=== PATIENT | female | born 2000 | race Caucasian/White ===

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

== ENCOUNTER 2020-04-07 09:25 | Inpatient (IN) | payer BC, OTHER ==
[2020-04-07 09:38] LABS: Glucose,Whole Blood 426 mg/dL (75-99)
[2020-04-07] MEDS ORDERED: SODIUM CHLORIDE 0.9% 1,000 ML IV STA (09:47)
--- NOTE | 2020-04-07 09:51 | ED ---
Chest Pain HPI - General Chief Complaint: Chest Pain Stated Complaint: chest pain Source: patient Mode of arrival: ambulatory Limitations: no limitations - History of Present Illness Initial Comments: 20-year-old female past medical history of type 1 diabetes who presents emergency Department with reported chest pain and shortness of breath. Patient states that this morning around 3 AM she began having left-sided pleuritic chest pain. States that it's been constant with associated short of breath. She denies fevers, cough, sick contacts with similar symptoms. The patient went into [employer] [employer] They attempted an Accu-Chek which was read as high. Because of this the patient was transferred to the emergency department for further evaluation. She does admit to several episodes of DKA in the past. Reports that she has been taking her insulin as directed without any missed doses. She admits to feeling fatigued recently however no other complaints. Denies any anastasia nges in bowel or bladder habits. No fevers or chills. Reports that her father at age of 30 from a heart attack. His personal history of cardiac disease. No other alleviating, precipitating or modifying factors - Related Data Home Medications Medication Instructions Recorded Confirmed Insulin Aspart [NovoLOG Flexpen] See Protocol SQ AC-TID 05/10/18 04/07/20 Ibuprofen [Motrin Ib] 400 mg PO Q8H PRN 04/07/20 04/07/20 Insulin Degludec [Tresiba 42 units SQ Q48H 04/07/20 04/07/20 Flextouch U-100] Allergies Allergy/AdvReac Type Severity Reaction Status Date / Time latex Allergy Rash/Hives Verified 04/07/20 10:38 Review of Systems ROS Statement: Those systems with pertinent positive or pertinent negative responses have been documented in the HPI. ROS Other: All systems not noted in ROS Statement are negative. EKG Findings - EKG Comments: EKG Findings:: EKG demonstrates normal sinus rhythm with a ventricular rate of 96. TN interval 132. QRS 94. QTC of 464. No acute ST segment elevations. J- point elevation in the lateral leads Past Medical History Past Medical History: Diabetes Mellitus Additional Past Medical History / Comment(s): Previous history of DKA, diabetes mellitus type 1 History of Any Multi-Drug Resistant Organisms: None Reported Past Surgical History: No Surgical Hx Reported Past Anesthesia/Blood Transfusion Reactions: No Reported Reaction Past Psychological History: Anxiety, Depression Smoking Status: Never smoker Past Alcohol Use History: Occasional Past Drug Use History: None Reported - Past Family History Father Family Medical History: Myocardial Infarction ([place]) Sister(s) Family Medical History: Thyroid Disorder Brother(s) Family Medical History: Asthma General Exam Limitations: no limitations Course Vital Signs 04/07/20 04/07/20 04/07/20 09:30 10:38 12:22 Temperature 97.8 F Pulse Rate 105 H 100 98 Respiratory 18 18 18 Rate Blood Pressure 126/78 130/89 130/89 O2 Sat by Pulse 99 100 100 Oximetry Chest Pain MDM - MDM On arrival patient was placed into room 8. A thorough history and physical exam was performed. Peripheral IV is established patient given a 2 L bolus of normal saline. Laboratory studies demonstrate a glucose of 426. Anion gap is 12, CO2 22, patient is positive for ketones emergency room. Urine shows 2+ ketones. I did discuss results with the patient. Did recommend overnight observation in order to clear the ketones which the patient did agree to. Discussed the case with Dr. hare who agreed to admit the patient. She was taken in stable condition Disposition Clinical Impression: Hyperglycemia, DKA (diabetic ketoacidoses) Disposition: ADMITTED IP TO THIS [facility] Condition: Stable Is patient prescribed a controlled substance at d/c from ED?: No Decision to Admit Reason: Admit from EC Decision Date: 04/07/20 Decision Time: 11:54
[2020-04-07 10:07] LABS: Basophils # (A) 0.1 k/uL (0-0.2); Basophils % (A) 1 %; Eosinophils # (A) 0.3 k/uL (0-0.7); Eosinophils % (A) 3 %; HCT 41.2 % (34.0-46.0); HGB 13.9 gm/dL (11.4-16.0); Lymphocytes # (A) 1.7 k/uL (1.0-4.8); Lymphocytes % (A) 17 %; MCH 31.7 pg (25.0-35.0); MCHC 33.8 g/dL (31.0-37.0); MCV 93.8 fL (80.0-100.0); Mean Platelet Volume 7.1; Monocytes # (A) 0.4 k/uL (0-1.0); Monocytes % (A) 3 %; Neutrophils # (A) 7.5 k/uL (1.3-7.7); Neutrophils % (A) 74 %; Platelet Count 426 k/uL (150-450); RBC 4.39 m/uL (3.80-5.40); RDW 12.4 % (11.5-15.5)
[2020-04-07 10:20] LABS: ALT 19 U/L (4-34); AST 28 U/L (14-36); African American GFR (CKD) >90 (>60 ml/min/1.73 sqM); Albumin 4.6 g/dL (3.5-5.0); Alkaline Phosphatase 139 U/L (38-126); Anion Gap 12 mmol/L; Blood Urea Nitrogen 13 mg/dL (7-17); Calcium 9.9 mg/dL (8.4-10.2); Carbon Dioxide 22 mmol/L (22-30); Chloride 99 mmol/L (98-107); Glucose 442 mg/dL (74-99); Magnesium 1.7 mg/dL (1.6-2.3); Non-African American GFR(CKD) >90 (>60 ml/min/1.73 sqM); Sodium 133 mmol/L (137-145); Total Bilirubin 1.4 mg/dL (0.2-1.3); Total Protein 8.2 g/dL (6.3-8.2)
[2020-04-07 10:36] LABS: D-Dimer 0.43 mg/L FEU (<0.60); INR 0.9 (<1.2); Partial Thromboplastin Time 22.6 sec (22.0-30.0); Prothrombin Time 9.5 sec (9.0-12.0)
--- NOTE | 2020-04-07 10:39 | XR ---
EXAMINATION TYPE: XR chest 2V DATE OF EXAM: 04/07/2020 COMPARISON: NONE TECHNIQUE: PA and lateral views submitted. HISTORY: Chest pain FINDINGS: The lungs are clear and there is no pneumothorax, pleural effusion, or focal pneumonia. Limited ins piration but no obvious overt failure. IMPRESSION: 1. No acute process.
[2020-04-07 10:47] LABS: Appearance,Urine Clear (Clear); Bilirubin,Urine Negative (Negative); Blood,Urine Negative (Negative); Color,Urine Light Yellow; Glucose,Urine (UA) 4+ (Negative); Leukocyte Esterase,Urine Negative (Negative); Nitrite,Urine Negative (Negative); PH, Urine 5.5 (5.0-8.0); Protein,Urine Negative (Negative); Specific Gravity,Urine 1.034 (1.001-1.035); Urobilinogen,Urine <2.0 mg/dL (<2.0)
[2020-04-07 10:54] LABS: Ketones,Urine 2+ (Negative)
[2020-04-07] MEDS ORDERED: NALOXONE 0.4 MG/ML 1 ML VIAL IV PRN (11:54)
[2020-04-07] MEDS ORDERED: INSULIN REGULAR 100 UNIT/ML VIAL IV ONE (11:58)
[2020-04-07] MEDS ORDERED: IBUPROFEN 400 MG TAB PO PRN (11:59)
[2020-04-07] MEDS: SODIUM CHLORIDE 0.9% 1,000 ML IV SCH ×2 (12:12→22:42)
[2020-04-07 12:13] LABS: Glucose,Whole Blood 384 mg/dL (75-99)
[2020-04-07 12:48] LABS: Glucose,Whole Blood 273 mg/dL (75-99)
[2020-04-07] MEDS: INSULIN ASPART (NovoLOG) 100 UNIT/ML VIAL SQ SCH ×3 (13:15→21:48)
[2020-04-07 16:36] LABS: Glucose,Whole Blood 437 mg/dL (75-99)
[2020-04-07 20:14] LABS: Glucose,Whole Blood 341 mg/dL (75-99)
--- NOTE | 2020-04-07 21:58 | HP ---
HISTORY AND PHYSICAL 20-year-old white female, type 1 diabetes mellitus, came in with chest pain, shortness of breath. She was having pleuritic chest pain associated shortness of breath. She was exposed to Covid but she went to [facility] and they told she was Covid negative. She was found to have positive acetone and possible elevated blood sugar with DKA secondary to possible viral syndrome in her abdomen. MEDICATIONS: Home medicines: NovoLog, FlexPen, Tarceva 42 units daily, Motrin. ALLERGIES: LATEX. REVIEW OF SYMPTOMS: 14-point review of systems otherwise negative. EKG sinus rhythm. PAST MEDICAL HISTORY: Type 1 diabetes mellitus, anxiety, depression. SOCIAL HISTORY: Never smoker. Occasional alcohol. No drugs. FAMILY HISTORY: Father myocardial infarction. Sister with thyroid disorder. Brother asthma. PHYSICAL EXAMINATION: Vital signs temp 97.5, pulse rate 98-105, respiratory rate 16 to 18, blood pressure 120s to 130s over 70s to 80s. ASSESSMENT: 1. Early diabetic ketoacidosis. 2. Dehydration. She will be admitted placed on DKA protocol. IV fluids will be given. She feels much better tonight. Possibly discharge home tomorrow if she is stabilized. Monitor electrolytes and potassium levels. MMODL / IJN: [id number] /
[2020-04-07] MEDS ORDERED: INSULIN DETEMIR (LEVEMIR) 100 UNIT/ML SYR SQ SCH (22:00)
[2020-04-08 00:39] LABS: Glucose,Whole Blood 239 mg/dL (75-99)
[2020-04-08 01:24] VITALS: RESP 16; TEMP 98.5
[2020-04-08 06:05] LABS: Glucose,Whole Blood 214 mg/dL (75-99)
[2020-04-08] MEDS: INSULIN ASPART (NovoLOG) 100 UNIT/ML VIAL SQ SCH ×3 (06:49→17:37)
[2020-04-08 08:10] LABS: ALT 14 U/L (4-34); AST 15 U/L (14-36); African American GFR (CKD) >90 (>60 ml/min/1.73 sqM); Albumin 3.3 g/dL (3.5-5.0); Alkaline Phosphatase 85 U/L (38-126); Anion Gap 4 mmol/L; Blood Urea Nitrogen 16 mg/dL (7-17); Carbon Dioxide 26 mmol/L (22-30); Chloride 106 mmol/L (98-107); Glucose 162 mg/dL (74-99); Non-African American GFR(CKD) >90 (>60 ml/min/1.73 sqM); Sodium 136 mmol/L (137-145); Total Bilirubin 0.7 mg/dL (0.2-1.3); Total Protein 6.3 g/dL (6.3-8.2)
[2020-04-08 08:17] LABS: Basophils # (A) 0.1 k/uL (0-0.2); Basophils % (A) 1 %; Eosinophils # (A) 0.4 k/uL (0-0.7); Eosinophils % (A) 6 %; HGB 12.6 gm/dL (11.4-16.0); Lymphocytes # (A) 2.3 k/uL (1.0-4.8); Lymphocytes % (A) 35 %; MCH 31.4 pg (25.0-35.0); MCV 92.6 fL (80.0-100.0); Monocytes # (A) 0.3 k/uL (0-1.0); Monocytes % (A) 4 %; Neutrophils # (A) 3.6 k/uL (1.3-7.7); Neutrophils % (A) 53 %; Platelet Count 334 k/uL (150-450); RDW 12.7 % (11.5-15.5); WBC 6.7 k/uL (4.0-11.0)
[2020-04-08] MEDS: SODIUM CHLORIDE 0.9% 1,000 ML IV SCH ×2 (09:20→17:37)
[2020-04-08 11:36] LABS: Glucose,Whole Blood 171 mg/dL (75-99)
[2020-04-08 16:51] LABS: Glucose,Whole Blood 283 mg/dL (75-99)
[2020-04-08 18:15] VITALS: BP 127/82; PULSE 84
[2020-04-08 18:37] LABS: Hemoglobin A1C 10.4 % (4.0-6.0)
[2020-04-08] MEDS ORDERED: INSULIN DETEMIR (LEVEMIR) 100 UNIT/ML SYR SQ SCH (21:00)
== END 2020-04-08 18:46 | disposition home or self-care (01) | DRG 639 ==
LOC: EC 09:25 → 3SCARD 11:54
PROVIDERS: ADMIT Family Medicine; ATTEND Family Medicine
DX: E10.10 Type 1 diabetes mellitus with ketoacidosis without coma (principal); E86.0 Dehydration; Z20.828 Contact with and (suspected) exposure to other viral communicable diseases; Z79.4 Long term (current) use of insulin; F32.9 Major depressive disorder, single episode, unspecified; F41.9 Anxiety disorder, unspecified; Z91.040 Latex allergy status; Z82.49 Family history of ischemic heart disease and other diseases of the circulatory system; Z82.5 Family history of asthma and other chronic lower respiratory diseases; Z83.49 Family history of other endocrine, nutritional and metabolic diseases
CPT/HCPCS: 36415; 71046; 80053; 81003; 81025; 82009; 83036; 83605; 83735; 84484; 85025; 85379; 85610; 85730; 93005; 96360; 96361; 99285

== ENCOUNTER 2021-03-09 21:19 | Inpatient (IN) | payer BC, OTHER ==
[2021-03-09] MEDS ORDERED: diphenhydrAMINE 50 MG/ML 1 ML VIAL IVP STA (21:51)
[2021-03-09] MEDS ORDERED: HYDROmorphone 0.5 MG/0.5 ML SYRINGE IVP STA (21:51)
[2021-03-09] MEDS ORDERED: ONDANSETRON 4 MG/2 ML VIAL IVP STA (21:51)
[2021-03-09] MEDS ORDERED: SODIUM CHLORIDE 0.9% 2,000 ML IV STA (21:51)
--- NOTE | 2021-03-09 21:53 | ED ---
General Adult HPI - General Stated complaint: nausea Time Seen by Provider: 03/09/21 21:20 Source: patient, RN notes reviewed Mode of arrival: ambulatory Limitations: no limitations - History of Present Illness Initial comments: this is a 21-year-old female presents emergency Department chief complaint of nausea vomiting, hyperglycemia.patient was discharged from [facility] 3 days ago for DKA. She states she feels like she is in similar condition at this time. Patient states she noticed her heart rate is been quite elevated, blood sugars were uncontrolled. Patient has any fevers chills no chest pain. patient states she does not have a current primary care physician states that she just been buying her insulin. - Related Data Home Medications Medication Instructions Recorded Confirmed Insulin Degludec [Tresiba 40 units SQ Q48H 04/07/20 03/09/21 Flextouch U-100 Pen] Insulin Detemir (Levemir) [Levemir] See Protocol SQ DIRECTED 03/09/21 03/09/21 Allergies Allergy/AdvReac Type Severity Reaction Status Date / Time latex Allergy Rash/Hives Verified 03/09/21 22:08 Review of Systems ROS Statement: Those systems with pertinent positive or pertinent negative responses have been documented in the HPI. ROS Other: All systems not noted in ROS Statement are negative. Past Medical History Past Medical History: Diabetes Mellitus Additional Past Medical History / Comment(s): Previous history of DKA, diabetes mellitus type 1 History of Any Multi-Drug Resistant Organisms: None Reported Past Surgical History: No Surgical Hx Reported Past Anesthesia/Blood Transfusion Reactions: No Reported Reaction Past Psychological History: Anxiety, Depression Smoking Status: Never smoker Past Alcohol Use History: Occasional Past Drug Use History: None Reported - Past Family History Father Family Medical History: Myocardial Infarction (PR) Sister(s) Family Medical History: Thyroid Disorder Brother(s) Family Medical History: Asthma General Exam General appearance: alert, in no apparent distress Head exam: Present: atraumatic, normocephalic, normal inspection Eye exam: Present: normal appearance, PERRL, EOMI. Absent: scleral icterus, conjunctival injection, periorbital swelling ENT exam: Present: normal exam, mucous membranes moist Neck exam: Present: normal inspection, full ROM. Absent: tenderness, meningismus, lymphadenopathy Respiratory exam: Present: normal lung sounds bilaterally. Absent: respiratory distress, wheezes, rales, rhonchi, stridor Cardiovascular Exam: Present: normal rhythm, tachycardia, normal heart sounds. Absent: systolic murmur, diastolic murmur, rubs, gallop, clicks GI/Abdominal exam: Present: soft, tenderness, normal bowel sounds. Absent: distended, guarding, rebound, rigid Neurological exam: Present: alert, oriented X3 Skin exam: Present: warm, dry, intact, normal color. Absent: rash Course Vital Signs 03/09/21 03/10/21 21:59 00:25 Temperature 99.1 F Pulse Rate 148 H 112 H Respiratory 22 18 Rate Blood Pressure 121/77 119/66 O2 Sat by Pulse 100 99 Oximetry Medical Decision Making - Medical Decision Making CT shows evidence of acute pancreatitis. Patient's lab reveal lipase over 7700, amylase 616 patient had increase abdominal pain, nausea vomiting patient has metabolic acidosis lactic of 6.6. Patient will be admitted for pain management, fluid hydration - Lab Data Result diagrams: 03/09/21 22:00 03/09/21 22:00 Lab Results 03/09/21 03/09/21 03/09/21 Range/Units 22:00 22:00 22:00 WBC 10.1 (3.8-10.6) k/uL RBC 4.90 (3.80-5.40) m/uL Hgb 15.3 (11.4-16.0) gm/dL Hct 45.6 (34.0-46.0) % MCV 92.9 (80.0-100.0) fL MCH 31.2 (25.0-35.0) pg MCHC 33.6 (31.0-37.0) g/dL RDW 15.8 H (11.5-15.5) % Plt Count 824 H (150-450) k/uL MPV 7.0 Neutrophils % 75 % Lymphocytes % 18 % Monocytes % 5 % Eosinophils % 0 % Basophils % 1 % Neutrophils # 7.6 (1.3-7.7) k/uL Lymphocytes # 1.8 (1.0-4.8) k/uL Monocytes # 0.5 (0-1.0) k/uL Eosinophils # 0.0 (0-0.7) k/uL Basophils # 0.1 (0-0.2) k/uL VBG pH (7.31-7.41) VBG pCO2 (37-51) mmHg VBG HCO3 (24-28) mmol/L Sodium 141 (137-145) mmol/L Potassium 4.1 (3.5-5.1) mmol/L Chloride 98 (98-107) mmol/L Carbon Dioxide 13 L (22-30) mmol/L Anion Gap 30 mmol/L BUN 15 (7-17) mg/dL Creatinine 0.67 (0.52-1.04) mg/dL Est GFR (CKD-EPI)AfAm >90 (>60 ml/min/1.73 sqM) Est GFR (CKD-EPI)NonAf >90 (>60 ml/min/1.73 sqM) Glucose 109 H (74-99) mg/dL POC Glucose (mg/dL) (75-99) mg/dL POC Glu Clam Digger ID Lactic Ac Sepsis Rflx Plasma Lactic Acid Leroy 6.6 H* (0.7-2.0) mmol/L Calcium 11.3 H (8.4-10.2) mg/dL Magnesium 1.8 (1.6-2.3) mg/dL Total Bilirubin 0.5 (0.2-1.3) mg/dL AST 29 (14-36) U/L ALT 30 (4-34) U/L Alkaline Phosphatase 193 H (38-126) U/L Total Protein 9.2 H (6.3-8.2) g/dL Albumin 5.1 H (3.5-5.0) g/dL Amylase 616 H* (30-110) U/L Lipase 7734 H (23-300) U/L Urine Color Urine Appearance (Clear) Urine pH (5.0-8.0) Ur Specific [place] (1.001-1.035) Urine Protein (Negative) Urine Glucose (UA) (Negative) Urine Ketones (Negative) Urine Blood (Negative) Urine Nitrite (Negative) Urine Bilirubin (Negative) Urine Urobilinogen (<2.0) mg/dL Ur Leukocyte Esterase (Negative) Urine RBC (0-5) /hpf Urine WBC (0-5) /hpf Ur Squamous Epith Cells (0-4) /hpf Hyaline Casts (0-2) /lpf Urine Mucus (None) /hpf Urine HCG, Qual (Not Detectd) Coronavirus (PCR) (Not Detectd) 12/06/21 12/06/21 12/06/21 Range/Units 22:00 22:14 22:14 WBC (3.8-10.6) k/uL RBC (3.80-5.40) m/uL Hgb (11.4-16.0) gm/dL Hct (34.0-46.0) % MCV (80.0-100.0) fL MCH (25.0-35.0) pg MCHC (31.0-37.0) g/dL RDW (11.5-15.5) % Plt Count (150-450) k/uL MPV Neutrophils % % Lymphocytes % % Monocytes % % Eosinophils % % Basophils % % Neutrophils # (1.3-7.7) k/uL Lymphocytes # (1.0-4.8) k/uL Monocytes # (0-1.0) k/uL Eosinophils # (0-0.7) k/uL Basophils # (0-0.2) k/uL VBG pH 7.29 L (7.31-7.41) VBG pCO2 37 (37-51) mmHg VBG HCO3 17 L (24-28) mmol/L Sodium (137-145) mmol/L Potassium (3.5-5.1) mmol/L Chloride (98-107) mmol/L Carbon Dioxide (22-30) mmol/L Anion Gap mmol/L BUN (7-17) mg/dL Creatinine (0.52-1.04) mg/dL Est GFR (CKD-EPI)AfAm (>60 ml/min/1.73 sqM) Est GFR (CKD-EPI)NonAf (>60 ml/min/1.73 sqM) Glucose (74-99) mg/dL POC Glucose (mg/dL) (75-99) mg/dL POC Glu Clam Digger ID Lactic Ac Sepsis Rflx Plasma Lactic Acid Leroy (0.7-2.0) mmol/L Calcium (8.4-10.2) mg/dL Magnesium (1.6-2.3) mg/dL Total Bilirubin (0.2-1.3) mg/dL AST (14-36) U/L ALT (4-34) U/L Alkaline Phosphatase (38-126) U/L Total Protein (6.3-8.2) g/dL Albumin (3.5-5.0) g/dL Amylase (30-110) U/L Lipase (23-300) U/L Urine Color Yellow Urine Appearance Cloudy H (Clear) Urine pH 5.5 (5.0-8.0) Ur Specific [place] 1.022 (1.001-1.035) Urine Protein 2+ H (Negative) Urine Glucose (UA) 4+ H (Negative) Urine Ketones 4+ H (Negative) Urine Blood Small H (Negative) Urine Nitrite Negative (Negative) Urine Bilirubin 2+ H (Negative) Urine Urobilinogen 6.0 (<2.0) mg/dL Ur Leukocyte Esterase Moderate H (Negative) Urine RBC 3 (0-5) /hpf Urine WBC 4 (0-5) /hpf Ur Squamous Epith Cells 11 H (0-4) /hpf Hyaline Casts 25 H (0-2) /lpf Urine Mucus Few H (None) /hpf Urine HCG, Qual Not Detected (Not Detectd) Coronavirus (PCR) (Not Detectd) 03/09/21 03/09/21 03/10/21 Range/Units 22:47 23:55 00:51 WBC (3.8-10.6) k/uL RBC (3.80-5.40) m/uL Hgb (11.4-16.0) gm/dL Hct (34.0-46.0) % MCV (80.0-100.0) fL MCH (25.0-35.0) pg MCHC (31.0-37.0) g/dL RDW (11.5-15.5) % Plt Count (150-450) k/uL MPV Neutrophils % % Lymphocytes % % Monocytes % % Eosinophils % % Basophils % % Neutrophils # (1.3-7.7) k/uL Lymphocytes # (1.0-4.8) k/uL Monocytes # (0-1.0) k/uL Eosinophils # (0-0.7) k/uL Basophils # (0-0.2) k/uL VBG pH (7.31-7.41) VBG pCO2 (37-51) mmHg VBG HCO3 (24-28) mmol/L Sodium (137-145) mmol/L Potassium (3.5-5.1) mmol/L Chloride (98-107) mmol/L Carbon Dioxide (22-30) mmol/L Anion Gap mmol/L BUN (7-17) mg/dL Creatinine (0.52-1.04) mg/dL Est GFR (CKD-EPI)AfAm (>60 ml/min/1.73 sqM) Est GFR (CKD-EPI)NonAf (>60 ml/min/1.73 sqM) Glucose (74-99) mg/dL POC Glucose (mg/dL) 45 L (75-99) mg/dL POC Glu Clam Digger ID José Miguel Zepeda Lactic Ac Sepsis Rflx Y Plasma Lactic Acid Leroy (0.7-2.0) mmol/L Calcium (8.4-10.2) mg/dL Magnesium (1.6-2.3) mg/dL Total Bilirubin (0.2-1.3) mg/dL AST (14-36) U/L ALT (4-34) U/L Alkaline Phosphatase (38-126) U/L Total Protein (6.3-8.2) g/dL Albumin (3.5-5.0) g/dL Amylase (30-110) U/L Lipase (23-300) U/L Urine Color Urine Appearance (Clear) Urine pH (5.0-8.0) Ur Specific [place] (1.001-1.035) Urine Protein (Negative) Urine Glucose (UA) (Negative) Urine Ketones (Negative) Urine Blood (Negative) Urine Nitrite (Negative) Urine Bilirubin (Negative) Urine Urobilinogen (<2.0) mg/dL Ur Leukocyte Esterase (Negative) Urine RBC (0-5) /hpf Urine WBC (0-5) /hpf Ur Squamous Epith Cells (0-4) /hpf Hyaline Casts (0-2) /lpf Urine Mucus (None) /hpf Urine HCG, Qual (Not Detectd) Coronavirus (PCR) Not Detected (Not Detectd) Disposition Clinical Impression: Nausea & vomiting, Metabolic acidosis, Dehydration, Acute pancreatitis Disposition: ADMITTED IP TO THIS HOSP Condition: Poor Referrals: Bhavesh Dick MD [STAFF PHYSICIAN] - 1-2 days
[2021-03-09 22:27] LABS: Basophils # (A) 0.1 k/uL (0-0.2); Basophils % (A) 1 %; Eosinophils % (A) 0 %; HCT 45.6 % (34.0-46.0); HGB 15.3 gm/dL (11.4-16.0); Lymphocytes # (A) 1.8 k/uL (1.0-4.8); Lymphocytes % (A) 18 %; MCH 31.2 pg (25.0-35.0); MCHC 33.6 g/dL (31.0-37.0); MCV 92.9 fL (80.0-100.0); Monocytes # (A) 0.5 k/uL (0-1.0); Monocytes % (A) 5 %; Neutrophils # (A) 7.6 k/uL (1.3-7.7); Neutrophils % (A) 75 %; Platelet Count 824 k/uL (150-450); RDW 15.8 % (11.5-15.5); VBG PH 7.29 (7.31-7.41); WBC 10.1 k/uL (3.8-10.6)
[2021-03-09 22:40] LABS: AST 29 U/L (14-36); African American GFR (CKD) >90 (>60 ml/min/1.73 sqM); Albumin 5.1 g/dL (3.5-5.0); Alkaline Phosphatase 193 U/L (38-126); Anion Gap 30 mmol/L; Blood Urea Nitrogen 15 mg/dL (7-17); Calcium 11.3 mg/dL (8.4-10.2); Carbon Dioxide 13 mmol/L (22-30); Chloride 98 mmol/L (98-107); Glucose 109 mg/dL (74-99); Magnesium 1.8 mg/dL (1.6-2.3); Non-African American GFR(CKD) >90 (>60 ml/min/1.73 sqM); Potassium 4.1 mmol/L (3.5-5.1); Sodium 141 mmol/L (137-145); Total Bilirubin 0.5 mg/dL (0.2-1.3); Total Protein 9.2 g/dL (6.3-8.2)
[2021-03-09 22:47] LABS: ALT 30 U/L (4-34)
[2021-03-09 22:48] LABS: Amylase 616 U/L (30-110)
[2021-03-09 23:13] LABS: Lipase 7734 U/L (23-300)
[2021-03-09 23:53] LABS: Appearance,Urine Cloudy (Clear); Bilirubin,Urine 2+ (Negative); Blood,Urine Small (Negative); Color,Urine Yellow; Glucose,Urine (UA) 4+ (Negative); Hyaline Casts,Urine 25 /lpf (0-2); Leukocyte Esterase,Urine Moderate (Negative); Mucus,Urine Few /hpf; Nitrite,Urine Negative (Negative); PH, Urine 5.5 (5.0-8.0); Protein,Urine 2+ (Negative); RBC,Urine 3 /hpf (0-5); Specific Gravity,Urine 1.022 (1.001-1.035); Squamous Epithelial Cell,Urine 11 /hpf (0-4); WBC,Urine 4 /hpf (0-5)
[2021-03-09 23:55] LABS: Ketones,Urine 4+ (Negative)
[2021-03-10] MEDS: SODIUM CHLORIDE 0.9% 1,000 ML IV SCH ×2 (00:04→04:38)
[2021-03-10 00:53] LABS: Glucose,Whole Blood 45 mg/dL (75-99)
[2021-03-10] MEDS ORDERED: KETOROLAC 30 MG/ML 1 ML VIAL IVP STA (01:30)
[2021-03-10] MEDS: D5-0.45% NACL WITH KCL 20MEQ/L 1,000 ML IV SCH ×2 (01:38→09:16)
--- NOTE | 2021-03-10 01:43 | CT ---
EXAMINATION TYPE: CT abdomen pelvis w con DATE OF EXAM: 03/10/2021 COMPARISON: None HISTORY: pain and nausea. CT DLP: 813.9 mGycm Automated exposure control for dose reduction was used. CONTRAST: Performed with IV Contrast, patient injected with 100ml mL of Isovue 300. Lung bases are clear. There is no pleural effusion. Heart size is normal. There is no pericardial eff usion. Liver spleen stomach gallbladder appear intact. The bile ducts are not dilated. There is some fluid a round the body and tail and head of the pancreas. There is no adrenal mass. Kidneys show satisfactory contrast opacification. There is no hydronephrosi s. Ureters are not dilated. Bladder distends smoothly. Uterus is anteverted. There is no free fluid i n the pelvis. There is no evidence of a pelvic mass. There is no mesenteric edema. There is no ascites or free air. There is no bowel obstruction. Appendi x appears normal. Appendix folded on itself. The lumbar vertebra have normal spacing and alignment. Posterior elements are intact. Bony pelvis is intact. The hip joints are intact. IMPRESSION: There is retroperitoneal low-density fluid accumulation around the pancreas consistent with acute hernandez creatitis.
[2021-03-10] MEDS ORDERED: ONDANSETRON 4 MG/2 ML VIAL IVP PRN (01:49)
[2021-03-10] MEDS ORDERED: NALOXONE 0.4 MG/ML 1 ML VIAL IV PRN (01:49)
[2021-03-10 02:36] LABS: Glucose,Whole Blood 211 mg/dL (75-99)
[2021-03-10] MEDS: HYDROmorphone 0.5 MG/0.5 ML SYRINGE IVP PRN ×5 (02:38→20:22)
--- NOTE | 2021-03-10 03:00 | P.HPIM ---
History of Present Illness H&P Date: 03/10/21 The patient was seen in the emergency room with ELI Bustamante. The patient is a 21-year-old female with a PMH of type I DM who presents to the emergency room with complaints of abdominal pain, nausea, vomiting. The patient reports that she was recently admitted to a hospital in [place] for DKA on er 29 and was discharged on March 05. She reports that she was doing well after her discharge until last night when she began having diffuse abdominal pain along with 4 episodes of vomiting over the next few hours. She reports her pain is epigastric radiating throughout her abdomen, 6 out of 10 at the time of interview, without any alleviating or exacerbating features. She reports that these symptoms are usually indicative of DKA episode, due to which she decided to come to the emergency room. She reports compliance with her insulin at home and states that her blood glucose were in the 100s up until she began throwing up. In the emergency room, the patient was noted to be in acute pancreatitis with a lipase of 7734, CO2 13, anion gap 30, and lactic acid 6.6. The patient reports history of a single episode of pancreatitis 2 years ago. She denied alcohol use and states that her last drink was several years ago. Further denied any complaints, fever, chills, diarrhea. Denied chest pain, shortness of breath, headaches, weakness, numbness, tingling. CT abdomen and pelvis in the emergency room was consistent with acute pancreatitis. Review of systems: Pertinent positives and negatives as discussed in HPI, a complete review of systems was performed and all other systems are negative. Physical examination: General: non toxic, no distress, appears at stated age, normal weight Derm: no unusual rashes/lesions no unusual ecchymoses, warm, dry Head: atraumatic, normocephalic, symmetric Eyes: EOMI, no lid lag, anicteric sclera, pupils equal round reactive to light ENT: Nose and ears atraumatic, no thrush, no pharyngeal erythema Neck: No thyromegaly, no cervical lymphadenopathy, trachea midline, supple Mouth: no lip lesion, mucus membranes moist Cardiovascular: S1S2 reg, no murmur, positive posterior tibial pulse bilateral, no edema, capillary refill less than 2 seconds Lungs: CTA bilateral, no rhonchi, no rales , no accessory muscle use Abdominal: soft, mild epigastric tenderness, some guarding, no appreciable organomegaly, normal bowel sounds Ext: no gross muscle atrophy, muscle strength 5 out of 5 in all 4 extremities grossly, no contractures, Neuro: CN II-XI grossly intact, light touch intact all 4 extremities, finger to nose within normal limits, Psych: Alert, oriented, appropriate affect Assessment/plan Acute pancreatitis, unclear etiology -Obtain lipid panel -Continue IV fluids -Pain control -Nothing by mouth for now Type 1 DM -Hold off on Long-acting insulin in setting of hypoglycemia -C/w Insulin sliding scale with IVFs Lactic acidosis -IV fluids -Monitor for resolution DVT prophylaxis -Heparin subcu The patient is admitted with an anticipated greater than 2 midnight stay for evaluation of acute pancreatitis. CODE STATUS: Full Code Discussed with: Patient Anticipated discharge date: 2-[address]: Home Past Medical History Past Medical History: Diabetes Mellitus Additional Past Medical History / Comment(s): Previous history of DKA, diabetes mellitus type 1 History of Any Multi-Drug Resistant Organisms: None Reported Past Surgical History: No Surgical Hx Reported Past Anesthesia/Blood Transfusion Reactions: No Reported Reaction Past Psychological History: Anxiety, Depression Smoking Status: Never smoker Past Alcohol Use History: Occasional Past Drug Use History: None Reported - Past Family History Father Family Medical History: Myocardial Infarction (DC) Sister(s) Family Medical History: Thyroid Disorder Brother(s) Family Medical History: Asthma Medications and Allergies Home Medications Medication Instructions Recorded Confirmed Type Insulin Degludec [Tresiba 40 units SQ Q48H 04/07/20 03/09/21 History Flextouch U-100 Pen] Insulin Detemir (Levemir) [Levemir] See Protocol SQ DIRECTED 03/09/21 03/09/21 History Allergies Allergy/AdvReac Type Severity Reaction Status Date / Time latex Allergy Rash/Hives Verified 03/09/21 22:08 Physical Exam Vitals: Vital Signs Temp Pulse Resp BP Pulse Ox 03/10/21 00:25 112 H 18 119/66 99 03/09/21 21:59 99.1 F 148 H 22 121/77 100 Intake and Output 03/09/21 03/09/21 03/10/21 14:59 22:59 06:59 Other: Weight 69.4 kg Results CBC & Chem 7: 03/09/21 22:00 03/09/21 22:00 Labs: Abnormal Lab Results - Last 24 Hours (Table) 03/09/21 03/09/21 03/09/21 Range/Units 22:00 22:00 22:00 RDW 15.8 H (11.5-15.5) % Plt Count 824 H (150-450) k/uL VBG pH (7.31-7.41) VBG HCO3 (24-28) mmol/L Carbon Dioxide 13 L (22-30) mmol/L Glucose 109 H (74-99) mg/dL POC Glucose (mg/dL) (75-99) mg/dL Plasma Lactic Acid Leroy 6.6 H* (0.7-2.0) mmol/L Calcium 11.3 H (8.4-10.2) mg/dL Alkaline Phosphatase 193 H (38-126) U/L Total Protein 9.2 H (6.3-8.2) g/dL Albumin 5.1 H (3.5-5.0) g/dL Amylase 616 H* (30-110) U/L Lipase 7734 H (23-300) U/L Urine Appearance (Clear) Urine Protein (Negative) Urine Glucose (UA) (Negative) Urine Ketones (Negative) Urine Blood (Negative) Urine Bilirubin (Negative) Ur Leukocyte Esterase (Negative) Ur Squamous Epith Cells (0-4) /hpf Hyaline Casts (0-2) /lpf Urine Mucus (None) /hpf 03/09/21 03/09/21 03/10/21 Range/Units 22:00 22:14 00:51 RDW (11.5-15.5) % Plt Count (150-450) k/uL VBG pH 7.29 L (7.31-7.41) VBG HCO3 17 L (24-28) mmol/L Carbon Dioxide (22-30) mmol/L Glucose (74-99) mg/dL POC Glucose (mg/dL) 45 L (75-99) mg/dL Plasma Lactic Acid Ler[place] (0.7-2.0) mmol/L Calcium (8.4-10.2) mg/dL Alkaline Phosphatase (38-126) U/L Total Protein (6.3-8.2) g/dL Albumin (3.5-5.0) g/dL Amylase (30-110) U/L Lipase (23-300) U/L Urine Appearance Cloudy H (Clear) Urine Protein 2+ H (Negative) Urine Glucose (UA) 4+ H (Negative) Urine Ketones 4+ H (Negative) Urine Blood Small H (Negative) Urine Bilirubin 2+ H (Negative) Ur Leukocyte Esterase Moderate H (Negative) Ur Squamous Epith Cells 11 H (0-4) /hpf Hyaline Casts 25 H (0-2) /lpf Urine Mucus Few H (None) /hpf 03/10/21 Range/Units 02:34 RDW (11.5-15.5) % Plt Count (150-450) k/uL VBG pH (7.31-7.41) VBG HCO3 (24-28) mmol/L Carbon Dioxide (22-30) mmol/L Glucose (74-99) mg/dL POC Glucose (mg/dL) 211 H (75-99) mg/dL Plasma Lactic Acid [place] (0.7-2.0) mmol/L Calcium (8.4-10.2) mg/dL Alkaline Phosphatase (38-126) U/L Total Protein (6.3-8.2) g/dL Albumin (3.5-5.0) g/dL Amylase (30-110) U/L Lipase (23-300) U/L Urine Appearance (Clear) Urine Protein (Negative) Urine Glucose (UA) (Negative) Urine Ketones (Negative) Urine Blood (Negative) Urine Bilirubin (Negative) Ur Leukocyte Esterase (Negative) Ur Squamous Epith Cells (0-4) /hpf Hyaline Casts (0-2) /lpf Urine Mucus (None) /hpf
[2021-03-10 04:48] VITALS: RESP 16
[2021-03-10 06:30] LABS: Glucose,Whole Blood 384 mg/dL (75-99)
[2021-03-10 06:33] LABS: HCT 30.3 % (34.0-46.0); MCH 32.2 pg (25.0-35.0); MCHC 34.7 g/dL (31.0-37.0); MCV 92.9 fL (80.0-100.0); Mean Platelet Volume 6.8; Platelet Count 473 k/uL (150-450); RBC 3.26 m/uL (3.80-5.40); WBC 7.9 k/uL (3.8-10.6)
[2021-03-10] MEDS: INSULIN ASPART (NovoLOG) 100 UNIT/ML VIAL SQ SCH ×4 (06:34→20:23)
[2021-03-10 06:41] LABS: HGB 10.5 gm/dL (11.4-16.0)
[2021-03-10 06:43] LABS: ALT 11 U/L (4-34); AST 17 U/L (14-36); African American GFR (CKD) >90 (>60 ml/min/1.73 sqM); Albumin 2.7 g/dL (3.5-5.0); Alkaline Phosphatase 112 U/L (38-126); Anion Gap 13 mmol/L; Blood Urea Nitrogen 9 mg/dL (7-17); Calcium 8.4 mg/dL (8.4-10.2); Carbon Dioxide 17 mmol/L (22-30); Chloride 99 mmol/L (98-107); Glucose 382 mg/dL (74-99); Non-African American GFR(CKD) >90 (>60 ml/min/1.73 sqM); Potassium 4.5 mmol/L (3.5-5.1); Sodium 129 mmol/L (137-145); Total Bilirubin 0.3 mg/dL (0.2-1.3); Total Protein 5.3 g/dL (6.3-8.2)
[2021-03-10] MEDS: HEPARIN SODIUM,PORCINE/PF 5,000 UNIT/0.5 ML SYRINGE SQ SCH ×2 (09:27→16:59)
[2021-03-10] MEDS: LACTATED RINGERS 1,000 ML IV SCH ×2 (10:00→14:26)
[2021-03-10 10:30] LABS: Chol/HDL Ratio 3.72 Ratio; LDL Cholesterol,Calculated 75.2 mg/dL (0.0-131.0)
--- NOTE | 2021-03-10 13:13 | P.PN ---
Subjective Principal diagnosis: Acute pancreatitis Chart was reviewed patient was examined. Patient history of type 1 diabetes mellitus admitted for epigastric abdominal pain nausea. Cannot tolerate any oral intake. Emergency department CT of the abdomen showed findings consistent with acute pancreatitis, no necrosis no cysts. No masses. Patient recently treated for DKA in outside institution. Patient is the typically on Tresiba 40 units every 48 hours and sliding scale insulin at home. This morning patient reports that she is feeling significantly better. No further abdominal pain nausea or vomiting. Last bowel movement was yesterday. Her urine output has increased. She is feeling hungry. Her sugar is increasing as she was little bit hypoglycemic side yesterday. She denies any burning with urination cough expectoration fever chills headache or chest pain. Objective - Vital Signs Vital signs: Vital Signs Temp 98.0 F 03/10/21 08:15 Pulse 104 H 03/10/21 09:31 Resp 16 03/10/21 08:15 BP 104/59 03/10/21 08:15 Pulse Ox 99 03/10/21 08:15 Intake & Output 03/09/21 03/10/21 03/10/21 18:59 06:59 18:59 Weight 69.4 kg Other: # Voids 1 - Exam Patient is awake alert oriented 3. no Distress Head and neck: Automotive normocephalic anicteric sclera oropharyngeal mucosa is somewhat dry without any lesions, no neck masses no JVD Lungs: Clear to auscultation bilaterally Cardiovascular: Tachycardic regular S1-S2 no murmurs Abdomen: She has bowel sounds throughout abdomen, nontender nondistended no organomegaly no flank tenderness Extremities: No peripheral edema no cyanosis Neurological awake alert oriented 3 no asterixis - Labs CBC & Chem 7: 03/10/21 06:09 03/10/21 06:09 Labs: Abnormal Lab Results - Last 24 Hours (Table) 03/09/21 03/09/21 03/09/21 Range/Units 22:00 22:00 22:00 RBC (3.80-5.40) m/uL Hgb (11.4-16.0) gm/dL Hct (34.0-46.0) % RDW 15.8 H (11.5-15.5) % Plt Count 824 H (150-450) k/uL VBG pH (7.31-7.41) VBG HCO3 (24-28) mmol/L Sodium (137-145) mmol/L Carbon Dioxide 13 L (22-30) mmol/L Creatinine (0.52-1.04) mg/dL Glucose 109 H (74-99) mg/dL POC Glucose (mg/dL) (75-99) mg/dL Plasma Lactic Acid Leroy 6.6 H* (0.7-2.0) mmol/L Calcium 11.3 H (8.4-10.2) mg/dL Alkaline Phosphatase 193 H (38-126) U/L Total Protein 9.2 H (6.3-8.2) g/dL Albumin 5.1 H (3.5-5.0) g/dL HDL Cholesterol (40.00-60.00) mg/dL Amylase 616 H* (30-110) U/L Lipase 7734 H (23-300) U/L Urine Appearance (Clear) Urine Protein (Negative) Urine Glucose (UA) (Negative) Urine Ketones (Negative) Urine Blood (Negative) Urine Bilirubin (Negative) Ur Leukocyte Esterase (Negative) Ur Squamous Epith Cells (0-4) /hpf Hyaline Casts (0-2) /lpf Urine Mucus (None) /hpf 03/09/21 03/09/21 03/10/21 Range/Units 22:00 22:14 00:51 RBC (3.80-5.40) m/uL Hgb (11.4-16.0) gm/dL Hct (34.0-46.0) % RDW (11.5-15.5) % Plt Count (150-450) k/uL VBG pH 7.29 L (7.31-7.41) VBG HCO3 17 L (24-28) mmol/L Sodium (137-145) mmol/L Carbon Dioxide (22-30) mmol/L Creatinine (0.52-1.04) mg/dL Glucose (74-99) mg/dL POC Glucose (mg/dL) 45 L (75-99) mg/dL Plasma Lactic Acid Leroy (0.7-2.0) mmol/L Calcium (8.4-10.2) mg/dL Alkaline Phosphatase (38-126) U/L Total Protein (6.3-8.2) g/dL Albumin (3.5-5.0) g/dL HDL Cholesterol (40.00-60.00) mg/dL Amylase (30-110) U/L Lipase (23-300) U/L Urine Appearance Cloudy H (Clear) Urine Protein 2+ H (Negative) Urine Glucose (UA) 4+ H (Negative) Urine Ketones 4+ H (Negative) Urine Blood Small H (Negative) Urine Bilirubin 2+ H (Negative) Ur Leukocyte Esterase Moderate H (Negative) Ur Squamous Epith Cells 11 H (0-4) /hpf Hyaline Casts 25 H (0-2) /lpf Urine Mucus Few H (None) /hpf 03/10/21 03/10/21 03/10/21 Range/Units 02:34 06:09 06:09 RBC 3.26 L (3.80-5.40) m/uL Hgb 10.5 L D (11.4-16.0) gm/dL Hct 30.3 L (34.0-46.0) % RDW 16.0 H (11.5-15.5) % Plt Count 473 H (150-450) k/uL VBG pH (7.31-7.41) VBG HCO3 (24-28) mmol/L Sodium 129 L (137-145) mmol/L Carbon Dioxide 17 L (22-30) mmol/L Creatinine 0.45 L (0.52-1.04) mg/dL Glucose 382 H (74-99) mg/dL POC Glucose (mg/dL) 211 H (75-99) mg/dL Plasma Lactic Acid Leroy (0.7-2.0) mmol/L Calcium (8.4-10.2) mg/dL Alkaline Phosphatase (38-126) U/L Total Protein 5.3 L (6.3-8.2) g/dL Albumin 2.7 L (3.5-5.0) g/dL HDL Cholesterol 36.80 L (40.00-60.00) mg/dL Amylase (30-110) U/L Lipase (23-300) U/L Urine Appearance (Clear) Urine Protein (Negative) Urine Glucose (UA) (Negative) Urine Ketones (Negative) Urine Blood (Negative) Urine Bilirubin (Negative) Ur Leukocyte Esterase (Negative) Ur Squamous Epith Cells (0-4) /hpf Hyaline Casts (0-2) /lpf Urine Mucus (None) /hpf 03/10/21 Range/Units 06:29 RBC (3.80-5.40) m/uL Hgb (11.4-16.0) gm/dL Hct (34.0-46.0) % RDW (11.5-15.5) % Plt Count (150-450) k/uL VBG pH (7.31-7.41) VBG HCO3 (24-28) mmol/L Sodium (137-145) mmol/L Carbon Dioxide (22-30) mmol/L Creatinine (0.52-1.04) mg/dL Glucose (74-99) mg/dL POC Glucose (mg/dL) 384 H (75-99) mg/dL Plasma Lactic Acid Leroy (0.7-2.0) mmol/L Calcium (8.4-10.2) mg/dL Alkaline Phosphatase (38-126) U/L Total Protein (6.3-8.2) g/dL Albumin (3.5-5.0) g/dL HDL Cholesterol (40.00-60.00) mg/dL Amylase (30-110) U/L Lipase (23-300) U/L Urine Appearance (Clear) Urine Protein (Negative) Urine Glucose (UA) (Negative) Urine Ketones (Negative) Urine Blood (Negative) Urine Bilirubin (Negative) Ur Leukocyte Esterase (Negative) Ur Squamous Epith Cells (0-4) /hpf Hyaline Casts (0-2) /lpf Urine Mucus (None) /hpf Assessment and Plan Plan: #Acute pancreatitis Clinically patient improving Denies alcohol intake or any new medications or [id number]-wkdhlol medications or supplements Triglycerides level is normal CT of the abdomen showed acute pancreatitis without any hepatobiliary pathology Liver enzymes, alk phos and bilirubin normal This could be still residual pancreatic inflammation and elevation of lipase related to DKA for which patient was treated 3 days ago an outside institution Plan these to increase IV fluids, changed to LR Close monitor electrolytes and kidney function and urine output and symptoms Since her abdominal pain nausea and vomiting completely resolved, we'll start low-fat clear liquid diet and advance as tolerated Obtain ultrasound of hepatobiliary system Gastroenterology consultation note available at this time in the hospital. We'll ask patient to follow-up in gastroenterology office upon discharge, may benefit from US and/or MRCP, autoimmune workup #Type 1 diabetes mellitus Presenting with hypoglycemia likely due to decreased oral intake Home regimen: Tresiba 40 units q48 hrs, last injection 2 days ago plus NovoLog sliding scale As blood glucose has been improving we will plan to add long-acting insulin, Levemir this evening and continue sliding scale Close monitoring of blood glucose #Ketoacidosis Multifactorial likely due to starvation ketoacidosis, cannot rule out component of diabetic ketoacidosis Restart diet Insulin coverage IV fluids, changed to LR Will check BMP this afternoon Patient is a full code Will need more than 2 minutes hospital stay
[2021-03-10 13:34] LABS: Glucose,Whole Blood 406 mg/dL (75-99)
--- NOTE | 2021-03-10 14:41 | US ---
EXAMINATION TYPE: US abdomen limited DATE OF EXAM: 03/10/2021 COMPARISON: NONE CLINICAL HISTORY: Acute pancreatitis, eval hepatobiliary system. acute pancreatitis EXAM MEASUREMENTS: Liver Length: 16.8 cm Gallbladder Wall: 0.2 cm CBD: 0.5 cm Right Kidney: 10.8 x 5.6 x 4.7 cm Pancreas: Obscured by bowel gas Liver: wnl Gallbladder: wnl Evidence for sonographic Blount's sign: no CBD: wnl Right Kidney: wnl IMPRESSION: 1. No acute process.
[2021-03-10] MEDS ORDERED: INSULIN DETEMIR (LEVEMIR) 100 UNIT/ML SYR SQ SCH ×4 (15:30→21:00)
[2021-03-10 15:51] LABS: Glucose,Whole Blood 205 mg/dL (75-99)
[2021-03-10 16:15] LABS: African American GFR (CKD) >90 (>60 ml/min/1.73 sqM); Anion Gap 19 mmol/L; Blood Urea Nitrogen 7 mg/dL (7-17); Carbon Dioxide 14 mmol/L (22-30); Chloride 100 mmol/L (98-107); Glucose 232 mg/dL (74-99); Non-African American GFR(CKD) >90 (>60 ml/min/1.73 sqM); Potassium 3.8 mmol/L (3.5-5.1); Sodium 133 mmol/L (137-145)
[2021-03-10] MEDS ORDERED: DEXTROSE 5% IN WATER 1,000 ML with SODIUM BICARB (1 MEQ/ML) 100 ML IV SCH (18:00)
[2021-03-10 18:11] LABS: Glucose,Whole Blood 179 mg/dL (75-99)
[2021-03-10 19:55] LABS: Glucose,Whole Blood 175 mg/dL (75-99)
[2021-03-10 21:07] LABS: African American GFR (CKD) >90 (>60 ml/min/1.73 sqM); Anion Gap 9 mmol/L; Blood Urea Nitrogen 7 mg/dL (7-17); Calcium 8.6 mg/dL (8.4-10.2); Carbon Dioxide 23 mmol/L (22-30); Chloride 101 mmol/L (98-107); Glucose 141 mg/dL (74-99); Non-African American GFR(CKD) >90 (>60 ml/min/1.73 sqM); Potassium 3.6 mmol/L (3.5-5.1); Sodium 133 mmol/L (137-145)
[2021-03-11] MEDS: HEPARIN SODIUM,PORCINE/PF 5,000 UNIT/0.5 ML SYRINGE SQ SCH ×2 (03:29→09:01)
[2021-03-11] MEDS ORDERED: DEXTROSE 5% IN WATER 1,000 ML with SODIUM BICARB (1 MEQ/ML) 100 ML IV SCH (05:30)
[2021-03-11] MEDS: HYDROmorphone 0.5 MG/0.5 ML SYRINGE IVP PRN (05:40)
[2021-03-11 06:34] LABS: Glucose,Whole Blood 90 mg/dL (75-99)
[2021-03-11] MEDS ORDERED: INSULIN DETEMIR (LEVEMIR) 100 UNIT/ML SYR SQ SCH (07:00)
[2021-03-11] MEDS: INSULIN ASPART (NovoLOG) 100 UNIT/ML VIAL SQ SCH (07:04)
[2021-03-11] MEDS ORDERED: LACTATED RINGERS 1,000 ML IV SCH (07:30)
[2021-03-11 07:40] LABS: Anisocytosis Slight; HCT 30.3 % (34.0-46.0); HGB 10.2 gm/dL (11.4-16.0); MCH 31.7 pg (25.0-35.0); MCHC 33.6 g/dL (31.0-37.0); MCV 94.5 fL (80.0-100.0); Platelet Count 388 k/uL (150-450); Reticulocyte % 4.8 % (0.5-2.0); WBC 5.1 k/uL (3.8-10.6)
[2021-03-11 07:56] LABS: ALT 12 U/L (4-34); AST 19 U/L (14-36); African American GFR (CKD) >90 (>60 ml/min/1.73 sqM); Albumin 2.6 g/dL (3.5-5.0); Alkaline Phosphatase 111 U/L (38-126); Anion Gap 3 mmol/L; Blood Urea Nitrogen 5 mg/dL (7-17); Calcium 8.8 mg/dL (8.4-10.2); Carbon Dioxide 28 mmol/L (22-30); Chloride 104 mmol/L (98-107); Glucose 94 mg/dL (74-99); Magnesium 1.7 mg/dL (1.6-2.3); Non-African American GFR(CKD) >90 (>60 ml/min/1.73 sqM); Potassium 3.6 mmol/L (3.5-5.1); Sodium 135 mmol/L (137-145); Total Bilirubin 0.2 mg/dL (0.2-1.3); Total Protein 5.2 g/dL (6.3-8.2)
[2021-03-11 09:07] VITALS: BP 105/71; PULSE 84; TEMP 97.9
[2021-03-11 12:20] LABS: Glucose,Whole Blood 54 mg/dL (75-99)
[2021-03-11 12:22] LABS: % Iron Saturation 8.58 (12.00-45.00); Ferritin 53.2 ng/mL (10.0-291.0); Iron 26 ug/dL (50-170); Total Iron Binding Capacity 298 ug/dL (228-460)
[2021-03-11 12:38] LABS: Glucose,Whole Blood 64 mg/dL (75-99)
[2021-03-11 12:56] LABS: Glucose,Whole Blood 87 mg/dL (75-99)
--- NOTE | 2021-03-11 13:48 | P.DS ---
Providers Date of admission: 03/10/21 02:13 Attending physician: Jesús Armando MD Consults: 03/10/21 09:23 Consult Physician Routine Consulting Provider: Laila Barraza Consult Reason/Comments: Acute Pancreatitis Do you want consulting provider notified?: Yes Primary care physician: Stated None Hospital Course: Reason for admission 21-year-old female with history of type 1 diabetes mellitus came to [facility] Department fibrillation of abdominal pain, nausea and vomiting. Patient was just recently discharged from another facility after she was treated for DKA. She was initially feeling okay but then started developing diffuse abdominal pain and had 4 episodes of nonbloody and nonbilious vomiting within few hours. Most of the pain was epigastric and radiating in a bandlike direction. She did not notice any alleviating or radiating factors. She could not tolerate any food. She was not having any good oral intake. She denied any fever or chills no diarrhea no blood in the stool no dysuria no r espiratory problems. Emergency Department found to have lipase of 7734, bicarb of 13 and 30 and lactic acidosis of 6.6. CT of abdomen and pelvis with contrast was consistent with acute pancreatitis without necrosis or cyst or pseudocyst. Her blood glucose was low in 40s. Patient was started on IV fluids nausea and pain control. Due to hypoglycemia her insulin was on hold and she was given IV fluids with D5 containing fluids and she was admitted for further treatment Hospital course Patient was treated with IV fluids, antiemetics, analgesics. Etiology of the pancreas unclear she denied any drinking. Triglyceride level was normal. No any new medications or rxto-aci-[id number] preparations. Taking only insulin. Liver enzymes bilirubin and alk phos was normal. Ultrasound of abdomen without any acute abnormalities. no GI consultation was available at the hospital, asked her to see her PCP for referal as outpatient. Insulin was resrated, repeat lactic acid normalized. Abd pain and nausea resolved. Tolerated regular diet. Given prescription for home insulin, follow up with PCP. Discharged home. 35 mins spent on dc Assessment: AAOx3 Lungs: CTA CVS; RRR S1, S2 ABD:BS positive, soft non tender non disteded nor RUQ pain, no flank pain Extr: no peripheral edema Patient Condition at Discharge: Poor Plan - Discharge Summary New Discharge Prescriptions: Continue Insulin Aspart [NovoLOG Flexpen] 10 units SQ AC-TID #1 pen Insulin Degludec [Tresiba Flextouch U-100 Pen] 40 units SQ Q48H #1 pen Discharge Medication List Insulin Aspart [NovoLOG Flexpen] 10 units SQ AC-TID #1 pen 03/11/21 [Rx] Insulin Degludec [Tresiba Flextouch U-100 Pen] 40 units SQ Q48H #1 pen 03/11/21 [Rx] Follow up Appointment(s)/Referral(s): Everette Cunningham MD [STAFF PHYSICIAN] - 1 Week (Please make appointment when able to return to [facility]) Laila Barraza MD [STAFF PHYSICIAN] - 03/19/21 4:45 pm Patient Instructions/Handouts: Pancreatitis (DC), Low Fat Diet (GEN), Diabetic Ketoacidosis (GEN) Activity/Diet/Wound Care/Special Instructions: Low fat diet x 1 week
== END 2021-03-11 13:19 | disposition home or self-care (01) | DRG 439 ==
LOC: EC 21:19 → 6PED 03-10 02:13
PROVIDERS: ADMIT Internal Medicine; ATTEND Internal Medicine
DX: K85.90 Acute pancreatitis without necrosis or infection, unspecified (principal); E87.2 Acidosis; Z79.4 Long term (current) use of insulin; Z20.822 Contact with and (suspected) exposure to COVID-19; Z91.040 Latex allergy status; E10.649 Type 1 diabetes mellitus with hypoglycemia without coma; E86.0 Dehydration; Z86.59 Personal history of other mental and behavioral disorders; Z82.49 Family history of ischemic heart disease and other diseases of the circulatory system; Z82.5 Family history of asthma and other chronic lower respiratory diseases; Z83.49 Family history of other endocrine, nutritional and metabolic diseases
CPT/HCPCS: 36415; 74177; 76705; 80048; 80053; 80061; 81001; 81025; 82009; 82150; 82728; 82803; 83540; 83550; 83605; 83690; 83735; 84478; 85025; 85027; 85045; 87635

== ENCOUNTER 2021-12-20 19:19 | Inpatient (IN) | payer BC, OTHER ==
[2021-12-20] MEDS ORDERED: SODIUM CHLORIDE 0.9% 2,000 ML IV STA (21:25)
[2021-12-20] MEDS ORDERED: METOCLOPRAMIDE 5 MG/ML 2 ML VIAL IVP STA (21:27)
[2021-12-20] MEDS ORDERED: diphenhydrAMINE 50 MG/ML 1 ML VIAL IVP STA (21:27)
--- NOTE | 2021-12-20 21:34 | ED ---
Abdominal Pain HPI - General Chief Complaint: Abdominal Pain Stated Complaint: diabeticguera Time Seen by Provider: 12/20/21 21:20 Source: patient, RN notes reviewed Mode of arrival: ambulatory Limitations: no limitations - History of Present Illness Initial Comments: This is a pleasant 21-year-old type I diabetic female who presents to the emergency department complaining of upper abdomen discomfort, some nausea, and a blood sugar in excess of 500. That she was recently admitted to the ICU and [facility]. Patient states she had DKA. Patient states she was visiting family members over there. Patient now states her blood sugar running high again. Patient's also had pancreatitis several times in the past. Patient denies any other past medical history. No alcohol intake. No drug intake. No headache, no fever or chills, no changes in vision or hearing, no sore throat or difficulty with speech, no neck pain, no chest pain or shortness of breath, ELEVATED blood sugars no changes in urination or bowel movements, no numbness or tingling, no extremity pain, no skin rashes or lesions. patient states she takes 20 units of Lantus per day and then a NovoLog sliding scale. Patient states she usually has about 25 units of NovoLog per day. Past medical, surgical, social, and family history reviewed. - Related Data Home Medications Medication Instructions Recorded Confirmed Insulin Glargine [Lantus Vial] 20 unit SQ DAILY 12/20/21 12/20/21 Insulin Lispro [Admelog] See Protocol SQ ACHS 12/20/21 12/20/21 Allergies Allergy/AdvReac Type Severity Reaction Status Date / Time latex Allergy Rash/Hives Verified 12/20/21 22:03 Review of Systems ROS Statement: Those systems with pertinent positive or pertinent negative responses have been documented in the HPI. ROS Other: All systems not noted in ROS Statement are negative. Past Medical History Past Medical History: Diabetes Mellitus Additional Past Medical History / Comment(s): Previous history of DKA, diabetes mellitus type 1 History of Any Multi-Drug Resistant Organisms: None Reported Past Surgical History: No Surgical Hx Reported Past Anesthesia/Blood Transfusion Reactions: No Reported Reaction Past Psychological History: Anxiety, Depression Smoking Status: Never smoker Past Alcohol Use History: None Reported Past Drug Use History: Marijuana - Past Family History Father Family Medical History: Myocardial Infarction ([place]) Sister(s) Family Medical History: Thyroid Disorder Brother(s) Family Medical History: Asthma General Exam - General Exam Comments Initial Comments: Patient in minimal distress. Appears to have mildly dry mucous membranes. Alert and oriented 4. Cranial nerves II through XII intact. Does not appear to be overtly ill or toxic. Limitations: no limitations General appearance: alert, in no apparent distress Head exam: Present: atraumatic, normocephalic, normal inspection Eye exam: Present: normal appearance, PERRL, EOMI. Absent: scleral icterus, conjunctival injection, periorbital swelling ENT exam: Present: mucous membranes dry (Minimal), mucous membranes moist, TM's normal bilaterally, normal external ear exam Neck exam: Present: normal inspection, full ROM. Absent: tenderness, meningismus, lymphadenopathy Respiratory exam: Present: normal lung sounds bilaterally. Absent: respiratory distress, wheezes, rales, rhonchi, stridor Cardiovascular Exam: Present: normal rhythm, tachycardia, normal heart sounds. Absent: regular rate, systolic murmur, diastolic murmur, rubs, gallop, clicks GI/Abdominal exam: Present: soft, normal bowel sounds. Absent: distended, tenderness, guarding, rebound, rigid Extremities exam: Present: normal inspection, full ROM, normal capillary refill. Absent: tenderness, pedal edema, joint swelling, calf tenderness Back exam: Present: normal inspection Neurological exam: Present: alert, oriented X3, CN II-XII intact Psychiatric exam: Present: normal affect, normal mood Skin exam: Present: warm, dry, intact, normal color. Absent: rash Course Vital Signs 12/20/21 20:21 Temperature 98.1 F Pulse Rate 117 H Respiratory 20 Rate Blood Pressure 126/76 O2 Sat by Pulse 98 Oximetry - Reevaluation(s) Reevaluation #1: 12/21/21 00:08 Medical record is reviewed Symptoms are somewhat improved, patient not vomiting. Patient is informed of results and questions answered Patient in no distress Medical Decision Making - Medical Decision Making Patient presents with elevated blood sugar, upper abdominal discomfort, recent ICU admission in [place] for DKA Patient has been diabetic since she was 11 years old. Patient was improved somewhat after initial fluid bolus. Findings likely indicative of early DKA. Patient plugged into DKA protocol. Case discussed with [facility] hospitalist group. The case was discussed in detail with ED attending physician. Presentation, findings, treatment plan discussed in detail. Amusement Ride Operator Dr. Orellana - Lab Data Result diagrams: 12/20/21 22:14 12/20/21 22:14 Lab Results 12/20/21 12/20/21 12/20/21 Range/Units 22:14 22:14 22:14 WBC 6.8 (3.8-10.6) k/uL RBC 4.12 (3.80-5.40) m/uL Hgb 13.1 (11.4-16.0) gm/dL Hct 39.0 (34.0-46.0) % MCV 94.6 (80.0-100.0) fL MCH 31.8 (25.0-35.0) pg MCHC 33.6 (31.0-37.0) g/dL RDW 14.6 (11.5-15.5) % Plt Count 484 H (150-450) k/uL MPV 7.9 Neutrophils % 48 % Lymphocytes % 36 % Monocytes % 7 % Eosinophils % 6 % Basophils % 1 % Neutrophils # 3.3 (1.3-7.7) k/uL Lymphocytes # 2.4 (1.0-4.8) k/uL Monocytes # 0.5 (0-1.0) k/uL Eosinophils # 0.4 (0-0.7) k/uL Basophils # 0.1 (0-0.2) k/uL Sodium 129 L (137-145) mmol/L Potassium 4.3 (3.5-5.1) mmol/L Chloride 90 L (98-107) mmol/L Carbon Dioxide 22 (22-30) mmol/L Anion Gap 17 mmol/L BUN 19 H (7-17) mg/dL Creatinine 0.69 (0.52-1.04) mg/dL Est GFR (CKD-EPI)AfAm >90 (>60 ml/min/1.73 sqM) Est GFR (CKD-EPI)NonAf >90 (>60 ml/min/1.73 sqM) Glucose 633 H* (74-99) mg/dL POC Glucose (mg/dL) (70-110) mg/dL POC Glu Leveling Machine Operator ID Calcium 10.2 (8.4-10.2) mg/dL Total Bilirubin 0.9 (0.2-1.3) mg/dL AST 16 (14-36) U/L ALT 15 (4-34) U/L Alkaline Phosphatase 163 H (38-126) U/L Total Protein 7.3 (6.3-8.2) g/dL Albumin 4.5 (3.5-5.0) g/dL Lipase 938 H (23-300) U/L Urine Color Colorless Urine Appearance Clear (Clear) Urine pH 5.5 (5.0-8.0) Ur Specific [place] 1.033 (1.001-1.035) Urine Protein Negative (Negative) Urine Glucose (UA) 4+ H (Negative) Urine Ketones 1+ H (Negative) Urine Blood Negative (Negative) Urine Nitrite Negative (Negative) Urine Bilirubin Negative (Negative) Urine Urobilinogen <2.0 (<2.0) mg/dL Ur Leukocyte Esterase Small H (Negative) Urine RBC 4 (0-5) /hpf Urine WBC 6 H (0-5) /hpf Ur Squamous Epith Cells 3 (0-4) /hpf Urine Bacteria Occasional H (None) /hpf Acetone, Qual Positive (Negative) 12/20/21 12/20/21 12/21/21 Range/Units 22:29 23:38 00:32 WBC (3.8-10.6) k/uL RBC (3.80-5.40) m/uL Hgb (11.4-16.0) gm/dL Hct (34.0-46.0) % MCV (80.0-100.0) fL MCH (25.0-35.0) pg MCHC (31.0-37.0) g/dL RDW (11.5-15.5) % Plt Count (150-450) k/uL MPV Neutrophils % % Lymphocytes % % Monocytes % % Eosinophils % % Basophils % % Neutrophils # (1.3-7.7) k/uL Lymphocytes # (1.0-4.8) k/uL Monocytes # (0-1.0) k/uL Eosinophils # (0-0.7) k/uL Basophils # (0-0.2) k/uL Sodium (137-145) mmol/L Potassium (3.5-5.1) mmol/L Chloride (98-107) mmol/L Carbon Dioxide (22-30) mmol/L Anion Gap mmol/L BUN (7-17) mg/dL Creatinine (0.52-1.04) mg/dL Est GFR (CKD-EPI)AfAm (>60 ml/min/1.73 sqM) Est GFR (CKD-EPI)NonAf (>60 ml/min/1.73 sqM) Glucose (74-99) mg/dL POC Glucose (mg/dL) 560 H 493 H 429 H (70-110) mg/dL POC Glu Leveling Machine Operator ID Ulbricht, Bernie Ulbricht, Bernie Ulbricht, Bernie Calcium (8.4-10.2) mg/dL Total Bilirubin (0.2-1.3) mg/dL AST (14-36) U/L ALT (4-34) U/L Alkaline Phosphatase (38-126) U/L Total Protein (6.3-8.2) g/dL Albumin (3.5-5.0) g/dL Lipase (23-300) U/L Urine Color Urine Appearance (Clear) Urine pH (5.0-8.0) Ur Specific [place] (1.001-1.035) Urine Protein (Negative) Urine Glucose (UA) (Negative) Urine Ketones (Negative) Urine Blood (Negative) Urine Nitrite (Negative) Urine Bilirubin (Negative) Urine Urobilinogen (<2.0) mg/dL Ur Leukocyte Esterase (Negative) Urine RBC (0-5) /hpf Urine WBC (0-5) /hpf Ur Squamous Epith Cells (0-4) /hpf Urine Bacteria (None) /hpf Acetone, Qual (Negative) - Radiology Data Radiology results: report reviewed, image reviewed Disposition Clinical Impression: Diabetic ketoacidosis, Pancreatitis Disposition: ADMITTED IP TO THIS [facility] Condition: Fair Referrals: None,Stated [Primary Care Provider] - 1-2 days Time of Disposition: 23:57 Decision to Admit Reason: Admit from EC Decision Time: 23:57
[2021-12-20 22:29] LABS: Basophils # (A) 0.1 k/uL (0-0.2); Basophils % (A) 1 %; Eosinophils # (A) 0.4 k/uL (0-0.7); Eosinophils % (A) 6 %; HGB 13.1 gm/dL (11.4-16.0); Lymphocytes # (A) 2.4 k/uL (1.0-4.8); Lymphocytes % (A) 36 %; MCH 31.8 pg (25.0-35.0); MCHC 33.6 g/dL (31.0-37.0); MCV 94.6 fL (80.0-100.0); Mean Platelet Volume 7.9; Monocytes # (A) 0.5 k/uL (0-1.0); Monocytes % (A) 7 %; Neutrophils # (A) 3.3 k/uL (1.3-7.7); Neutrophils % (A) 48 %; Platelet Count 484 k/uL (150-450); RBC 4.12 m/uL (3.80-5.40); RDW 14.6 % (11.5-15.5); WBC 6.8 k/uL (3.8-10.6)
--- NOTE | 2021-12-20 22:35 | XR ---
EXAMINATION TYPE: XR abdomen acute w cxr DATE OF EXAM: 12/20/2021 COMPARISON: NONE HISTORY: Pain TECHNIQUE: 4 views FINDINGS: Heart and mediastinum are normal. Lungs are clear. Diaphragm is normal. Bony fractures inta ct. There is no sign of intestinal obstruction or pneumoperitoneum. Fecal pattern is normal. No evide nce of a mass. There are no pathologic calcifications over the kidneys. Bony structures are intact IMPRESSION: Nonacute abdomen. Normal chest
[2021-12-20 22:37] LABS: Appearance,Urine Clear (Clear); Bacteria,Urine Occasional /hpf; Bilirubin,Urine Negative (Negative); Blood,Urine Negative (Negative); Color,Urine Colorless; Glucose,Urine (UA) 4+ (Negative); Ketones,Urine 1+ (Negative); Leukocyte Esterase,Urine Small (Negative); Nitrite,Urine Negative (Negative); PH, Urine 5.5 (5.0-8.0); Protein,Urine Negative (Negative); RBC,Urine 4 /hpf (0-5); Specific Gravity,Urine 1.033 (1.001-1.035); Squamous Epithelial Cell,Urine 3 /hpf (0-4); Urobilinogen,Urine <2.0 mg/dL (<2.0); WBC,Urine 6 /hpf (0-5)
[2021-12-20 22:40] LABS: ALT 15 U/L (4-34); AST 16 U/L (14-36); African American GFR (CKD) >90 (>60 ml/min/1.73 sqM); Albumin 4.5 g/dL (3.5-5.0); Alkaline Phosphatase 163 U/L (38-126); Anion Gap 17 mmol/L; Blood Urea Nitrogen 19 mg/dL (7-17); Calcium 10.2 mg/dL (8.4-10.2); Carbon Dioxide 22 mmol/L (22-30); Chloride 90 mmol/L (98-107); Lipase 938 U/L (23-300); Non-African American GFR(CKD) >90 (>60 ml/min/1.73 sqM); Potassium 4.3 mmol/L (3.5-5.1); Sodium 129 mmol/L (137-145); Total Bilirubin 0.9 mg/dL (0.2-1.3); Total Protein 7.3 g/dL (6.3-8.2)
[2021-12-20 22:42] LABS: Glucose,Whole Blood 560 mg/dL (70-110)
[2021-12-20 22:53] LABS: Glucose 633 mg/dL (74-99)
[2021-12-20 23:49] LABS: Glucose,Whole Blood 493 mg/dL (70-110)
[2021-12-20] MEDS ORDERED: INSULIN REGULAR 100 UNIT in SODIUM CHLORIDE 0.9% 100 ML IV SCH (23:55)
[2021-12-21 00:36] LABS: Glucose,Whole Blood 429 mg/dL (70-110)
[2021-12-21] MEDS: SODIUM CHLORIDE 0.9% 1,000 ML IV SCH ×3 (00:38→12:27)
[2021-12-21 02:07] LABS: Glucose,Whole Blood 245 mg/dL (70-110)
[2021-12-21] MEDS: D5-0.45% NACL WITH KCL 20MEQ/L 1,000 ML IV SCH ×2 (02:16→12:26)
[2021-12-21 02:18] LABS: African American GFR (CKD) >90 (>60 ml/min/1.73 sqM); Anion Gap 16 mmol/L; Blood Urea Nitrogen 15 mg/dL (7-17); Carbon Dioxide 18 mmol/L (22-30); Chloride 104 mmol/L (98-107); Glucose 280 mg/dL (74-99); Non-African American GFR(CKD) >90 (>60 ml/min/1.73 sqM); Phosphorus 2.4 mg/dL (2.5-4.5); Potassium 3.1 mmol/L (3.5-5.1); Sodium 138 mmol/L (137-145)
[2021-12-21 02:40] LABS: VBG PH 7.32 (7.31-7.41)
[2021-12-21 03:04] LABS: Glucose,Whole Blood 200 mg/dL (70-110)
[2021-12-21 04:20] LABS: Glucose,Whole Blood 176 mg/dL (70-110)
[2021-12-21] MEDS ORDERED: Magnesium Replacement Protocol 1 EACH MISC MISCELLANE PRN (04:36)
[2021-12-21] MEDS ORDERED: Potassium Replacement Protocol 1 EACH MISC MISCELLANE PRN (04:36)
[2021-12-21 05:16] LABS: Glucose,Whole Blood 181 mg/dL (70-110)
[2021-12-21 06:15] LABS: Glucose,Whole Blood 188 mg/dL (70-110)
[2021-12-21 07:03] LABS: Glucose,Whole Blood 183 mg/dL (70-110)
[2021-12-21 07:53] LABS: African American GFR (CKD) >90 (>60 ml/min/1.73 sqM); Anion Gap 3 mmol/L; Blood Urea Nitrogen 12 mg/dL (7-17); Carbon Dioxide 20 mmol/L (22-30); Chloride 107 mmol/L (98-107); Non-African American GFR(CKD) >90 (>60 ml/min/1.73 sqM); Phosphorus 2.4 mg/dL (2.5-4.5); Sodium 130 mmol/L (137-145)
[2021-12-21 08:05] LABS: Glucose,Whole Blood 117 mg/dL (70-110)
[2021-12-21 08:08] LABS: Potassium 6.2 mmol/L (3.5-5.1)
[2021-12-21 08:09] LABS: Glucose 782 mg/dL (74-99)
[2021-12-21 08:18] LABS: Glucose,Whole Blood 102 mg/dL (70-110)
[2021-12-21 09:01] LABS: Glucose,Whole Blood 57 mg/dL (70-110)
[2021-12-21 09:16] LABS: Glucose,Whole Blood 85 mg/dL (70-110)
[2021-12-21 09:37] LABS: African American GFR (CKD) >90 (>60 ml/min/1.73 sqM); Anion Gap 7 mmol/L; Blood Urea Nitrogen 16 mg/dL (7-17); Calcium 7.8 mg/dL (8.4-10.2); Carbon Dioxide 21 mmol/L (22-30); Chloride 109 mmol/L (98-107); Glucose 89 mg/dL (74-99); Non-African American GFR(CKD) >90 (>60 ml/min/1.73 sqM); Phosphorus 2.8 mg/dL (2.5-4.5); Sodium 137 mmol/L (137-145)
[2021-12-21 10:11] LABS: Glucose,Whole Blood 184 mg/dL (70-110)
[2021-12-21 11:01] LABS: Glucose,Whole Blood 124 mg/dL (70-110)
[2021-12-21 11:32] LABS: Glucose,Whole Blood 93 mg/dL (70-110)
[2021-12-21] MEDS ORDERED: SODIUM CHLORIDE 0.9% 1,000 ML IV SCH (11:45)
--- NOTE | 2021-12-21 11:47 | P.HPIM ---
History of Present Illness Patient is a pleasant 21-year-old the diabetic female came in with the complaints of abdominal discomfort and nausea and found to be in DKA in with blood sugars of 500. Patient blood DKA resolved at this time patient anion gap is presently 6 patient will be transitioned to her home dose of insulin as her blood sugars are usually well controlled. Unsure the reason why her blood sugars went up on and unsure why patient went into DKA. Patient had history of pancreatitis 4 times in the past may have led to pancreatic insufficiency there thereby type 1 diabetes mellitus. Patient the IV fluids will be switched to normal saline patient will be discharged later today. Patient urine is bit abnormal but doesn't have any UTI symptoms no evidence of further sepsis or dehydration at this time. REVIEW OF SYSTEMS: CONSTITUTIONAL: No fever, no malaise, no fatigue. HEENT: No recent visual problems or hearing problems. Denied any sore throat. CARDIOVASCULAR: No chest pain, orthopnea, PND, no palpitations, no syncope. PULMONARY: No shortness of breath, no cough, no hemoptysis. GASTROINTESTINAL: As mentioned in HPI NEUROLOGICAL: No headaches, no weakness, no numbness. HEMATOLOGICAL: Denies any bleeding or petechiae. GENITOURINARY: Denies any burning micturition, frequency, or urgency. MUSCULOSKELETAL/RHEUMATOLOGICAL: Denies any joint pain, swelling, or any muscle pain. ENDOCRINE: Denies any polyuria or polydipsia. The rest of the 14-point review of systems is negative. PHYSICAL EXAMINATION: GENERAL: The patient is alert and oriented x3, not in any acute distress. Well developed, well nourished. HEENT: Pupils are round and equally reacting to light. EOMI. No scleral icterus. No conjunctival pallor. Normocephalic, atraumatic. No pharyngeal erythema. No thyromegaly. CARDIOVASCULAR: S1 and S2 present. No murmurs, rubs, or gallops. PULMONARY: Chest is clear to auscultation, no wheezing or crackles. ABDOMEN: Soft, nontender, nondistended, normoactive bowel sounds. No palpable organomegaly. MUSCULOSKELETAL: No joint swelling or deformity. EXTREMITIES: No cyanosis, clubbing, or pedal edema. NEUROLOGICAL: Gross neurological examination did not reveal any focal deficits. SKIN: No rashes. Assessment and plan -Diabetic ketoacidosis: Resolved plan and management as mentioned above patient will be discharged today will be resumed on the home dose of long-acting insulin patient will follow-up with PCP as an outpatient. I do not have any hemoglobin A1c at this time. -Hypovolemic hyponatremia from diabetic acidosis which improved at this time -Hyperkalemia secondary to metabolic acidosis. - non-anion gap metabolic is secondary to diabetic ketoacidosis Patient is being discharged today Past Medical History Past Medical History: Diabetes Mellitus Additional Past Medical History / Comment(s): Previous history of DKA, diabetes mellitus type 1 History of Any Multi-Drug Resistant Organisms: None Reported Past Surgical History: No Surgical Hx Reported Past Anesthesia/Blood Transfusion Reactions: No Reported Reaction Smoking Status: Never smoker - Past Family History Father Family Medical History: Myocardial Infarction ([place]) Sister(s) Family Medical History: Thyroid Disorder Brother(s) Family Medical History: Asthma Medications and Allergies Home Medications Medication Instructions Recorded Confirmed Type Insulin Glargine [Lantus Vial] 20 unit SQ DAILY 12/20/21 12/20/21 History Insulin Lispro [Admelog] See Protocol SQ ACHS 12/20/21 12/20/21 History Allergies Allergy/AdvReac Type Severity Reaction Status Date / Time latex Allergy Rash/Hives Verified 12/20/21 22:03 Physical Exam Vitals: Vital Signs Temp Pulse Pulse Resp BP BP Pulse Ox 12/21/21 08:00 98.0 F 84 18 107/74 12/21/21 04:26 97.9 F 97 16 101/68 97 12/21/21 02:49 102 H 20 97/64 97 12/20/21 20:21 98.1 F 117 H 20 126/76 98 Intake and Output 12/20/21 12/21/21 12/21/21 22:59 06:59 14:59 Intake Total 1610.34 55.200 Balance 1610.34 55.200 Intake: Intake, IV Titration 1070.34 55.200 Amount D5-0.45% NaCl with KCl 450 20Meq/l 1,000 ml @ 150 mls/hr IV .[id number] [facility] Rx# :[id number] Insulin Regular 100 unit 20.34 55.200 In Sodium Chloride 0.9% 100 ml @ 0.1 UNITS/KG/HR 6.78 mls/hr IV .[id number] [facility] Rx#:[id number] Sodium Chloride 0.9% 1, 600 000 ml @ 200 mls/hr IV . Q5H [facility] Rx#:[id number] Oral 540 Other: Voiding Method Toilet Toilet # Voids 2 Weight 67.132 kg 67.132 kg Results CBC & Chem 7: 12/20/21 22:14 12/21/21 08:56 Labs: Abnormal Lab Results - Last 24 Hours (Table) 12/20/21 12/20/21 12/20/21 Range/Units 22:14 22:14 22:14 Plt Count 484 H (150-450) k/uL VBG HCO3 (24-28) mmol/L Sodium 129 L (137-145) mmol/L Potassium (3.5-5.1) mmol/L Chloride 90 L (98-107) mmol/L Carbon Dioxide (22-30) mmol/L BUN 19 H (7-17) mg/dL Creatinine (0.52-1.04) mg/dL Glucose 633 H* (74-99) mg/dL POC Glucose (mg/dL) (70-110) mg/dL Calcium (8.4-10.2) mg/dL Phosphorus (2.5-4.5) mg/dL Alkaline Phosphatase 163 H (38-126) U/L Lipase 938 H (23-300) U/L Urine Glucose (UA) 4+ H (Negative) Urine Ketones 1+ H (Negative) Ur Leukocyte Esterase Small H (Negative) Urine WBC 6 H (0-5) /hpf Urine Bacteria Occasional H (None) /hpf 12/20/21 12/20/21 12/21/21 Range/Units 22:29 23:38 00:32 Plt Count (150-450) k/uL VBG HCO3 (24-28) mmol/L Sodium (137-145) mmol/L Potassium (3.5-5.1) mmol/L Chloride (98-107) mmol/L Carbon Dioxide (22-30) mmol/L BUN (7-17) mg/dL Creatinine (0.52-1.04) mg/dL Glucose (74-99) mg/dL POC Glucose (mg/dL) 560 H 493 H 429 H (70-110) mg/dL Calcium (8.4-10.2) mg/dL Phosphorus (2.5-4.5) mg/dL Alkaline Phosphatase (38-126) U/L Lipase (23-300) U/L Urine Glucose (UA) (Negative) Urine Ketones (Negative) Ur Leukocyte Esterase (Negative) Urine WBC (0-5) /hpf Urine Bacteria (None) /hpf 12/21/21 12/21/21 12/21/21 Range/Units 01:52 01:52 01:58 Plt Count (150-450) k/uL VBG HCO3 20 L (24-28) mmol/L Sodium (137-145) mmol/L Potassium 3.1 L (3.5-5.1) mmol/L Chloride (98-107) mmol/L Carbon Dioxide 18 L (22-30) mmol/L BUN (7-17) mg/dL Creatinine (0.52-1.04) mg/dL Glucose 280 H (74-99) mg/dL POC Glucose (mg/dL) 245 H (70-110) mg/dL Calcium (8.4-10.2) mg/dL Phosphorus 2.4 L (2.5-4.5) mg/dL Alkaline Phosphatase (38-126) U/L Lipase (23-300) U/L Urine Glucose (UA) (Negative) Urine Ketones (Negative) Ur Leukocyte Esterase (Negative) Urine WBC (0-5) /hpf Urine Bacteria (None) /hpf 12/21/21 12/21/21 12/21/21 Range/Units 03:02 04:18 05:13 Plt Count (150-450) k/uL VBG HCO3 (24-28) mmol/L Sodium (137-145) mmol/L Potassium (3.5-5.1) mmol/L Chloride (98-107) mmol/L Carbon Dioxide (22-30) mmol/L BUN (7-17) mg/dL Creatinine (0.52-1.04) mg/dL Glucose (74-99) mg/dL POC Glucose (mg/dL) 200 H 176 H 181 H (70-110) mg/dL Calcium (8.4-10.2) mg/dL Phosphorus (2.5-4.5) mg/dL Alkaline Phosphatase (38-126) U/L Lipase (23-300) U/L Urine Glucose (UA) (Negative) Urine Ketones (Negative) Ur Leukocyte Esterase (Negative) Urine WBC (0-5) /hpf Urine Bacteria (None) /hpf 12/21/21 12/21/21 12/21/21 Range/Units 06:14 06:40 07:01 Plt Count (150-450) k/uL VBG HCO3 (24-28) mmol/L Sodium 130 L (137-145) mmol/L Potassium 6.2 H* (3.5-5.1) mmol/L Chloride (98-107) mmol/L Carbon Dioxide 20 L (22-30) mmol/L BUN (7-17) mg/dL Creatinine 0.44 L (0.52-1.04) mg/dL Glucose 782 H* (74-99) mg/dL POC Glucose (mg/dL) 188 H 183 H (70-110) mg/dL Calcium (8.4-10.2) mg/dL Phosphorus 2.4 L (2.5-4.5) mg/dL Alkaline Phosphatase (38-126) U/L Lipase (23-300) U/L Urine Glucose (UA) (Negative) Urine Ketones (Negative) Ur Leukocyte Esterase (Negative) Urine WBC (0-5) /hpf Urine Bacteria (None) /hpf 12/21/21 12/21/21 12/21/21 Range/Units 08:04 08:56 08:58 Plt Count (150-450) k/uL VBG HCO3 (24-28) mmol/L Sodium (137-145) mmol/L Potassium (3.5-5.1) mmol/L Chloride 109 H (98-107) mmol/L Carbon Dioxide 21 L (22-30) mmol/L BUN (7-17) mg/dL Creatinine 0.47 L (0.52-1.04) mg/dL Glucose (74-99) mg/dL POC Glucose (mg/dL) 117 H 57 L (70-110) mg/dL Calcium 7.8 L (8.4-10.2) mg/dL Phosphorus (2.5-4.5) mg/dL Alkaline Phosphatase (38-126) U/L Lipase (23-300) U/L Urine Glucose (UA) (Negative) Urine Ketones (Negative) Ur Leukocyte Esterase (Negative) Urine WBC (0-5) /hpf Urine Bacteria (None) /hpf 12/21/21 12/21/21 Range/Units 10:09 11:00 Plt Count (150-450) k/uL VBG HCO3 (24-28) mmol/L Sodium (137-145) mmol/L Potassium (3.5-5.1) mmol/L Chloride (98-107) mmol/L Carbon Dioxide (22-30) mmol/L BUN (7-17) mg/dL Creatinine (0.52-1.04) mg/dL Glucose (74-99) mg/dL POC Glucose (mg/dL) 184 H 124 H (70-110) mg/dL Calcium (8.4-10.2) mg/dL Phosphorus (2.5-4.5) mg/dL Alkaline Phosphatase (38-126) U/L Lipase (23-300) U/L Urine Glucose (UA) (Negative) Urine Ketones (Negative) Ur Leukocyte Esterase (Negative) Urine WBC (0-5) /hpf Urine Bacteria (None) /hpf Thrombosis Risk Factor Assmnt - Choose All That Apply Any of the Below Risk Factors Present?: No Other Risk Factors: No Other congenital or acquired thrombophilia - If yes, enter type in comment: No Thrombosis Risk Factor Assessment Level: Very Low Risk
--- NOTE | 2021-12-21 11:49 | P.DS ---
Providers Date of admission: 12/21/21 00:17 Attending physician: Pat Johnson MD Primary care physician: Stated None Hospital Course: Please refer to my history of present illness for further details Patient Condition at Discharge: Fair Plan - Discharge Summary Discharge Rx Participant: Yes New Discharge Prescriptions: Continue Insulin Glargine [Lantus Vial] 20 unit SQ DAILY Insulin Lispro [Admelog] See Protocol SQ ACHS Discharge Medication List Insulin Glargine [Lantus Vial] 20 unit SQ DAILY 12/20/21 [History] Insulin Lispro [Admelog] See Protocol SQ ACHS 12/20/21 [History] Follow up Appointment(s)/Referral(s): Estrella Hernandez MD [STAFF PHYSICIAN] - 1 Week
[2021-12-21] MEDS ORDERED: INSULIN ASPART (NovoLOG) 100 UNIT/ML VIAL SQ SCH (12:30)
[2021-12-21] MEDS ORDERED: INSULIN DETEMIR (LEVEMIR) 100 UNIT/ML SYR SQ SCH (12:30)
[2021-12-21 13:12] VITALS: BP 107/75; PULSE 88; RESP 16; TEMP 97.9
[2021-12-21 15:49] VITALS: BMI 26.2
== END 2021-12-21 16:01 | disposition home or self-care (01) | DRG 638 ==
LOC: EC 19:19 → 3SCARD 12-21 00:17
PROVIDERS: ADMIT Internal Medicine; ATTEND Internal Medicine
DX: E10.10 Type 1 diabetes mellitus with ketoacidosis without coma (principal); E87.1 Hypo-osmolality and hyponatremia; K86.89 Other specified diseases of pancreas; Z79.4 Long term (current) use of insulin; E86.1 Hypovolemia; E87.5 Hyperkalemia; Z87.19 Personal history of other diseases of the digestive system; Z91.040 Latex allergy status
CPT/HCPCS: 36415; 74022; 80048; 80051; 80053; 81001; 82009; 82565; 82803; 82947; 83036; 83690; 84100; 84520; 85025; 96361; 96374; 96375; 99285

== ENCOUNTER 2022-02-03 12:10 | Inpatient (IN) | payer BC, OTHER ==
[2022-02-03] MEDS ORDERED: SODIUM CHLORIDE 0.9% 2,000 ML IV STA (12:43)
[2022-02-03] MEDS ORDERED: KETOROLAC 15 MG/ML 1 ML VIAL IVP STA (12:43)
[2022-02-03] MEDS ORDERED: ONDANSETRON 4 MG/2 ML VIAL IVP STA (12:43)
[2022-02-03 13:14] LABS: Basophils # (A) 0.1 k/uL (0-0.2); Basophils % (A) 1 %; Eosinophils # (A) 0.2 k/uL (0-0.7); Eosinophils % (A) 3 %; HCT 46.1 % (34.0-46.0); HGB 15.6 gm/dL (11.4-16.0); Lymphocytes # (A) 1.4 k/uL (1.0-4.8); Lymphocytes % (A) 17 %; MCH 30.7 pg (25.0-35.0); MCHC 33.9 g/dL (31.0-37.0); MCV 90.7 fL (80.0-100.0); Monocytes # (A) 0.5 k/uL (0-1.0); Monocytes % (A) 5 %; Neutrophils # (A) 6.2 k/uL (1.3-7.7); Neutrophils % (A) 73 %; Platelet Count 425 k/uL (150-450); RBC 5.08 m/uL (3.80-5.40); WBC 8.5 k/uL (3.8-10.6)
[2022-02-03 13:15] LABS: Appearance,Urine Cloudy (Clear); Bacteria,Urine Rare /hpf; Bilirubin,Urine 1+ (Negative); Blood,Urine Negative (Negative); Color,Urine Light Yellow; Glucose,Urine (UA) 4+ (Negative); Hyaline Casts,Urine 17 /lpf (0-2); Leukocyte Esterase,Urine Moderate (Negative); Mucus,Urine Rare /hpf; Nitrite,Urine Negative (Negative); Protein,Urine 1+ (Negative); RBC,Urine 4 /hpf (0-5); Specific Gravity,Urine 1.028 (1.001-1.035); Squamous Epithelial Cell,Urine 7 /hpf (0-4); Urobilinogen,Urine <2.0 mg/dL (<2.0); WBC,Urine 9 /hpf (0-5)
[2022-02-03 13:18] LABS: Ketones,Urine 4+ (Negative)
[2022-02-03 13:24] LABS: ALT 26 U/L (4-34); African American GFR (CKD) >90 (>60 ml/min/1.73 sqM); Albumin 5.4 g/dL (3.5-5.0); Anion Gap 25 mmol/L; Blood Urea Nitrogen 22 mg/dL (7-17); Calcium 10.1 mg/dL (8.4-10.2); Carbon Dioxide 16 mmol/L (22-30); Chloride 91 mmol/L (98-107); Non-African American GFR(CKD) >90 (>60 ml/min/1.73 sqM); Phosphorus 4.3 mg/dL (2.5-4.5); Sodium 132 mmol/L (137-145); Total Bilirubin 1.4 mg/dL (0.2-1.3)
[2022-02-03 13:26] LABS: AST 40 U/L (14-36); Magnesium 2.1 mg/dL (1.6-2.3); Potassium 5.4 mmol/L (3.5-5.1); Total Protein 9.5 g/dL (6.3-8.2)
[2022-02-03 13:27] LABS: Alkaline Phosphatase 227 U/L (38-126)
[2022-02-03 13:34] LABS: VBG PH 7.3 (7.31-7.41)
[2022-02-03] MEDS ORDERED: DEXTROSE 5%-0.45% NACL 1,000 ML IV ONE (13:37)
[2022-02-03] MEDS ORDERED: D5-0.45% NACL WITH KCL 20MEQ/L 1,000 ML IV SCH (13:45)
[2022-02-03] MEDS ORDERED: GLUCAGON 1 MG/ML VIAL SQ STA (13:45)
[2022-02-03 13:54] LABS: Glucose,Whole Blood 249 mg/dL (70-110)
[2022-02-03 14:02] LABS: Glucose 257 mg/dL (74-99)
[2022-02-03] MEDS ORDERED: HYDROmorphone 0.5 MG/0.5 ML SYRINGE IVP STA (14:06)
--- NOTE | 2022-02-03 14:26 | US ---
EXAMINATION TYPE: US gallbladder DATE OF EXAM: 02/03/2022 COMPARISON: CT March 10, 2021 CLINICAL HISTORY: epigastric pain. Pain, nausea. History of pancreatitis. TECHNIQUE: Multiple sonographic images of the right upper quadrant are obtained. FINDINGS: EXAM MEASUREMENTS: Liver Length: 19.0 cm Gallbladder Wall: 0.1 cm CBD: 0.3 cm Right Kidney: 10.6 x 4.7 x 4.8 cm MARKER MAKER NOTES: Pt unable to take a breath in and hold it Pancreas: wnl, tail obscured by overlying bowel gas Liver: Enlarged Gallbladder: wnl Evidence for sonographic Blount's sign: No CBD: wnl Right Kidney: No evidence of hydro, poles gassed out Suboptimal study due to patient's inability to hold breath. Visualized portion of pancreas shows no w orrisome mass or ductal dilatation. Portion of distal body and tail obscured by overlying bowel gas. Visualized liver within normal limits. Gallbladder seen without gallstones. No right-sided hydronephr osis. IMPRESSION: No gallstones or ultrasound evidence for acute cholecystitis.
[2022-02-03] MEDS ORDERED: cefTRIAXone IN SWFI 1,000 MG/10 ML SYRINGE IVP STA (14:27)
--- NOTE | 2022-02-03 14:37 | ED ---
Nausea/Vomiting/Diarrhea HPI - General Chief complaint: Nausea/Vomiting/Diarrhea Stated complaint: vomiting, chest pain Time Seen by Provider: 02/03/22 12:33 Source: patient, RN notes reviewed Mode of arrival: ambulatory Limitations: no limitations - History of Present Illness Initial comments: This is a 21-year-old female who presents to the emergency department for nausea, vomiting, and abdominal pain. Patient is a type I diabetic and is concerned that she may be in diabetic ketoacidosis. She was hospitalized at [facility] a couple of weeks ago for the same problem. When she checked her blood sugar this morning, it just read "high". States that "absolutely anything" can cause her to go into DKA and she has no specific triggers. Also states that when the DKA starts, it often gets severe fairly quickly. She does feel like she might have had a cold with coughing and congestion starting yesterday. Denies any fevers, chills, sore throat, dyspnea, chest pain, palpitations, diarrhea, back pain, or headaches. MD complaint: nausea, abdominal pain Onset/Timin -: days(s) Associated Abdominal Pain: Yes Location: RUQ - Related Data Home Medications Medication Instructions Recorded Confirmed Insulin Aspart [NovoLOG Flexpen] See Protocol SQ ACHS 02/03/22 02/03/22 Insulin Glargine,Hum.rec.anlog 25 units SQ DAILY 02/03/22 02/03/22 [Lantus Solostar Pen] Allergies Allergy/AdvReac Type Severity Reaction Status Date / Time latex Allergy Rash/Hives Verified 02/03/22 15:09 Review of Systems ROS Statement: Those systems with pertinent positive or pertinent negative responses have been documented in the HPI. ROS Other: All systems not noted in ROS Statement are negative. Past Medical History Past Medical History: GERD/Reflux Additional Past Medical History / Comment(s): migraine History of Any Multi-Drug Resistant Organisms: None Reported Past Surgical History: No Surgical Hx Reported Additional Past Surgical History / Comment(s): right knee surgery Past Anesthesia/Blood Transfusion Reactions: No Reported Reaction Past Psychological History: Anxiety, Depression Smoking Status: Vaper Past Alcohol Use History: None Reported Past Drug Use History: Marijuana - Past Family History Father Family Medical History: Myocardial Infarction ([place]) Sister(s) Family Medical History: Thyroid Disorder Brother(s) Family Medical History: Asthma General Exam Limitations: no limitations General appearance: alert, in no apparent distress Head exam: Present: atraumatic, normocephalic, normal inspection Eye exam: Present: normal appearance, PERRL, EOMI. Absent: scleral icterus, conjunctival injection, periorbital swelling ENT exam: Present: normal exam, mucous membranes moist Neck exam: Present: normal inspection. Absent: tenderness, meningismus, lymphadenopathy Respiratory exam: Present: normal lung sounds bilaterally. Absent: respiratory distress, wheezes, rales, rhonchi, stridor Cardiovascular Exam: Present: normal rhythm, tachycardia, normal heart sounds. Absent: systolic murmur, diastolic murmur, rubs, gallop, clicks GI/Abdominal exam: Present: soft, tenderness (RUQ), normal bowel sounds. Absent: distended Neurological exam: Present: alert, oriented X3, CN II-XII intact Psychiatric exam: Present: normal affect, normal mood Skin exam: Present: warm, dry, intact, normal color. Absent: rash Course Vital Signs 02/03/22 02/03/22 02/03/22 12:27 13:03 14:22 Temperature 98 F Pulse Rate 115 H 99 90 Respiratory 16 16 20 Rate Blood Pressure 106/76 114/82 112/83 O2 Sat by Pulse 100 98 98 Oximetry 02/03/22 02/03/22 02/03/22 15:00 16:00 17:50 Temperature Pulse Rate 90 96 98 Respiratory 16 16 16 Rate Blood Pressure 110/60 115/62 107/82 O2 Sat by Pulse 99 98 99 Oximetry Medical Decision Making - Medical Decision Making This is a 21-year-old female who presents to the emergency department for abdominal pain. Lab work reveals an elevated blood sugar of 257, pH of 7.3, anion gap of 25, and positive acetone, suggesting a mild DKA. Ultrasound of the gallbladder was obtained due to the notable tenderness. This revealed no evidence of gallstones or an acute cholecystitis. Urinalysis may be consistent with a urinary tract infection. She was given a dose of ceftriaxone. COVID and influenza testing were negative. Patient started on D5 normal saline as her blood sugar was under 300. She was also given a 2 L bolus of normal saline prior. Insulin drip was started per the DKA protocol as well. Patient admitted to medicine for further management. This case was discussed in detail with the attending ED physician. Presentation, findings, and treatment plan discussed in detail as well. - Lab Data Result diagrams: 02/03/22 13:03 02/03/22 13:03 Lab Results 02/03/22 02/03/22 02/03/22 Range/Units 13:03 13:03 13:03 WBC 8.5 (3.8-10.6) k/uL RBC 5.08 (3.80-5.40) m/uL Hgb 15.6 (11.4-16.0) gm/dL Hct 46.1 H (34.0-46.0) % MCV 90.7 (80.0-100.0) fL MCH 30.7 (25.0-35.0) pg MCHC 33.9 (31.0-37.0) g/dL RDW 13.0 (11.5-15.5) % Plt Count 425 (150-450) k/uL MPV 10.0 Neutrophils % 73 % Lymphocytes % 17 % Monocytes % 5 % Eosinophils % 3 % Basophils % 1 % Neutrophils # 6.2 (1.3-7.7) k/uL Lymphocytes # 1.4 (1.0-4.8) k/uL Monocytes # 0.5 (0-1.0) k/uL Eosinophils # 0.2 (0-0.7) k/uL Basophils # 0.1 (0-0.2) k/uL VBG pH (7.31-7.41) VBG pCO2 (37-51) mmHg VBG HCO3 (24-28) mmol/L Sodium 132 L (137-145) mmol/L Potassium 5.4 H (3.5-5.1) mmol/L Chloride 91 L (98-107) mmol/L Carbon Dioxide 16 L (22-30) mmol/L Anion Gap 25 mmol/L BUN 22 H (7-17) mg/dL Creatinine 0.67 (0.52-1.04) mg/dL Est GFR (CKD-EPI)AfAm >90 (>60 ml/min/1.73 sqM) Est GFR (CKD-EPI)NonAf >90 (>60 ml/min/1.73 sqM) Glucose 257 H (74-99) mg/dL POC Glucose (mg/dL) (70-110) mg/dL POC Glu Family Coach ID Plasma Lactic Acid Leroy 1.5 (0.7-2.0) mmol/L Calcium 10.1 (8.4-10.2) mg/dL Phosphorus 4.3 (2.5-4.5) mg/dL Magnesium 2.1 (1.6-2.3) mg/dL Total Bilirubin 1.4 H (0.2-1.3) mg/dL AST 40 H (14-36) U/L ALT 26 (4-34) U/L Alkaline Phosphatase 227 H (38-126) U/L Total Protein 9.5 H (6.3-8.2) g/dL Albumin 5.4 H (3.5-5.0) g/dL Urine Color Urine Appearance (Clear) Urine pH (5.0-8.0) Ur Specific [place] (1.001-1.035) Urine Protein (Negative) Urine Glucose (UA) (Negative) Urine Ketones (Negative) Urine Blood (Negative) Urine Nitrite (Negative) Urine Bilirubin (Negative) Urine Urobilinogen (<2.0) mg/dL Ur Leukocyte Esterase (Negative) Urine RBC (0-5) /hpf Urine WBC (0-5) /hpf Ur Squamous Epith Cells (0-4) /hpf Urine Bacteria (None) /hpf Hyaline Casts (0-2) /lpf Urine Mucus (None) /hpf Urine HCG, Qual (Not Detectd) Acetone, Qual Positive (Negative) Coronavirus (PCR) (Not Detectd) Influenza Type A RNA (Not Detectd) Influenza Type B (PCR) (Not Detectd) 02/03/22 02/03/22 02/03/22 Range/Units 13:03 13:03 13:03 WBC (3.8-10.6) k/uL RBC (3.80-5.40) m/uL Hgb (11.4-16.0) gm/dL Hct (34.0-46.0) % MCV (80.0-100.0) fL MCH (25.0-35.0) pg MCHC (31.0-37.0) g/dL RDW (11.5-15.5) % Plt Count (150-450) k/uL MPV Neutrophils % % Lymphocytes % % Monocytes % % Eosinophils % % Basophils % % Neutrophils # (1.3-7.7) k/uL Lymphocytes # (1.0-4.8) k/uL Monocytes # (0-1.0) k/uL Eosinophils # (0-0.7) k/uL Basophils # (0-0.2) k/uL VBG pH 7.30 L (7.31-7.41) VBG pCO2 44 (37-51) mmHg VBG HCO3 21 L (24-28) mmol/L Sodium (137-145) mmol/L Potassium (3.5-5.1) mmol/L Chloride (98-107) mmol/L Carbon Dioxide (22-30) mmol/L Anion Gap mmol/L BUN (7-17) mg/dL Creatinine (0.52-1.04) mg/dL Est GFR (CKD-EPI)AfAm (>60 ml/min/1.73 sqM) Est GFR (CKD-EPI)NonAf (>60 ml/min/1.73 sqM) Glucose (74-99) mg/dL POC Glucose (mg/dL) (70-110) mg/dL POC Glu Family Coach ID Plasma Lactic Acid Leroy (0.7-2.0) mmol/L Calcium (8.4-10.2) mg/dL Phosphorus (2.5-4.5) mg/dL Magnesium (1.6-2.3) mg/dL Total Bilirubin (0.2-1.3) mg/dL AST (14-36) U/L ALT (4-34) U/L Alkaline Phosphatase (38-126) U/L Total Protein (6.3-8.2) g/dL Albumin (3.5-5.0) g/dL Urine Color Light Yellow Urine Appearance Cloudy H (Clear) Urine pH 5.0 (5.0-8.0) Ur Specific [place] 1.028 (1.001-1.035) Urine Protein 1+ H (Negative) Urine Glucose (UA) 4+ H (Negative) Urine Ketones 4+ H (Negative) Urine Blood Negative (Negative) Urine Nitrite Negative (Negative) Urine Bilirubin 1+ H (Negative) Urine Urobilinogen <2.0 (<2.0) mg/dL Ur Leukocyte Esterase Moderate H (Negative) Urine RBC 4 (0-5) /hpf Urine WBC 9 H (0-5) /hpf Ur Squamous Epith Cells 7 H (0-4) /hpf Urine Bacteria Rare H (None) /hpf Hyaline Casts 17 H (0-2) /lpf Urine Mucus Rare H (None) /hpf Urine HCG, Qual Not Detected (Not Detectd) Acetone, Qual (Negative) Coronavirus (PCR) (Not Detectd) Influenza Type A RNA (Not Detectd) Influenza Type B (PCR) (Not Detectd) 02/03/22 02/03/22 02/03/22 Range/Units 13:51 14:22 14:22 WBC (3.8-10.6) k/uL RBC (3.80-5.40) m/uL Hgb (11.4-16.0) gm/dL Hct (34.0-46.0) % MCV (80.0-100.0) fL MCH (25.0-35.0) pg MCHC (31.0-37.0) g/dL RDW (11.5-15.5) % Plt Count (150-450) k/uL MPV Neutrophils % % Lymphocytes % % Monocytes % % Eosinophils % % Basophils % % Neutrophils # (1.3-7.7) k/uL Lymphocytes # (1.0-4.8) k/uL Monocytes # (0-1.0) k/uL Eosinophils # (0-0.7) k/uL Basophils # (0-0.2) k/uL VBG pH (7.31-7.41) VBG pCO2 (37-51) mmHg VBG HCO3 (24-28) mmol/L Sodium (137-145) mmol/L Potassium (3.5-5.1) mmol/L Chloride (98-107) mmol/L Carbon Dioxide (22-30) mmol/L Anion Gap mmol/L BUN (7-17) mg/dL Creatinine (0.52-1.04) mg/dL Est GFR (CKD-EPI)AfAm (>60 ml/min/1.73 sqM) Est GFR (CKD-EPI)NonAf (>60 ml/min/1.73 sqM) Glucose (74-99) mg/dL POC Glucose (mg/dL) 249 H (70-110) mg/dL POC Glu Family Coach ID Fetterly, Lisseth Plasma Lactic Acid Leroy (0.7-2.0) mmol/L Calcium (8.4-10.2) mg/dL Phosphorus (2.5-4.5) mg/dL Magnesium (1.6-2.3) mg/dL Total Bilirubin (0.2-1.3) mg/dL AST (14-36) U/L ALT (4-34) U/L Alkaline Phosphatase (38-126) U/L Total Protein (6.3-8.2) g/dL Albumin (3.5-5.0) g/dL Urine Color Urine Appearance (Clear) Urine pH (5.0-8.0) Ur Specific [place] (1.001-1.035) Urine Protein (Negative) Urine Glucose (UA) (Negative) Urine Ketones (Negative) Urine Blood (Negative) Urine Nitrite (Negative) Urine Bilirubin (Negative) Urine Urobilinogen (<2.0) mg/dL Ur Leukocyte Esterase (Negative) Urine RBC (0-5) /hpf Urine WBC (0-5) /hpf Ur Squamous Epith Cells (0-4) /hpf Urine Bacteria (None) /hpf Hyaline Casts (0-2) /lpf Urine Mucus (None) /hpf Urine HCG, Qual (Not Detectd) Acetone, Qual (Negative) Coronavirus (PCR) Not Detected (Not Detectd) Influenza Type A RNA Not Detected (Not Detectd) Influenza Type B (PCR) Not Detected (Not Detectd) - Radiology Data Radiology results: report reviewed, image reviewed Disposition Clinical Impression: DKA, type 1 Disposition: ADMITTED IP TO THIS HOSP
[2022-02-03] MEDS ORDERED: ONDANSETRON 4 MG/2 ML VIAL IVP PRN (15:35)
[2022-02-03] MEDS ORDERED: IBUPROFEN 400 MG TAB PO PRN (15:35)
[2022-02-03] MEDS ORDERED: ACETAMINOPHEN TAB 325 MG TAB PO PRN (15:35)
[2022-02-03] MEDS ORDERED: NALOXONE 0.4 MG/ML 1 ML VIAL IV PRN (15:35)
[2022-02-03] MEDS: SODIUM CHLORIDE 0.9% 1,000 ML IV SCH ×2 (16:13→20:40)
[2022-02-03 16:24] LABS: Glucose,Whole Blood 236 mg/dL (70-110)
[2022-02-03] MEDS: INSULIN REGULAR 100 UNIT in SODIUM CHLORIDE 0.9% 100 ML IV SCH ×2 (17:01→17:10)
[2022-02-03] MEDS: HYDROmorphone 0.5 MG/0.5 ML SYRINGE IVP PRN ×2 (18:22→22:10)
[2022-02-03 18:36] LABS: Glucose,Whole Blood 290 mg/dL (70-110)
[2022-02-03 19:51] LABS: Glucose,Whole Blood 236 mg/dL (70-110)
[2022-02-03] MEDS: D5-0.45% NACL WITH KCL 20MEQ/L 1,000 ML IV SCH (20:33)
[2022-02-03 20:52] LABS: Glucose,Whole Blood 189 mg/dL (70-110)
[2022-02-03] MEDS: ENOXAPARIN 40 MG/0.4 ML SYRINGE SQ SCH (21:09)
[2022-02-03 21:32] LABS: African American GFR (CKD) >90 (>60 ml/min/1.73 sqM); Anion Gap 10 mmol/L; Blood Urea Nitrogen 18 mg/dL (7-17); Carbon Dioxide 24 mmol/L (22-30); Chloride 100 mmol/L (98-107); Glucose 179 mg/dL (74-99); Non-African American GFR(CKD) >90 (>60 ml/min/1.73 sqM); Potassium 3.2 mmol/L (3.5-5.1); Sodium 134 mmol/L (137-145)
[2022-02-03 21:50] LABS: Glucose,Whole Blood 171 mg/dL (70-110)
[2022-02-03 22:52] LABS: Glucose,Whole Blood 93 mg/dL (70-110)
[2022-02-03] MEDS: INSULIN DETEMIR (LEVEMIR) 100 UNIT/ML SYR SQ SCH (22:54)
[2022-02-04] MEDS: INSULIN REGULAR 100 UNIT in SODIUM CHLORIDE 0.9% 100 ML IV SCH ×2 (00:01→06:20)
[2022-02-04] MEDS: INSULIN ASPART (NovoLOG) 100 UNIT/ML VIAL SQ SCH ×5 (01:59→20:29)
[2022-02-04 02:00] LABS: Glucose,Whole Blood 86 mg/dL (70-110)
[2022-02-04] MEDS: D5-0.45% NACL WITH KCL 20MEQ/L 1,000 ML IV SCH (03:04)
[2022-02-04 06:09] LABS: Glucose,Whole Blood 61 mg/dL (70-110)
[2022-02-04 06:27] LABS: Glucose,Whole Blood 71 mg/dL (70-110)
[2022-02-04 08:05] LABS: African American GFR (CKD) >90 (>60 ml/min/1.73 sqM); Anion Gap 11 mmol/L; Blood Urea Nitrogen 15 mg/dL (7-17); Calcium 8.5 mg/dL (8.4-10.2); Carbon Dioxide 23 mmol/L (22-30); Chloride 102 mmol/L (98-107); Glucose 101 mg/dL (74-99); Non-African American GFR(CKD) >90 (>60 ml/min/1.73 sqM); Sodium 136 mmol/L (137-145)
[2022-02-04] MEDS: ENOXAPARIN 40 MG/0.4 ML SYRINGE SQ SCH (09:37)
[2022-02-04] MEDS: HYDROmorphone 0.5 MG/0.5 ML SYRINGE IVP PRN (09:37)
[2022-02-04] MEDS: PANTOPRAZOLE 40 MG/10 ML VIAL IV SCH (09:38)
[2022-02-04] MEDS: FAMOTIDINE 20 MG TAB PO SCH ×2 (10:50→20:28)
[2022-02-04 11:48] LABS: Glucose,Whole Blood 84 mg/dL (70-110)
[2022-02-04] MEDS: KETOROLAC 15 MG/ML 1 ML VIAL IVP PRN ×2 (12:31→20:34)
[2022-02-04 13:03] VITALS: BMI 26.5
--- NOTE | 2022-02-04 14:35 | P.CONS ---
History of Present Illness - Reason for Consult Consult date: 02/04/22 Abdominal pain Requesting physician: Thomas Montoya - Chief Complaint Nausea and vomiting - History of Present Illness A pleasant 21-year-old female who presented to the emergency department with complaints of nausea vomiting and abdominal pain. Patient states she recently had similar symptoms and she was concerned for diabetic ketoacidosis. Patient was recently hospitalized at [facility] again with recent symptoms and elevated blood sugar 2 to 3 weeks ago. She has a past medical history of type 1 insulin-dependent diabetes diagnosed at age 11. States her sugars have been uncontrolled. She states she has a upcoming appointment with endocrinology. On admission she was noted to have elevated LFTs including total bilirubin 1.4 AST 40 ALT 26 alkaline phosphatase 227, blood sugar 249, positive acetone. He also underwent ultrasound of the gallbladder that showed no gallstones or ultrasound evidence for acute cholecystitis. No CBD dilation. Review of Systems REVIEW OF SYSTEMS: CARDIOPULMONARY: No chest pain or shortness of breath. Gastrointestinal: Diffuse abdominal pain. Nausea and vomiting, now improved. N o hematemesis, coffee-ground emesis. No rectal bleeding, or melena. GENITOURINARY: No dysuria or hematuria. MUSCULOSKELETAL: Reports normal range of motion. SKIN: No rashes. No jaundice. ENDOCRINE: No chills, fevers. No excessive weight gain or loss. No polydipsia or polyuria. PSYCHIATRIC: Unremarkable. NEUROLOGY: No change in mental status. Denies dizziness, headache. ENT: Vision unremarkable. CONSTITUTIONAL: No recent weight loss. No fever, chills, night sweats. Past Medical History Past Medical History: GERD/Reflux Additional Past Medical History / Comment(s): migraine History of Any Multi-Drug Resistant Organisms: None Reported Past Surgical History: No Surgical Hx Reported Additional Past Surgical History / Comment(s): right knee surgery Past Anesthesia/Blood Transfusion Reactions: No Reported Reaction Past Psychological History: Anxiety, Depression Smoking Status: Vaper Past Alcohol Use History: None Reported Past Drug Use History: Marijuana - Past Family History Father Family Medical History: Myocardial Infarction (OK) Sister(s) Family Medical History: Thyroid Disorder Brother(s) Family Medical History: Asthma Medications and Allergies Home Medications Medication Instructions Recorded Confirmed Type Insulin Aspart [NovoLOG Flexpen] See Protocol SQ ACHS 02/03/22 02/03/22 History Insulin Glargine,Hum.rec.anlog 25 units SQ DAILY 02/03/22 02/03/22 History [Lantus Solostar Pen] Allergies Allergy/AdvReac Type Severity Reaction Status Date / Time latex Allergy Rash/Hives Verified 02/03/22 15:09 Physical Exam Vitals: Vital Signs Temp Pulse Pulse Resp BP BP Pulse Ox 02/04/22 12:00 97.6 F 93 14 103/71 100 02/04/22 08:00 98.1 F 98 12 107/76 98 02/04/22 04:00 97.8 F 92 16 109/74 98 02/03/22 23:06 97.8 F 92 16 98/65 97 02/03/22 20:00 97.7 F 89 16 104/69 98 02/03/22 18:32 97.6 F 99 18 121/72 100 02/03/22 17:50 98 16 107/82 99 02/03/22 16:00 96 16 115/62 98 02/03/22 15:00 90 16 110/60 99 02/03/22 14:22 90 20 112/83 98 Intake and Output 02/03/22 02/04/22 02/04/22 22:59 06:59 14:59 Intake Total 40.166 240 560 Balance 40.166 240 560 Intake: Intake, IV Titration 40.166 Amount Insulin Regular 100 unit 40.166 In Sodium Chloride 0.9% 100 ml @ 0.1 UNITS/KG/HR 6.872 mls/hr IV .[id number] [facility] Rx#:[id number] Oral 240 560 Other: Voiding Method Toilet Toilet Toilet # Voids 1 1 Weight 68.039 kg 68.039 kg General appearance: The patient is alert, oriented, appears in no acute distress. HET: Head is normocephalic and atraumatic. Conjunctiva pink. Sclera anicteric. Neck: Supple without lymphadenopathy. Trachea midline. Heart: S1 S2. Regular rate and rhythm. Lungs: Clear to auscultation. Abdomen: Soft, nontender, nondistended with bowel sounds. No guarding or rigidity. Skin: No rashes. No jaundice. Extremities: Normal skin color and turgor. No pedal edema. Neurological: No focal deficits. Alert and oriented x3. Results CBC & Chem 7: 02/03/22 13:03 02/04/22 07:17 Labs: Abnormal Lab Results - Last 24 Hours (Table) 02/03/22 02/03/22 02/03/22 Range/Units 16:23 18:35 19:49 Sodium (137-145) mmol/L Potassium (3.5-5.1) mmol/L BUN (7-17) mg/dL Creatinine (0.52-1.04) mg/dL Glucose (74-99) mg/dL POC Glucose (mg/dL) 236 H 290 H 236 H (70-110) mg/dL Hemoglobin A1c (0.0-6.0) % Phosphorus (2.5-4.5) mg/dL 02/03/22 02/03/22 02/03/22 Range/Units 20:47 20:49 21:03 Sodium 134 L (137-145) mmol/L Potassium 3.2 L (3.5-5.1) mmol/L BUN 18 H (7-17) mg/dL Creatinine (0.52-1.04) mg/dL Glucose 179 H (74-99) mg/dL POC Glucose (mg/dL) 189 H (70-110) mg/dL Hemoglobin A1c (0.0-6.0) % Phosphorus 1.9 L (2.5-4.5) mg/dL 02/03/22 02/04/22 02/04/22 Range/Units 21:48 06:06 07:17 Sodium (137-145) mmol/L Potassium (3.5-5.1) mmol/L BUN (7-17) mg/dL Creatinine (0.52-1.04) mg/dL Glucose (74-99) mg/dL POC Glucose (mg/dL) 171 H 61 L (70-110) mg/dL Hemoglobin A1c 15.6 H (0.0-6.0) % Phosphorus (2.5-4.5) mg/dL 02/04/22 Range/Units 07:17 Sodium 136 L (137-145) mmol/L Potassium (3.5-5.1) mmol/L BUN (7-17) mg/dL Creatinine 0.45 L (0.52-1.04) mg/dL Glucose 101 H (74-99) mg/dL POC Glucose (mg/dL) (70-110) mg/dL Hemoglobin A1c (0.0-6.0) % Phosphorus (2.5-4.5) mg/dL US - abdomen: report reviewed (No gallstones or ultrasound evidence for acute cholecystitis) Assessment and Plan (1) Nausea & vomiting Narrative/Plan: 21-year-old female with history of type 1 insulin-dependent diabetes not well- controlled with admission for diabetic ketoacidosis. Patient was having multiple episodes of nausea vomiting and some related abdominal pain. She denied any hematemesis or coffee-ground emesis. Similar symptoms occurred couple weeks ago when she was admitted to [facility] for diabetic ketoacidosis. On admission she was noted have mildly elevated LFTs likely related to underlying diabetes and nausea vomiting and dehydration. No plans on endoscopic evaluation or further workup. Recommend strict glycemic control, will repeat CMP in the morning. Current Visit: No Status: Acute Code(s): R11.2 - NAUSEA WITH VOMITING, UNSPECIFIED SNOMED Code(s): 67518120 (2) DKA, type 1 Current Visit: Yes Status: Acute Code(s): E10.10 - TYPE 1 DIABETES MELLITUS WITH KETOACIDOSIS WITHOUT COMA SNOMED Code(s): 08335554 Plan: 1. Continue symptomatic and supportive care 2. Antiemetics as needed 3. Protonix 40 mg daily 4. Strict glycemic control 5. Repeat CMP in the morning 6. No plans for endoscopic evaluation or further workup. Thank you for this consultation we will continue to follow. Dr. Santana Barraza I agree with the dictator's note, documented as a scribe by Victoria Sim.
[2022-02-04 16:00] LABS: ALT 21 U/L (4-34); AST 26 U/L (14-36); Albumin 3.5 g/dL (3.5-5.0); Alkaline Phosphatase 128 U/L (38-126); Total Bilirubin 0.4 mg/dL (0.2-1.3); Total Protein 6.2 g/dL (6.3-8.2)
[2022-02-04 16:33] LABS: Glucose,Whole Blood 170 mg/dL (70-110)
--- NOTE | 2022-02-04 16:57 | P.HPIM ---
History of Present Illness H&P Date: 02/04/22 Chief Complaint: Nausea vomiting This is a pleasant 21-year-old patient who follows with Dr. Everette Cunningham. Diagnosed with diabetes at age of 11. Patient has an appointment to follow-up with foot specialist Dr. Guy. Patient has slight upper respiratory tract symptoms yesterday including coughing and some congestion and her Accu-Chek read high. Presented to the ER. Found to be in ketoacidosis. Started insulin drip. Patient also for 2 days having upper abdominal pain. Not worse with eating. Had nausea vomiting. No fever no chills. Denies any urinary symptoms. Patient was switched over to from insulin drip to Levemir last night. Appetite is slowly improving. Still having abdominal pain. Review of systems: GEN.: Tired EYES: None HEENT: None NECK: None RESPIRATORY: None CARDIOVASCULAR: None GASTROINTESTINAL: As above] GENITOURINARY: None MUSCULOSKELETAL: None LYMPHATICS: None HEMATOLOGICAL: None PSYCHIATRY: None NEUROLOGICAL: None Past medical history to include: Diabetes mellitus type 1 since the age of 11 Social history: Lives with parents. Does wake marijuana. Less than 1 joint a day Physical examination: VITAL SIGNS: BMI 98, pulse 115, respirations 16, blood pressure 106/76, 100% room air upon presentation] GENERAL: BMI 26.6, declining but awake, tired. Tattoos EYES: Pupils equal. Conjunctiva normal. HEENT: External appearance of nose and ears normal, oral cavity grossly normal. NECK: JVD not raised; masses not palpable. HEART: First and second heart sounds are normal; no edema. LUNGS: Respiratory rate normal; clear to auscultation. ABDOMEN: Soft, upper abdominal tenderness, no guarding rigidity, liver spleen not palpable, no masses palpable. PSYCH: Alert and oriented x3; mood and affect normal. MUSCULOSKELETAL:No Clubbing/cyanosis;muscles-grossly intact NEUROLOGICAL: Cranial nerves grossly intact; no facial asymmetry, power and sensation grossly intact. LYMPHATICS: No lymph nodes palpable in the axilla and neck INVESTIGATIONS, reviewed in the clinical context: 02/04/2022: Sodium 136 potassium 4 creatinine 0.45 02/03/2022: Sodium 134 potassium 3.2 creatinine 0.55 phosphorus 1.9 COVID 19/influenza type A/type B: Not detected Serum acetone positive Admission labs: Sodium 132 potassium 5.4 bicarb 16 1122 creatinine 0.67 blood glucose 257 Assessment and plan: -Diabetic ketoacidosis, likely precipitated by viral upper respiratory tract infection Patient started insulin drip. Swished over to Levemir at night. -Diabetes mellitus type 1 since age of 11. Patient is due to follow-up with , foot specialist -Upper abdominal pain for 2 days. Could be related to DKA. But patient and I'm Asked to still having pain. Possible gastritis. Add PPI and liquid Tums. Consult GI. -Hyponatremia secondary to hyperglycemia and decreased oral intake Saline -Hyperkalemia, improvements insulin Patient was insulin drip. Swished over to Levemir. PPI. Liquid Tums. Consult GI. Soft diet. Discussed with patient. Past Medical History Past Medical History: GERD/Reflux Additional Past Medical History / Comment(s): migraine History of Any Multi-Drug Resistant Organisms: None Reported Past Surgical History: No Surgical Hx Reported Additional Past Surgical History / Comment(s): right knee surgery Past Anesthesia/Blood Transfusion Reactions: No Reported Reaction Past Psychological History: Anxiety, Depression Smoking Status: Vaper Past Alcohol Use History: None Reported Past Drug Use History: Marijuana - Past Family History Father Family Medical History: Myocardial Infarction (OK) Sister(s) Family Medical History: Thyroid Disorder Brother(s) Family Medical History: Asthma Medications and Allergies Home Medications Medication Instructions Recorded Confirmed Type Insulin Aspart [NovoLOG Flexpen] See Protocol SQ ACHS 02/03/22 02/03/22 History Insulin Glargine,Hum.rec.anlog 25 units SQ DAILY 02/03/22 02/03/22 History [Lantus Solostar Pen] Allergies Allergy/AdvReac Type Severity Reaction Status Date / Time latex Allergy Rash/Hives Verified 02/03/22 15:09 Physical Exam Vitals: Vital Signs Temp Pulse Pulse Resp BP BP Pulse Ox 02/04/22 04:00 97.8 F 92 16 109/74 98 02/03/22 23:06 97.8 F 92 16 98/65 97 02/03/22 20:00 97.7 F 89 16 104/69 98 02/03/22 18:32 97.6 F 99 18 121/72 100 02/03/22 17:50 98 16 107/82 99 02/03/22 16:00 96 16 115/62 98 02/03/22 15:00 90 16 110/60 99 02/03/22 14:22 90 20 112/83 98 02/03/22 13:03 99 16 114/82 98 02/03/22 12:27 98 F 115 H 16 106/76 100 Intake and Output 02/03/22 02/04/22 02/04/22 22:59 06:59 14:59 Intake Total 40.166 240 240 Balance 40.166 240 240 Intake: Intake, IV Titration 40.166 Amount Insulin Regular 100 unit 40.166 In Sodium Chloride 0.9% 100 ml @ 0.1 UNITS/KG/HR 6.872 mls/hr IV .[id number] [facility] Rx#:[id number] Oral 240 240 Other: Voiding Method Toilet Toilet # Voids 1 Weight 68.039 kg Results CBC & Chem 7: 02/03/22 13:03 02/04/22 07:17 Labs: Abnormal Lab Results - Last 24 Hours (Table) 02/03/22 02/03/22 02/03/22 Range/Units 13:03 13:03 13:03 Hct 46.1 H (34.0-46.0) % VBG pH 7.30 L (7.31-7.41) VBG HCO3 21 L (24-28) mmol/L Sodium 132 L (137-145) mmol/L Potassium 5.4 H (3.5-5.1) mmol/L Chloride 91 L (98-107) mmol/L Carbon Dioxide 16 L (22-30) mmol/L BUN 22 H (7-17) mg/dL Creatinine (0.52-1.04) mg/dL Glucose 257 H (74-99) mg/dL POC Glucose (mg/dL) (70-110) mg/dL Phosphorus (2.5-4.5) mg/dL Total Bilirubin 1.4 H (0.2-1.3) mg/dL AST 40 H (14-36) U/L Alkaline Phosphatase 227 H (38-126) U/L Total Protein 9.5 H (6.3-8.2) g/dL Albumin 5.4 H (3.5-5.0) g/dL Urine Appearance (Clear) Urine Protein (Negative) Urine Glucose (UA) (Negative) Urine Ketones (Negative) Urine Bilirubin (Negative) Ur Leukocyte Esterase (Negative) Urine WBC (0-5) /hpf Ur Squamous Epith Cells (0-4) /hpf Urine Bacteria (None) /hpf Hyaline Casts (0-2) /lpf Urine Mucus (None) /hpf 02/03/22 02/03/22 02/03/22 Range/Units 13:03 13:51 16:23 Hct (34.0-46.0) % VBG pH (7.31-7.41) VBG HCO3 (24-28) mmol/L Sodium (137-145) mmol/L Potassium (3.5-5.1) mmol/L Chloride (98-107) mmol/L Carbon Dioxide (22-30) mmol/L BUN (7-17) mg/dL Creatinine (0.52-1.04) mg/dL Glucose (74-99) mg/dL POC Glucose (mg/dL) 249 H 236 H (70-110) mg/dL Phosphorus (2.5-4.5) mg/dL Total Bilirubin (0.2-1.3) mg/dL AST (14-36) U/L Alkaline Phosphatase (38-126) U/L Total Protein (6.3-8.2) g/dL Albumin (3.5-5.0) g/dL Urine Appearance Cloudy H (Clear) Urine Protein 1+ H (Negative) Urine Glucose (UA) 4+ H (Negative) Urine Ketones 4+ H (Negative) Urine Bilirubin 1+ H (Negative) Ur Leukocyte Esterase Moderate H (Negative) Urine WBC 9 H (0-5) /hpf Ur Squamous Epith Cells 7 H (0-4) /hpf Urine Bacteria Rare H (None) /hpf Hyaline Casts 17 H (0-2) /lpf Urine Mucus Rare H (None) /hpf 02/03/22 02/03/22 02/03/22 Range/Units 18:35 19:49 20:47 Hct (34.0-46.0) % VBG pH (7.31-7.41) VBG HCO3 (24-28) mmol/L Sodium (137-145) mmol/L Potassium (3.5-5.1) mmol/L Chloride (98-107) mmol/L Carbon Dioxide (22-30) mmol/L BUN (7-17) mg/dL Creatinine (0.52-1.04) mg/dL Glucose (74-99) mg/dL POC Glucose (mg/dL) 290 H 236 H (70-110) mg/dL Phosphorus 1.9 L (2.5-4.5) mg/dL Total Bilirubin (0.2-1.3) mg/dL AST (14-36) U/L Alkaline Phosphatase (38-126) U/L Total Protein (6.3-8.2) g/dL Albumin (3.5-5.0) g/dL Urine Appearance (Clear) Urine Protein (Negative) Urine Glucose (UA) (Negative) Urine Ketones (Negative) Urine Bilirubin (Negative) Ur Leukocyte Esterase (Negative) Urine WBC (0-5) /hpf Ur Squamous Epith Cells (0-4) /hpf Urine Bacteria (None) /hpf Hyaline Casts (0-2) /lpf Urine Mucus (None) /hpf 02/03/22 02/03/22 02/03/22 Range/Units 20:49 21:03 21:48 Hct (34.0-46.0) % VBG pH (7.31-7.41) VBG HCO3 (24-28) mmol/L Sodium 134 L (137-145) mmol/L Potassium 3.2 L (3.5-5.1) mmol/L Chloride (98-107) mmol/L Carbon Dioxide (22-30) mmol/L BUN 18 H (7-17) mg/dL Creatinine (0.52-1.04) mg/dL Glucose 179 H (74-99) mg/dL POC Glucose (mg/dL) 189 H 171 H (70-110) mg/dL Phosphorus (2.5-4.5) mg/dL Total Bilirubin (0.2-1.3) mg/dL AST (14-36) U/L Alkaline Phosphatase (38-126) U/L Total Protein (6.3-8.2) g/dL Albumin (3.5-5.0) g/dL Urine Appearance (Clear) Urine Protein (Negative) Urine Glucose (UA) (Negative) Urine Ketones (Negative) Urine Bilirubin (Negative) Ur Leukocyte Esterase (Negative) Urine WBC (0-5) /hpf Ur Squamous Epith Cells (0-4) /hpf Urine Bacteria (None) /hpf Hyaline Casts (0-2) /lpf Urine Mucus (None) /hpf 02/04/22 02/04/22 Range/Units 06:06 07:17 Hct (34.0-46.0) % VBG pH (7.31-7.41) VBG HCO3 (24-28) mmol/L Sodium 136 L (137-145) mmol/L Potassium (3.5-5.1) mmol/L Chloride (98-107) mmol/L Carbon Dioxide (22-30) mmol/L BUN (7-17) mg/dL Creatinine 0.45 L (0.52-1.04) mg/dL Glucose 101 H (74-99) mg/dL POC Glucose (mg/dL) 61 L (70-110) mg/dL Phosphorus (2.5-4.5) mg/dL Total Bilirubin (0.2-1.3) mg/dL AST (14-36) U/L Alkaline Phosphatase (38-126) U/L Total Protein (6.3-8.2) g/dL Albumin (3.5-5.0) g/dL Urine Appearance (Clear) Urine Protein (Negative) Urine Glucose (UA) (Negative) Urine Ketones (Negative) Urine Bilirubin (Negative) Ur Leukocyte Esterase (Negative) Urine WBC (0-5) /hpf Ur Squamous Epith Cells (0-4) /hpf Urine Bacteria (None) /hpf Hyaline Casts (0-2) /lpf Urine Mucus (None) /hpf
[2022-02-04 20:05] LABS: Glucose,Whole Blood 297 mg/dL (70-110)
[2022-02-04] MEDS: INSULIN DETEMIR (LEVEMIR) 100 UNIT/ML SYR SQ SCH (20:28)
[2022-02-04 23:06] LABS: Glucose,Whole Blood 62 mg/dL (70-110)
[2022-02-04 23:28] LABS: Glucose,Whole Blood 71 mg/dL (70-110)
[2022-02-05 05:54] LABS: Glucose,Whole Blood 57 mg/dL (70-110)
[2022-02-05] MEDS: INSULIN ASPART (NovoLOG) 100 UNIT/ML VIAL SQ SCH ×2 (05:58→12:08)
[2022-02-05 06:18] LABS: Glucose,Whole Blood 79 mg/dL (70-110)
[2022-02-05] MEDS: PANTOPRAZOLE 40 MG/10 ML VIAL IV SCH (08:50)
[2022-02-05] MEDS: FAMOTIDINE 20 MG TAB PO SCH (08:50)
[2022-02-05] MEDS: ENOXAPARIN 40 MG/0.4 ML SYRINGE SQ SCH (08:52)
--- NOTE | 2022-02-05 11:06 | P.PN ---
Subjective Progress Note Date: 02/05/22 Principal diagnosis: Abdominal pain This is apleasant 21-year-old female who presented to the emergency department with complaints of nausea vomiting and abdominal pain. Patient states she recently had similar symptoms and she was concerned for diabetic ketoacidosis. Patient was recently hospitalized at [facility] again with recent symptoms and elevated blood sugar 2 to 3 weeks ago. She has a past medical history of type 1 insulin-dependent diabetes diagnosed at age 11. States her sugars have been uncontrolled. She states she has a upcoming appointment with endocrinology. On admission she was noted to have elevated LFTs including total bilirubin 1.4 AST 40 ALT 26 alkaline phosphatase 227, blood sugar 249, positive acetone. He also underwent ultrasound of the gallbladder that showed no gallstones or ultrasound evidence for acute cholecystitis. No CBD dilation. 02/05/2022: Patient seen and examined today for follow-up for elevated LFTs and abdominal pain. Patient states abdominal pain is completely gone. She is feeling much better today. Sugars have been a little more regulated. Denies any nausea or vomiting. Repeat LFTs improving. Total bilirubin 0.4 down from 1.4 AST 26 ALT 21 alkaline phosphatase 128. Objective - Vital Signs Vital signs: Vital Signs Temp 97.6 F 02/05/22 00:23 Pulse 82 02/05/22 00:23 Resp 14 02/05/22 00:23 BP 110/73 02/05/22 00:23 Pulse Ox 97 02/05/22 00:23 FiO2 Intake & Output 02/04/22 02/05/22 02/05/22 18:59 06:59 18:59 Intake Total 920 118 600 Balance 920 118 600 Weight 68.039 kg Intake: Oral 920 118 600 Other: Voiding Method Toilet Toilet # Voids 1 1 - Exam General appearance: The patient is alert, oriented, appears in no acute distress. HET: Head is normocephalic and atraumatic. Conjunctiva pink. Sclera anicteric. Neck: Supple without lymphadenopathy. Abdomen: Soft, nontender, nondistended with bowel sounds. No guarding or rigidity. Extremities: Normal skin color and turgor. No pedal edema Skin: No rashes, no jaundice Neurological: No focal deficits. Alert and oriented. - Labs CBC & Chem 7: 02/03/22 13:03 02/04/22 07:17 Labs: Abnormal Lab Results - Last 24 Hours (Table) 02/04/22 02/04/22 02/04/22 Range/Units 07:17 07:17 16:30 Sodium 136 L (137-145) mmol/L Creatinine 0.45 L (0.52-1.04) mg/dL Glucose 101 H (74-99) mg/dL POC Glucose (mg/dL) 170 H (70-110) mg/dL Hemoglobin A1c 15.6 H (0.0-6.0) % Alkaline Phosphatase 128 H (38-126) U/L Total Protein 6.2 L (6.3-8.2) g/dL 02/04/22 02/04/22 02/05/22 Range/Units 20:03 23:04 05:52 Sodium (137-145) mmol/L Creatinine (0.52-1.04) mg/dL Glucose (74-99) mg/dL POC Glucose (mg/dL) 297 H 62 L 57 L (70-110) mg/dL Hemoglobin A1c (0.0-6.0) % Alkaline Phosphatase (38-126) U/L Total Protein (6.3-8.2) g/dL Assessment and Plan (1) Nausea & vomiting Narrative/Plan: 21-year-old female with history of type 1 insulin-dependent diabetes not well- controlled with admission for diabetic ketoacidosis. Patient was having multiple episodes of nausea vomiting and some related abdominal pain. She denied any hematemesis or coffee-ground emesis. Similar symptoms occurred couple weeks ago when she was admitted to [facility] for diabetic ketoacidosis. On admission she was noted have mildly elevated LFTs likely re lated to underlying diabetes and nausea vomiting and dehydration. No plans on endoscopic evaluation or further workup. Recommend strict glycemic control, will repeat CMP in the morning. Nausea vomiting and abdominal pain improved. LFTs have improved. Likely again related to underlying diabetic ketoacidosis. No plans on endoscopic evaluation or further workup. Current Visit: No Status: Acute Code(s): R11.2 - NAUSEA WITH VOMITING, UNSPECIFIED SNOMED Code(s): 06307471 (2) DKA, type 1 Current Visit: Yes Status: Acute Code(s): E10.10 - TYPE 1 DIABETES MELLITUS WITH KETOACIDOSIS WITHOUT COMA SNOMED Code(s): 98303829 Plan: 1. Continue symptomatic and supportive care 2. Antiemetics as needed 3. Protonix 40 mg daily 4. Strict glycemic control 5. No plans for endoscopic evaluation or further workup. Thank you for this consultation, we will sign off at this time. Dr. Santana Barraza I agree with the dictator's note, documented as a scribe by Victoria Sim.
[2022-02-05 12:01] LABS: Glucose,Whole Blood 192 mg/dL (70-110)
[2022-02-05 13:29] VITALS: BP 118/64; PULSE 78; RESP 16; TEMP 97.9
--- NOTE | 2022-02-05 17:05 | P.DS ---
Providers Date of admission: 02/03/22 16:14 Expected date of discharge: 02/05/22 Attending physician: Thomas Montoya Consults: 02/04/22 10:33 Consult Physician Routine Consulting Provider: Laila Barraza Consult Reason/Comments: abd pain Do you want consulting provider notified?: Yes Primary care physician: [facility] Course: Chief Complaint: Nausea vomiting This is a pleasant 21-year-old patient who follows with Dr. Everette Cunningham. Diagnosed with diabetes at age of 11. Patient has an appointment to follow-up with pool technician Dr. Guy. Patient has slight upper respiratory tract symptoms yesterday including coughing and some congestion and her Accu-Chek read high. Presented to the ER. Found to be in ketoacidosis. Started insulin drip. Patient also for 2 days having upper abdominal pain. Not worse with eating. Had nausea vomiting. No fever no chills. Denies any urinary symptoms. Patient was switched over to from insulin drip to Levemir last night. Appetite is slowly improving. Still having abdominal pain. 02/05/2022: Doing well. No abdominal pain. Responding well to Pepcid and liquid Tums. Patient be following up with pool technician Dr. Guy. Patient be discharged on Lantus 20 units with sliding scale. Questions answered. Eating well. Past medical history to include: Diabetes mellitus type 1 since the age of 11 Social history: Lives with parents. Does wake marijuana. Less than 1 joint a day Physical examination: VITAL SIGNS: 97.9, 78, 16, 11 8 x 64, 97% room air GENERAL: Sitting up, comfortable Tattoos EYES: Pupils equal. Conjunctiva normal. HEENT: External appearance of nose and ears normal, oral cavity grossly normal. NECK: JVD not raised; masses not palpable. HEART: First and second heart sounds are normal; no edema. LUNGS: Respiratory rate normal; clear to auscultation. ABDOMEN: Soft, no tenderness, no guarding rigidity, liver spleen not palpable, no masses palpable. PSYCH: Alert and oriented x3; mood and affect normal. INVESTIGATIONS, reviewed in the clinical context: 02/04/2022: Sodium 136 potassium 4 creatinine 0.45 02/03/2022: Sodium 134 potassium 3.2 creatinine 0.55 phosphorus 1.9 COVID 19/influenza type A/type B: Not detected Serum acetone positive Admission labs: Sodium 132 potassium 5.4 bicarb 16 1122 creatinine 0.67 blood glucose 257 Assessment and plan: -Diabetic ketoacidosis, likely precipitated by viral upper respiratory tract infection Patient started insulin drip. Swished over to Levemir at night. -Diabetes mellitus type 1 since age of 11. Patient is due to follow-up with , pool technician. Discharged on Lantus 20 units at night -Acute gastritis. Seen by GI Dr. Santana Barraza. Pepcid added. -Hyponatremia secondary to hyperglycemia and decreased oral intake Saline -Hyperkalemia, improvements insulin Disposition: Home Plan - Discharge Summary New Discharge Prescriptions: New Famotidine [Pepcid] 20 mg PO BID #60 tab Continue Insulin Aspart [NovoLOG Flexpen] See Protocol SQ ACHS Changed Insulin Glargine,Hum.rec.anlog [Lantus Solostar Pen] 20 units SQ DAILY #0 Discharge Medication List Insulin Aspart [NovoLOG Flexpen] See Protocol SQ ACHS 02/03/22 [History] Famotidine [Pepcid] 20 mg PO BID #60 tab 02/05/22 [Rx] Insulin Glargine,Hum.rec.anlog [Lantus Solostar Pen] 20 units SQ DAILY #0 02/05/22 [Rx] Follow up Appointment(s)/Referral(s): Jared Guy MD [REFERRING] - 1 Week (Office is closed. Please call to schedule appoitment) Everette Cunningham MD [Primary Care Provider] - 1 Week (Please call office to schedule follow up appoitment. ) Patient Instructions/Handouts: Diabetic Ketoacidosis (IP) Discharge Disposition: HOME SELF-CARE
== END 2022-02-05 13:26 | disposition home or self-care (01) | DRG 638 ==
LOC: EC 12:10 → 3SCARD 16:14
PROVIDERS: ADMIT Hospitalist; ATTEND Hospitalist
DX: E10.10 Type 1 diabetes mellitus with ketoacidosis without coma (principal); E87.1 Hypo-osmolality and hyponatremia; Z79.4 Long term (current) use of insulin; Z20.822 Contact with and (suspected) exposure to COVID-19; J06.9 Acute upper respiratory infection, unspecified; E86.0 Dehydration; E87.5 Hyperkalemia; K29.00 Acute gastritis without bleeding; K21.9 Gastro-esophageal reflux disease without esophagitis; G43.909 Migraine, unspecified, not intractable, without status migrainosus; Z91.040 Latex allergy status
CPT/HCPCS: 36415; 76705; 80051; 80053; 81001; 81025; 82009; 82565; 82803; 82947; 83036; 83605; 83735; 84100; 84520; 85025; 87502; 87635; 96361; 96374; 96375; 99285

== ENCOUNTER 2022-11-11 16:56 | Emergency (ER) | payer BC, OTHER ==
[2022-11-11] MEDS ORDERED: ONDANSETRON 4 MG/2 ML VIAL IVP STA (18:03)
[2022-11-11] MEDS ORDERED: SODIUM CHLORIDE 0.9% 500 ML 500 ML IV STA (18:03)
[2022-11-11] MEDS ORDERED: SODIUM CHLORIDE 0.9% 1,000 ML IV STA ×2 (18:03)
[2022-11-11 18:42] LABS: Basophils % (A) 0 %; Eosinophils # (A) 0.1 k/uL (0-0.7); Eosinophils % (A) 1 %; HCT 33.2 % (34.0-46.0); HGB 11.9 gm/dL (11.4-16.0); Lymphocytes % (A) 20 %; MCHC 35.9 g/dL (31.0-37.0); MCV 86.4 fL (80.0-100.0); Mean Platelet Volume 8.1; Monocytes # (A) 0.3 k/uL (0-1.0); Monocytes % (A) 3 %; Neutrophils # (A) 7.5 k/uL (1.3-7.7); Neutrophils % (A) 75 %; Platelet Count 337 k/uL (150-450); RBC 3.85 m/uL (3.80-5.40); RDW 12.8 % (11.5-15.5); VBG PH 7.39 (7.31-7.41)
--- NOTE | 2022-11-11 18:49 | ED ---
Abdominal Pain HPI - General Chief Complaint: Abdominal Pain Stated Complaint: severe vomiting pregancy/diabetic Time Seen by Provider: 11/11/22 18:03 Source: patient, RN notes reviewed, old records reviewed Mode of arrival: ambulatory Limitations: no limitations - History of Present Illness Initial Comments: This is a 22-year-old female to the ER today. Patient presents to ER today for evaluation of nausea vomiting of . Patient has a comorbid conditions including type 1 diabetes. Patient presents for evaluation of elevated blood sugar, and significant nausea vomiting and . Patient feels weak lightheaded dizzy and has been vomiting throughout the day. She also was abdominal pain with history of pancreatitis. Patient has history of gallbladder removal MD Complaint: abdominal pain, other (Severe nausea vomiting) -: days(s) Location: epigastric Radiation: epigastric Migration to: epigastric Severity: moderate Severity scale (1-10): 7 Quality: aching Consistency: constant Improves With: nothing Worsens With: nothing Associated Symptoms: nausea, vomiting Treatments Prior to Arrival: other (0) - Related Data Home Medications Medication Instructions Recorded Confirmed Insulin Aspart [NovoLOG Flexpen] See Protocol SQ ACHS 02/03/22 02/03/22 Previous Rx's Medication Instructions Recorded Famotidine [Pepcid] 20 mg PO BID #60 tab 02/05/22 Insulin Glargine,Hum.rec.anlog 20 units SQ DAILY #0 02/05/22 [Lantus Solostar Pen] Allergies Allergy/AdvReac Type Severity Reaction Status Date / Time adhesive tape Allergy Rash/Hives Verified 11/11/22 17:12 latex Allergy Rash/Hives Verified 02/03/22 15:09 Review of Systems ROS Statement: Those systems with pertinent positive or pertinent negative responses have been documented in the HPI. ROS Other: All systems not noted in ROS Statement are negative. Past Medical History Past Medical History: GERD/Reflux Additional Past Medical History / Comment(s): migraine History of Any Multi-Drug Resistant Organisms: None Reported Past Surgical History: No Surgical Hx Reported Additional Past Surgical History / Comment(s): right knee surgery Past Anesthesia/Blood Transfusion Reactions: No Reported Reaction Past Psychological History: Anxiety, Depression Smoking Status: Vaper Past Alcohol Use History: None Reported Past Drug Use History: Marijuana - Past Family History Father Family Medical History: Myocardial Infarction (ND) Sister(s) Family Medical History: Thyroid Disorder Brother(s) Family Medical History: Asthma General Exam Limitations: no limitations General appearance: alert, in no apparent distress Head exam: Present: atraumatic, normocephalic, normal inspection Eye exam: Present: normal appearance, PERRL, EOMI. Absent: scleral icterus, conjunctival injection, periorbital swelling ENT exam: Present: normal exam, mucous membranes moist Neck exam: Present: normal inspection. Absent: tenderness, meningismus, lymphadenopathy Respiratory exam: Present: normal lung sounds bilaterally. Absent: respiratory distress, wheezes, rales, rhonchi, stridor Cardiovascular Exam: Present: normal rhythm, tachycardia, normal heart sounds. Absent: systolic murmur, diastolic murmur, rubs, gallop, clicks GI/Abdominal exam: Present: soft, normal bowel sounds. Absent: distended, tenderness, guarding, rebound, rigid Extremities exam: Present: normal inspection, full ROM, normal capillary refill. Absent: tenderness, pedal edema, joint swelling, calf tenderness Back exam: Present: normal inspection Neurological exam: Present: alert, oriented X3, CN II-XII intact Psychiatric exam: Present: normal affect, normal mood Skin exam: Present: warm, dry, intact, normal color. Absent: rash Course Vital Signs 11/11/22 11/11/22 11/11/22 17:09 19:33 20:52 Temperature 97.7 F Pulse Rate 107 H 101 H 87 Respiratory 18 16 16 Rate Blood Pressure 110/77 125/81 129/83 O2 Sat by Pulse 98 100 100 Oximetry 11/11/22 11/11/22 22:25 22:44 Temperature 98.7 F Pulse Rate 87 92 Respiratory 12 18 Rate Blood Pressure 122/78 100/83 O2 Sat by Pulse 99 100 Oximetry - Reevaluation(s) Reevaluation #1: 11/11/22 21:53 Medical record is reviewed Reevaluation #2: 11/11/22 21:53 Patient is able tolerate oral intake here in the ER Reevaluation #3: 11/11/22 21:53 Patient informed results questions answered Reevaluation #4: 11/11/22 21:53 Was pt. sent in by a medical professional or institution (, PA, MACHINE SET UP OPERATOR, urgent care, hospital, or long term...) When possible be specific @ -no Did you speak to anyone other than the patient for history (EMS, parent, family, police, friend...)? What history was obtained from this source @ -no Did you review nursing and triage notes (agree or disagree)? Why? @ -agree Are old charts reviewed (outside hosp., previous admission, EMS record, old EKG, old radiological studies, urgent care reports/EKG's, long term records)? Report findings @ -yes Differential Diagnosis (chest pain, altered mental status, abdominal pain women, abdominal pain men, vaginal bleeding, weakness, fever, dyspnea, syncope, headache, dizziness, GI bleed, back pain, seizure, CVA, palpatations, mental health, musculoskeletal)? @ -prior EKG interpreted by me (3pts min.). @ -yes X-rays interpreted by me (1pt min.). @ -no CT interpreted by me (1pt min.). @ -no U/S interpreted by me (1pt. min.). @ -yes What testing was considered but not performed or refused? (CT, X-rays, U/S, labs)? Why? @ -none What meds were considered but not given or refused? Why? @ -none Did you discuss the management of the patient with other professionals (professionals i.e. , PA, MACHINE SET UP OPERATOR, lab, RT, psych nurse, social service agency director, civil preparedness coordinator, teacher, multisensor intelligence officer, binder caser)? Give summary @ -no Was smoking cessation discussed for >3mins.? @ -no Was critical care preformed (if so, how long)? @ -no Were there social determinants of health that impacted care today? How? (Homelessness, low income, unemployed, alcoholism, drug addiction, transportation, low edu. Level, literacy, decrease access to med. care, half-way, rehab)? @ -none Was there de-escalation of care discussed even if they declined (Discuss DNR or withdrawal of care, Hospice)? DNR status @ -no What co-morbidities impacted this encounter? (DM, HTN, Smoking, COPD, CAD, Cancer, CVA, ARF, Chemo, Hep., AIDS, mental health diagnosis, sleep apnea, morbid obesity)? @ -none Was patient admitted / discharged? Hospital course, mention meds given and route, prescriptions, significant lab abnormalities, going to OR and other pertinent info. @ - 22 female to the emergency department for evaluation. Patient presents today for evaluation of nausea vomiting of , type I diabetic severely dehydrated with ketones but she does not appear to be significantly acidotic. Tolerating oral intake and can be discharged home Discharge Undiagnosed new problem with uncertain prognosis? @ -no Drug Therapy requiring intensive monitoring for toxicity (Heparin, Nitro, Insulin, Cardizem)? @ -no Were any procedures done? @ -no Diagnosis/symptom? @ -Nausea vomiting diarrhea with history of diabetes Acute, or Chronic, or Acute on Chronic? @ -Acute Uncomplicated (without systemic symptoms) or Complicated (systemic symptoms)? @ -Complicated Side effects of treatment? @ -no Exacerbation, Progression, or Severe Exacerbation? @ -exacerbation Poses a threat to life or bodily function? How? (Chest pain, [place], ND, pneumonia, PE, COPD, DKA, ARF, appy, cholecystitis, CVA, Diverticulitis, Homicidal, Suicidal, threat to staff... and all critical care pts) @ -yes if significant DKA and acidosis Medical Decision Making - Medical Decision Making 22 female to the emergency department for evaluation. Patient presents today for evaluation of nausea vomiting of , type I diabetic severely dehydrated with ketones but she does not appear to be significantly acidotic. Tolerating oral intake and can be discharged home - Lab Data Result diagrams: 11/11/22 18:23 11/11/22 18:23 Lab Results 11/11/22 11/11/22 11/11/22 Range/Units 18:23 18:23 18:23 WBC 10.0 (3.8-10.6) k/uL RBC 3.85 (3.80-5.40) m/uL Hgb 11.9 (11.4-16.0) gm/dL Hct 33.2 L (34.0-46.0) % MCV 86.4 (80.0-100.0) fL MCH 31.0 (25.0-35.0) pg MCHC 35.9 (31.0-37.0) g/dL RDW 12.8 (11.5-15.5) % Plt Count 337 (150-450) k/uL MPV 8.1 Neutrophils % 75 % Lymphocytes % 20 % Monocytes % 3 % Eosinophils % 1 % Basophils % 0 % Neutrophils # 7.5 (1.3-7.7) k/uL Lymphocytes # 2.0 (1.0-4.8) k/uL Monocytes # 0.3 (0-1.0) k/uL Eosinophils # 0.1 (0-0.7) k/uL Basophils # 0.0 (0-0.2) k/uL VBG pH (7.31-7.41) VBG pCO2 (37-51) mmHg VBG HCO3 (24-28) mmol/L Sodium 133 L (137-145) mmol/L Potassium 4.2 (3.5-5.1) mmol/L Chloride 102 (98-107) mmol/L Carbon Dioxide 19 L (22-30) mmol/L Anion Gap 12 mmol/L BUN 7 (7-17) mg/dL Creatinine 0.45 L (0.52-1.04) mg/dL Est GFR (CKD-EPI)AfAm >90 (>60 ml/min/1.73 sqM) Est GFR (CKD-EPI)NonAf >90 (>60 ml/min/1.73 sqM) Glucose 126 H (74-99) mg/dL Plasma Lactic Acid Leroy (0.7-2.0) mmol/L Calcium 9.3 (8.4-10.2) mg/dL Phosphorus 3.3 (2.5-4.5) mg/dL Magnesium 1.5 L (1.6-2.3) mg/dL Total Bilirubin 1.0 (0.2-1.3) mg/dL AST 39 H (14-36) U/L ALT 43 H (4-34) U/L Alkaline Phosphatase 94 (38-126) U/L Troponin I (0.000-0.034) ng/mL Total Protein 7.5 (6.3-8.2) g/dL Albumin 3.9 (3.5-5.0) g/dL Lipase (23-300) U/L Urine Color Yellow Urine Appearance Cloudy H (Clear) Urine pH 6.0 (5.0-8.0) Ur Specific [place] 1.016 (1.001-1.035) Urine Protein 3+ H (Negative) Urine Glucose (UA) Trace H (Negative) Urine Ketones 4+ H (Negative) Urine Blood Trace H (Negative) Urine Nitrite Negative (Negative) Urine Bilirubin Negative (Negative) Urine Urobilinogen <2.0 (<2.0) mg/dL Ur Leukocyte Esterase Small H (Negative) Urine RBC 3 (0-5) /hpf Urine WBC 13 H (0-5) /hpf Ur Squamous Epith Cells 10 H (0-4) /hpf Urine Bacteria Rare H (None) /hpf Cellular Casts 2 (0) /lpf Hyaline Casts 35 H (0-2) /lpf Granular Casts 4 (0) /lpf Urine Mucus Many H (None) /hpf Acetone, Qual Positive (Negative) 11/11/22 11/11/22 11/11/22 Range/Units 18:23 18: 18:23 WBC (3.8-10.6) k/uL RBC (3.80-5.40) m/uL Hgb (11.4-16.0) gm/dL Hct (34.0-46.0) % MCV (80.0-100.0) fL MCH (25.0-35.0) pg MCHC (31.0-37.0) g/dL RDW (11.5-15.5) % Plt Count (150-450) k/uL MPV Neutrophils % % Lymphocytes % % Monocytes % % Eosinophils % % Basophils % % Neutrophils # (1.3-7.7) k/uL Lymphocytes # (1.0-4.8) k/uL Monocytes # (0-1.0) k/uL Eosinophils # (0-0.7) k/uL Basophils # (0-0.2) k/uL VBG pH 7.39 (7.31-7.41) VBG pCO2 37 (37-51) mmHg VBG HCO3 23 L (24-28) mmol/L Sodium (137-145) mmol/L Potassium (3.5-5.1) mmol/L Chloride (98-107) mmol/L Carbon Dioxide (22-30) mmol/L Anion Gap mmol/L BUN (7-17) mg/dL Creatinine (0.52-1.04) mg/dL Est GFR (CKD-EPI)AfAm (>60 ml/min/1.73 sqM) Est GFR (CKD-EPI)NonAf (>60 ml/min/1.73 sqM) Glucose (74-99) mg/dL Plasma Lactic Acid Leroy 0.9 (0.7-2.0) mmol/L Calcium (8.4-10.2) mg/dL Phosphorus (2.5-4.5) mg/dL Magnesium (1.6-2.3) mg/dL Total Bilirubin (0.2-1.3) mg/dL AST (14-36) U/L ALT (4-34) U/L Alkaline Phosphatase (38-126) U/L Troponin I <0.012 (0.000-0.034) ng/mL Total Protein (6.3-8.2) g/dL Albumin (3.5-5.0) g/dL Lipase (23-300) U/L Urine Color Urine Appearance (Clear) Urine pH (5.0-8.0) Ur Specific [place] (1.001-1.035) Urine Protein (Negative) Urine Glucose (UA) (Negative) Urine Ketones (Negative) Urine Blood (Negative) Urine Nitrite (Negative) Urine Bilirubin (Negative) Urine Urobilinogen (<2.0) mg/dL Ur Leukocyte Esterase (Negative) Urine RBC (0-5) /hpf Urine WBC (0-5) /hpf Ur Squamous Epith Cells (0-4) /hpf Urine Bacteria (None) /hpf Cellular Casts (0) /lpf Hyaline Casts (0-2) /lpf Granular Casts (0) /lpf Urine Mucus (None) /hpf Acetone, Qual (Negative) 11/11/22 Range/Units 18:23 WBC (3.8-10.6) k/uL RBC (3.80-5.40) m/uL Hgb (11.4-16.0) gm/dL Hct (34.0-46.0) % MCV (80.0-100.0) fL MCH (25.0-35.0) pg MCHC (31.0-37.0) g/dL RDW (11.5-15.5) % Plt Count (150-450) k/uL MPV Neutrophils % % Lymphocytes % % Monocytes % % Eosinophils % % Basophils % % Neutrophils # (1.3-7.7) k/uL Lymphocytes # (1.0-4.8) k/uL Monocytes # (0-1.0) k/uL Eosinophils # (0-0.7) k/uL Basophils # (0-0.2) k/uL VBG pH (7.31-7.41) VBG pCO2 (37-51) mmHg VBG HCO3 (24-28) mmol/L Sodium (137-145) mmol/L Potassium (3.5-5.1) mmol/L Chloride (98-107) mmol/L Carbon Dioxide (22-30) mmol/L Anion Gap mmol/L BUN (7-17) mg/dL Creatinine (0.52-1.04) mg/dL Est GFR (CKD-EPI)AfAm (>60 ml/min/1.73 sqM) Est GFR (CKD-EPI)NonAf (>60 ml/min/1.73 sqM) Glucose (74-99) mg/dL Plasma Lactic Acid Leroy (0.7-2.0) mmol/L Calcium (8.4-10.2) mg/dL Phosphorus (2.5-4.5) mg/dL Magnesium (1.6-2.3) mg/dL Total Bilirubin (0.2-1.3) mg/dL AST (14-36) U/L ALT (4-34) U/L Alkaline Phosphatase (38-126) U/L Troponin I (0.000-0.034) ng/mL Total Protein (6.3-8.2) g/dL Albumin (3.5-5.0) g/dL Lipase 36 (23-300) U/L Urine Color Urine Appearance (Clear) Urine pH (5.0-8.0) Ur Specific [place] (1.001-1.035) Urine Protein (Negative) Urine Glucose (UA) (Negative) Urine Ketones (Negative) Urine Blood (Negative) Urine Nitrite (Negative) Urine Bilirubin (Negative) Urine Urobilinogen (<2.0) mg/dL Ur Leukocyte Esterase (Negative) Urine RBC (0-5) /hpf Urine WBC (0-5) /hpf Ur Squamous Epith Cells (0-4) /hpf Urine Bacteria (None) /hpf Cellular Casts (0) /lpf Hyaline Casts (0-2) /lpf Granular Casts (0) /lpf Urine Mucus (None) /hpf Acetone, Qual (Negative) - EKG Data -: EKG Interpreted by Me (ER EKG is sinus 95 [place] 124 QRS 100 QTc 413) - Radiology Data Radiology results: report reviewed (Ultrasound is positive for IUP), image reviewed Disposition Clinical Impression: Nausea & vomiting, Hyperglycemia, Diabetes, Dehydration, Abdominal pain Disposition: HOME SELF-CARE Condition: Fair Is patient prescribed a controlled substance at d/c from ED?: No Referrals: Everette Cunningham MD [STAFF PHYSICIAN] - 1-2 days Time of Disposition: 21:40
[2022-11-11 18:53] LABS: ALT 43 U/L (4-34); AST 39 U/L (14-36); African American GFR (CKD) >90 (>60 ml/min/1.73 sqM); Albumin 3.9 g/dL (3.5-5.0); Alkaline Phosphatase 94 U/L (38-126); Anion Gap 12 mmol/L; Blood Urea Nitrogen 7 mg/dL (7-17); Calcium 9.3 mg/dL (8.4-10.2); Carbon Dioxide 19 mmol/L (22-30); Chloride 102 mmol/L (98-107); Glucose 126 mg/dL (74-99); Magnesium 1.5 mg/dL (1.6-2.3); Non-African American GFR(CKD) >90 (>60 ml/min/1.73 sqM); Phosphorus 3.3 mg/dL (2.5-4.5); Potassium 4.2 mmol/L (3.5-5.1); Sodium 133 mmol/L (137-145); Total Protein 7.5 g/dL (6.3-8.2)
[2022-11-11] MEDS ORDERED: MAGNESIUM OXIDE 400 MG TAB PO STA (19:30)
[2022-11-11] MEDS ORDERED: diphenhydrAMINE 50 MG/ML 1 ML VIAL IVP STA (19:30)
[2022-11-11] MEDS ORDERED: ACETAMINOPHEN IV (For NPO) 1,000 MG in EMPTY BAG 1 BAG IVPB STA (19:30)
[2022-11-11 20:24] LABS: Appearance,Urine Cloudy (Clear); Bacteria,Urine Rare /hpf; Bilirubin,Urine Negative (Negative); Blood,Urine Trace (Negative); Cellular Casts,Urine 2 /lpf (0); Color,Urine Yellow; Glucose,Urine (UA) Trace (Negative); Granular Casts,Urine 4 /lpf (0); Hyaline Casts,Urine 35 /lpf (0-2); Ketones,Urine 4+ (Negative); Leukocyte Esterase,Urine Small (Negative); Mucus,Urine Many /hpf; Nitrite,Urine Negative (Negative); Protein,Urine 3+ (Negative); RBC,Urine 3 /hpf (0-5); Specific Gravity,Urine 1.016 (1.001-1.035); Squamous Epithelial Cell,Urine 10 /hpf (0-4); Urobilinogen,Urine <2.0 mg/dL (<2.0); WBC,Urine 13 /hpf (0-5)
--- NOTE | 2022-11-11 20:45 | US ---
EXAMINATION TYPE: US OB >= 14 wk fetus DATE OF EXAM: 11/11/2022 COMPARISON: None CLINICAL INDICATION: Female, 22 years old with history of abd pain; N/V. TECHNIQUE: Transabdominal (TA) GESTATIONAL AGE / DATING Physician Established: (15 weeks/0 days) EDC: 05/05/2023 Dates by Current Scan: (15 weeks/2 days) EDC: 05/03/2023 Beta HCG (if available): Not available at this time SURVEY IUP: Single PLACENTA: Left Anterior PREVIA: Low Lying ARLETTE: 12.3 cm Normal CERVICAL LENGTH (transabdominal: norm > 3.0cm): 3.8 cm BIOMETRY LIE: Transverse with head maternal left BPD: 2.9 cm 15 weeks / 2 days HC: 10.7 cm 15 weeks / 1 days AC: 8.9 cm 15 weeks / 1 days FL: 1.5 cm 14 weeks / 2 days ESTIMATED WEIGHT IN GRAMS: 105.6 grams ESTIMATED WEIGHT IN LBS/OZ: 0 lbs. 4 oz. WEIGHT PERCENTAGE BASED ON ESTABLISHED DATES: 22.4% HC/AC: 1.2 Normal FL/AC: 16.4 HEART RATE: 162 bpm RHYTHM: Normal IMPRESSION: Single viable intrauterine .
[2022-11-11 22:46] VITALS: BP 100/83; PULSE 92; RESP 18; TEMP 98.7
== END 2022-11-11 22:47 | disposition home or self-care (01) ==
LOC: EC 16:56
DX: O21.9 Vomiting of pregnancy, unspecified (principal); O24.911 Unspecified diabetes mellitus in pregnancy, first trimester; E11.65 Type 2 diabetes mellitus with hyperglycemia; O26.91 Pregnancy related conditions, unspecified, first trimester; E86.0 Dehydration; O99.331 Smoking (tobacco) complicating pregnancy, first trimester; F17.290 Nicotine dependence, other tobacco product, uncomplicated; O99.341 Other mental disorders complicating pregnancy, first trimester; F12.90 Cannabis use, unspecified, uncomplicated; Z86.59 Personal history of other mental and behavioral disorders; Z91.09 Other allergy status, other than to drugs and biological substances; Z91.040 Latex allergy status
CPT/HCPCS: 36415; 93005; 80053; 82803; 82009; 83605; 83690; 83735; 84100; 84484; 85025; 81001; 76805; 99285; 96365; 96375 ×2; 96361 ×3; J1200; J2405; J0131

== ENCOUNTER 2022-11-25 08:18 | Emergency (ER) | payer BC, OTHER ==
[2022-11-25] MEDS ORDERED: diphenhydrAMINE 50 MG/ML 1 ML VIAL IVP STA (08:38)
[2022-11-25] MEDS ORDERED: METOCLOPRAMIDE 5 MG/ML 2 ML VIAL IVP STA (08:38)
[2022-11-25] MEDS ORDERED: ACETAMINOPHEN IV (For NPO) 1,000 MG in EMPTY BAG 1 BAG IVPB STA (08:38)
[2022-11-25] MEDS ORDERED: SODIUM CHLORIDE 0.9% 2,000 ML IV STA (08:38)
--- NOTE | 2022-11-25 08:42 | ED ---
Nausea/Vomiting/Diarrhea HPI - General Chief complaint: Abdominal Pain Stated complaint: 17 weeks preg, bleeding Time Seen by Provider: 11/25/22 08:28 Source: patient, RN notes reviewed Mode of arrival: ambulatory Limitations: no limitations - History of Present Illness Initial comments: This is a 22-year-old female who presents to the emergency department for nausea, vomiting, and abdominal pain. Patient is 17 weeks and . States that over the last 3 days she's been unable to keep anything down. Reports associated abdominal pain and is now starting to develop some chest pain. Her [employer]PLIC[employer] is not local to this area. She has been taking Zofran with no relief in symptoms. Denies any complications in this thus far. Denies any vaginal bleeding or discharge. Also denies any sick contacts. Denies any fevers, chills, sore throat, cough, dyspnea, palpitations, diarrhea, back pain, or headaches. MD complaint: nausea, vomiting, abdominal pain Onset/Timin -: days(s) Associated Abdominal Pain: Yes - Related Data Home Medications Medication Instructions Recorded Confirmed Insulin Aspart [NovoLOG Flexpen] See Protocol SQ ACHS 02/03/22 02/03/22 Previous Rx's Medication Instructions Recorded Famotidine [Pepcid] 20 mg PO BID #60 tab 02/05/22 Insulin Glargine,Hum.rec.anlog 20 units SQ DAILY #0 02/05/22 [Lantus Solostar Pen] Metoclopramide [Reglan] 10 mg PO Q6H PRN #30 tab 11/25/22 Allergies Allergy/AdvReac Type Severity Reaction Status Date / Time adhesive tape Allergy Rash/Hives Verified 11/25/22 08:24 latex Allergy Rash/Hives Verified 11/25/22 08:24 Review of Systems ROS Statement: Those systems with pertinent positive or pertinent negative responses have been documented in the HPI. ROS Other: All systems not noted in ROS Statement are negative. Past Medical History Past Medical History: Diabetes Mellitus, GERD/Reflux Additional Past Medical History / Comment(s): migraine History of Any Multi-Drug Resistant Organisms: None Reported Past Surgical History: Cholecystectomy Additional Past Surgical History / Comment(s): right knee surgery Past Anesthesia/Blood Transfusion Reactions: No Reported Reaction Past Psychological History: Anxiety, Depression Smoking Status: Vaper Past Alcohol Use History: None Reported Past Drug Use History: Marijuana - Past Family History Father Family Medical History: Myocardial Infarction (DC) Sister(s) Family Medical History: Thyroid Disorder Brother(s) Family Medical History: Asthma General Exam Limitations: no limitations General appearance: alert, in no apparent distress Head exam: Present: atraumatic, normocephalic, normal inspection Respiratory exam: Present: normal lung sounds bilaterally. Absent: respiratory distress, wheezes, rales, rhonchi, stridor Cardiovascular Exam: Present: regular rate, normal rhythm, normal heart sounds. Absent: systolic murmur, diastolic murmur, rubs, gallop, clicks Neurological exam: Present: alert, oriented X3, CN II-XII intact Psychiatric exam: Present: normal affect, normal mood Skin exam: Present: warm, dry, intact, normal color. Absent: rash Course Vital Signs 11/25/22 11/25/22 11/25/22 08:24 10:42 11:42 Temperature 98.7 F 97.8 F Pulse Rate 121 H 103 H 98 Respiratory 16 18 18 Rate Blood Pressure 122/84 122/75 109/67 O2 Sat by Pulse 97 99 100 Oximetry Medical Decision Making - Medical Decision Making This is a 22-year-old female who presents to the emergency department for nause a, vomiting, and abdominal pain. Was pt. sent in by a medical professional or institution? @ -No Did you speak to anyone other than the patient for history? @ -No Did you review nursing and triage notes? @ -Yes, and I agree, it is accurate with regards to the patient's symptoms. Were old charts reviewed? @ -No Differential Diagnosis? @ -Differential Nausea and Vomiting: Gastroenteritis, cholecystitis, appendicitis, pancreatitis, migraine, benign positional vertigo, food borne illness, pyelonephritis, irritable bowel syndrome, influenza, Covid, GERD, incarcerated hernia, intestinal obstruction, this is not meant to be an all-inclusive list. EKG interpreted by me (3pts min.)? @ -EKG interpreted by me demonstrating the following: Sinus tachycardia. Ventricular rate 103 beats per minute, CA interval 118 ms, QRS duration 97 ms, QTC 416 ms. X-rays interpreted by me (1pt min.)? @ -Not obtained CT interpreted by me (1pt min.)? @ -Not obtained U/S interpreted by me (1pt. min.)? @ -Not interpreted by me What testing was considered but not performed? (CT, X-rays, U/S, labs)? Why? @ -None What meds were considered but not given? Why? @ -None Did you discuss the management of the patient with other professionals? @ -No Did you reconcile home meds? @ -No Was smoking cessation discussed for >3mins.? @ -No Was critical care preformed (if so, how long)? @ -No Were there social determinants of health that impacted care today? How? (Homelessness, low income, unemployed, alcoholism, drug addiction, transportation, low edu. Level, literacy, decrease access to med. care, custodial, rehab)? @ -No Was there de-escalation of care discussed even if they declined? (Discuss DNR or withdrawal of care, Hospice)? @ -No What co-morbidities impacted this encounter? (DM, HTN, Smoking, COPD, CAD, Cancer, CVA, Hep., AIDS, mental health diagnosis, sleep apnea, morbid obesity)? @ -, DM Was patient admitted / discharged? @ -Discharged. Lab work obtained and found to be relatively nonactionable. Patient initially treated with IV fluids, Reglan, Benadryl, and Ofirmev. States that she felt significantly improved following medication administration. Obstetrics ultrasound obtained due to the abdominal pain associated with her symptoms. This revealed a single live intrauterine . She was found to have a low-lying placenta, which was discussed with the patient. She was drinking water and eating crackers without difficulty. Given the improvement with the Reglan, prescription for Reglan was provided with dosing instructions reviewed. She is advised to slowly since her diet as tolerated and remain well- hydrated. She will also follow up with her [employer]. Patient discharged home in stable condition. Undiagnosed new problem with uncertain prognosis? @ -None Drug Therapy requiring intensive monitoring for toxicity (Heparin, Nitro, Insulin, Cardizem)? @ -None Were any procedures done? @ -None Diagnosis/symptom? @ -Nausea and vomiting, abdominal pain, chest pain Acute, or Chronic, or Acute on Chronic? @ -Acute Uncomplicated (without systemic symptoms) or Complicated (systemic symptoms)? @ -Uncomplicated Side effects of treatment? @ -None Exacerbation, Progression, or Severe Exacerbation] @ -Not applicable Poses a threat to life or bodily function? @ -No Return precautions reviewed in depth, the patient is instructed to return to the emergency department with any new, worsening, or concerning symptoms. Patient verbalized understanding. This case was discussed in detail with the attending ED physician, Dr. Montes. Presentation, findings, and treatment plan discussed in detail as well. - Lab Data Result diagrams: 11/25/22 09:10 11/25/22 09:10 Lab Results 11/25/22 11/25/22 11/25/22 Range/Units 09:10 09:10 09:10 WBC 9.5 (3.8-10.6) k/uL RBC 4.33 (3.80-5.40) m/uL Hgb 12.9 (11.4-16.0) gm/dL Hct 38.2 (34.0-46.0) % MCV 88.2 (80.0-100.0) fL MCH 29.7 (25.0-35.0) pg MCHC 33.7 (31.0-37.0) g/dL RDW 13.0 (11.5-15.5) % Plt Count 341 (150-450) k/uL MPV 7.6 Neutrophils % 82 % Lymphocytes % 13 % Monocytes % 3 % Eosinophils % 1 % Basophils % 0 % Neutrophils # 7.8 H (1.3-7.7) k/uL Lymphocytes # 1.2 (1.0-4.8) k/uL Monocytes # 0.3 (0-1.0) k/uL Eosinophils # 0.1 (0-0.7) k/uL Basophils # 0.0 (0-0.2) k/uL Sodium 133 L (137-145) mmol/L Potassium 4.6 (3.5-5.1) mmol/L Chloride 101 (98-107) mmol/L Carbon Dioxide 16 L (22-30) mmol/L Anion Gap 16 mmol/L BUN 15 (7-17) mg/dL Creatinine 0.61 (0.52-1.04) mg/dL Est GFR (CKD-EPI)AfAm >90 (>60 ml/min/1.73 sqM) Est GFR (CKD-EPI)NonAf >90 (>60 ml/min/1.73 sqM) Glucose 151 H (74-99) mg/dL Plasma Lactic Acid Leroy (0.7-2.0) mmol/L Calcium 9.4 (8.4-10.2) mg/dL Total Bilirubin 1.6 H (0.2-1.3) mg/dL AST 20 (14-36) U/L ALT 14 (4-34) U/L Alkaline Phosphatase 74 (38-126) U/L Troponin I (0.000-0.034) ng/mL Total Protein 7.8 (6.3-8.2) g/dL Albumin 4.0 (3.5-5.0) g/dL Amylase 57 (30-110) U/L Lipase 32 (23-300) U/L HCG, Quant 13901.2 mIU/mL Urine Color Yellow Urine Appearance Clear (Clear) Urine pH 6.0 (5.0-8.0) Ur Specific [place] 1.018 (1.001-1.035) Urine Protein 3+ H (Negative) Urine Glucose (UA) Negative (Negative) Urine Ketones 4+ H (Negative) Urine Blood Negative (Negative) Urine Nitrite Negative (Negative) Urine Bilirubin Negative (Negative) Urine Urobilinogen 2.0 (<2.0) mg/dL Ur Leukocyte Esterase Negative (Negative) Urine RBC 1 (0-5) /hpf Urine WBC 6 H (0-5) /hpf Ur Squamous Epith Cells 3 (0-4) /hpf Hyaline Casts 17 H (0-2) /lpf Urine Mucus Occasional H (None) /hpf 11/25/22 11/25/22 Range/Units 09:10 09:10 WBC (3.8-10.6) k/uL RBC (3.80-5.40) m/uL Hgb (11.4-16.0) gm/dL Hct (34.0-46.0) % MCV (80.0-100.0) fL MCH (25.0-35.0) pg MCHC (31.0-37.0) g/dL RDW (11.5-15.5) % Plt Count (150-450) k/uL MPV Neutrophils % % Lymphocytes % % Monocytes % % Eosinophils % % Basophils % % Neutrophils # (1.3-7.7) k/uL Lymphocytes # (1.0-4.8) k/uL Monocytes # (0-1.0) k/uL Eosinophils # (0-0.7) k/uL Basophils # (0-0.2) k/uL Sodium (137-145) mmol/L Potassium (3.5-5.1) mmol/L Chloride (98-107) mmol/L Carbon Dioxide (22-30) mmol/L Anion Gap mmol/L BUN (7-17) mg/dL Creatinine (0.52-1.04) mg/dL Est GFR (CKD-EPI)AfAm (>60 ml/min/1.73 sqM) Est GFR (CKD-EPI)NonAf (>60 ml/min/1.73 sqM) Glucose (74-99) mg/dL Plasma Lactic Acid Leroy 1.0 (0.7-2.0) mmol/L Calcium (8.4-10.2) mg/dL Total Bilirubin (0.2-1.3) mg/dL AST (14-36) U/L ALT (4-34) U/L Alkaline Phosphatase (38-126) U/L Troponin I <0.012 (0.000-0.034) ng/mL Total Protein (6.3-8.2) g/dL Albumin (3.5-5.0) g/dL Amylase (30-110) U/L Lipase (23-300) U/L HCG, Quant mIU/mL Urine Color Urine Appearance (Clear) Urine pH (5.0-8.0) Ur Specific [place] (1.001-1.035) Urine Protein (Negative) Urine Glucose (UA) (Negative) Urine Ketones (Negative) Urine Blood (Negative) Urine Nitrite (Negative) Urine Bilirubin (Negative) Urine Urobilinogen (<2.0) mg/dL Ur Leukocyte Esterase (Negative) Urine RBC (0-5) /hpf Urine WBC (0-5) /hpf Ur Squamous Epith Cells (0-4) /hpf Hyaline Casts (0-2) /lpf Urine Mucus (None) /hpf - Radiology Data Radiology results: report reviewed, image reviewed Disposition Clinical Impression: Nausea and vomiting, Abdominal pain, Chest pain Disposition: HOME SELF-CARE Instructions (If sedation given, give patient instructions): Acute Nausea and Vomiting (ED), Abdominal Pain in (ED) Additional Instructions: Return to the emergency department with any new, worsening, or concerning symptoms. You can take the Reglan up to every 6 hours as needed for nausea and vomiting. You may take this with the Zofran if needed. Slowly advance your diet as tolerated and remain well hydrated. Follow up with your primary care provider in 1-2 days. Prescriptions: Metoclopramide [Reglan] 10 mg PO Q6H PRN #30 tab PRN Reason: Nausea And Vomiting Is patient prescribed a controlled substance at d/c from ED?: No Referrals: None,Stated [Primary Care Provider] - 1-2 days
[2022-11-25 09:30] LABS: Basophils % (A) 0 %; Eosinophils # (A) 0.1 k/uL (0-0.7); Eosinophils % (A) 1 %; HCT 38.2 % (34.0-46.0); HGB 12.9 gm/dL (11.4-16.0); Lymphocytes # (A) 1.2 k/uL (1.0-4.8); Lymphocytes % (A) 13 %; MCH 29.7 pg (25.0-35.0); MCHC 33.7 g/dL (31.0-37.0); MCV 88.2 fL (80.0-100.0); Mean Platelet Volume 7.6; Monocytes # (A) 0.3 k/uL (0-1.0); Monocytes % (A) 3 %; Neutrophils # (A) 7.8 k/uL (1.3-7.7); Neutrophils % (A) 82 %; Platelet Count 341 k/uL (150-450); RBC 4.33 m/uL (3.80-5.40); WBC 9.5 k/uL (3.8-10.6)
[2022-11-25 09:33] LABS: Appearance,Urine Clear (Clear); Bilirubin,Urine Negative (Negative); Blood,Urine Negative (Negative); Color,Urine Yellow; Glucose,Urine (UA) Negative (Negative); Hyaline Casts,Urine 17 /lpf (0-2); Ketones,Urine 4+ (Negative); Leukocyte Esterase,Urine Negative (Negative); Mucus,Urine Occasional /hpf; Nitrite,Urine Negative (Negative); Protein,Urine 3+ (Negative); RBC,Urine 1 /hpf (0-5); Specific Gravity,Urine 1.018 (1.001-1.035); Squamous Epithelial Cell,Urine 3 /hpf (0-4); WBC,Urine 6 /hpf (0-5)
[2022-11-25 09:46] LABS: ALT 14 U/L (4-34); AST 20 U/L (14-36); African American GFR (CKD) >90 (>60 ml/min/1.73 sqM); Alkaline Phosphatase 74 U/L (38-126); Amylase 57 U/L (30-110); Anion Gap 16 mmol/L; Blood Urea Nitrogen 15 mg/dL (7-17); Calcium 9.4 mg/dL (8.4-10.2); Carbon Dioxide 16 mmol/L (22-30); Chloride 101 mmol/L (98-107); Glucose 151 mg/dL (74-99); Lipase 32 U/L (23-300); Non-African American GFR(CKD) >90 (>60 ml/min/1.73 sqM); Potassium 4.6 mmol/L (3.5-5.1); Sodium 133 mmol/L (137-145); Total Bilirubin 1.6 mg/dL (0.2-1.3); Total Protein 7.8 g/dL (6.3-8.2)
--- NOTE | 2022-11-25 10:39 | US ---
EXAMINATION TYPE: US OB >= 14 wk fetus DATE OF EXAM: 11/25/2022 COMPARISON: US 11/11/2022 CLINICAL INDICATION: Female, 22 years old with history of Abdominal pain in ; Abdominal pain x 1 day. No bleeding. . TECHNIQUE: Transabdominal (TA) GESTATIONAL AGE / DATING Physician Established: (17 weeks/0 days) EDC: 05/05/2023 Dates by LMP: Unknown Dates by First Scan: (17 weeks/2 days) EDC: 05/03/2023 Dates by Current Scan: (17 weeks/1 day) EDC: 05/04/2023 SURVEY IUP: Single PLACENTA: Anterior PREVIA: Measures 2.9 cm from internal os on today's exam. Prior US placental edge measured 1.6 cm fr om internal os. ARLETTE: 11.8 cm Normal CERVICAL LENGTH (transabdominal: norm > 3.0cm): 3.4 cm BIOMETRY PRESENTATION: Vertex BPD: 3.62 cm 17 weeks / 1 day HC: 13.34 cm 16 weeks / 6 days AC: 12.07 cm 17 weeks / 5 days FL: 2.36 cm 17 weeks / 1 day ESTIMATED WEIGHT IN GRAMS: 192.22 grams ESTIMATED WEIGHT IN LBS/OZ: 0 lbs. 7 oz. WEIGHT PERCENTAGE BASED ON ESTABLISHED DATES: 68.6% HC/AC: 1.11 Normal FL/AC: 19.54 HEART RATE: 159 bpm RHYTHM: Normal IMPRESSION: Viable 17 week 1 day intrauterine early gestation with a heart rate of 159 bpm. See above regarding l ow-lying placenta.
[2022-11-25 10:43] VITALS: RESP 18
[2022-11-25 11:45] VITALS: BP 109/67; PULSE 98; TEMP 97.8
== END 2022-11-25 11:44 | disposition home or self-care (01) ==
LOC: EC 08:18
DX: O21.9 Vomiting of pregnancy, unspecified (principal); O26.892 Other specified pregnancy related conditions, second trimester; R10.9 Unspecified abdominal pain; R07.9 Chest pain, unspecified; O24.112 Pre-existing type 2 diabetes mellitus, in pregnancy, second trimester; E11.9 Type 2 diabetes mellitus without complications; O99.332 Smoking (tobacco) complicating pregnancy, second trimester; F17.290 Nicotine dependence, other tobacco product, uncomplicated; O99.322 Drug use complicating pregnancy, second trimester; F12.90 Cannabis use, unspecified, uncomplicated; Z79.4 Long term (current) use of insulin; Z90.49 Acquired absence of other specified parts of digestive tract; Z91.040 Latex allergy status; Z91.048 Other nonmedicinal substance allergy status; Z3A.17 17 weeks gestation of pregnancy
CPT/HCPCS: 36415; 93005; 80053; 82150; 83605; 83690; 84484; 85025; 81001; 84702; 76805; 99284; 96374; 96375 ×2; 96361 ×2; J1200; J2765; J0131

== ENCOUNTER 2022-12-11 10:49 | Inpatient (IN) | payer BC, OTHER ==
[2022-12-11] MEDS ORDERED: ONDANSETRON 4 MG/2 ML VIAL IVP STA (11:30)
[2022-12-11] MEDS ORDERED: SODIUM CHLORIDE 0.9% 1,000 ML IV ONE ×3 (11:33→21:08)
--- NOTE | 2022-12-11 11:51 | ED ---
General Adult HPI - General Chief complaint: Nausea/Vomiting/Diarrhea Stated complaint: 19 wks preg diabetic throwing up Time Seen by Provider: 12/11/22 11:10 Source: patient, RN notes reviewed Mode of arrival: ambulatory Limitations: no limitations - History of Present Illness Initial comments: 22-year-old female with past medical history of type 1 diabetes presents emergency department with chief complaint of vomiting and abdominal cramping/pa in that started last night. She reports the pain is diffuse and cramping or stabbing in nature. She states that she follows with an OB in [place], [place]. She reports prior episodes similar to this in past. She reports taking Reglan at 0400 this morning. - Related Data Home Medications Medication Instructions Recorded Confirmed Insulin Aspart (For Pump) [NovoLOG 0.01 unit SQ-PUMP CONTINUOUS 12/11/22 12/11/22 (For Pump)] Ondansetron Odt [Zofran Odt] 4 mg PO Q4-6H PRN 12/11/22 12/11/22 Previous Rx's Medication Instructions Recorded Metoclopramide [Reglan] 10 mg PO Q6H PRN #30 tab 11/25/22 Allergies Allergy/AdvReac Type Severity Reaction Status Date / Time adhesive tape Allergy Rash/Hives Verified 12/11/22 17:21 latex Allergy Rash/Hives Verified 12/11/22 17:21 Review of Systems ROS Statement: Those systems with pertinent positive or pertinent negative responses have been documented in the HPI. ROS Other: All systems not noted in ROS Statement are negative. Past Medical History Past Medical History: Diabetes Mellitus, GERD/Reflux Additional Past Medical History / Comment(s): migraine History of Any Multi-Drug Resistant Organisms: None Reported Past Surgical History: Cholecystectomy Additional Past Surgical History / Comment(s): right knee surgery Past Anesthesia/Blood Transfusion Reactions: No Reported Reaction Past Psychological History: Anxiety, Depression Smoking Status: Vaper Past Alcohol Use History: None Reported Past Drug Use History: Marijuana - Past Family History Father Family Medical History: Myocardial Infarction (OK) Sister(s) Family Medical History: Thyroid Disorder Brother(s) Family Medical History: Asthma General Exam Limitations: no limitations General appearance: alert, in no apparent distress Head exam: Present: atraumatic, normocephalic, normal inspection Eye exam: Present: normal appearance, PERRL, EOMI. Absent: scleral icterus, conjunctival injection, periorbital swelling ENT exam: Present: normal exam, mucous membranes moist Neck exam: Present: normal inspection. Absent: tenderness, meningismus, l ymphadenopathy Respiratory exam: Present: normal lung sounds bilaterally. Absent: respiratory distress, wheezes, rales, rhonchi, stridor Cardiovascular Exam: Present: normal rhythm, bradycardia GI/Abdominal exam: Present: soft, normal bowel sounds. Absent: distended, tenderness, guarding, rebound, rigid Extremities exam: Present: normal inspection, full ROM, normal capillary refill. Absent: tenderness, pedal edema, joint swelling, calf tenderness Back exam: Present: normal inspection Neurological exam: Present: alert, oriented X3 Psychiatric exam: Present: normal affect, normal mood Skin exam: Present: warm, dry, intact, normal color. Absent: rash Course Vital Signs 12/11/22 12/11/22 10:52 17:34 Temperature 98.9 F Pulse Rate 117 H 126 H Respiratory 22 18 Rate Blood Pressure 128/88 142/77 O2 Sat by Pulse 98 100 Oximetry Medical Decision Making - Medical Decision Making Was pt. sent in by a medical professional or institution (, PA, DRUG INSPECTOR, urgent care, hospital, or retirement...) When possible be specific @ -No Did you speak to anyone other than the patient for history (EMS, parent, family, police, friend...)? What history was obtained from this source @ -No Did you review nursing and triage notes (agree or disagree)? Why? @ -I reviewed and agree with nursing and triage notes Were old charts reviewed (outside hosp., previous admission, EMS record, old EKG, old radiological studies, urgent care reports/EKG's, retirement records)? Report findings @ -No old charts were reviewed Differential Diagnosis (chest pain, altered mental status, abdominal pain women, abdominal pain men, vaginal bleeding, weakness, fever, dyspnea, syncope, headache, dizziness, GI bleed, back pain, seizure, CVA, palpatations, mental health, musculoskeletal)? @ -Differential Abdominal Pain Women: Appendicitis, Cholecystitis, diverticulosis, ischemic bowel, pancreatitis, hepatitis, UTI, gastroenteritis, AAA, incarcerated hernia, bowel obstruction, constipation, inflammatory bowel, hepatitis, peptic ulcer disease, splenic infarction, perforated viscus, vulvitis, ovarian torsion, PID, kidney stone, placenta abruption, this is not meant to be an all-inclusive list EKG interpreted by me (3pts min.). @ -None X-rays interpreted by me (1pt min.). @ -None done CT interpreted by me (1pt min.). @ -None done U/S interpreted by me (1pt. min.). @ - Ultrasound shows single intrauterine gestation measuring 19 weeks 0 days What testing was considered but not performed or refused? (CT, X-rays, U/S, labs)? Why? @ -None What meds were considered but not given or refused? Why? @ -None Did you discuss the management of the patient with other professionals (professionals i.e. , PA, DRUG INSPECTOR, lab, RT, psych nurse, social contact worker, barrel plater, teacher, commissioned defence force officer, case assembler)? Give summary @ -Case was discussed with Dr. Avitia who is accepting of the admission Was smoking cessation discussed for >3mins.? @ -No Was critical care preformed (if so, how long)? @ -No Were there social determinants of health that impacted care today? How? (Homelessness, low income, unemployed, alcoholism, drug addiction, transportation, low edu. Level, literacy, decrease access to med. care, skilled nursing, rehab)? @ -No Was there de-escalation of care discussed even if they declined (Discuss DNR or withdrawal of care, Hospice)? DNR status @ -No What co-morbidities impacted this encounter? (DM, HTN, Smoking, COPD, CAD, Cancer, CVA, ARF, Chemo, Hep., AIDS, mental health diagnosis, sleep apnea, morbid obesity)? @ -None Was patient admitted / discharged? Hospital course, mention meds given and route, prescriptions, significant lab abnormalities, going to OR and other pertinent info. @ -Admitted. 22-year-old female past medical history of type 1 diabetes presents emergency department for nausea and vomiting. Patient is a at 19 weeks gestation. She states the symptoms started last night. She also admits to diffuse abdominal cramping. Patient refused digital rectal exam. CBC shows WBC of 11.1; CMP sodium 134, potassium 5.0, CO2 19, glucose 129; UA shows 2+ protein, 3+ glucose, 4+ ketones. Ultrasound shows single intrauterine at 19 weeks. Patient given 2 L normal saline, Zofran, Reglan, B6, Benadryl. Case is discussed with Dr. Avitia who accepted the admission. Patient stable at time of admission. Case discussed with my attending, Dr. Hudson Undiagnosed new problem with uncertain prognosis? @ -No Drug Therapy requiring intensive monitoring for toxicity (Heparin, Nitro, Insulin, Cardizem)? @ -No Were any procedures done? @ -No Diagnosis/symptom? @ -nausea and vomiting in Acute, or Chronic, or Acute on Chronic? @ -Acute Uncomplicated (without systemic symptoms) or Complicated (systemic symptoms)? @ -uncomplicated Side effects of treatment? @ -No Exacerbation, Progression, or Severe Exacerbation? @ -No Poses a threat to life or bodily function? How? (Chest pain, [place], OK, pneumonia, PE, COPD, DKA, ARF, appy, cholecystitis, CVA, Diverticulitis, Homicidal, Suicidal, threat to staff... and all critical care pts) @ -No - Lab Data Result diagrams: 12/11/22 11:55 12/12/22 21:59 Lab Results 12/11/22 12/11/22 12/11/22 Range/Units 11:55 11:55 14:23 WBC 11.1 H (3.8-10.6) k/uL RBC 4.03 (3.80-5.40) m/uL Hgb 12.5 (11.4-16.0) gm/dL Hct 36.1 (34.0-46.0) % MCV 89.6 (80.0-100.0) fL MCH 31.0 (25.0-35.0) pg MCHC 34.6 (31.0-37.0) g/dL RDW 13.6 (11.5-15.5) % Plt Count 390 (150-450) k/uL MPV 7.9 Neutrophils % 85 % Lymphocytes % 11 % Monocytes % 2 % Eosinophils % 1 % Basophils % 0 % Neutrophils # 9.5 H (1.3-7.7) k/uL Lymphocytes # 1.2 (1.0-4.8) k/uL Monocytes # 0.2 (0-1.0) k/uL Eosinophils # 0.1 (0-0.7) k/uL Basophils # 0.0 (0-0.2) k/uL Sodium 134 L (137-145) mmol/L Potassium 5.0 (3.5-5.1) mmol/L Chloride 102 (98-107) mmol/L Carbon Dioxide 19 L (22-30) mmol/L Anion Gap 13 mmol/L BUN 8 (7-17) mg/dL Creatinine 0.47 L (0.52-1.04) mg/dL Est GFR (CKD-EPI)AfAm >90 (>60 ml/min/1.73 sqM) Est GFR (CKD-EPI)NonAf >90 (>60 ml/min/1.73 sqM) Glucose 129 H (74-99) mg/dL POC Glucose (mg/dL) (70-110) mg/dL POC Glu [employer] ID [address] Glu mg/dL mg/dL Hemoglobin A1c (<=6.0) % Calcium 9.5 (8.4-10.2) mg/dL Phosphorus (2.5-4.5) mg/dL Magnesium 1.6 (1.6-2.3) mg/dL Total Bilirubin 1.6 H (0.2-1.3) mg/dL AST 32 (14-36) U/L ALT 14 (4-34) U/L Alkaline Phosphatase 71 (38-126) U/L Total Protein 8.4 H (6.3-8.2) g/dL Albumin 4.3 (3.5-5.0) g/dL Amylase 83 (30-110) U/L Lipase 26 (23-300) U/L TSH (0.465-4.680) mIU/L Urine Color Light Yellow Urine Appearance Clear (Clear) Urine pH 5.5 (5.0-8.0) Ur Specific [place] 1.016 (1.001-1.035) Urine Protein 2+ H (Negative) Urine Glucose (UA) 3+ H (Negative) Urine Ketones 4+ H (Negative) Urine Blood Negative (Negative) Urine Nitrite Negative (Negative) Urine Bilirubin Negative (Negative) Urine Urobilinogen <2.0 (<2.0) mg/dL Ur Leukocyte Esterase Negative (Negative) Urine RBC 1 (0-5) /hpf Urine WBC 4 (0-5) /hpf Ur Squamous Epith Cells 2 (0-4) /hpf Urine Bacteria Occasional H (None) /hpf Hyaline Casts 3 H (0-2) /lpf Urine Mucus Occasional H (None) /hpf Urine Opiates Screen (NotDetected) Ur Oxycodone Screen (NotDetected) Urine Methadone Screen (NotDetected) Ur Propoxyphene Screen (NotDetected) Ur Barbiturates Screen (NotDetected) U Tricyclic Antidepress (NotDetected) Ur Phencyclidine Scrn (NotDetected) Ur Amphetamines Screen (NotDetected) U Methamphetamines Scrn (NotDetected) U Benzodiazepines Scrn (NotDetected) Urine Cocaine Screen (NotDetected) U Marijuana (THC) Screen (NotDetected) Acetone, Qual (Negative) 12/11/22 12/11/22 12/11/22 Range/Units 14:23 18:23 19:21 WBC (3.8-10.6) k/uL RBC (3.80-5.40) m/uL Hgb (11.4-16.0) gm/dL Hct (34.0-46.0) % MCV (80.0-100.0) fL MCH (25.0-35.0) pg MCHC (31.0-37.0) g/dL RDW (11.5-15.5) % Plt Count (150-450) k/uL MPV Neutrophils % % Lymphocytes % % Monocytes % % Eosinophils % % Basophils % % Neutrophils # (1.3-7.7) k/uL Lymphocytes # (1.0-4.8) k/uL Monocytes # (0-1.0) k/uL Eosinophils # (0-0.7) k/uL Basophils # (0-0.2) k/uL Sodium (137-145) mmol/L Potassium (3.5-5.1) mmol/L Chloride (98-107) mmol/L Carbon Dioxide (22-30) mmol/L Anion Gap mmol/L BUN (7-17) mg/dL Creatinine (0.52-1.04) mg/dL Est GFR (CKD-EPI)AfAm (>60 ml/min/1.73 sqM) Est GFR (CKD-EPI)NonAf (>60 ml/min/1.73 sqM) Glucose (74-99) mg/dL POC Glucose (mg/dL) 345 H 313 H (70-110) mg/dL POC Glu [employer] ID Janet Willis Jenna [address] Glu mg/dL mg/dL Hemoglobin A1c (<=6.0) % Calcium (8.4-10.2) mg/dL Phosphorus (2.5-4.5) mg/dL Magnesium (1.6-2.3) mg/dL Total Bilirubin (0.2-1.3) mg/dL AST (14-36) U/L ALT (4-34) U/L Alkaline Phosphatase (38-126) U/L Total Protein (6.3-8.2) g/dL Albumin (3.5-5.0) g/dL Amylase (30-110) U/L Lipase (23-300) U/L TSH (0.465-4.680) mIU/L Urine Color Urine Appearance (Clear) Urine pH (5.0-8.0) Ur Specific [place] (1.001-1.035) Urine Protein (Negative) Urine Glucose (UA) (Negative) Urine Ketones (Negative) Urine Blood (Negative) Urine Nitrite (Negative) Urine Bilirubin (Negative) Urine Urobilinogen (<2.0) mg/dL Ur Leukocyte Esterase (Negative) Urine RBC (0-5) /hpf Urine WBC (0-5) /hpf Ur Squamous Epith Cells (0-4) /hpf Urine Bacteria (None) /hpf Hyaline Casts (0-2) /lpf Urine Mucus (None) /hpf Urine Opiates Screen Not Detected (NotDetected) Ur Oxycodone Screen Not Detected (NotDetected) Urine Methadone Screen Not Detected (NotDetected) Ur Propoxyphene Screen Not Detected (NotDetected) Ur Barbiturates Screen Not Detected (NotDetected) U Tricyclic Antidepress Not Detected (NotDetected) Ur Phencyclidine Scrn Not Detected (NotDetected) Ur Amphetamines Screen Not Detected (NotDetected) U Methamphetamines Scrn Not Detected (NotDetected) U Benzodiazepines Scrn Not Detected (NotDetected) Urine Cocaine Screen Not Detected (NotDetected) U Marijuana (THC) Screen Detected H (NotDetected) Acetone, Qual (Negative) 12/11/22 12/11/2223 Range/Units 19:59 19:59 20:49 WBC (3.8-10.6) k/uL RBC (3.80-5.40) m/uL Hgb (11.4-16.0) gm/dL Hct (34.0-46.0) % MCV (80.0-100.0) fL MCH (25.0-35.0) pg MCHC (31.0-37.0) g/dL RDW (11.5-15.5) % Plt Count (150-450) k/uL MPV Neutrophils % % Lymphocytes % % Monocytes % % Eosinophils % % Basophils % % Neutrophils # (1.3-7.7) k/uL Lymphocytes # (1.0-4.8) k/uL Monocytes # (0-1.0) k/uL Eosinophils # (0-0.7) k/uL Basophils # (0-0.2) k/uL Sodium 136 L (137-145) mmol/L Potassium 3.9 (3.5-5.1) mmol/L Chloride 107 (98-107) mmol/L Carbon Dioxide 7 L* (22-30) mmol/L Anion Gap 22 mmol/L BUN 10 (7-17) mg/dL Creatinine 0.60 (0.52-1.04) mg/dL Est GFR (CKD-EPI)AfAm >90 (>60 ml/min/1.73 sqM) Est GFR (CKD-EPI)NonAf >90 (>60 ml/min/1.73 sqM) Glucose 267 H (74-99) mg/dL POC Glucose (mg/dL) 258 H (70-110) mg/dL POC Glu [employer] JAKE PartidaBetsy alejandro [address] Glu mg/dL 137 mg/dL Hemoglobin A1c 6.4 H (<=6.0) % Calcium 9.2 (8.4-10.2) mg/dL Phosphorus (2.5-4.5) mg/dL Magnesium (1.6-2.3) mg/dL Total Bilirubin 1.3 (0.2-1.3) mg/dL AST 24 (14-36) U/L ALT 17 (4-34) U/L Alkaline Phosphatase 76 (38-126) U/L Total Protein 8.0 (6.3-8.2) g/dL Albumin 4.1 (3.5-5.0) g/dL Amylase 95 (30-110) U/L Lipase 34 (23-300) U/L TSH (0.465-4.680) mIU/L Urine Color Urine Appearance (Clear) Urine pH (5.0-8.0) Ur Specific [place] (1.001-1.035) Urine Protein (Negative) Urine Glucose (UA) (Negative) Urine Ketones (Negative) Urine Blood (Negative) Urine Nitrite (Negative) Urine Bilirubin (Negative) Urine Urobilinogen (<2.0) mg/dL Ur Leukocyte Esterase (Negative) Urine RBC (0-5) /hpf Urine WBC (0-5) /hpf Ur Squamous Epith Cells (0-4) /hpf Urine Bacteria (None) /hpf Hyaline Casts (0-2) /lpf Urine Mucus (None) /hpf Urine Opiates Screen (NotDetected) Ur Oxycodone Screen (NotDetected) Urine Methadone Screen (NotDetected) Ur Propoxyphene Screen (NotDetected) Ur Barbiturates Screen (NotDetected) U Tricyclic Antidepress (NotDetected) Ur Phencyclidine Scrn (NotDetected) Ur Amphetamines Screen (NotDetected) U Methamphetamines Scrn (NotDetected) U Benzodiazepines Scrn (NotDetected) Urine Cocaine Screen (NotDetected) U Marijuana (THC) Screen (NotDetected) Acetone, Qual Positive (Negative) 12/11/22 12/11/22 12/12/22 Range/Units 22:04 23:01 00:07 WBC (3.8-10.6) k/uL RBC (3.80-5.40) m/uL Hgb (11.4-16.0) gm/dL Hct (34.0-46.0) % MCV (80.0-100.0) fL MCH (25.0-35.0) pg MCHC (31.0-37.0) g/dL RDW (11.5-15.5) % Plt Count (150-450) k/uL MPV Neutrophils % % Lymphocytes % % Monocytes % % Eosinophils % % Basophils % % Neutrophils # (1.3-7.7) k/uL Lymphocytes # (1.0-4.8) k/uL Monocytes # (0-1.0) k/uL Eosinophils # (0-0.7) k/uL Basophils # (0-0.2) k/uL Sodium (137-145) mmol/L Potassium (3.5-5.1) mmol/L Chloride (98-107) mmol/L Carbon Dioxide (22-30) mmol/L Anion Gap mmol/L BUN (7-17) mg/dL Creatinine (0.52-1.04) mg/dL Est GFR (CKD-EPI)AfAm (>60 ml/min/1.73 sqM) Est GFR (CKD-EPI)NonAf (>60 ml/min/1.73 sqM) Glucose (74-99) mg/dL POC Glucose (mg/dL) 223 H 184 H 124 H (70-110) mg/dL POC Glu [employer] Angelica Patel, Judi Huffman [address] Glu mg/dL mg/dL Hemoglobin A1c (<=6.0) % Calcium (8.4-10.2) mg/dL Phosphorus (2.5-4.5) mg/dL Magnesium (1.6-2.3) mg/dL Total Bilirubin (0.2-1.3) mg/dL AST (14-36) U/L ALT (4-34) U/L Alkaline Phosphatase (38-126) U/L Total Protein (6.3-8.2) g/dL Albumin (3.5-5.0) g/dL Amylase (30-110) U/L Lipase (23-300) U/L TSH (0.465-4.680) mIU/L Urine Color Urine Appearance (Clear) Urine pH (5.0-8.0) Ur Specific [place] (1.001-1.035) Urine Protein (Negative) Urine Glucose (UA) (Negative) Urine Ketones (Negative) Urine Blood (Negative) Urine Nitrite (Negative) Urine Bilirubin (Negative) Urine Urobilinogen (<2.0) mg/dL Ur Leukocyte Esterase (Negative) Urine RBC (0-5) /hpf Urine WBC (0-5) /hpf Ur Squamous Epith Cells (0-4) /hpf Urine Bacteria (None) /hpf Hyaline Casts (0-2) /lpf Urine Mucus (None) /hpf Urine Opiates Screen (NotDetected) Ur Oxycodone Screen (NotDetected) Urine Methadone Screen (NotDetected) Ur Propoxyphene Screen (NotDetected) Ur Barbiturates Screen (NotDetected) U Tricyclic Antidepress (NotDetected) Ur Phencyclidine Scrn (NotDetected) Ur Amphetamines Screen (NotDetected) U Methamphetamines Scrn (NotDetected) U Benzodiazepines Scrn (NotDetected) Urine Cocaine Screen (NotDetected) U Marijuana (THC) Screen (NotDetected) Acetone, Qual (Negative) 12/12/22 12/12/22 12/12/22 Range/Units 00:31 00:47 00:47 WBC (3.8-10.6) k/uL RBC (3.80-5.40) m/uL Hgb (11.4-16.0) gm/dL Hct (34.0-46.0) % MCV (80.0-100.0) fL MCH (25.0-35.0) pg MCHC (31.0-37.0) g/dL RDW (11.5-15.5) % Plt Count (150-450) k/uL MPV Neutrophils % % Lymphocytes % % Monocytes % % Eosinophils % % Basophils % % Neutrophils # (1.3-7.7) k/uL Lymphocytes # (1.0-4.8) k/uL Monocytes # (0-1.0) k/uL Eosinophils # (0-0.7) k/uL Basophils # (0-0.2) k/uL Sodium 133 L (137-145) mmol/L Potassium 4.0 (3.5-5.1) mmol/L Chloride 112 H (98-107) mmol/L Carbon Dioxide 13 L (22-30) mmol/L Anion Gap 8 mmol/L BUN 8 (7-17) mg/dL Creatinine 0.48 L (0.52-1.04) mg/dL Est GFR (CKD-EPI)AfAm >90 (>60 ml/min/1.73 sqM) Est GFR (CKD-EPI)NonAf >90 (>60 ml/min/1.73 sqM) Glucose 124 H (74-99) mg/dL POC Glucose (mg/dL) 129 H (70-110) mg/dL POC Glu [employer] ID Angelica Braun [address] Glu mg/dL mg/dL Hemoglobin A1c (<=6.0) % Calcium (8.4-10.2) mg/dL Phosphorus 2.5 (2.5-4.5) mg/dL Magnesium (1.6-2.3) mg/dL Total Bilirubin (0.2-1.3) mg/dL AST (14-36) U/L ALT (4-34) U/L Alkaline Phosphatase (38-126) U/L Total Protein (6.3-8.2) g/dL Albumin (3.5-5.0) g/dL Amylase (30-110) U/L Lipase (23-300) U/L TSH (0.465-4.680) mIU/L Urine Color Urine Appearance (Clear) Urine pH (5.0-8.0) Ur Specific [place] (1.001-1.035) Urine Protein (Negative) Urine Glucose (UA) (Negative) Urine Ketones (Negative) Urine Blood (Negative) Urine Nitrite (Negative) Urine Bilirubin (Negative) Urine Urobilinogen (<2.0) mg/dL Ur Leukocyte Esterase (Negative) Urine RBC (0-5) /hpf Urine WBC (0-5) /hpf Ur Squamous Epith Cells (0-4) /hpf Urine Bacteria (None) /hpf Hyaline Casts (0-2) /lpf Urine Mucus (None) /hpf Urine Opiates Screen (NotDetected) Ur Oxycodone Screen (NotDetected) Urine Methadone Screen (NotDetected) Ur Propoxyphene Screen (NotDetected) Ur Barbiturates Screen (NotDetected) U Tricyclic Antidepress (NotDetected) Ur Phencyclidine Scrn (NotDetected) Ur Amphetamines Screen (NotDetected) U Methamphetamines Scrn (NotDetected) U Benzodiazepines Scrn (NotDetected) Urine Cocaine Screen (NotDetected) U Marijuana (THC) Screen (NotDetected) Acetone, Qual (Negative) 12/12/22 12/12/22 12/12/22 Range/Units 01:32 02:33 03:43 WBC (3.8-10.6) k/uL RBC (3.80-5.40) m/uL Hgb (11.4-16.0) gm/dL Hct (34.0-46.0) % MCV (80.0-100.0) fL MCH (25.0-35.0) pg MCHC (31.0-37.0) g/dL RDW (11.5-15.5) % Plt Count (150-450) k/uL MPV Neutrophils % % Lymphocytes % % Monocytes % % Eosinophils % % Basophils % % Neutrophils # (1.3-7.7) k/uL Lymphocytes # (1.0-4.8) k/uL Monocytes # (0-1.0) k/uL Eosinophils # (0-0.7) k/uL Basophils # (0-0.2) k/uL Sodium (137-145) mmol/L Potassium (3.5-5.1) mmol/L Chloride (98-107) mmol/L Carbon Dioxide (22-30) mmol/L Anion Gap mmol/L BUN (7-17) mg/dL Creatinine (0.52-1.04) mg/dL Est GFR (CKD-EPI)AfAm (>60 ml/min/1.73 sqM) Est GFR (CKD-EPI)NonAf (>60 ml/min/1.73 sqM) Glucose (74-99) mg/dL POC Glucose (mg/dL) 129 H 140 H (70-110) mg/dL POC Glu [employer] ID Aparna, Angelica Braun, Angelica [address] Glu mg/dL 137 mg/dL Hemoglobin A1c 6.4 H (<=6.0) % Calcium (8.4-10.2) mg/dL Phosphorus (2.5-4.5) mg/dL Magnesium (1.6-2.3) mg/dL Total Bilirubin (0.2-1.3) mg/dL AST (14-36) U/L ALT (4-34) U/L Alkaline Phosphatase (38-126) U/L Total Protein (6.3-8.2) g/dL Albumin (3.5-5.0) g/dL Amylase (30-110) U/L Lipase (23-300) U/L TSH (0.465-4.680) mIU/L Urine Color Urine Appearance (Clear) Urine pH (5.0-8.0) Ur Specific [place] (1.001-1.035) Urine Protein (Negative) Urine Glucose (UA) (Negative) Urine Ketones (Negative) Urine Blood (Negative) Urine Nitrite (Negative) Urine Bilirubin (Negative) Urine Urobilinogen (<2.0) mg/dL Ur Leukocyte Esterase (Negative) Urine RBC (0-5) /hpf Urine WBC (0-5) /hpf Ur Squamous Epith Cells (0-4) /hpf Urine Bacteria (None) /hpf Hyaline Casts (0-2) /lpf Urine Mucus (None) /hpf Urine Opiates Screen (NotDetected) Ur Oxycodone Screen (NotDetected) Urine Methadone Screen (NotDetected) Ur Propoxyphene Screen (NotDetected) Ur Barbiturates Screen (NotDetected) U Tricyclic Antidepress (NotDetected) Ur Phencyclidine Scrn (NotDetected) Ur Amphetamines Screen (NotDetected) U Methamphetamines Scrn (NotDetected) U Benzodiazepines Scrn (NotDetected) Urine Cocaine Screen (NotDetected) U Marijuana (THC) Screen (NotDetected) Acetone, Qual (Negative) 12/12/22 12/12/22 12/12/22 Range/Units 03:43 03:43 03:45 WBC (3.8-10.6) k/uL RBC (3.80-5.40) m/uL Hgb (11.4-16.0) gm/dL Hct (34.0-46.0) % MCV (80.0-100.0) fL MCH (25.0-35.0) pg MCHC (31.0-37.0) g/dL RDW (11.5-15.5) % Plt Count (150-450) k/uL MPV Neutrophils % % Lymphocytes % % Monocytes % % Eosinophils % % Basophils % % Neutrophils # (1.3-7.7) k/uL Lymphocytes # (1.0-4.8) k/uL Monocytes # (0-1.0) k/uL Eosinophils # (0-0.7) k/uL Basophils # (0-0.2) k/uL Sodium 133 L (137-145) mmol/L Potassium 4.1 (3.5-5.1) mmol/L Chloride 112 H (98-107) mmol/L Carbon Dioxide 16 L (22-30) mmol/L Anion Gap 5 mmol/L BUN 6 L (7-17) mg/dL Creatinine 0.48 L (0.52-1.04) mg/dL Est GFR (CKD-EPI)AfAm >90 (>60 ml/min/1.73 sqM) Est GFR (CKD-EPI)NonAf >90 (>60 ml/min/1.73 sqM) Glucose 114 H (74-99) mg/dL POC Glucose (mg/dL) 127 H (70-110) mg/dL POC Glu [employer] ID Judi [address] Glu mg/dL mg/dL Hemoglobin A1c (<=6.0) % Calcium (8.4-10.2) mg/dL Phosphorus 2.4 L (2.5-4.5) mg/dL Magnesium (1.6-2.3) mg/dL Total Bilirubin (0.2-1.3) mg/dL AST (14-36) U/L ALT (4-34) U/L Alkaline Phosphatase (38-126) U/L Total Protein (6.3-8.2) g/dL Albumin (3.5-5.0) g/dL Amylase (30-110) U/L Lipase (23-300) U/L TSH 0.994 (0.465-4.680) mIU/L Urine Color Urine Appearance (Clear) Urine pH (5.0-8.0) Ur Specific [place] (1.001-1.035) Urine Protein (Negative) Urine Glucose (UA) (Negative) Urine Ketones (Negative) Urine Blood (Negative) Urine Nitrite (Negative) Urine Bilirubin (Negative) Urine Urobilinogen (<2.0) mg/dL Ur Leukocyte Esterase (Negative) Urine RBC (0-5) /hpf Urine WBC (0-5) /hpf Ur Squamous Epith Cells (0-4) /hpf Urine Bacteria (None) /hpf Hyaline Casts (0-2) /lpf Urine Mucus (None) /hpf Urine Opiates Screen (NotDetected) Ur Oxycodone Screen (NotDetected) Urine Methadone Screen (NotDetected) Ur Propoxyphene Screen (NotDetected) Ur Barbiturates Screen (NotDetected) U Tricyclic Antidepress (NotDetected) Ur Phencyclidine Scrn (NotDetected) Ur Amphetamines Screen (NotDetected) U Methamphetamines Scrn (NotDetected) U Benzodiazepines Scrn (NotDetected) Urine Cocaine Screen (NotDetected) U Marijuana (THC) Screen (NotDetected) Acetone, Qual (Negative) 12/12/22 12/12/22 12/12/22 Range/Units 04:38 05:37 06:39 WBC (3.8-10.6) k/uL RBC (3.80-5.40) m/uL Hgb (11.4-16.0) gm/dL Hct (34.0-46.0) % MCV (80.0-100.0) fL MCH (25.0-35.0) pg MCHC (31.0-37.0) g/dL RDW (11.5-15.5) % Plt Count (150-450) k/uL MPV Neutrophils % % Lymphocytes % % Monocytes % % Eosinophils % % Basophils % % Neutrophils # (1.3-7.7) k/uL Lymphocytes # (1.0-4.8) k/uL Monocytes # (0-1.0) k/uL Eosinophils # (0-0.7) k/uL Basophils # (0-0.2) k/uL Sodium (137-145) mmol/L Potassium (3.5-5.1) mmol/L Chloride (98-107) mmol/L Carbon Dioxide (22-30) mmol/L Anion Gap mmol/L BUN (7-17) mg/dL Creatinine (0.52-1.04) mg/dL Est GFR (CKD-EPI)AfAm (>60 ml/min/1.73 sqM) Est GFR (CKD-EPI)NonAf (>60 ml/min/1.73 sqM) Glucose (74-99) mg/dL POC Glucose (mg/dL) 181 H 246 H 304 H (70-110) mg/dL POC Glu [employer] ID Angelica Braun, Judi [address] Glu mg/dL mg/dL Hemoglobin A1c (<=6.0) % Calcium (8.4-10.2) mg/dL Phosphorus (2.5-4.5) mg/dL Magnesium (1.6-2.3) mg/dL Total Bilirubin (0.2-1.3) mg/dL AST (14-36) U/L ALT (4-34) U/L Alkaline Phosphatase (38-126) U/L Total Protein (6.3-8.2) g/dL Albumin (3.5-5.0) g/dL Amylase (30-110) U/L Lipase (23-300) U/L TSH (0.465-4.680) mIU/L Urine Color Urine Appearance (Clear) Urine pH (5.0-8.0) Ur Specific [place] (1.001-1.035) Urine Protein (Negative) Urine Glucose (UA) (Negative) Urine Ketones (Negative) Urine Blood (Negative) Urine Nitrite (Negative) Urine Bilirubin (Negative) Urine Urobilinogen (<2.0) mg/dL Ur Leukocyte Esterase (Negative) Urine RBC (0-5) /hpf Urine WBC (0-5) /hpf Ur Squamous Epith Cells (0-4) /hpf Urine Bacteria (None) /hpf Hyaline Casts (0-2) /lpf Urine Mucus (None) /hpf Urine Opiates Screen (NotDetected) Ur Oxycodone Screen (NotDetected) Urine Methadone Screen (NotDetected) Ur Propoxyphene Screen (NotDetected) Ur Barbiturates Screen (NotDetected) U Tricyclic Antidepress (NotDetected) Ur Phencyclidine Scrn (NotDetected) Ur Amphetamines Screen (NotDetected) U Methamphetamines Scrn (NotDetected) U Benzodiazepines Scrn (NotDetected) Urine Cocaine Screen (NotDetected) U Marijuana (THC) Screen (NotDetected) Acetone, Qual (Negative) 12/12/22 12/12/22 12/12/22 Range/Units 07:31 08:44 09:31 WBC (3.8-10.6) k/uL RBC (3.80-5.40) m/uL Hgb (11.4-16.0) gm/dL Hct (34.0-46.0) % MCV (80.0-100.0) fL MCH (25.0-35.0) pg MCHC (31.0-37.0) g/dL RDW (11.5-15.5) % Plt Count (150-450) k/uL MPV Neutrophils % % Lymphocytes % % Monocytes % % Eosinophils % % Basophils % % Neutrophils # (1.3-7.7) k/uL Lymphocytes # (1.0-4.8) k/uL Monocytes # (0-1.0) k/uL Eosinophils # (0-0.7) k/uL Basophils # (0-0.2) k/uL Sodium (137-145) mmol/L Potassium (3.5-5.1) mmol/L Chloride (98-107) mmol/L Carbon Dioxide (22-30) mmol/L Anion Gap mmol/L BUN (7-17) mg/dL Creatinine (0.52-1.04) mg/dL Est GFR (CKD-EPI)AfAm (>60 ml/min/1.73 sqM) Est GFR (CKD-EPI)NonAf (>60 ml/min/1.73 sqM) Glucose (74-99) mg/dL POC Glucose (mg/dL) 286 H 299 H 284 H (70-110) mg/dL POC Glu [employer] [address], [address] Glu mg/dL mg/dL Hemoglobin A1c (<=6.0) % Calcium (8.4-10.2) mg/dL Phosphorus (2.5-4.5) mg/dL Magnesium (1.6-2.3) mg/dL Total Bilirubin (0.2-1.3) mg/dL AST (14-36) U/L ALT (4-34) U/L Alkaline Phosphatase (38-126) U/L Total Protein (6.3-8.2) g/dL Albumin (3.5-5.0) g/dL Amylase (30-110) U/L Lipase (23-300) U/L TSH (0.465-4.680) mIU/L Urine Color Urine Appearance (Clear) Urine pH (5.0-8.0) Ur Specific [place] (1.001-1.035) Urine Protein (Negative) Urine Glucose (UA) (Negative) Urine Ketones (Negative) Urine Blood (Negative) Urine Nitrite (Negative) Urine Bilirubin (Negative) Urine Urobilinogen (<2.0) mg/dL Ur Leukocyte Esterase (Negative) Urine RBC (0-5) /hpf Urine WBC (0-5) /hpf Ur Squamous Epith Cells (0-4) /hpf Urine Bacteria (None) /hpf Hyaline Casts (0-2) /lpf Urine Mucus (None) /hpf Urine Opiates Screen (NotDetected) Ur Oxycodone Screen (NotDetected) Urine Methadone Screen (NotDetected) Ur Propoxyphene Screen (NotDetected) Ur Barbiturates Screen (NotDetected) U Tricyclic Antidepress (NotDetected) Ur Phencyclidine Scrn (NotDetected) Ur Amphetamines Screen (NotDetected) U Methamphetamines Scrn (NotDetected) U Benzodiazepines Scrn (NotDetected) Urine Cocaine Screen (NotDetected) U Marijuana (THC) Screen (NotDetected) Acetone, Qual (Negative) 12/12/22 12/12/22 12/12/22 Range/Units 10:20 10:28 11:48 WBC (3.8-10.6) k/uL RBC (3.80-5.40) m/uL Hgb (11.4-16.0) gm/dL Hct (34.0-46.0) % MCV (80.0-100.0) fL MCH (25.0-35.0) pg MCHC (31.0-37.0) g/dL RDW (11.5-15.5) % Plt Count (150-450) k/uL MPV Neutrophils % % Lymphocytes % % Monocytes % % Eosinophils % % Basophils % % Neutrophils # (1.3-7.7) k/uL Lymphocytes # (1.0-4.8) k/uL Monocytes # (0-1.0) k/uL Eosinophils # (0-0.7) k/uL Basophils # (0-0.2) k/uL Sodium 135 L (137-145) mmol/L Potassium 4.7 (3.5-5.1) mmol/L Chloride 114 H (98-107) mmol/L Carbon Dioxide 11 L (22-30) mmol/L Anion Gap 10 mmol/L BUN 5 L (7-17) mg/dL Creatinine 0.46 L (0.52-1.04) mg/dL Est GFR (CKD-EPI)AfAm >90 (>60 ml/min/1.73 sqM) Est GFR (CKD-EPI)NonAf >90 (>60 ml/min/1.73 sqM) Glucose 227 H (74-99) mg/dL POC Glucose (mg/dL) 260 H 174 H (70-110) mg/dL POC Glu [employer] [address] Glu mg/dL mg/dL Hemoglobin A1c (<=6.0) % Calcium 8.9 (8.4-10.2) mg/dL Phosphorus 1.9 L (2.5-4.5) mg/dL Magnesium (1.6-2.3) mg/dL Total Bilirubin (0.2-1.3) mg/dL AST (14-36) U/L ALT (4-34) U/L Alkaline Phosphatase (38-126) U/L Total Protein (6.3-8.2) g/dL Albumin (3.5-5.0) g/dL Amylase (30-110) U/L Lipase (23-300) U/L TSH (0.465-4.680) mIU/L Urine Color Urine Appearance (Clear) Urine pH (5.0-8.0) Ur Specific [place] (1.001-1.035) Urine Protein (Negative) Urine Glucose (UA) (Negative) Urine Ketones (Negative) Urine Blood (Negative) Urine Nitrite (Negative) Urine Bilirubin (Negative) Urine Urobilinogen (<2.0) mg/dL Ur Leukocyte Esterase (Negative) Urine RBC (0-5) /hpf Urine WBC (0-5) /hpf Ur Squamous Epith Cells (0-4) /hpf Urine Bacteria (None) /hpf Hyaline Casts (0-2) /lpf Urine Mucus (None) /hpf Urine Opiates Screen (NotDetected) Ur Oxycodone Screen (NotDetected) Urine Methadone Screen (NotDetected) Ur Propoxyphene Screen (NotDetected) Ur Barbiturates Screen (NotDetected) U Tricyclic Antidepress (NotDetected) Ur Phencyclidine Scrn (NotDetected) Ur Amphetamines Screen (NotDetected) U Methamphetamines Scrn (NotDetected) U Benzodiazepines Scrn (NotDetected) Urine Cocaine Screen (NotDetected) U Marijuana (THC) Screen (NotDetected) Acetone, Qual (Negative) 12/12/22 12/12/22 12/12/22 Range/Units 15:47 16:29 16:55 WBC (3.8-10.6) k/uL RBC (3.80-5.40) m/uL Hgb (11.4-16.0) gm/dL Hct (34.0-46.0) % MCV (80.0-100.0) fL MCH (25.0-35.0) pg MCHC (31.0-37.0) g/dL RDW (11.5-15.5) % Plt Count (150-450) k/uL MPV Neutrophils % % Lymphocytes % % Monocytes % % Eosinophils % % Basophils % % Neutrophils # (1.3-7.7) k/uL Lymphocytes # (1.0-4.8) k/uL Monocytes # (0-1.0) k/uL Eosinophils # (0-0.7) k/uL Basophils # (0-0.2) k/uL Sodium 133 L (137-145) mmol/L Potassium 3.6 (3.5-5.1) mmol/L Chloride 113 H (98-107) mmol/L Carbon Dioxide 13 L (22-30) mmol/L Anion Gap 7 mmol/L BUN 3 L (7-17) mg/dL Creatinine 0.40 L (0.52-1.04) mg/dL Est GFR (CKD-EPI)AfAm >90 (>60 ml/min/1.73 sqM) Est GFR (CKD-EPI)NonAf >90 (>60 ml/min/1.73 sqM) Glucose 103 H (74-99) mg/dL POC Glucose (mg/dL) 165 H 126 H (70-110) mg/dL POC Glu [employer] Dariana Bermude[address] Glu mg/dL mg/dL Hemoglobin A1c (<=6.0) % Calcium 7.7 L (8.4-10.2) mg/dL Phosphorus (2.5-4.5) mg/dL Magnesium (1.6-2.3) mg/dL Total Bilirubin (0.2-1.3) mg/dL AST (14-36) U/L ALT (4-34) U/L Alkaline Phosphatase (38-126) U/L Total Protein (6.3-8.2) g/dL Albumin (3.5-5.0) g/dL Amylase (30-110) U/L Lipase (23-300) U/L TSH (0.465-4.680) mIU/L Urine Color Urine Appearance (Clear) Urine pH (5.0-8.0) Ur Specific [place] (1.001-1.035) Urine Protein (Negative) Urine Glucose (UA) (Negative) Urine Ketones (Negative) Urine Blood (Negative) Urine Nitrite (Negative) Urine Bilirubin (Negative) Urine Urobilinogen (<2.0) mg/dL Ur Leukocyte Esterase (Negative) Urine RBC (0-5) /hpf Urine WBC (0-5) /hpf Ur Squamous Epith Cells (0-4) /hpf Urine Bacteria (None) /hpf Hyaline Casts (0-2) /lpf Urine Mucus (None) /hpf Urine Opiates Screen (NotDetected) Ur Oxycodone Screen (NotDetected) Urine Methadone Screen (NotDetected) Ur Propoxyphene Screen (NotDetected) Ur Barbiturates Screen (NotDetected) U Tricyclic Antidepress (NotDetected) Ur Phencyclidine Scrn (NotDetected) Ur Amphetamines Screen (NotDetected) U Methamphetamines Scrn (NotDetected) U Benzodiazepines Scrn (NotDetected) Urine Cocaine Screen (NotDetected) U Marijuana (THC) Screen (NotDetected) Acetone, Qual (Negative) Disposition Clinical Impression: Intractable vomiting with nausea, 19 weeks gestation of Disposition: ADMITTED IP TO THIS [facility] Condition: Stable Is patient prescribed a controlled substance at d/c from ED?: No
[2022-12-11 12:07] LABS: Basophils % (A) 0 %; Eosinophils # (A) 0.1 k/uL (0-0.7); Eosinophils % (A) 1 %; HCT 36.1 % (34.0-46.0); HGB 12.5 gm/dL (11.4-16.0); Lymphocytes # (A) 1.2 k/uL (1.0-4.8); Lymphocytes % (A) 11 %; MCHC 34.6 g/dL (31.0-37.0); MCV 89.6 fL (80.0-100.0); Mean Platelet Volume 7.9; Monocytes # (A) 0.2 k/uL (0-1.0); Monocytes % (A) 2 %; Neutrophils # (A) 9.5 k/uL (1.3-7.7); Neutrophils % (A) 85 %; Platelet Count 390 k/uL (150-450); RBC 4.03 m/uL (3.80-5.40); RDW 13.6 % (11.5-15.5); WBC 11.1 k/uL (3.8-10.6)
[2022-12-11] MEDS ORDERED: diphenhydrAMINE 50 MG/ML 1 ML VIAL IVP STA (12:18)
[2022-12-11] MEDS ORDERED: PYRIDOXINE 100 MG/ML 1 ML VIAL IVP STA (12:19)
[2022-12-11 12:28] LABS: ALT 14 U/L (4-34); AST 32 U/L (14-36); African American GFR (CKD) >90 (>60 ml/min/1.73 sqM); Albumin 4.3 g/dL (3.5-5.0); Alkaline Phosphatase 71 U/L (38-126); Amylase 83 U/L (30-110); Anion Gap 13 mmol/L; Blood Urea Nitrogen 8 mg/dL (7-17); Calcium 9.5 mg/dL (8.4-10.2); Carbon Dioxide 19 mmol/L (22-30); Chloride 102 mmol/L (98-107); Glucose 129 mg/dL (74-99); Lipase 26 U/L (23-300); Magnesium 1.6 mg/dL (1.6-2.3); Non-African American GFR(CKD) >90 (>60 ml/min/1.73 sqM); Sodium 134 mmol/L (137-145); Total Bilirubin 1.6 mg/dL (0.2-1.3); Total Protein 8.4 g/dL (6.3-8.2)
--- NOTE | 2022-12-11 13:21 | US ---
EXAMINATION TYPE: US OB >= 14 wk fetus DATE OF EXAM: 12/11/2022 COMPARISON: None CLINICAL INDICATION: Female, 22 years old with history of abd cramping; abdominal pain, vomiting TECHNIQUE: Transabdominal (TA) GESTATIONAL AGE / DATING Physician Established: (19 weeks/2 days) EDC: 05/05/23 Dates by LMP: (19 weeks/1 days) EDC: 05/06/23 Dates by First Scan: (19 weeks/3 days) EDC: 05/03/23 Dates by Current Scan: (19 weeks/0 days) EDC: 05/07/23 SURVEY IUP: Single PLACENTA: Anterior PREVIA: Low Lying ARLETTE: 10.8 cm Normal CERVICAL LENGTH (transabdominal: norm > 3.0cm): 3.2 cm BIOMETRY PRESENTATION: Vertex LIE: Transverse with head maternal LT BPD: 4.2 cm 18 weeks / 5 days HC: 16.3 cm 19 weeks / 1 days AC: 13.3 cm 18 weeks / 6 days FL: 2.9 cm 19 weeks / 1 days ESTIMATED WEIGHT IN GRAMS: 263 grams ESTIMATED WEIGHT IN LBS/OZ: 0 lbs. 9 oz. WEIGHT PERCENTAGE BASED ON ESTABLISHED DATES: 32% HC/AC: 1.22 Normal FL/AC: 22% HEART RATE: 135 bpm RHYTHM: Normal IMPRESSION: Single intrauterine gestation estimated at 19 weeks 0 days gestation based on current ultrasound kristal urements. Cardiac activity measures 135 bpm.
[2022-12-11 14:54] LABS: Appearance,Urine Clear (Clear); Bacteria,Urine Occasional /hpf; Bilirubin,Urine Negative (Negative); Blood,Urine Negative (Negative); Color,Urine Light Yellow; Glucose,Urine (UA) 3+ (Negative); Hyaline Casts,Urine 3 /lpf (0-2); Leukocyte Esterase,Urine Negative (Negative); Mucus,Urine Occasional /hpf; Nitrite,Urine Negative (Negative); PH, Urine 5.5 (5.0-8.0); Protein,Urine 2+ (Negative); RBC,Urine 1 /hpf (0-5); Specific Gravity,Urine 1.016 (1.001-1.035); Squamous Epithelial Cell,Urine 2 /hpf (0-4); Urobilinogen,Urine <2.0 mg/dL (<2.0); WBC,Urine 4 /hpf (0-5)
[2022-12-11 14:55] LABS: Ketones,Urine 4+ (Negative)
[2022-12-11] MEDS ORDERED: METOCLOPRAMIDE 5 MG/ML 2 ML VIAL IVP STA (15:29)
[2022-12-11] MEDS ORDERED: ACETAMINOPHEN TAB 500 MG TAB PO STA (15:54)
[2022-12-11] MEDS ORDERED: NALOXONE 0.4 MG/ML 1 ML VIAL IV PRN (16:26)
[2022-12-11 18:25] LABS: Glucose,Whole Blood 345 mg/dL (70-110)
[2022-12-11] MEDS ORDERED: LACTATED RINGERS 1,000 ML IV SCH (18:45)
[2022-12-11 19:23] LABS: Glucose,Whole Blood 313 mg/dL (70-110)
[2022-12-11] MEDS ORDERED: INSULIN ASPART (NovoLOG) 100 UNIT/ML VIAL SQ ONE (19:25)
[2022-12-11] MEDS ORDERED: DEXTROSE 50% SYRINGE 50 ML IVP PRN ×4 (19:26→21:08)
[2022-12-11 19:51] LABS: Amphetamine Screen,Urine Not Detected (NotDetected); Barbiturate Screen,Urine Not Detected (NotDetected); Benzodiazepines Screen,Urine Not Detected (NotDetected); Cocaine Screen,Urine Not Detected (NotDetected); Methadone Screen, Urine Not Detected (NotDetected); Opiate Screen,Urine Not Detected (NotDetected); Oxycodone Screen, Urine Not Detected (NotDetected); Phencyclidine Screen,Urine Not Detected (NotDetected); Tricyclic Antidepressant,Urine Not Detected (NotDetected); Urn Cannabinoid Scrn Detected (NotDetected)
[2022-12-11 20:28] LABS: ALT 17 U/L (4-34); AST 24 U/L (14-36); African American GFR (CKD) >90 (>60 ml/min/1.73 sqM); Albumin 4.1 g/dL (3.5-5.0); Alkaline Phosphatase 76 U/L (38-126); Amylase 95 U/L (30-110); Anion Gap 22 mmol/L; Blood Urea Nitrogen 10 mg/dL (7-17); Calcium 9.2 mg/dL (8.4-10.2); Chloride 107 mmol/L (98-107); Glucose 267 mg/dL (74-99); Lipase 34 U/L (23-300); Non-African American GFR(CKD) >90 (>60 ml/min/1.73 sqM); Potassium 3.9 mmol/L (3.5-5.1); Sodium 136 mmol/L (137-145); Total Bilirubin 1.3 mg/dL (0.2-1.3)
[2022-12-11 20:39] LABS: Carbon Dioxide 7 mmol/L (22-30)
[2022-12-11 20:50] LABS: Glucose,Whole Blood 258 mg/dL (70-110)
[2022-12-11] MEDS ORDERED: INSULIN ASPART (NovoLOG) 100 UNIT/ML VIAL SQ SCH (21:00)
[2022-12-11] MEDS ORDERED: Magnesium Replacement Protocol 1 EACH MISC MISCELLANE PRN (21:08)
[2022-12-11] MEDS ORDERED: Potassium Replacement Protocol 1 EACH MISC MISCELLANE PRN (21:08)
[2022-12-11] MEDS ORDERED: INSULIN REGULAR BOLUS (FROM DRIP BAG) IV ONE (21:08)
[2022-12-11] MEDS ORDERED: SODIUM CHLORIDE 0.9% 1,000 ML IV SCH (21:15)
[2022-12-11 22:05] LABS: Glucose,Whole Blood 223 mg/dL (70-110)
[2022-12-11] MEDS: INSULIN REGULAR 100 UNIT in SODIUM CHLORIDE 0.9% 100 ML IV SCH (22:10)
[2022-12-11] MEDS: D5-0.45% NACL WITH KCL 20MEQ/L 1,000 ML IV SCH (22:41)
[2022-12-11 23:02] LABS: Glucose,Whole Blood 184 mg/dL (70-110)
[2022-12-11] MEDS: ACETAMINOPHEN TAB 325 MG TAB PO PRN (23:09)
--- NOTE | 2022-12-11 23:13 | P.CONS ---
History of Present Illness - Reason for Consult Consult date: 12/11/22 Hyperglycemia - Chief Complaint Nausea vomiting - History of Present Illness 22-year-old female with diabetes mellitus type 1 insulin-dependent Patient coming in for evaluation due to repeated nausea and vomiting for the past 2 days she is 19 weeks follows up with OB doctor in [place]. In the ED she was given IV fluid hydration with normal saline received 2 L boluses, and was given symptomatic control of her nausea vomiting with Zofran and admitted to the OB floor Medicine was consulted for hyperglycemia with concerns regarding DKA. Patient reports some diffuse abdominal discomfort earlier which has resolved. She continues to have nausea vomiting is controlled with Zofran denies any hematemesis or coffee-ground vomiting denies any bleeding denies any dysuria or diarrhea denies any fevers or chills denies any cough shortness of breath or chest pain denies any upper respiratory infection symptoms. Denies any rash headache changes in vision or hearing. Upon repeating some blood work and was found to have anion gap metabolic acidosis with positive serum acetone. Patient will be transferred to the medical floor for DKA management Patient admits to occasional smoking and marijuana denies any heavy alcohol patient also noticed to have tachycardia she claims that she always had rapid heart rate since she was younger, she noted the at her dad at age of 30 heart attack. She initially claimed that her heart rate is always in the 120s range then mentioned during her office visits usually her heart rate is in the 80s to 90s. At this point is not clear she is always tachycardic, probably this is related to her DKA will continue to monitor overnight for further recommendations review of systems Pertinent positives as noted in HPI. All other systems were reviewed and are negative on exam Constitutional: No acute distress, conversant, pleasant Eyes: Anicteric sclerae, moist conjunctiva, Pupils equal round reactive to light ENMT: NC/AT Oropharynx clear, no erythema, or exudates Neck: Supple, no masses, or JVD No carotid bruits No thyromegaly Lungs: Clear to auscultation Clear to percussion Normal respiratory effort, no accessory muscle use Cardiovascular: Heart tachycardia No murmurs, gallops, or rubs No peripheral edema Abdominal: Soft Nontender, no guarding, rebound or rigidity Abdomen moving with respiration Normoactive bowel sounds No hepatomegaly, No splenomegaly Palpable pelvic mass in the lower abdomen most likely related to uterus No abdominal wall hernia noted Skin: Normal temperature, tone, texture, turgor No induration No subcutaneous nodules No rash, lesions No ulcers Extremities: No digital cyanosis No clubbing Pedal pulses intact and symmetrical Radial pulses intact and symmetrical No calf tenderness Psychiatric: Alert and oriented to person, place and time Appropriate affect fair judgement Neuro Muscles Strength 5/5 in all 4 extremities Sensation to light touch grossly present throughout Cranial nerves II-XII grossly intact Lymphatics: no palpable cervical or supraclavicular lymph nodes Past Medical History Past Medical History: Diabetes Mellitus, GERD/Reflux Additional Past Medical History / Comment(s): migraine History of Any Multi-Drug Resistant Organisms: None Reported Past Surgical History: Cholecystectomy Additional Past Surgical History / Comment(s): right knee surgery Past Anesthesia/Blood Transfusion Reactions: No Reported Reaction Past Psychological History: Anxiety, Depression Smoking Status: Vaper Past Alcohol Use History: None Reported Past Drug Use History: Marijuana - Past Family History Father Family Medical History: Myocardial Infarction ([place]) Additional Family Medical History / Comment(s): father at 30 years old Sister(s) Family Medical History: Thyroid Disorder Brother(s) Family Medical History: Asthma Medications and Allergies Home Medications Medication Instructions Recorded Confirmed Type Metoclopramide [Reglan] 10 mg PO Q6H PRN #30 tab 11/25/22 12/11/22 Rx Insulin Aspart (For Pump) [NovoLOG 0.01 unit SQ-PUMP CONTINUOUS 12/11/22 12/11/22 History (For Pump)] Ondansetron Odt [Zofran Odt] 4 mg PO Q4-6H PRN 12/11/22 12/11/22 History Allergies Allergy/AdvReac Type Severity Reaction Status Date / Time adhesive tape Allergy Rash/Hives Verified 12/11/22 17:21 latex Allergy Rash/Hives Verified 12/11/22 17:21 Physical Exam Vitals: Vital Signs Temp Pulse Pulse Resp BP BP Pulse Ox 12/11/22 20:00 98.4 F 124 H 18 110/73 100 12/11/22 18:55 98.4 F 124 H 16 127/84 98 12/11/22 17:34 126 H 18 142/77 100 12/11/22 10:52 98.9 F 117 H 22 128/88 98 Intake and Output 12/11/22 12/11/22 12/12/22 14:59 22:59 06:59 Intake Total 6.353 Output Total 300 Balance -300 6.353 Intake: Intake, IV Titration 6.353 Amount Insulin Regular 100 unit 6.353 In Sodium Chloride 0.9% 100 ml @ 0.1 UNITS/KG/HR 7.33 mls/hr IV .[id number] [facility] Rx#:[id number] Output: Urine 300 Other: # Voids 1 Weight 72.575 kg 72.575 kg Results CBC & Chem 7: 12/11/22 11:55 12/11/22 19:59 Labs: Abnormal Lab Results - Last 24 Hours (Table) 12/11/22 12/11/22 12/11/22 Range/Units 11:55 11:55 14:23 WBC 11.1 H (3.8-10.6) k/uL Neutrophils # 9.5 H (1.3-7.7) k/uL Sodium 134 L (137-145) mmol/L Carbon Dioxide 19 L (22-30) mmol/L Creatinine 0.47 L (0.52-1.04) mg/dL Glucose 129 H (74-99) mg/dL POC Glucose (mg/dL) (70-110) mg/dL Total Bilirubin 1.6 H (0.2-1.3) mg/dL Total Protein 8.4 H (6.3-8.2) g/dL Urine Protein 2+ H (Negative) Urine Glucose (UA) 3+ H (Negative) Urine Ketones 4+ H (Negative) Urine Bacteria Occasional H (None) /hpf Hyaline Casts 3 H (0-2) /lpf Urine Mucus Occasional H (None) /hpf U Marijuana (THC) Screen (NotDetected) 12/11/22 12/11/22 12/11/22 Range/Units 14:23 18:23 19:21 WBC (3.8-10.6) k/uL Neutrophils # (1.3-7.7) k/uL Sodium (137-145) mmol/L Carbon Dioxide (22-30) mmol/L Creatinine (0.52-1.04) mg/dL Glucose (74-99) mg/dL POC Glucose (mg/dL) 345 H 313 H (70-110) mg/dL Total Bilirubin (0.2-1.3) mg/dL Total Protein (6.3-8.2) g/dL Urine Protein (Negative) Urine Glucose (UA) (Negative) Urine Ketones (Negative) Urine Bacteria (None) /hpf Hyaline Casts (0-2) /lpf Urine Mucus (None) /hpf U Marijuana (THC) Screen Detected H (NotDetected) 12/11/22 12/11/22 12/11/22 Range/Units 19:59 20:49 22:04 WBC (3.8-10.6) k/uL Neutrophils # (1.3-7.7) k/uL Sodium 136 L (137-145) mmol/L Carbon Dioxide 7 L* (22-30) mmol/L Creatinine (0.52-1.04) mg/dL Glucose 267 H (74-99) mg/dL POC Glucose (mg/dL) 258 H 223 H (70-110) mg/dL Total Bilirubin (0.2-1.3) mg/dL Total Protein (6.3-8.2) g/dL Urine Protein (Negative) Urine Glucose (UA) (Negative) Urine Ketones (Negative) Urine Bacteria (None) /hpf Hyaline Casts (0-2) /lpf Urine Mucus (None) /hpf U Marijuana (THC) Screen (NotDetected) 12/11/22 Range/Units 23:01 WBC (3.8-10.6) k/uL Neutrophils # (1.3-7.7) k/uL Sodium (137-145) mmol/L Carbon Dioxide (22-30) mmol/L Creatinine (0.52-1.04) mg/dL Glucose (74-99) mg/dL POC Glucose (mg/dL) 184 H (70-110) mg/dL Total Bilirubin (0.2-1.3) mg/dL Total Protein (6.3-8.2) g/dL Urine Protein (Negative) Urine Glucose (UA) (Negative) Urine Ketones (Negative) Urine Bacteria (None) /hpf Hyaline Casts (0-2) /lpf Urine Mucus (None) /hpf U Marijuana (THC) Screen (NotDetected) Assessment and Plan Assessment: Hyperglycemia with diabetic ketoacidosis Blood work showing bicarb of 7 anion gap of 22 Serum acetone positive Hyperglycemia in the 300 range Discontinue the use of patient insulin pump Start patient on insulin drip follow-up protocol for DKA Aggressive IV fluid hydration 200 to per hour of normal saline Every hour blood sugars Monitor potassium Tachycardia most likely secondary to above Patient claims questionable history of chronic tachycardia Heart rate doesn't improve overnight with control of her DKA we'll consider further cardiac workup like echocardiogram Check TSH Continue with cardiac monitoring 19 weeks Management per primary team vitamins Resume blood work unremarkable hemoglobin 12.5 white count 11.1 Na 34 potassium 5 BUN 8 creatinine 0.4 Full code DVT prophylaxis mechanical Thank you for this consultation we'll continue to follow up along with you
[2022-12-12 00:09] LABS: Glucose,Whole Blood 124 mg/dL (70-110)
[2022-12-12 00:32] LABS: Glucose,Whole Blood 129 mg/dL (70-110)
[2022-12-12 01:34] LABS: Glucose,Whole Blood 129 mg/dL (70-110)
[2022-12-12 02:03] LABS: African American GFR (CKD) >90 (>60 ml/min/1.73 sqM); Anion Gap 8 mmol/L; Blood Urea Nitrogen 8 mg/dL (7-17); Carbon Dioxide 13 mmol/L (22-30); Chloride 112 mmol/L (98-107); Glucose 124 mg/dL (74-99); Non-African American GFR(CKD) >90 (>60 ml/min/1.73 sqM); Sodium 133 mmol/L (137-145)
[2022-12-12 02:34] LABS: Glucose,Whole Blood 140 mg/dL (70-110)
[2022-12-12 03:47] LABS: Glucose,Whole Blood 127 mg/dL (70-110)
[2022-12-12] MEDS: ONDANSETRON 4 MG/2 ML VIAL IVP PRN ×4 (04:00→22:30)
[2022-12-12 04:40] LABS: Glucose,Whole Blood 181 mg/dL (70-110)
[2022-12-12] MEDS: D5-0.45% NACL WITH KCL 20MEQ/L 1,000 ML IV SCH ×4 (04:52→20:18)
[2022-12-12 04:59] LABS: African American GFR (CKD) >90 (>60 ml/min/1.73 sqM); Anion Gap 5 mmol/L; Blood Urea Nitrogen 6 mg/dL (7-17); Carbon Dioxide 16 mmol/L (22-30); Chloride 112 mmol/L (98-107); Glucose 114 mg/dL (74-99); Non-African American GFR(CKD) >90 (>60 ml/min/1.73 sqM); Potassium 4.1 mmol/L (3.5-5.1); Sodium 133 mmol/L (137-145)
[2022-12-12 05:38] LABS: Glucose,Whole Blood 246 mg/dL (70-110)
[2022-12-12] MEDS: METOCLOPRAMIDE 5 MG/ML 2 ML VIAL IVP PRN ×3 (05:40→20:27)
[2022-12-12 06:40] LABS: Glucose,Whole Blood 304 mg/dL (70-110)
[2022-12-12 07:33] LABS: Glucose,Whole Blood 286 mg/dL (70-110)
--- NOTE | 2022-12-12 07:39 | P.HPOB ---
History of Present Illness H&P Date: 12/12/22 Chief Complaint: 19 weeks , hyperemesis, DKA This patient is a 22-year-old 1 para 0 female estimated date of confinement 05/05/2023 estimated gestational age 19 weeks and 4 days who presented to the emergency department yesterday with complaints of persistent nausea, vomiting, and inability to keep anything down. Patient's care is with another physician, Dr. Uribe, and apparently this is who is managing her pre-gestational diabetes. Patient states that she's had insulin-dependent diabetes since she was 11 years old. In speaking to her and reviewing records, it appears she has a very poor glucose control was had episodes of DKA in the past. She's been in the emergency department in the hospital for persistent hyperemesis and dehydration. Patient was here yesterday given IV fluids and antibiotics without resolution and laboratory evaluations consistent with DKA. Patient also was a heavy user of marijuana and this has contributed to her hyperemesis. Patient states that she did have an anatomy ultrasound with her primary bonding machine operator and we did do an ultrasound here which was normal. Patient currently has an insulin pump. Patient states this was planned. Review of Systems Constitutional: Reports as per HPI Gastrointestinal: Reports as per HPI, Reports nausea, Reports vomiting Genitourinary: Reports Menstruation: Reports amenorrhea Past Medical History Past Medical History: Diabetes Mellitus, GERD/Reflux Additional Past Medical History / Comment(s): migraine History of Any Multi-Drug Resistant Organisms: None Reported Past Surgical History: Cholecystectomy Additional Past Surgical History / Comment(s): right knee surgery Past Anesthesia/Blood Transfusion Reactions: No Reported Reaction Past Psychological History: Anxiety, Depression Smoking Status: Vaper Past Alcohol Use History: None Reported Past Drug Use History: Marijuana - Past Family History Father Family Medical History: Myocardial Infarction ([place]) Additional Family Medical History / Comment(s): father at 30 years old Sister(s) Family Medical History: Thyroid Disorder Brother(s) Family Medical History: Asthma Medications and Allergies Home Medications Medication Instructions Recorded Confirmed Type Metoclopramide [Reglan] 10 mg PO Q6H PRN #30 tab 11/25/22 12/11/22 Rx Insulin Aspart (For Pump) [NovoLOG 0.01 unit SQ-PUMP CONTINUOUS 12/11/22 12/11/22 History (For Pump)] Ondansetron Odt [Zofran Odt] 4 mg PO Q4-6H PRN 12/11/22 12/11/22 History Allergies Allergy/AdvReac Type Severity Reaction Status Date / Time adhesive tape Allergy Rash/Hives Verified 12/11/22 17:21 latex Allergy Rash/Hives Verified 12/11/22 17:21 Exam Vital Signs Temp Pulse Pulse Pulse Resp BP BP 12/12/22 03:58 98.0 F 101 H 18 109/73 12/11/22 23:28 98.5 F 107 H 18 118/79 12/11/22 20:00 98.4 F 124 H 18 110/73 12/11/22 18:55 98.4 F 124 H 16 127/84 12/11/22 17:34 126 H 18 142/77 12/11/22 10:52 98.9 F 117 H 22 128/88 Pulse Ox 12/12/22 03:58 100 12/11/22 23:28 100 12/11/22 20:00 100 12/11/22 18:55 98 12/11/22 17:34 100 12/11/22 10:52 98 Intake and Output 12/11/22 12/12/22 12/12/22 22:59 06:59 14:59 Intake Total 32.898 Output Total 300 Balance -300 32.898 Intake: IV 10 Invasive Line 2 10 Intake, IV Titration 22.898 Amount Insulin Regular 100 unit 22.898 In Sodium Chloride 0.9% 100 ml @ 0.1 UNITS/KG/HR 7.33 mls/hr IV .[id number] [facility] Rx#:[id number] Output: Urine 300 Other: Voiding Method Toilet # Voids 1 4 Weight 72.575 kg - OBG Physical Exam Abdomen: bowel sounds normal, no diffuse tenderness, no bruit present, no guarding noted, no hepatomegaly, no splenomegaly, no mass Results labs and records are unavailable to me. Result Diagrams: 12/11/22 11:55 12/12/22 03:43 Abnormal Lab Results - Last 24 Hours (Table) 12/11/22 12/11/22 12/11/22 Range/Units 11:55 11:55 14:23 WBC 11.1 H (3.8-10.6) k/uL Neutrophils # 9.5 H (1.3-7.7) k/uL Sodium 134 L (137-145) mmol/L Chloride (98-107) mmol/L Carbon Dioxide 19 L (22-30) mmol/L BUN (7-17) mg/dL Creatinine 0.47 L (0.52-1.04) mg/dL Glucose 129 H (74-99) mg/dL POC Glucose (mg/dL) (70-110) mg/dL Phosphorus (2.5-4.5) mg/dL Total Bilirubin 1.6 H (0.2-1.3) mg/dL Total Protein 8.4 H (6.3-8.2) g/dL Urine Protein 2+ H (Negative) Urine Glucose (UA) 3+ H (Negative) Urine Ketones 4+ H (Negative) Urine Bacteria Occasional H (None) /hpf Hyaline Casts 3 H (0-2) /lpf Urine Mucus Occasional H (None) /hpf U Marijuana (THC) Screen (NotDetected) 12/11/22 12/11/22 12/11/22 Range/Units 14:23 18:23 19:21 WBC (3.8-10.6) k/uL Neutrophils # (1.3-7.7) k/uL Sodium (137-145) mmol/L Chloride (98-107) mmol/L Carbon Dioxide (22-30) mmol/L BUN (7-17) mg/dL Creatinine (0.52-1.04) mg/dL Glucose (74-99) mg/dL POC Glucose (mg/dL) 345 H 313 H (70-110) mg/dL Phosphorus (2.5-4.5) mg/dL Total Bilirubin (0.2-1.3) mg/dL Total Protein (6.3-8.2) g/dL Urine Protein (Negative) Urine Glucose (UA) (Negative) Urine Ketones (Negative) Urine Bacteria (None) /hpf Hyaline Casts (0-2) /lpf Urine Mucus (None) /hpf U Marijuana (THC) Screen Detected H (NotDetected) 12/11/22 12/11/22 12/11/22 Range/Units 19:59 20:49 22:04 WBC (3.8-10.6) k/uL Neutrophils # (1.3-7.7) k/uL Sodium 136 L (137-145) mmol/L Chloride (98-107) mmol/L Carbon Dioxide 7 L* (22-30) mmol/L BUN (7-17) mg/dL Creatinine (0.52-1.04) mg/dL Glucose 267 H (74-99) mg/dL POC Glucose (mg/dL) 258 H 223 H (70-110) mg/dL Phosphorus (2.5-4.5) mg/dL Total Bilirubin (0.2-1.3) mg/dL Total Protein (6.3-8.2) g/dL Urine Protein (Negative) Urine Glucose (UA) (Negative) Urine Ketones (Negative) Urine Bacteria (None) /hpf Hyaline Casts (0-2) /lpf Urine Mucus (None) /hpf U Marijuana (THC) Screen (NotDetected) 12/11/22 12/12/22 12/12/22 Range/Units 23:01 00:07 00:31 WBC (3.8-10.6) k/uL Neutrophils # (1.3-7.7) k/uL Sodium (137-145) mmol/L Chloride (98-107) mmol/L Carbon Dioxide (22-30) mmol/L BUN (7-17) mg/dL Creatinine (0.52-1.04) mg/dL Glucose (74-99) mg/dL POC Glucose (mg/dL) 184 H 124 H 129 H (70-110) mg/dL Phosphorus (2.5-4.5) mg/dL Total Bilirubin (0.2-1.3) mg/dL Total Protein (6.3-8.2) g/dL Urine Protein (Negative) Urine Glucose (UA) (Negative) Urine Ketones (Negative) Urine Bacteria (None) /hpf Hyaline Casts (0-2) /lpf Urine Mucus (None) /hpf U Marijuana (THC) Screen (NotDetected) 12/12/22 12/12/22 12/12/22 Range/Units 00:47 01:32 02:33 WBC (3.8-10.6) k/uL Neutrophils # (1.3-7.7) k/uL Sodium 133 L (137-145) mmol/L Chloride 112 H (98-107) mmol/L Carbon Dioxide 13 L (22-30) mmol/L BUN (7-17) mg/dL Creatinine 0.48 L (0.52-1.04) mg/dL Glucose 124 H (74-99) mg/dL POC Glucose (mg/dL) 129 H 140 H (70-110) mg/dL Phosphorus (2.5-4.5) mg/dL Total Bilirubin (0.2-1.3) mg/dL Total Protein (6.3-8.2) g/dL Urine Protein (Negative) Urine Glucose (UA) (Negative) Urine Ketones (Negative) Urine Bacteria (None) /hpf Hyaline Casts (0-2) /lpf Urine Mucus (None) /hpf U Marijuana (THC) Screen (NotDetected) 12/12/22 12/12/22 12/12/22 Range/Units 03:43 03:43 03:45 WBC (3.8-10.6) k/uL Neutrophils # (1.3-7.7) k/uL Sodium 133 L (137-145) mmol/L Chloride 112 H (98-107) mmol/L Carbon Dioxide 16 L (22-30) mmol/L BUN 6 L (7-17) mg/dL Creatinine 0.48 L (0.52-1.04) mg/dL Glucose 114 H (74-99) mg/dL POC Glucose (mg/dL) 127 H (70-110) mg/dL Phosphorus 2.4 L (2.5-4.5) mg/dL Total Bilirubin (0.2-1.3) mg/dL Total Protein (6.3-8.2) g/dL Urine Protein (Negative) Urine Glucose (UA) (Negative) Urine Ketones (Negative) Urine Bacteria (None) /hpf Hyaline Casts (0-2) /lpf Urine Mucus (None) /hpf U Marijuana (THC) Screen (NotDetected) 12/12/22 12/12/22 12/12/22 Range/Units 04:38 05:37 06:39 WBC (3.8-10.6) k/uL Neutrophils # (1.3-7.7) k/uL Sodium (137-145) mmol/L Chloride (98-107) mmol/L Carbon Dioxide (22-30) mmol/L BUN (7-17) mg/dL Creatinine (0.52-1.04) mg/dL Glucose (74-99) mg/dL POC Glucose (mg/dL) 181 H 246 H 304 H (70-110) mg/dL Phosphorus (2.5-4.5) mg/dL Total Bilirubin (0.2-1.3) mg/dL Total Protein (6.3-8.2) g/dL Urine Protein (Negative) Urine Glucose (UA) (Negative) Urine Ketones (Negative) Urine Bacteria (None) /hpf Hyaline Casts (0-2) /lpf Urine Mucus (None) /hpf U Marijuana (THC) Screen (NotDetected) Assessment and Plan Assessment: This is a 22-year-old 1 para 0 female 19-4/7 weeks gestational age who is admitted with intractable nausea and vomiting, insulin-dependent pre- gestational diabetes, and DKA. Patient is also abusing marijuana throughout the . I had a long discussion with Ayana in regards to the importance of glucose regulation throughout her . She understands unfortunately she is at significant risk of poor outcome (including stillborn) if she continues to have poor glucose control. I also explained to her that at this time marijuana use in is not recommended due to multiple studies show ing increased risk of poor outcome, including delivery, lower birthweight, and unknown effects on long-term neurologic development. Per current ACOG guidelines it is also recommended that she should have started 81 mg of ASA after 12 weeks due to increased risk of preeclampsia. She states that her physician, Dr. Uribe, wanted to wait until 20 weeks for unknown reasoning. I also had a long discussion with Ayana regards to where she should go in the future if she is having related problems. She understands that we then general do not have an chiseler head at this hospital that takes care of inpatients. She is considered high risk due to her pre-gestational diabetes and insulin pump and in general should be under the care of a maternal medicine specialist. I advised in the future if she is having any concerns that would be in her best interest to go directly to where her physician has admitting privileges so that she can get the optimal care from an chiseler head and maternal- medicine specialist. She will need serial growth ultrasounds, nonstress testing, and biophysical profiles in the future. I explained to her that certainly we will take care of her she reports presents to this hospital, however we do not have any records on her care from her primary physician. I will continue to follow with medicine. (1) 19 weeks gestation of Current Visit: Yes Status: Acute Code(s): Z3A.19 - 19 WEEKS GESTATION OF SNOMED Code(s): 01512156 (2) Intractable vomiting with nausea Current Visit: Yes Status: Acute Code(s): R11.2 - NAUSEA WITH VOMITING, UNSPECIFIED SNOMED Code(s): 419356187 (3) DKA (diabetic ketoacidoses) Current Visit: No Status: Acute Code(s): E13.10 - OTH DIABETES MELLITUS WITH KETOACIDOSIS WITHOUT COMA SNOMED Code(s): 202299723 (4) Cannabinoid hyperemesis syndrome Current Visit: Yes Status: Acute Code(s): R11.2 - NAUSEA WITH VOMITING, U NSPECIFIED; F12.90 - CANNABIS USE, UNSPECIFIED, UNCOMPLICATED SNOMED Code(s): 163880556
[2022-12-12 08:50] LABS: Glucose,Whole Blood 299 mg/dL (70-110)
[2022-12-12 09:34] LABS: Glucose,Whole Blood 284 mg/dL (70-110)
[2022-12-12] MEDS: ACETAMINOPHEN TAB 325 MG TAB PO PRN ×2 (09:36→16:49)
[2022-12-12] MEDS: diphenhydrAMINE 50 MG/ML 1 ML VIAL IVP PRN ×2 (09:36→18:50)
[2022-12-12 10:30] LABS: Glucose,Whole Blood 260 mg/dL (70-110)
[2022-12-12 11:16] LABS: African American GFR (CKD) >90 (>60 ml/min/1.73 sqM); Anion Gap 10 mmol/L; Blood Urea Nitrogen 5 mg/dL (7-17); Calcium 8.9 mg/dL (8.4-10.2); Carbon Dioxide 11 mmol/L (22-30); Chloride 114 mmol/L (98-107); Glucose 227 mg/dL (74-99); Non-African American GFR(CKD) >90 (>60 ml/min/1.73 sqM); Phosphorus 1.9 mg/dL (2.5-4.5); Potassium 4.7 mmol/L (3.5-5.1); Sodium 135 mmol/L (137-145)
[2022-12-12 11:55] LABS: Glucose,Whole Blood 174 mg/dL (70-110)
[2022-12-12] MEDS: POTAS-SOD-PHOS 278-164-250 MG 1 EACH PACKET PO SCH ×3 (13:23→20:21)
--- NOTE | 2022-12-12 14:30 | P.PN ---
Subjective Progress Note Date: 12/12/22 No new complaints. Reports having an appetite. Will start CLD, advance as tolerated. Gen: awake, alert HEENT: normocephalic, atraumatic, good hearing acuity, moist mucous membranes Resp: good air exchange, breathing comfortably with no accessory muscle use CVS: good distal perfusion x 4, GI: soft, NTTP, ND : no SPT, no CVAT, headley catheter not present MSK: no pitting edema, no clubbing Neuro: non-focal, moving all extremities Psych: cooperative, euthymic mood Assessment/Plan: Hyperglycemia with diabetic ketoacidosis Blood work showing bicarb of 7 anion gap of 22 Serum acetone positive Hyperglycemia in the 300 range Discontinue the use of patient insulin pump Start patient on insulin drip follow-up protocol for DKA Aggressive IV fluid hydration 200 to per hour of normal saline Every hour blood sugars Monitor potassium Tachycardia most likely secondary to above Patient claims questionable history of chronic tachycardia Heart rate doesn't improve overnight with control of her DKA we'll consider further cardiac workup like echocardiogram Check TSH Continue with cardiac monitoring 19 weeks Management per primary team vitamins Resume blood work unremarkable hemoglobin 12.5 white count 11.1 Na 34 potassium 5 BUN 8 creatinine 0.4 Full code DVT prophylaxis mechanical Objective - Vital Signs Vital signs: Vital Signs Temp 98.7 F 12/12/22 12:00 Pulse 103 H 12/12/22 12:00 Resp 16 12/12/22 12:00 BP 100/67 12/12/22 08:00 Pulse Ox 100 12/12/22 12:00 FiO2 Intake & Output 12/11/22 12/12/22 12/12/22 18:59 06:59 18:59 Intake Total 32.898 14.881 Output Total 300 Balance -267.102 14.881 Weight 72.575 kg Intake: IV 10 Invasive Line 2 10 Intake, IV Titration 22.898 14.881 Amount Insulin Regular 100 unit 22.898 14.881 In Sodium Chloride 0.9% 100 ml @ 0.1 UNITS/KG/HR 7.33 mls/hr IV .[id number] [facility] Rx#:[id number] Output: Urine 300 Other: Voiding Method Toilet # Voids 4 - Labs CBC & Chem 7: 12/11/22 11:55 12/12/22 10:20 Labs: Abnormal Lab Results - Last 24 Hours (Table) 12/11/22 12/11/22 12/11/22 Range/Units 14:23 14:23 18:23 Sodium (137-145) mmol/L Chloride (98-107) mmol/L Carbon Dioxide (22-30) mmol/L BUN (7-17) mg/dL Creatinine (0.52-1.04) mg/dL Glucose (74-99) mg/dL POC Glucose (mg/dL) 345 H (70-110) mg/dL Hemoglobin A1c (<=6.0) % Phosphorus (2.5-4.5) mg/dL Urine Protein 2+ H (Negative) Urine Glucose (UA) 3+ H (Negative) Urine Ketones 4+ H (Negative) Urine Bacteria Occasional H (None) /hpf Hyaline Casts 3 H (0-2) /lpf Urine Mucus Occasional H (None) /hpf U Marijuana (THC) Screen Detected H (NotDetected) 12/11/22 12/11/22 12/11/22 Range/Units 19:21 19:59 19:59 Sodium 136 L (137-145) mmol/L Chloride (98-107) mmol/L Carbon Dioxide 7 L* (22-30) mmol/L BUN (7-17) mg/dL Creatinine (0.52-1.04) mg/dL Glucose 267 H (74-99) mg/dL POC Glucose (mg/dL) 313 H (70-110) mg/dL Hemoglobin A1c 6.4 H (<=6.0) % Phosphorus (2.5-4.5) mg/dL Urine Protein (Negative) Urine Glucose (UA) (Negative) Urine Ketones (Negative) Urine Bacteria (None) /hpf Hyaline Casts (0-2) /lpf Urine Mucus (None) /hpf U Marijuana (THC) Screen (NotDetected) 12/11/22 12/11/22 12/11/22 Range/Units 20:49 22:04 23:01 Sodium (137-145) mmol/L Chloride (98-107) mmol/L Carbon Dioxide (22-30) mmol/L BUN (7-17) mg/dL Creatinine (0.52-1.04) mg/dL Glucose (74-99) mg/dL POC Glucose (mg/dL) 258 H 223 H 184 H (70-110) mg/dL Hemoglobin A1c (<=6.0) % Phosphorus (2.5-4.5) mg/dL Urine Protein (Negative) Urine Glucose (UA) (Negative) Urine Ketones (Negative) Urine Bacteria (None) /hpf Hyaline Casts (0-2) /lpf Urine Mucus (None) /hpf U Marijuana (THC) Screen (NotDetected) 12/12/22 12/12/22 12/12/22 Range/Units 00:07 00:31 00:47 Sodium 133 L (137-145) mmol/L Chloride 112 H (98-107) mmol/L Carbon Dioxide 13 L (22-30) mmol/L BUN (7-17) mg/dL Creatinine 0.48 L (0.52-1.04) mg/dL Glucose 124 H (74-99) mg/dL POC Glucose (mg/dL) 124 H 129 H (70-110) mg/dL Hemoglobin A1c (<=6.0) % Phosphorus (2.5-4.5) mg/dL Urine Protein (Negative) Urine Glucose (UA) (Negative) Urine Ketones (Negative) Urine Bacteria (None) /hpf Hyaline Casts (0-2) /lpf Urine Mucus (None) /hpf U Marijuana (THC) Screen (NotDetected) 12/12/22 12/12/22 12/12/22 Range/Units 01:32 02:33 03:43 Sodium (137-145) mmol/L Chloride (98-107) mmol/L Carbon Dioxide (22-30) mmol/L BUN (7-17) mg/dL Creatinine (0.52-1.04) mg/dL Glucose (74-99) mg/dL POC Glucose (mg/dL) 129 H 140 H (70-110) mg/dL Hemoglobin A1c 6.4 H (<=6.0) % Phosphorus (2.5-4.5) mg/dL Urine Protein (Negative) Urine Glucose (UA) (Negative) Urine Ketones (Negative) Urine Bacteria (None) /hpf Hyaline Casts (0-2) /lpf Urine Mucus (None) /hpf U Marijuana (THC) Screen (NotDetected) 12/12/22 12/12/22 12/12/22 Range/Units 03:43 03:43 03:45 Sodium 133 L (137-145) mmol/L Chloride 112 H (98-107) mmol/L Carbon Dioxide 16 L (22-30) mmol/L BUN 6 L (7-17) mg/dL Creatinine 0.48 L (0.52-1.04) mg/dL Glucose 114 H (74-99) mg/dL POC Glucose (mg/dL) 127 H (70-110) mg/dL Hemoglobin A1c (<=6.0) % Phosphorus 2.4 L (2.5-4.5) mg/dL Urine Protein (Negative) Urine Glucose (UA) (Negative) Urine Ketones (Negative) Urine Bacteria (None) /hpf Hyaline Casts (0-2) /lpf Urine Mucus (None) /hpf U Marijuana (THC) Screen (NotDetected) 12/12/22 12/12/22 12/12/22 Range/Units 04:38 05:37 06:39 Sodium (137-145) mmol/L Chloride (98-107) mmol/L Carbon Dioxide (22-30) mmol/L BUN (7-17) mg/dL Creatinine (0.52-1.04) mg/dL Glucose (74-99) mg/dL POC Glucose (mg/dL) 181 H 246 H 304 H (70-110) mg/dL Hemoglobin A1c (<=6.0) % Phosphorus (2.5-4.5) mg/dL Urine Protein (Negative) Urine Glucose (UA) (Negative) Urine Ketones (Negative) Urine Bacteria (None) /hpf Hyaline Casts (0-2) /lpf Urine Mucus (None) /hpf U Marijuana (THC) Screen (NotDetected) 12/12/22 12/12/22 12/12/22 Range/Units 07:31 08:44 09:31 Sodium (137-145) mmol/L Chloride (98-107) mmol/L Carbon Dioxide (22-30) mmol/L BUN (7-17) mg/dL Creatinine (0.52-1.04) mg/dL Glucose (74-99) mg/dL POC Glucose (mg/dL) 286 H 299 H 284 H (70-110) mg/dL Hemoglobin A1c (<=6.0) % Phosphorus (2.5-4.5) mg/dL Urine Protein (Negative) Urine Glucose (UA) (Negative) Urine Ketones (Negative) Urine Bacteria (None) /hpf Hyaline Casts (0-2) /lpf Urine Mucus (None) /hpf U Marijuana (THC) Screen (NotDetected) 12/12/22 12/12/22 12/12/22 Range/Units 10:20 10:28 11:48 Sodium 135 L (137-145) mmol/L Chloride 114 H (98-107) mmol/L Carbon Dioxide 11 L (22-30) mmol/L BUN 5 L (7-17) mg/dL Creatinine 0.46 L (0.52-1.04) mg/dL Glucose 227 H (74-99) mg/dL POC Glucose (mg/dL) 260 H 174 H (70-110) mg/dL Hemoglobin A1c (<=6.0) % Phosphorus 1.9 L (2.5-4.5) mg/dL Urine Protein (Negative) Urine Glucose (UA) (Negative) Urine Ketones (Negative) Urine Bacteria (None) /hpf Hyaline Casts (0-2) /lpf Urine Mucus (None) /hpf U Marijuana (THC) Screen (NotDetected)
[2022-12-12 15:51] LABS: Glucose,Whole Blood 165 mg/dL (70-110)
[2022-12-12 16:32] LABS: Glucose,Whole Blood 126 mg/dL (70-110)
[2022-12-12] MEDS: INSULIN REGULAR 100 UNIT in SODIUM CHLORIDE 0.9% 100 ML IV SCH (16:33)
[2022-12-12 17:52] LABS: African American GFR (CKD) >90 (>60 ml/min/1.73 sqM); Anion Gap 7 mmol/L; Blood Urea Nitrogen 3 mg/dL (7-17); Calcium 7.7 mg/dL (8.4-10.2); Carbon Dioxide 13 mmol/L (22-30); Chloride 113 mmol/L (98-107); Glucose 103 mg/dL (74-99); Non-African American GFR(CKD) >90 (>60 ml/min/1.73 sqM); Potassium 3.6 mmol/L (3.5-5.1); Sodium 133 mmol/L (137-145)
[2022-12-12 18:40] LABS: Glucose,Whole Blood 100 mg/dL (70-110)
[2022-12-12 19:28] LABS: Glucose,Whole Blood 119 mg/dL (70-110)
[2022-12-12 20:17] LABS: Glucose,Whole Blood 169 mg/dL (70-110)
[2022-12-12 21:11] LABS: Glucose,Whole Blood 169 mg/dL (70-110)
[2022-12-12 22:14] LABS: Glucose,Whole Blood 201 mg/dL (70-110)
[2022-12-12 22:21] LABS: African American GFR (CKD) >90 (>60 ml/min/1.73 sqM); Anion Gap 8 mmol/L; Blood Urea Nitrogen 3 mg/dL (7-17); Calcium 8.1 mg/dL (8.4-10.2); Carbon Dioxide 14 mmol/L (22-30); Chloride 110 mmol/L (98-107); Glucose 170 mg/dL (74-99); Non-African American GFR(CKD) >90 (>60 ml/min/1.73 sqM); Potassium 3.9 mmol/L (3.5-5.1); Sodium 132 mmol/L (137-145)
[2022-12-12 23:12] LABS: Glucose,Whole Blood 142 mg/dL (70-110)
[2022-12-13 00:05] LABS: Glucose,Whole Blood 126 mg/dL (70-110)
[2022-12-13] MEDS: diphenhydrAMINE 50 MG/ML 1 ML VIAL IVP PRN ×3 (00:07→11:11)
[2022-12-13 01:00] LABS: Glucose,Whole Blood 149 mg/dL (70-110)
[2022-12-13 02:02] LABS: Glucose,Whole Blood 202 mg/dL (70-110)
[2022-12-13] MEDS: D5-0.45% NACL WITH KCL 20MEQ/L 1,000 ML IV SCH ×3 (02:45→21:11)
[2022-12-13 02:59] LABS: Glucose,Whole Blood 128 mg/dL (70-110)
[2022-12-13 03:24] LABS: African American GFR (CKD) >90 (>60 ml/min/1.73 sqM); Anion Gap 7 mmol/L; Blood Urea Nitrogen 2 mg/dL (7-17); Calcium 7.7 mg/dL (8.4-10.2); Carbon Dioxide 14 mmol/L (22-30); Chloride 112 mmol/L (98-107); Glucose 124 mg/dL (74-99); Non-African American GFR(CKD) >90 (>60 ml/min/1.73 sqM); Potassium 3.5 mmol/L (3.5-5.1); Sodium 133 mmol/L (137-145)
[2022-12-13] MEDS: INSULIN REGULAR 100 UNIT in SODIUM CHLORIDE 0.9% 100 ML IV SCH ×2 (04:09→15:52)
[2022-12-13 04:20] LABS: Glucose,Whole Blood 122 mg/dL (70-110)
[2022-12-13 05:05] LABS: Glucose,Whole Blood 153 mg/dL (70-110)
[2022-12-13] MEDS: ONDANSETRON 4 MG/2 ML VIAL IVP PRN ×2 (05:06→10:02)
[2022-12-13 06:11] LABS: Glucose,Whole Blood 202 mg/dL (70-110)
--- NOTE | 2022-12-13 06:46 | P.PN ---
Progress Note - Text Progress Note Date: 12/13/22 The patient is 19 weeks and 5 days' gestation today. Patient still having spikes in her blood sugars high as 202. Apparently Dr. Blue is her cargoman here locally that is managing her pump as an outpatient. I explained to her that goals are to have her fasting blood glucose less then 90- 95 and postprandials less than 140. Patient is cleared from an obstetrical standpoint for discharge. She can be discharged home when medicine feels her glucose can be managed as an outpatient. She will follow up with her primary senior billing consultant upon discharge
[2022-12-13 07:03] LABS: Glucose,Whole Blood 157 mg/dL (70-110)
[2022-12-13 08:03] LABS: Glucose,Whole Blood 124 mg/dL (70-110)
[2022-12-13 09:27] LABS: Glucose,Whole Blood 136 mg/dL (70-110)
[2022-12-13 11:11] LABS: Glucose,Whole Blood 96 mg/dL (70-110)
[2022-12-13 11:20] LABS: African American GFR (CKD) >90 (>60 ml/min/1.73 sqM); Anion Gap 8 mmol/L; Blood Urea Nitrogen <2 mg/dL (7-17); Calcium 8.8 mg/dL (8.4-10.2); Carbon Dioxide 19 mmol/L (22-30); Chloride 109 mmol/L (98-107); Glucose 108 mg/dL (74-99); Non-African American GFR(CKD) >90 (>60 ml/min/1.73 sqM); Sodium 136 mmol/L (137-145)
[2022-12-13 13:03] LABS: Glucose,Whole Blood 81 mg/dL (70-110)
[2022-12-13 13:20] LABS: Glucose,Whole Blood 65 mg/dL (70-110)
[2022-12-13 13:42] LABS: Glucose,Whole Blood 65 mg/dL (70-110)
[2022-12-13 14:08] LABS: Glucose,Whole Blood 87 mg/dL (70-110)
[2022-12-13 14:40] VITALS: BMI 28.3
[2022-12-13] MEDS: ACETAMINOPHEN TAB 325 MG TAB PO PRN (14:52)
--- NOTE | 2022-12-13 14:52 | P.PN ---
Subjective Progress Note Date: 12/13/22 No new complaints. Reports having an appetite. Will advance diet today, and transition to insulin pump Gen: awake, alert HEENT: normocephalic, atraumatic, good hearing acuity, moist mucous membranes Resp: good air exchange, breathing comfortably with no accessory muscle use CVS: good distal perfusion x 4, GI: soft, NTTP, ND : no SPT, no CVAT, headley catheter not present MSK: no pitting edema, no clubbing Neuro: non-focal, moving all extremities Psych: cooperative, euthymic mood Assessment/Plan: Hyperglycemia with diabetic ketoacidosis Blood work showing bicarb of 7 anion gap of 22 Serum acetone positive Hyperglycemia in the 300 range Discontinue the use of patient insulin pump Start patient on insulin drip follow-up protocol for DKA Aggressive IV fluid hydration 200 to per hour of normal saline Every hour blood sugars Monitor potassium Tachycardia most likely secondary to above Patient claims questionable history of chronic tachycardia Check TSH = 0.99 Continue with cardiac monitoring 19 weeks Management per primary team vitamins Resume blood work unremarkable hemoglobin 12.5 white count 11.1 Na 34 potassium 5 BUN 8 creatinine 0.4 Full code DVT prophylaxis mechanical Objective - Vital Signs Vital signs: Vital Signs Temp 98.1 F 12/13/22 12:00 Pulse 95 12/13/22 12:00 Resp 16 12/13/22 12:00 BP 114/80 12/13/22 12:00 Pulse Ox 100 12/13/22 12:00 FiO2 Intake & Output 12/12/22 12/13/22 12/13/22 18:59 06:59 18:59 Intake Total 21.855 13.337 0.265 Balance 21.855 13.337 0.265 Weight 72.575 kg Intake: IV 10 Invasive Line 2 10 Intake, IV Titration 21.855 3.337 0.265 Amount Insulin Regular 100 unit 21.855 3.337 0.265 In Sodium Chloride 0.9% 100 ml @ 0.1 UNITS/KG/HR 7.33 mls/hr IV .[id number] [facility] Rx#:[id number] Other: Voiding Method Toilet Toilet # Voids 1 # Bowel Movements 1 - Labs CBC & Chem 7: 12/11/22 11:55 12/13/22 10:29 Labs: Abnormal Lab Results - Last 24 Hours (Table) 12/12/22 12/12/22 12/12/22 Range/Units 15:47 16:29 16:55 Sodium 133 L (137-145) mmol/L Chloride 113 H (98-107) mmol/L Carbon Dioxide 13 L (22-30) mmol/L BUN 3 L (7-17) mg/dL Creatinine 0.40 L (0.52-1.04) mg/dL Glucose 103 H (74-99) mg/dL POC Glucose (mg/dL) 165 H 126 H (70-110) mg/dL Calcium 7.7 L (8.4-10.2) mg/dL 12/12/22 12/12/22 12/12/22 Range/Units 19:26 20:15 21:09 Sodium (137-145) mmol/L Chloride (98-107) mmol/L Carbon Dioxide (22-30) mmol/L BUN (7-17) mg/dL Creatinine (0.52-1.04) mg/dL Glucose (74-99) mg/dL POC Glucose (mg/dL) 119 H 169 H 169 H (70-110) mg/dL Calcium (8.4-10.2) mg/dL 12/12/22 12/12/22 12/12/22 Range/Units 21:59 22:12 23:10 Sodium 132 L (137-145) mmol/L Chloride 110 H (98-107) mmol/L Carbon Dioxide 14 L (22-30) mmol/L BUN 3 L (7-17) mg/dL Creatinine 0.45 L (0.52-1.04) mg/dL Glucose 170 H (74-99) mg/dL POC Glucose (mg/dL) 201 H 142 H (70-110) mg/dL Calcium 8.1 L (8.4-10.2) mg/dL 12/13/22 12/13/22 12/13/22 Range/Units 00:03 00:58 02:00 Sodium (137-145) mmol/L Chloride (98-107) mmol/L Carbon Dioxide (22-30) mmol/L BUN (7-17) mg/dL Creatinine (0.52-1.04) mg/dL Glucose (74-99) mg/dL POC Glucose (mg/dL) 126 H 149 H 202 H (70-110) mg/dL Calcium (8.4-10.2) mg/dL 12/13/22 12/13/22 12/13/22 Range/Units 02:49 02:57 04:07 Sodium 133 L (137-145) mmol/L Chloride 112 H (98-107) mmol/L Carbon Dioxide 14 L (22-30) mmol/L BUN 2 L (7-17) mg/dL Creatinine 0.47 L (0.52-1.04) mg/dL Glucose 124 H (74-99) mg/dL POC Glucose (mg/dL) 128 H 122 H (70-110) mg/dL Calcium 7.7 L (8.4-10.2) mg/dL 12/13/22 12/13/22 12/13/22 Range/Units 05:03 06:10 07:00 Sodium (137-145) mmol/L Chloride (98-107) mmol/L Carbon Dioxide (22-30) mmol/L BUN (7-17) mg/dL Creatinine (0.52-1.04) mg/dL Glucose (74-99) mg/dL POC Glucose (mg/dL) 153 H 202 H 157 H (70-110) mg/dL Calcium (8.4-10.2) mg/dL 12/13/22 12/13/22 12/13/22 Range/Units 08:02 09:25 10:29 Sodium 136 L (137-145) mmol/L Chloride 109 H (98-107) mmol/L Carbon Dioxide 19 L (22-30) mmol/L BUN <2 L (7-17) mg/dL Creatinine 0.44 L (0.52-1.04) mg/dL Glucose 108 H (74-99) mg/dL POC Glucose (mg/dL) 124 H 136 H (70-110) mg/dL Calcium (8.4-10.2) mg/dL 12/13/22 12/13/22 Range/Units 13:17 13:41 Sodium (137-145) mmol/L Chloride (98-107) mmol/L Carbon Dioxide (22-30) mmol/L BUN (7-17) mg/dL Creatinine (0.52-1.04) mg/dL Glucose (74-99) mg/dL POC Glucose (mg/dL) 65 L 65 L (70-110) mg/dL Calcium (8.4-10.2) mg/dL
[2022-12-13 15:48] LABS: African American GFR (CKD) >90 (>60 ml/min/1.73 sqM); Anion Gap 8 mmol/L; Blood Urea Nitrogen <2 mg/dL (7-17); Calcium 9.2 mg/dL (8.4-10.2); Carbon Dioxide 21 mmol/L (22-30); Chloride 108 mmol/L (98-107); Glucose 116 mg/dL (74-99); Non-African American GFR(CKD) >90 (>60 ml/min/1.73 sqM); Potassium 3.8 mmol/L (3.5-5.1); Sodium 137 mmol/L (137-145)
[2022-12-13 16:04] LABS: Glucose,Whole Blood 70 mg/dL (70-110)
[2022-12-13 16:55] LABS: Glucose,Whole Blood 54 mg/dL (70-110)
[2022-12-13 17:11] LABS: Glucose,Whole Blood 65 mg/dL (70-110)
[2022-12-13 17:31] LABS: Glucose,Whole Blood 85 mg/dL (70-110)
[2022-12-13] MEDS ORDERED: INSULIN ASPART (NovoLOG) 100 UNIT/ML VIAL SQ PRN (19:20)
[2022-12-13 20:04] LABS: Glucose,Whole Blood 97 mg/dL (70-110)
[2022-12-13 20:43] VITALS: BP 131/84; RESP 18; TEMP 98.1
[2022-12-13 20:48] VITALS: PULSE 124
--- NOTE | 2022-12-13 21:27 | P.PN ---
Progress Note - Text Progress Note Date: 12/13/22 I personally re evaluated the patient, as she is requesting to be discharged as she has an important OB appointment in the morning that she does not want to miss. Patient is clear from medical stand point for discharge. we had the following discussion, RN Dianna was at bedside. patient has not been on the D5 drip most of the day today, she claims she has been off since morning . she does not like the hospital food , and snack consists of deli meat that she is not supposed to eat, which caused a couple low readings in her blood sugar. typically she eats every 2 hours at home, and monitors her blood sugar continuously. Her monitor would beep if her sugar drops below 100, and this is linked to notify 5 other family members. typically if this happens , she disconnects her pump, and immediately eats a sugary snack, she always carries strawberry candy in her purse, and got lots of sugary snacks around her at home for emergencies. Her A1c is 6.4%, and she is understanding DM and her blood sugar better than she did few years ago , when her A1C was 15%. her significant other and mother were in the room, and they confirmed all the above, and they are part of her support system. patient has a continuous insulin pump, and a dex CGM that is linked to it and to her phone. which will alert her if her sugar is below 100. if she starts vomiting again and unable to keep food down, she understands to go to the nearest ER and notify her doctor. her current blood sugar is 140, with the insulin pump on. patient feels well, denies any dizziness, abd pain , vomiting, or nausea. she is tolerating PO intake well. she is concerned about her baby and would like to see her OB doc for that important appointment tomorrow that involves further testing for her fetus well being . I updated the OB team, that patient is clear for discharge from medical stand point.
== END 2022-12-13 22:59 | disposition home or self-care (01) | DRG 831 ==
LOC: EC 10:49 → 4FBP 17:10 → 3SCARD 20:45 → OBSVTOIN 12-12 17:26
PROVIDERS: ADMIT Obstetrics & Gynecology; ATTEND Obstetrics & Gynecology
DX: O24.012 Pre-existing type 1 diabetes mellitus, in pregnancy, second trimester (principal); E10.11 Type 1 diabetes mellitus with ketoacidosis with coma; O99.412 Diseases of the circulatory system complicating pregnancy, second trimester; O99.322 Drug use complicating pregnancy, second trimester; E86.0 Dehydration; K21.9 Gastro-esophageal reflux disease without esophagitis; T40.722A Poisoning by synthetic cannabinoids, intentional self-harm, initial encounter; O99.512 Diseases of the respiratory system complicating pregnancy, second trimester; O99.332 Smoking (tobacco) complicating pregnancy, second trimester; F17.290 Nicotine dependence, other tobacco product, uncomplicated; F32.A Depression, unspecified; F41.9 Anxiety disorder, unspecified; R00.0 Tachycardia, unspecified; F12.19 Cannabis abuse with unspecified cannabis-induced disorder; G43.909 Migraine, unspecified, not intractable, without status migrainosus; O99.352 Diseases of the nervous system complicating pregnancy, second trimester; O21.9 Vomiting of pregnancy, unspecified; Z96.41 Presence of insulin pump (external) (internal); Z82.49 Family history of ischemic heart disease and other diseases of the circulatory system; Z90.49 Acquired absence of other specified parts of digestive tract; Z91.040 Latex allergy status; Z91.048 Other nonmedicinal substance allergy status; O99.342 Other mental disorders complicating pregnancy, second trimester; O99.612 Diseases of the digestive system complicating pregnancy, second trimester; Z3A.19 19 weeks gestation of pregnancy
CPT/HCPCS: 36415; 76805; 80048; 80051; 80053; 80306; 81001; 82009; 82150; 82565; 82947; 83036; 83690; 83735; 84100; 84443; 84520; 85025; 96361; 96374; 96375; 99285

== ENCOUNTER 2023-07-11 12:59 | Emergency (ER) | payer BC, OTHER ==
[2023-07-11 13:43] VITALS: TEMP 97.9
--- NOTE | 2023-07-11 13:53 | ED ---
Chest Pain HPI - General Chief Complaint: Chest Pain Stated Complaint: Abd Pain,Chest Pain Time Seen by Provider: 07/11/23 13:30 Source: patient, RN notes reviewed Mode of arrival: ambulatory Limitations: no limitations - History of Present Illness Initial Comments: 23-year-old female with history of hypertension, type 1 diabetes, and pancreatitis presenting with epigastric pain for 2 days. States she has been constantly vomiting for 2 days. States this feels similar to previous episodes of pancreatitis. States she has not been able to keep fluids or foods down due to the nausea. Admits mild constipation. Also states that on the drive here today began to experience right-sided chest pain and palpitations. Denies history of cardiac issues however states father at 30 years of age due to [place]. She has a history of a cholecystectomy. Denies fevers, URI symptoms, dysuria, urinary frequency, back pain. States she recently had a baby 3 months ago and there is no possibility of . Denies kidney issues, gastric bleeds, blood thinners. - Related Data Home Medications Medication Instructions Recorded Confirmed Insulin Aspart (For Pump) [NovoLOG 0.01 unit SQ-PUMP CONTINUOUS 12/11/22 07/11/23 (For Pump)] Omeprazole [PriLOSEC] 20 mg PO DAILY 07/11/23 07/11/23 Sertraline [Zoloft] 25 mg PO DAILY 07/11/23 07/11/23 amLODIPine [Norvasc] 5 mg PO DAILY 07/11/23 07/11/23 lisinopriL [Zestril] 10 mg PO DAILY 07/11/23 07/11/23 Previous Rx's Medication Instructions Recorded Ondansetron Odt [Zofran Odt] 4 mg PO Q8HR PRN #10 tab 07/11/23 Allergies Allergy/AdvReac Type Severity Reaction Status Date / Time adhesive tape Allergy Rash/Hives Verified 07/11/23 14:18 latex Allergy Rash/Hives Verified 07/11/23 14:18 metoclopramide [From Reglan] AdvReac Anxiety Verified 07/11/23 14:18 attack Review of Systems ROS Statement: Those systems with pertinent positive or pertinent negative responses have been documented in the HPI. ROS Other: All systems not noted in ROS Statement are negative. EKG Findings - EKG Results: EKG: sinus rhythm (Sinus rhythm with left atrial enlargement and left axis deviation. Incomplete right bundle branch block. Vent rate 96. ME interval 126. QRS duration 106. QT/QTc 416/469.) Past Medical History Past Medical History: Diabetes Mellitus, GERD/Reflux Additional Past Medical History / Comment(s): migraine History of Any Multi-Drug Resistant Organisms: None Reported Past Surgical History: No Surgical Hx Reported, Section, Cholecystectomy Additional Past Surgical History / Comment(s): (03/2023) Past Anesthesia/Blood Transfusion Reactions: No Reported Reaction Past Psychological History: Anxiety Smoking Status: Vaper, Light tobacco smoker Past Alcohol Use History: None Reported Past Drug Use History: Marijuana - Past Family History Father Additional Family Medical History / Comment(s): father at 30 years old General Exam Limitations: no limitations General appearance: alert, in no apparent distress ENT exam: Present: mucous membranes moist Respiratory exam: Present: normal lung sounds bilaterally. Absent: respiratory distress, wheezes, rales, rhonchi, stridor, chest wall tenderness Cardiovascular Exam: Present: regular rate, normal rhythm, normal heart sounds. Absent: systolic murmur, diastolic murmur, rubs, gallop, clicks GI/Abdominal exam: Present: soft, tenderness (mild tenderness in epigastric area. No skin changes or discolorations), normal bowel sounds. Absent: distended, guarding, rebound, rigid Course Vital Signs 07/11/23 07/11/23 07/11/23 13:00 14:07 15:10 Temperature 97.9 F Pulse Rate 101 H 95 91 Respiratory 20 20 18 Rate Blood Pressure 172/116 173/119 140/81 O2 Sat by Pulse 100 96 96 Oximetry Chest Pain MDM - MDM Was pt. sent in by a medical professional or institution (, PA, BARKING MACHINE FEEDER, urgent care, hospital, or alf...) When possible be specific @ -No Did you speak to anyone other than the patient for history (EMS, parent, family, police, friend...)? What history was obtained from this source @ -No Did you review nursing and triage notes (agree or disagree)? Why? @ -I reviewed and agree with nursing and triage notes Were old charts reviewed (outside hosp., previous admission, EMS record, old EKG, old radiological studies, urgent care reports/EKG's, alf records)? Report findings @ -No old charts were reviewed Differential Diagnosis (chest pain, altered mental status, abdominal pain women, abdominal pain men, vaginal bleeding, weakness, fever, dyspnea, syncope, headache, dizziness, GI bleed, back pain, seizure, CVA, palpatations, mental health, musculoskeletal)? @ -Differential Abdominal Pain Women: Appendicitis, Cholecystitis, diverticulosis, ischemic bowel, pancreatitis, hepatitis, UTI, gastroenteritis, AAA, incarcerated hernia, bowel obstruction, constipation, inflammatory bowel, hepatitis, peptic ulcer disease, splenic infarction, perforated viscus, vulvitis, ovarian torsion, PID, kidney stone, placenta abruption, this is not meant to be an all-inclusive list Differential Chest Pain: Stable Angina, Unstable Angina, STEMI, NSTEMI Aortic Dissection, Pneumothorax, Musculoskeletal, Esophageal Spasm GERD, Cholecystitis, Pancreatitis, Zoster, this is not meant to be an all-inclusive list. EKG interpreted by me (3pts min.). @ -Normal sinus rhythm with left atrial enlargement and left axis deviation, no ST changes X-rays interpreted by me (1pt min.). @ -Patient declines chest x-ray at this time. Risks discussed with patient. CT interpreted by me (1pt min.). @ -None done U/S interpreted by me (1pt. min.). @ -None done What testing was considered but not performed or refused? (CT, X-rays, U/S, labs)? Why? @ -Chest x-ray recommended due to chest pain however patient declines. Risks discussed. What meds were considered but not given or refused? Why? @ -None Did you discuss the management of the patient with other professionals (professionals i.e. , PA, BARKING MACHINE FEEDER, lab, RT, psych nurse, psychologist social, professional builder, teacher, army senior officer, dependency case manager)? Give summary @ -No Was smoking cessation discussed for >3mins.? @ -No Was critical care preformed (if so, how long)? @ -No Were there social determinants of health that impacted care today? How? (Homelessness, low income, unemployed, alcoholism, drug addiction, transportation, low edu. Level, literacy, decrease access to med. care, alf, rehab)? @ -No Was there de-escalation of care discussed even if they declined (Discuss DNR or withdrawal of care, Hospice)? DNR status @ -No What co-morbidities impacted this encounter? (DM, HTN, Smoking, COPD, CAD, Cancer, CVA, ARF, Chemo, Hep., AIDS, mental health diagnosis, sleep apnea, morbid obesity)? @ -None Was patient admitted / discharged? Hospital course, mention meds given and route, prescriptions, significant lab abnormalities, going to OR and other pertinent info. @ -Patient was seen and evaluated for abdominal pain and chest pain. Blood acetone, CBC, CMP, lactic acid, lipase, troponin, venous blood gas are unremarkable. UA unremarkable and urine negative. Toradol and Zofran given for pain and nausea. Fluid bolus given and tolerated well. Patient is reexamined and symptoms have greatly improved. Discharged in stable condition with Zofran. Case discussed with Dr. Montes Undiagnosed new problem with uncertain prognosis? @ -No Drug Therapy requiring intensive monitoring for toxicity (Heparin, Nitro, Insulin, Cardizem)? @ -No Were any procedures done? @ -No Diagnosis/symptom? @ -Gastroenteritis Acute, or Chronic, or Acute on Chronic? @ -Acute Uncomplicated (without systemic symptoms) or Complicated (systemic symptoms)? @ -Default Side effects of treatment? @ -No Exacerbation, Progression, or Severe Exacerbation? @ -No Poses a threat to life or bodily function? How? (Chest pain, [place], [place], pneumonia, PE, COPD, DKA, ARF, appy, cholecystitis, CVA, Diverticulitis, Homicidal, Nelson icidal, threat to staff... and all critical care pts) @ -No Disposition Clinical Impression: Gastroenteritis Disposition: HOME SELF-CARE Condition: Stable Instructions (If sedation given, give patient instructions): Dehydration (ED), Acute Nausea and Vomiting (ED) Additional Instructions: Please return to the Emergency Department if symptoms worsen or any other concerns. Prescriptions: Ondansetron Odt [Zofran Odt] 4 mg PO Q8HR PRN #10 tab PRN Reason: Nausea Is patient prescribed a controlled substance at d/c from ED?: No Referrals: None,Stated [Primary Care Provider] - 1-2 days Time of Disposition: 15:44
[2023-07-11] MEDS: SODIUM CHLORIDE 0.9% 2,000 ML IV STA (14:02)
[2023-07-11] MEDS: ONDANSETRON 4 MG/2 ML VIAL IVP STA (14:03)
[2023-07-11 14:18] LABS: Anisocytosis Slight; Basophils # (A) 0.1 k/uL (0-0.2); Basophils % (A) 1 %; Eosinophils # (A) 0.1 k/uL (0-0.7); Eosinophils % (A) 2 %; HCT 38.1 % (34.0-46.0); HGB 11.6 gm/dL (11.4-16.0); Hypochromasia Marked; Lymphocytes # (A) 1.3 k/uL (1.0-4.8); Lymphocytes % (A) 19 %; MCH 23.8 pg (25.0-35.0); MCHC 30.4 g/dL (31.0-37.0); MCV 78.2 fL (80.0-100.0); Mean Platelet Volume 9.4; Microcytosis Slight; Monocytes # (A) 0.4 k/uL (0-1.0); Monocytes % (A) 6 %; Neutrophils # (A) 4.6 k/uL (1.3-7.7); Neutrophils % (A) 71 %; Platelet Count 396 k/uL (150-450); Poikilocytosis Slight; RBC 4.88 m/uL (3.80-5.40); WBC 6.5 k/uL (3.8-10.6)
[2023-07-11 14:25] LABS: VBG PH 7.36 (7.31-7.41)
[2023-07-11] MEDS: KETOROLAC 15 MG/ML 1 ML VIAL IVP STA (14:33)
[2023-07-11 14:49] LABS: Appearance,Urine Clear (Clear); Bacteria,Urine Rare /hpf; Bilirubin,Urine Negative (Negative); Blood,Urine Trace (Negative); Color,Urine Colorless; Glucose,Urine (UA) Negative (Negative); Ketones,Urine Negative (Negative); Leukocyte Esterase,Urine Negative (Negative); Mucus,Urine Rare /hpf; Nitrite,Urine Negative (Negative); PH, Urine 7.5 (5.0-8.0); Protein,Urine 2+ (Negative); RBC,Urine 1 /hpf (0-5); Specific Gravity,Urine 1.009 (1.001-1.035); Squamous Epithelial Cell,Urine 3 /hpf (0-4); Urobilinogen,Urine <2.0 mg/dL (<2.0); WBC,Urine 1 /hpf (0-5)
[2023-07-11 14:50] LABS: ALT 18 U/L (4-34); AST 29 U/L (14-36); African American GFR (CKD) >90 (>60 ml/min/1.73 sqM); Albumin 3.3 g/dL (3.5-5.0); Alkaline Phosphatase 75 U/L (38-126); Anion Gap 5 mmol/L; Blood Urea Nitrogen 11 mg/dL (7-17); Calcium 8.8 mg/dL (8.4-10.2); Carbon Dioxide 27 mmol/L (22-30); Chloride 106 mmol/L (98-107); Glucose 120 mg/dL (74-99); Lipase 26 U/L (23-300); Non-African American GFR(CKD) >90 (>60 ml/min/1.73 sqM); Potassium 3.9 mmol/L (3.5-5.1); Sodium 138 mmol/L (137-145); Total Bilirubin 1.3 mg/dL (0.2-1.3); Total Protein 5.9 g/dL (6.3-8.2)
[2023-07-11 15:16] LABS: Glucose,Whole Blood 98 mg/dL (70-110)
[2023-07-11 15:47] VITALS: RESP 18
[2023-07-11 16:26] VITALS: BP 170/110; PULSE 93
== END 2023-07-11 16:27 | disposition home or self-care (01) ==
LOC: EC 12:59
DX: K52.9 Noninfective gastroenteritis and colitis, unspecified (principal); F17.290 Nicotine dependence, other tobacco product, uncomplicated; Z91.040 Latex allergy status; Z91.048 Other nonmedicinal substance allergy status; Z88.8 Allergy status to other drugs, medicaments and biological substances
CPT/HCPCS: 36415; 93005; 80053; 82803; 82009; 83605; 83690; 84484; 85025; 81001; 81025; 99285; 96374; 96375; 96361 ×2; J2405; J1885

== ENCOUNTER 2023-09-04 09:20 | Inpatient (IN) | payer BC, OTHER ==
[2023-09-04 09:31] LABS: Glucose,Whole Blood 419 mg/dL (70-110)
--- NOTE | 2023-09-04 09:57 | ED ---
Recheck HPI - General Chief Complaint: Recheck/Abnormal Lab/Rx Stated Complaint: Hyperglycemia Time Seen by Provider: 09/04/23 09:32 Source: patient, RN notes reviewed Mode of arrival: ambulatory Limitations: no limitations - History of Present Illness Initial Comments: This is a 23-year-old female who presents to the emergency department for hyperglycemia, nausea, vomiting, and chest pain. Patient is a type I diabetic and states that yesterday her sugar started to elevate. The lowest it got was approximately 275 and it reached to the mid 400s. She does have problems with ongoing dental infections and started taking an antibiotic for a dental in fection again yesterday. She is scheduled to see a dentist tomorrow to discuss having her teeth pulled. This morning her sugars continued to remain elevated despite increasing her Lantus dose. Also reports nausea, vomiting, and chest pain. Denies any abdominal pain. States that her father of a heart attack when he was 30. Denies any personal history of cardiac issues. She does take medication for high blood pressure. Reports a hx of DKA, most recently about a year ago. - Related Data Home Medications Medication Instructions Recorded Confirmed Insulin Aspart (For Pump) [NovoLOG 0.01 unit SQ-PUMP CONTINUOUS 12/11/22 09/04/23 (For Pump)] Omeprazole [PriLOSEC] 20 mg PO DAILY 07/11/23 09/04/23 Sertraline [Zoloft] 25 mg PO DAILY 07/11/23 09/04/23 amLODIPine [Norvasc] 5 mg PO DAILY 07/11/23 09/04/23 lisinopriL [Zestril] 10 mg PO DAILY 07/11/23 09/04/23 Allergies Allergy/AdvReac Type Severity Reaction Status Date / Time adhesive tape Allergy Rash/Hives Verified 09/04/23 12:05 latex Allergy Rash/Hives Verified 09/04/23 12:05 metoclopramide [From Reglan] AdvReac Anxiety Verified 09/04/23 12:05 attack Review of Systems ROS Statement: Those systems with pertinent positive or pertinent negative responses have been documented in the HPI. ROS Other: All systems not noted in ROS Statement are negative. Past Medical History Past Medical History: Diabetes Mellitus, GERD/Reflux Additional Past Medical History / Comment(s): migraine History of Any Multi-Drug Resistant Organisms: None Reported Past Surgical History: Cholecystectomy, No Surgical Hx Reported Additional Past Surgical History / Comment(s): right knee surgery Past Anesthesia/Blood Transfusion Reactions: No Reported Reaction Past Psychological History: Anxiety, Depression, No Psychological Hx Reported Smoking Status: Vaper, Light tobacco smoker Past Alcohol Use History: None Reported Past Drug Use History: Marijuana - Past Family History Father Family Medical History: Myocardial Infarction ([place]) Additional Family Medical History / Comment(s): father at 30 years old Sister(s) Family Medical History: Thyroid Disorder Brother(s) Family Medical History: Asthma Mother Family Medical History: No Reported History General Exam Limitations: no limitations General appearance: alert, in no apparent distress Head exam: Present: atraumatic, normocephalic, normal inspection Respiratory exam: Present: normal lung sounds bilaterally. Absent: respiratory distress, wheezes, rales, rhonchi, stridor Cardiovascular Exam: Present: regular rate, normal rhythm, normal heart sounds. Absent: systolic murmur, diastolic murmur, rubs, gallop, clicks GI/Abdominal exam: Present: soft, normal bowel sounds. Absent: distended, tenderness, guarding, rebound, rigid Neurological exam: Present: alert, oriented X3, CN II-XII intact Psychiatric exam: Present: normal affect, normal mood Skin exam: Present: warm, dry, intact, normal color. Absent: rash Course Vital Signs 09/04/23 09/04/23 09:26 14:55 Temperature 98.2 F Pulse Rate 139 H 70 Respiratory 20 16 Rate Blood Pressure 112/78 118/67 O2 Sat by Pulse 100 98 Oximetry Medical Decision Making - Medical Decision Making This is a 23 year old female who presents to the emergency department for hyperglycemia, nausea, and vomiting. Was pt. sent in by a medical professional or institution? @ -No Did you speak to anyone other than the patient for history? @ -No Did you review nursing and triage notes? @ -Yes, and I agree, it is accurate with regards to the patient's symptoms. Were old charts reviewed? @ -No Differential Diagnosis? @ -Differential Nausea and Vomiting: Gastroenteritis, cholecystitis, appendicitis, pancreatitis, migraine, benign positional vertigo, food borne illness, pyelonephritis, irritable bowel syndrome, influenza, Covid, GERD, incarcerated hernia, intestinal obstruction, this is not meant to be an all-inclusive list. EKG interpreted by me (3pts min.)? @ -EKG interpreted by me demonstrating the following: Sinus tachycardia. Ventricular rate 122 bpm, OH interval 120 ms, QRS duration 90 ms, QTc 410 ms. X-rays interpreted by me (1pt min.)? @ -Chest x-ray obtained, my interpretation identifies no localized consolidations or infiltrates. CT interpreted by me (1pt min.)? @ -Not obtained U/S interpreted by me (1pt. min.)? @ -Not obtained What testing was considered but not performed? (CT, X-rays, U/S, labs)? Why? @ -None What meds were considered but not given? Why? @ -None Did you discuss the management of the patient with other professionals? @ -Yes, Dr. Dhillon, who accepts the patient for admission. Did you reconcile home meds? @ -Yes Was smoking cessation discussed for >3mins.? @ -No Was critical care preformed (if so, how long)? @ -No Were there social determinants of health that impacted care today? How? (Homelessness, low income, unemployed, alcoholism, drug addiction, transportation, low edu. Level, literacy, decrease access to med. care, retirement, r ehab)? @ -No Was there de-escalation of care discussed even if they declined? (Discuss DNR or withdrawal of care, Hospice)? @ -No What co-morbidities impacted this encounter? (DM, HTN, Smoking, COPD, CAD, Cancer, CVA, Hep., AIDS, mental health diagnosis, sleep apnea, morbid obesity)? @ -DM, HTN Was patient admitted / discharged? @ -Admitted. POC glucose on arrival is 419. Lab work demonstrates leukocytosis with white blood cell count of 27.5. Bicarb is 16, anion gap is 22, and patient is acetone positive. Chest x-ray reveals no acute process. Urinalysis negative for signs of infection. Patient meets DKA criteria based on lab work above. The cause of the leukocytosis not entirely clear. A component of this could be related to the nausea and vomiting. Patient does also have a dental infection, which could be a contributing component to this. Blood cultures were obtained and she was started on clindamycin for dental infection. DKA protocol initiated as well. She was given a 2 L bolus of IV fluids on arrival and started on maintenance fluids as well as an insulin drip. Undiagnosed new problem with uncertain prognosis? @ -None Drug Therapy requiring intensive monitoring for toxicity (Heparin, Nitro, Insulin, Cardizem)? @ -None Were any procedures done? @ -None Diagnosis/symptom? @ -DKA Acute, or Chronic, or Acute on Chronic? @ -Acute Uncomplicated (without systemic symptoms) or Complicated (systemic symptoms)? @ -Complicated Side effects of treatment? @ -None Exacerbation, Progression, or Severe Exacerbation] @ -Not applicable Poses a threat to life or bodily function? @ -Yes This case was discussed in detail with the attending ED physician, Dr. Salvador. Presentation, findings, and treatment plan discussed in detail as well. - Lab Data Result diagrams: 09/04/23 10:32 09/04/23 16:05 Lab Results 09/04/23 09/04/23 09/04/23 Range/Units 09:29 10:32 10:32 WBC 27.5 H (3.8-10.6) k/uL RBC 5.29 (3.80-5.40) m/uL Hgb 12.7 (11.4-16.0) gm/dL Hct 41.7 (34.0-46.0) % MCV 78.8 L (80.0-100.0) fL MCH 24.0 L (25.0-35.0) pg MCHC 30.5 L (31.0-37.0) g/dL RDW 21.1 H (11.5-15.5) % Plt Count 543 H (150-450) k/uL MPV 8.4 Neutrophils % 94 % Lymphocytes % 3 % Monocytes % 3 % Eosinophils % 0 % Basophils % 0 % Neutrophils # 25.8 H (1.3-7.7) k/uL Lymphocytes # 0.8 L (1.0-4.8) k/uL Monocytes # 0.8 (0-1.0) k/uL Eosinophils # 0.0 (0-0.7) k/uL Basophils # 0.0 (0-0.2) k/uL Manual Slide Review Performed Hypochromasia Slight Anisocytosis Moderate Microcytosis Moderate VBG pH (7.31-7.41) VBG pCO2 (37-51) mmHg VBG HCO3 (24-28) mmol/L Sodium (137-145) mmol/L Potassium (3.5-5.1) mmol/L Chloride (98-107) mmol/L Carbon Dioxide (22-30) mmol/L Anion Gap mmol/L BUN (7-17) mg/dL Creatinine (0.52-1.04) mg/dL Est GFR (CKD-EPI)AfAm (>60 ml/min/1.73 sqM) Est GFR (CKD-EPI)NonAf (>60 ml/min/1.73 sqM) Glucose (74-99) mg/dL POC Glucose (mg/dL) 419 H (70-110) mg/dL POC Glu Waiter/Waitress Third Class ID [place] Calcium (8.4-10.2) mg/dL Phosphorus (2.5-4.5) mg/dL Magnesium (1.6-2.3) mg/dL Total Bilirubin (0.2-1.3) mg/dL AST (14-36) U/L ALT (4-34) U/L Alkaline Phosphatase (38-126) U/L Troponin I (0.000-0.034) ng/mL Total Protein (6.3-8.2) g/dL Albumin (3.5-5.0) g/dL HCG, Quant mIU/mL Urine Color Colorless Urine Appearance Clear (Clear) Urine pH 5.5 (5.0-8.0) Ur Specific [place] 1.018 (1.001-1.035) Urine Protein 2+ H (Negative) Urine Glucose (UA) 4+ H (Negative) Urine Ketones 4+ H (Negative) Urine Blood Moderate H (Negative) Urine Nitrite Negative (Negative) Urine Bilirubin Negative (Negative) Urine Urobilinogen <2.0 (<2.0) mg/dL Ur Leukocyte Esterase Negative (Negative) Urine RBC 5 (0-5) /hpf Urine WBC 2 (0-5) /hpf Ur Squamous Epith Cells 2 (0-4) /hpf Urine HCG, Qual (Not Detectd) Acetone, Qual (Negative) 09/04/23 09/04/23 09/04/23 Range/Units 10:32 10:32 10:32 WBC (3.8-10.6) k/uL RBC (3.80-5.40) m/uL Hgb (11.4-16.0) gm/dL Hct (34.0-46.0) % MCV (80.0-100.0) fL MCH (25.0-35.0) pg MCHC (31.0-37.0) g/dL RDW (11.5-15.5) % Plt Count (150-450) k/uL MPV Neutrophils % % Lymphocytes % % Monocytes % % Eosinophils % % Basophils % % Neutrophils # (1.3-7.7) k/uL Lymphocytes # (1.0-4.8) k/uL Monocytes # (0-1.0) k/uL Eosinophils # (0-0.7) k/uL Basophils # (0-0.2) k/uL Manual Slide Review Hypochromasia Anisocytosis Microcytosis VBG pH (7.31-7.41) VBG pCO2 (37-51) mmHg VBG HCO3 (24-28) mmol/L Sodium 137 (137-145) mmol/L Potassium 5.0 (3.5-5.1) mmol/L Chloride 99 (98-107) mmol/L Carbon Dioxide 16 L (22-30) mmol/L Anion Gap 22 mmol/L BUN 17 (7-17) mg/dL Creatinine 1.09 H (0.52-1.04) mg/dL Est GFR (CKD-EPI)AfAm 83 (>60 ml/min/1.73 sqM) Est GFR (CKD-EPI)NonAf 72 (>60 ml/min/1.73 sqM) Glucose 345 H (74-99) mg/dL POC Glucose (mg/dL) (70-110) mg/dL POC Glu Waiter/Waitress Third Class ID Calcium 10.3 H (8.4-10.2) mg/dL Phosphorus 2.9 (2.5-4.5) mg/dL Magnesium 1.7 (1.6-2.3) mg/dL Total Bilirubin 1.2 (0.2-1.3) mg/dL AST 24 (14-36) U/L ALT 16 (4-34) U/L Alkaline Phosphatase 112 (38-126) U/L Troponin I <0.012 (0.000-0.034) ng/mL Total Protein 8.6 H (6.3-8.2) g/dL Albumin 5.0 (3.5-5.0) g/dL HCG, Quant <2.4 mIU/mL Urine Color Urine Appearance (Clear) Urine pH (5.0-8.0) Ur Specific [place] (1.001-1.035) Urine Protein (Negative) Urine Glucose (UA) (Negative) Urine Ketones (Negative) Urine Blood (Negative) Urine Nitrite (Negative) Urine Bilirubin (Negative) Urine Urobilinogen (<2.0) mg/dL Ur Leukocyte Esterase (Negative) Urine RBC (0-5) /hpf Urine WBC (0-5) /hpf Ur Squamous Epith Cells (0-4) /hpf Urine HCG, Qual Not Detected (Not Detectd) Acetone, Qual Positive (Negative) 09/04/23 Range/Units 10:32 WBC (3.8-10.6) k/uL RBC (3.80-5.40) m/uL Hgb (11.4-16.0) gm/dL Hct (34.0-46.0) % MCV (80.0-100.0) fL MCH (25.0-35.0) pg MCHC (31.0-37.0) g/dL RDW (11.5-15.5) % Plt Count (150-450) k/uL MPV Neutrophils % % Lymphocytes % % Monocytes % % Eosinophils % % Basophils % % Neutrophils # (1.3-7.7) k/uL Lymphocytes # (1.0-4.8) k/uL Monocytes # (0-1.0) k/uL Eosinophils # (0-0.7) k/uL Basophils # (0-0.2) k/uL Manual Slide Review Hypochromasia Anisocytosis Microcytosis VBG pH 7.32 (7.31-7.41) VBG pCO2 39 (37-51) mmHg VBG HCO3 20 L (24-28) mmol/L Sodium (137-145) mmol/L Potassium (3.5-5.1) mmol/L Chloride (98-107) mmol/L Carbon Dioxide (22-30) mmol/L Anion Gap mmol/L BUN (7-17) mg/dL Creatinine (0.52-1.04) mg/dL Est GFR (CKD-EPI)AfAm (>60 ml/min/1.73 sqM) Est GFR (CKD-EPI)NonAf (>60 ml/min/1.73 sqM) Glucose (74-99) mg/dL POC Glucose (mg/dL) (70-110) mg/dL POC Glu Waiter/Waitress Third Class ID Calcium (8.4-10.2) mg/dL Phosphorus (2.5-4.5) mg/dL Magnesium (1.6-2.3) mg/dL Total Bilirubin (0.2-1.3) mg/dL AST (14-36) U/L ALT (4-34) U/L Alkaline Phosphatase (38-126) U/L Troponin I (0.000-0.034) ng/mL Total Protein (6.3-8.2) g/dL Albumin (3.5-5.0) g/dL HCG, Quant mIU/mL Urine Color Urine Appearance (Clear) Urine pH (5.0-8.0) Ur Specific [place] (1.001-1.035) Urine Protein (Negative) Urine Glucose (UA) (Negative) Urine Ketones (Negative) Urine Blood (Negative) Urine Nitrite (Negative) Urine Bilirubin (Negative) Urine Urobilinogen (<2.0) mg/dL Ur Leukocyte Esterase (Negative) Urine RBC (0-5) /hpf Urine WBC (0-5) /hpf Ur Squamous Epith Cells (0-4) /hpf Urine HCG, Qual (Not Detectd) Acetone, Qual (Negative) - Radiology Data Radiology results: report reviewed, image reviewed Disposition Clinical Impression: DKA (diabetic ketoacidosis) Disposition: ADMITTED IP TO THIS [facility] Time of Disposition: 12:07
[2023-09-04] MEDS: ONDANSETRON 4 MG/2 ML VIAL IVP STA ×2 (10:44→13:10)
[2023-09-04] MEDS: SODIUM CHLORIDE 0.9% 2,000 ML IV STA (10:45)
[2023-09-04 11:01] LABS: VBG PH 7.32 (7.31-7.41)
[2023-09-04 11:04] LABS: Anisocytosis Moderate; Basophils % (A) 0 %; Eosinophils % (A) 0 %; HCT 41.7 % (34.0-46.0); HGB 12.7 gm/dL (11.4-16.0); Hypochromasia Slight; Lymphocytes # (A) 0.8 k/uL (1.0-4.8); Lymphocytes % (A) 3 %; MCHC 30.5 g/dL (31.0-37.0); MCV 78.8 fL (80.0-100.0); Mean Platelet Volume 8.4; Microcytosis Moderate; Monocytes # (A) 0.8 k/uL (0-1.0); Monocytes % (A) 3 %; Neutrophils # (A) 25.8 k/uL (1.3-7.7); Neutrophils % (A) 94 %; Platelet Count 543 k/uL (150-450); RBC 5.29 m/uL (3.80-5.40); RDW 21.1 % (11.5-15.5); WBC 27.5 k/uL (3.8-10.6)
[2023-09-04 11:10] LABS: Appearance,Urine Clear (Clear); Bilirubin,Urine Negative (Negative); Blood,Urine Moderate (Negative); Color,Urine Colorless; Glucose,Urine (UA) 4+ (Negative); Leukocyte Esterase,Urine Negative (Negative); Nitrite,Urine Negative (Negative); PH, Urine 5.5 (5.0-8.0); Protein,Urine 2+ (Negative); RBC,Urine 5 /hpf (0-5); Specific Gravity,Urine 1.018 (1.001-1.035); Squamous Epithelial Cell,Urine 2 /hpf (0-4); Urobilinogen,Urine <2.0 mg/dL (<2.0); WBC,Urine 2 /hpf (0-5)
[2023-09-04 11:13] LABS: ALT 16 U/L (4-34); African American GFR (CKD) 83 (>60 ml/min/1.73 sqM); Anion Gap 22 mmol/L; Blood Urea Nitrogen 17 mg/dL (7-17); Calcium 10.3 mg/dL (8.4-10.2); Carbon Dioxide 16 mmol/L (22-30); Chloride 99 mmol/L (98-107); Glucose 345 mg/dL (74-99); Non-African American GFR(CKD) 72 (>60 ml/min/1.73 sqM); Sodium 137 mmol/L (137-145); Total Bilirubin 1.2 mg/dL (0.2-1.3); Total Protein 8.6 g/dL (6.3-8.2)
[2023-09-04 11:19] LABS: Ketones,Urine 4+ (Negative)
--- NOTE | 2023-09-04 11:22 | XR ---
EXAMINATION TYPE: XR chest 2V DATE OF EXAM: 09/04/2023 COMPARISON: 04/07/2020 HISTORY: Chest pain, nausea and vomiting TECHNIQUE: Frontal and lateral views of the chest are obtained. FINDINGS: There is no focal air space opacity, pleural effusion, or pneumothorax seen. The cardiac silhouette size is within normal limits. The osseous structures are intact. IMPRESSION: No acute cardiopulmonary process.
[2023-09-04 11:25] LABS: Magnesium 1.7 mg/dL (1.6-2.3); Phosphorus 2.9 mg/dL (2.5-4.5)
[2023-09-04 11:26] LABS: AST 24 U/L (14-36); Alkaline Phosphatase 112 U/L (38-126)
[2023-09-04 11:29] LABS: HCG,Quantitative Serum <2.4 mIU/mL
[2023-09-04] MEDS ORDERED: NALOXONE 0.4 MG/ML 1 ML VIAL IV PRN (12:16)
[2023-09-04] MEDS: INSULIN REGULAR 100 UNIT in SODIUM CHLORIDE 0.9% 100 ML IV SCH (12:22)
[2023-09-04] MEDS: INSULIN REGULAR BOLUS (FROM DRIP BAG) IV ONE (12:26)
[2023-09-04] MEDS: SODIUM CHLORIDE 0.9% 1,000 ML IV SCH ×2 (13:10→23:53)
--- NOTE | 2023-09-04 13:27 | P.HPIM ---
History of Present Illness H&P Date: 09/04/23 Chief Complaint: nausea, vomiting, fevers, chills 23-year-old woman with type 1 diabetes presented for evaluation of nausea, vomiting. Patient says that she started develop nausea and vomiting approximately 1.5 days ago. She has a continuous glucose monitor and noted that her sugar started to elevate to the 400s around the same time that she developed nausea and vomiting. She does report that she takes her insulin regularly as prescribed. She has had DKA once before in the past while she was 19 weeks . In addition to the symptoms she reports having fevers, chills with some tooth ache for which she was seeing a dentist tomorrow. She otherwise denies abdominal pain, chest pain, palpitations. She also reports sweats. In the emergency room she was afebrile, 112/78, heart rate 139, 100% on room air. CBC was remarkable for leukocytosis of 27.5, MCV was 78.8, platelets were 543. Basic metabolic panel shows CO2 of 16 with an anion gap of 22, BUN of 17, creatinine of 1.09, baseline creatinine is 0.5-0.6. Calcium was mildly elevated at 10.3. Liver function test show elevated total protein at 8.6. hCG was negative. Troponin was less than 0.012. VBG showed a pH of 7.32, pCO2 of 39, bicarb of 20. UA showed 2+ protein, 4+ glucose, 4+ ketones, moderate blood. Acetone was positive. Sugars range from 345-419. Chest x-ray showed clear parenchyma bilaterally, normal-sized heart. EKG showed sinus tachycardia with left axis deviation. Case was discussed with the emergency room provider and decision was made to admit the patient to the hospital for diabetic ketoacidosis. All Systems reviewed and pertinent positives and negatives noted in HPI, all other symptoms are negative Gen: in no apparent distress, resting comfortably in bed Eyes: PERRL, no scleral injection or icterus HENT: normocephalic, atraumatic, good hearing acuity, moist mucous membranes Neck: no tracheal deviation, full range of motion Resp: good air exchange, breathing comfortably with no accessory muscle use, no tactile fremitus CVS: good distal perfusion x 4, no pitting edema GI: soft, NTTP, ND, no hepatosplenomegaly : no suprapubic tenderness, no CVAT, headley catheter not present MSK: no clubbing, no cyanosis, no noted contractures of extremities Skin: no noted rashes, petechiae; temperature of skin is appropriate Neuro: moving all extremities without signs of weakness, CN II-XII intact Psych: cooperative, euthymic mood, insight and judgment intact Labs and imaging as above Assessment/plan: Diabetic ketoacidosis Acute kidney injury -Admit to the inpatient cardiac selective floor with telemetry -IV fluids: Normal saline -Insulin drip -N.p.o. for now -Every 6 hour sugar checks -BMP q6h Fevers and chills Right jaw pain -Clindamycin started by the ER -Consideration of a Facial CT Patient is Full Code Past Medical History Past Medical History: Diabetes Mellitus, GERD/Reflux Additional Past Medical History / Comment(s): migraine History of Any Multi-Drug Resistant Organisms: None Reported Past Surgical History: Cholecystectomy, No Surgical Hx Reported Additional Past Surgical History / Comment(s): right knee surgery Past Anesthesia/Blood Transfusion Reactions: No Reported Reaction Past Psychological History: Anxiety, Depression, No Psychological Hx Reported Smoking Status: Vaper, Light tobacco smoker Past Alcohol Use History: None Reported Past Drug Use History: Marijuana - Past Family History Father Family Medical History: Myocardial Infarction ([place]) Additional Family Medical History / Comment(s): father at 30 years old Sister(s) Family Medical History: Thyroid Disorder Brother(s) Family Medical History: Asthma Mother Family Medical History: No Reported History Medications and Allergies Home Medications Medication Instructions Recorded Confirmed Type Insulin Aspart (For Pump) [NovoLOG 0.01 unit SQ-PUMP CONTINUOUS 12/11/22 09/04/23 History (For Pump)] Omeprazole [PriLOSEC] 20 mg PO DAILY 07/11/23 09/04/23 History Sertraline [Zoloft] 25 mg PO DAILY 07/11/23 09/04/23 History amLODIPine [Norvasc] 5 mg PO DAILY 07/11/23 09/04/23 History lisinopriL [Zestril] 10 mg PO DAILY 07/11/23 09/04/23 History Allergies Allergy/AdvReac Type Severity Reaction Status Date / Time adhesive tape Allergy Rash/Hives Verified 09/04/23 12:05 latex Allergy Rash/Hives Verified 09/04/23 12:05 metoclopramide [From Reglan] AdvReac Anxiety Verified 09/04/23 12:05 attack Physical Exam Osteopathic Statement: *. No significant issues noted on an osteopathic structural exam other than those noted in the History and Physical/Consult. Vitals: Vital Signs Temp Pulse Resp BP Pulse Ox 09/04/23 09:26 98.2 F 139 H 20 112/78 100 Intake and Output 09/03/23 09/04/23 09/04/23 22:59 06:59 14:59 Other: Weight 65.317 kg Results CBC & Chem 7: 09/04/23 10:32 09/04/23 10:32 Labs: Abnormal Lab Results - Last 24 Hours (Table) 09/04/23 09/04/23 09/04/23 Range/Units 09:29 10:32 10:32 WBC 27.5 H (3.8-10.6) k/uL MCV 78.8 L (80.0-100.0) fL MCH 24.0 L (25.0-35.0) pg MCHC 30.5 L (31.0-37.0) g/dL RDW 21.1 H (11.5-15.5) % Plt Count 543 H (150-450) k/uL Neutrophils # 25.8 H (1.3-7.7) k/uL Lymphocytes # 0.8 L (1.0-4.8) k/uL VBG HCO3 (24-28) mmol/L Carbon Dioxide (22-30) mmol/L Creatinine (0.52-1.04) mg/dL Glucose (74-99) mg/dL POC Glucose (mg/dL) 419 H (70-110) mg/dL Calcium (8.4-10.2) mg/dL Total Protein (6.3-8.2) g/dL Urine Protein 2+ H (Negative) Urine Glucose (UA) 4+ H (Negative) Urine Ketones 4+ H (Negative) Urine Blood Moderate H (Negative) 09/04/23 09/04/23 Range/Units 10:32 10:32 WBC (3.8-10.6) k/uL MCV (80.0-100.0) fL MCH (25.0-35.0) pg MCHC (31.0-37.0) g/dL RDW (11.5-15.5) % Plt Count (150-450) k/uL Neutrophils # (1.3-7.7) k/uL Lymphocytes # (1.0-4.8) k/uL VBG HCO3 20 L (24-28) mmol/L Carbon Dioxide 16 L (22-30) mmol/L Creatinine 1.09 H (0.52-1.04) mg/dL Glucose 345 H (74-99) mg/dL POC Glucose (mg/dL) (70-110) mg/dL Calcium 10.3 H (8.4-10.2) mg/dL Total Protein 8.6 H (6.3-8.2) g/dL Urine Protein (Negative) Urine Glucose (UA) (Negative) Urine Ketones (Negative) Urine Blood (Negative)
[2023-09-04 13:35] LABS: Glucose,Whole Blood 284 mg/dL (70-110)
[2023-09-04] MEDS: D5-0.45% NACL WITH KCL 20MEQ/L 1,000 ML IV SCH (13:51)
[2023-09-04 14:50] LABS: Glucose,Whole Blood 220 mg/dL (70-110)
[2023-09-04 14:51] LABS: African American GFR (CKD) >90 (>60 ml/min/1.73 sqM); Anion Gap 16 mmol/L; Blood Urea Nitrogen 16 mg/dL (7-17); Carbon Dioxide 17 mmol/L (22-30); Chloride 105 mmol/L (98-107); Glucose 254 mg/dL (74-99); Non-African American GFR(CKD) 82 (>60 ml/min/1.73 sqM); Phosphorus 1.8 mg/dL (2.5-4.5); Potassium 3.8 mmol/L (3.5-5.1); Sodium 138 mmol/L (137-145)
[2023-09-04] MEDS: ONDANSETRON 4 MG/2 ML VIAL IVP PRN (15:25)
[2023-09-04] MEDS: CLINDAMYCIN 600 MG in DEXTROSE 5% IN WATER 50 ML IVPB ONE (15:25)
--- NOTE | 2023-09-04 15:35 | P.CNPUL ---
History of Present Illness Consult date: 09/04/23 Requesting physician: Jennifer Dhillon Reason for consult: other (Critical care management) Chief complaint: Nausea, vomiting History of present illness: This is a very pleasant 23-year-old female patient with a known history of hypertension, gastroesophageal reflux disease, depression, she is a smoker and vapes and uses marijuana. She has type 1 diabetes mellitus. She is normally on a insulin pump but hers had malfunctioned and she was waiting to get an appointment to start on a new pump. She also was recently found to have a dental abscess and was initiated on antibiotics. She developed nausea and vomiting and hyperglycemia at home her glucose was up into the 400s and she presented here to the emergency room this morning for the same. She did have a DKA episode at approximately 2 years ago. She had been mainly fairly well- controlled. White count 27.5. Hemoglobin 12.7. Platelets 543. Sodium 138. Potassium 3.8. Bicarb 17. Anion gap 16. BUN 16. Creatinine 0.98. Current blood glucose 254. Urinalysis with 2+ protein 4+ glucose 4+ ketones. Acetone positive. She was initiated on the DKA protocol. She is currently on an insulin drip at 7.69 mL /h, or 0.12 units/kg/h. She has D5.45 with 20 of KCl at 150 MLS per hour. She is seen today in consultation in the emergency department. She is feeling better. Less nausea and vomiting. She remains awake and alert in no acute distress. She is maintaining good O2 saturations in the upper 90s on room air. She is afebrile. Hemodynamically stable. Review of Systems REVIEW OF SYSTEMS: CONSTITUTIONAL: Denies any recent significant weight loss or weight gain. EYES: Denies change in vision. EARS, NOSE, MOUTH, THROAT: Positive for dental abscess. Denies headaches, denies sore throat. CARDIOVASCULAR: Denies chest pain, palpitations or syncopal episodes. RESPIRATORY: Denies shortness of breath, cough, congestion or hemoptysis. GASTROINTESTINAL: Positive for nausea, vomiting, abdominal pain GENITOURINARY: Denies hematuria, denies infections. MUSKULOSKELETAL: Denies pain, denies swelling. INTEGUMENTARY: Denies rash, denies eczema. NEUROLOGICAL: Denies recent memory loss, no recent seizure activity. PSYCHIATRIC: Denies anxiety, denies depression. HEMATOLOGIC/LYMPHATIC: Denies anemia, denies enlarged lymph nodes. Past Medical History Past Medical History: Diabetes Mellitus, GERD/Reflux Additional Past Medical History / Comment(s): migraine History of Any Multi-Drug Resistant Organisms: None Reported Past Surgical History: Cholecystectomy, No Surgical Hx Reported Additional Past Surgical History / Comment(s): right knee surgery Past Anesthesia/Blood Transfusion Reactions: No Reported Reaction Past Psychological History: Anxiety, Depression, No Psychological Hx Reported Smoking Status: Vaper, Light tobacco smoker Past Alcohol Use History: None Reported Past Drug Use History: Marijuana - Past Family History Father Family Medical History: Myocardial Infarction ([place]) Additional Family Medical History / Comment(s): father at 30 years old Sister(s) Family Medical History: Thyroid Disorder Brother(s) Family Medical History: Asthma Mother Family Medical History: No Reported History Medications and Allergies Home Medications Medication Instructions Recorded Confirmed Type Insulin Aspart (For Pump) [NovoLOG 0.01 unit SQ-PUMP CONTINUOUS 12/11/22 09/04/23 History (For Pump)] Omeprazole [PriLOSEC] 20 mg PO DAILY 07/11/23 09/04/23 History Sertraline [Zoloft] 25 mg PO DAILY 07/11/23 09/04/23 History amLODIPine [Norvasc] 5 mg PO DAILY 07/11/23 09/04/23 History lisinopriL [Zestril] 10 mg PO DAILY 07/11/23 09/04/23 History Allergies Allergy/AdvReac Type Severity Reaction Status Date / Time adhesive tape Allergy Rash/Hives Verified 09/04/23 12:05 latex Allergy Rash/Hives Verified 09/04/23 12:05 metoclopramide [From Reglan] AdvReac Anxiety Verified 09/04/23 12:05 attack Physical Exam Vitals: Vital Signs Temp Pulse Resp BP Pulse Ox 09/04/23 14:55 70 16 118/67 98 09/04/23 09:26 98.2 F 139 H 20 112/78 100 Intake and Output 09/04/23 09/04/23 09/04/23 06:59 14:59 22:59 Intake Total 9.676 Balance 9.676 Intake: Intake, IV Titration 9.676 Amount Insulin Regular 100 unit 9.676 In Sodium Chloride 0.9% 100 ml @ 0.1 UNITS/KG/HR 6.597 mls/hr IV .[id number] [facility] Rx#:[id number] Other: Weight 65.317 kg GENERAL EXAM: Alert, very pleasant 23-year-old female, on room air, fairly comfortable in no apparent distress. HEAD: Normocephalic. EYES: Normal reaction of pupils, equal size. NOSE: Clear with pink turbinates. THROAT: No erythema or exudates. NECK: No masses, no JVD. CHEST: No chest wall deformity. LUNGS: Equal air entry with no crackles, wheeze, rhonchi or dullness. CVS: S1 and S2 normal with no audible murmur, regular rhythm. ABDOMEN: No hepatosplenomegaly, normal bowel sounds, no guarding or rigidity. SPINE: No scoliosis or deformity SKIN: No rashes CENTRAL NERVOUS SYSTEM: No focal deficits, tone is normal in all 4 extremities. EXTREMITIES: There is no peripheral edema. No clubbing, no cyanosis. Peripheral pulses are intact. Results - Laboratory Findings CBC and BMP: 09/04/23 10:32 09/04/23 14:10 Abnormal lab findings: Abnormal Labs 09/04/23 09/04/23 09/04/23 09:29 10:32 10:32 WBC 27.5 H MCV 78.8 L MCH 24.0 L MCHC 30.5 L RDW 21.1 H Plt Count 543 H Neutrophils # 25.8 H Lymphocytes # 0.8 L VBG HCO3 Carbon Dioxide Creatinine Glucose POC Glucose (mg/dL) 419 H Calcium Phosphorus Total Protein Urine Protein 2+ H Urine Glucose (UA) 4+ H Urine Ketones 4+ H Urine Blood Moderate H 09/04/23 09/04/23 09/04/23 10:32 10:32 13:33 WBC MCV MCH MCHC RDW Plt Count Neutrophils # Lymphocytes # VBG HCO3 20 L Carbon Dioxide 16 L Creatinine 1.09 H Glucose 345 H POC Glucose (mg/dL) 284 H Calcium 10.3 H Phosphorus Total Protein 8.6 H Urine Protein Urine Glucose (UA) Urine Ketones Urine Blood 09/04/23 09/04/23 14:10 14:47 WBC MCV MCH MCHC RDW Plt Count Neutrophils # Lymphocytes # VBG HCO3 Carbon Dioxide 17 L Creatinine Glucose 254 H POC Glucose (mg/dL) 220 H Calcium Phosphorus 1.8 L Total Protein Urine Protein Urine Glucose (UA) Urine Ketones Urine Blood - Diagnostic Findings Chest x-ray: image reviewed (No acute pulmonary process) Assessment and Plan Assessment: Acute diabetic ketoacidosis in a patient with a known history of type 1 diabetes mellitus. Recent insulin pump malfunction and awaiting appointment to initiate a new one Acute leukocytosis secondary to above and currently undergoing treatment for dental abscess and on antibiotics Hypertension History of depression History of gastroesophageal reflux disease History of smoking/vaping/marijuana Plan: The patient was seen and evaluated Chest x-ray, labs and medications reviewed Continue with the DKA protocol Currently on an insulin drip Continue D5 4 5 with 20 KCl at 150 MLS per hour Continue clindamycin Keep nothing by mouth for now Admit to the intensive care unit Currently stable and on room air We will continue to follow and make further recommendations based on her clinical status I have personally seen and examined the patient, performed the documentation and the assessment and plan as written. Number of minutes spent on the visit: 20.
[2023-09-04 15:55] LABS: Glucose,Whole Blood 187 mg/dL (70-110)
[2023-09-04 16:40] LABS: African American GFR (CKD) >90 (>60 ml/min/1.73 sqM); Anion Gap 9 mmol/L; Blood Urea Nitrogen 17 mg/dL (7-17); Carbon Dioxide 20 mmol/L (22-30); Chloride 108 mmol/L (98-107); Glucose 163 mg/dL (74-99); Non-African American GFR(CKD) 85 (>60 ml/min/1.73 sqM); Phosphorus 1.4 mg/dL (2.5-4.5); Potassium 3.9 mmol/L (3.5-5.1); Sodium 137 mmol/L (137-145)
[2023-09-04 16:47] LABS: Glucose,Whole Blood 122 mg/dL (70-110)
[2023-09-04] MEDS ORDERED: Phosphorus Replacement Protoco 1 EACH MISC MISCELLANE PRN (16:59)
[2023-09-04] MEDS: POTAS-SOD-PHOS 278-164-250 MG 1 EACH PACKET PO ONE (18:01)
[2023-09-04] MEDS: KETOROLAC 15 MG/ML 1 ML VIAL IVP PRN (18:01)
[2023-09-04] MEDS: PROCHLORPERAZINE INJ 10 MG/2 ML VIAL IVP PRN (18:02)
[2023-09-04 18:09] LABS: Glucose,Whole Blood 86 mg/dL (70-110)
[2023-09-04 18:53] LABS: Glucose,Whole Blood 115 mg/dL (70-110)
[2023-09-04 20:03] LABS: Glucose,Whole Blood 147 mg/dL (70-110)
[2023-09-04 20:19] LABS: African American GFR (CKD) 85 (>60 ml/min/1.73 sqM); Anion Gap 6 mmol/L; Blood Urea Nitrogen 17 mg/dL (7-17); Calcium 8.7 mg/dL (8.4-10.2); Carbon Dioxide 19 mmol/L (22-30); Chloride 109 mmol/L (98-107); Glucose 141 mg/dL (74-99); Non-African American GFR(CKD) 74 (>60 ml/min/1.73 sqM); Potassium 4.2 mmol/L (3.5-5.1); Sodium 134 mmol/L (137-145)
[2023-09-04] MEDS: CLINDAMYCIN 600 MG in DEXTROSE 5% IN WATER 50 ML IVPB SCH (20:38)
[2023-09-04 21:15] LABS: Glucose,Whole Blood 148 mg/dL (70-110)
[2023-09-04 22:09] LABS: Glucose,Whole Blood 164 mg/dL (70-110)
[2023-09-04] MEDS: traMADol 50 MG TAB PO STA (22:33)
[2023-09-04] MEDS: INSULIN NPH 100 UNIT/ML 10 ML VIAL SQ ONE (22:34)
[2023-09-05] MEDS: amLODIPine 5 MG TAB PO STA (00:43)
[2023-09-05 01:59] LABS: Glucose,Whole Blood 220 mg/dL (70-110)
[2023-09-05] MEDS: INSULIN ASPART (NovoLOG) 100 UNIT/ML VIAL SQ SCH ×2 (02:03→08:45)
[2023-09-05 04:33] LABS: Glucose,Whole Blood 51 mg/dL (70-110)
[2023-09-05 04:37] LABS: Anisocytosis Moderate; Basophils % (A) 0 %; Eosinophils % (A) 0 %; HCT 29.3 % (34.0-46.0); Hypochromasia Slight; Lymphocytes % (A) 11 %; MCH 24.4 pg (25.0-35.0); MCHC 31.4 g/dL (31.0-37.0); MCV 77.8 fL (80.0-100.0); Mean Platelet Volume 8.6; Microcytosis Moderate; Monocytes # (A) 0.8 k/uL (0-1.0); Monocytes % (A) 5 %; Neutrophils # (A) 14.4 k/uL (1.3-7.7); Neutrophils % (A) 83 %; Platelet Count 360 k/uL (150-450); RBC 3.77 m/uL (3.80-5.40); RDW 21.2 % (11.5-15.5); WBC 17.4 k/uL (3.8-10.6)
[2023-09-05 04:53] LABS: HGB 9.2 gm/dL (11.4-16.0)
[2023-09-05 04:56] LABS: African American GFR (CKD) 84 (>60 ml/min/1.73 sqM); Anion Gap 6 mmol/L; Blood Urea Nitrogen 17 mg/dL (7-17); Calcium 8.7 mg/dL (8.4-10.2); Carbon Dioxide 22 mmol/L (22-30); Chloride 111 mmol/L (98-107); Glucose 54 mg/dL (74-99); Non-African American GFR(CKD) 73 (>60 ml/min/1.73 sqM); Potassium 3.8 mmol/L (3.5-5.1); Sodium 139 mmol/L (137-145)
[2023-09-05 04:56] LABS: Glucose,Whole Blood 74 mg/dL (70-110)
[2023-09-05] MEDS: ACETAMINOPHEN TAB 325 MG TAB PO PRN (05:04)
[2023-09-05] MEDS ORDERED: Potassium Replacement Protocol 1 EACH MISC MISCELLANE PRN (06:23)
[2023-09-05 06:40] LABS: Glucose,Whole Blood 155 mg/dL (70-110)
[2023-09-05] MEDS: MORPHINE SULFATE 4 MG/ML SYRINGE IV PRN (07:06)
[2023-09-05] MEDS: POTASSIUM CHLORIDE ER 20 MEQ TAB.ER PO SCH (07:10)
[2023-09-05 07:57] LABS: Glucose,Whole Blood 212 mg/dL (70-110)
[2023-09-05] MEDS: amLODIPine 5 MG TAB PO SCH (08:15)
[2023-09-05] MEDS: INSULIN DETEMIR (LEVEMIR) 100 UNIT/ML SYR SQ SCH (08:15)
[2023-09-05] MEDS: PANTOPRAZOLE 40 MG/10 ML VIAL IV SCH (08:15)
[2023-09-05 08:33] VITALS: TEMP 98
[2023-09-05] MEDS ORDERED: lisinopriL 10 MG TAB PO SCH (09:00)
[2023-09-05] MEDS ORDERED: NON FORMULARY DRUG (Omeprazole 20 MG Capsule.Dr) PO SCH (09:00)
[2023-09-05] MEDS: SERTRALINE 25 MG TAB PO SCH (09:46)
--- NOTE | 2023-09-05 11:45 | P.DS ---
Providers Date of admission: 09/04/23 12:53 Expected date of discharge: 09/05/23 Attending physician: Jennifer Dhillon MD Consults: 09/04/23 13:34 Consult Physician Routine Consulting Provider: Aleah Kelley Consult Reason/Comments: DKA Do you want consulting provider notified?: Yes Primary care physician: Nelson Aultman [place] Hospital Course: Diabetic ketoacidosis Acute kidney injury Fevers and chills Right jaw pain Hospital Course: 23-year-old woman with type 1 diabetes presented for evaluation of nausea, vomiting. In the emergency room she was afebrile, 112/78, heart rate 139, 100% on room air. CBC was remarkable for leukocytosis of 27.5, MCV was 78.8, platelets were 543. Basic metabolic panel shows CO2 of 16 with an anion gap of 22, BUN of 17, creatinine of 1.09, baseline creatinine is 0.5-0.6. Calcium was mildly elevated at 10.3. Liver function test show elevated total protein at 8.6. hCG was negative. Troponin was less than 0.012. VBG showed a pH of 7.32, pCO2 of 39, bicarb of 20. UA showed 2+ protein, 4+ glucose, 4+ ketones, moderate blood. Acetone was positive. Sugars range from 345-419. Chest x-ray showed clear parenchyma bilaterally, normal-sized heart. EKG showed sinus tachycardia with left axis deviation. Case was discussed with the emergency room provider and decision was made to admit the patient to the hospital for diabetic ketoacidosis. Patient was treated with DKA protocol with an insulin drip, IV fluids, frequent checks of electrolytes. Her gap had closed rather quickly, and her nausea and vomiting resolved faster than anticipated. She was able to be transitioned back to subcutaneous insulin the same day of admission and by the following day felt back to her normal baseline. She was subsequently discharged home with resumption of her home insulin, as well as with clindamycin for total 7-day course for dental abscess, with instructions to follow-up with her dentist, for which she has an appointment on Tuesday of this week. This patient improved much faster than anticipated at the time of admission. Patient will follow-up with her primary care physician I spent 34 minutes coordinating this discharge Gen: in no apparent distress, resting comfortably in bed Eyes: PERRL, no scleral injection or icterus HENT: normocephalic, atraumatic, good hearing acuity, moist mucous membranes Neck: no tracheal deviation, full range of motion Resp: good air exchange, breathing comfortably with no accessory muscle use, no tactile fremitus CVS: good distal perfusion x 4, no pitting edema GI: soft, NTTP, ND, no hepatosplenomegaly : no suprapubic tenderness, no CVAT, headley catheter not present MSK: no clubbing, no cyanosis, no noted contractures of extremities Skin: no noted rashes, petechiae; temperature of skin is appropriate Neuro: moving all extremities without signs of weakness, CN II-XII intact Psych: cooperative, euthymic mood, insight and judgment intact Patient Condition at Discharge: Good Plan - Discharge Summary New Discharge Prescriptions: New clindamycin HCL 300 mg PO TID 6 Days #18 capsule Acetaminophen Tab [Tylenol] 650 mg PO Q6HR PRN tab PRN Reason: Mild Pain Or Fever > 100.5 Continue Sertraline [Zoloft] 25 mg PO DAILY Insulin Aspart (For Pump) [NovoLOG (For Pump)] 0.01 unit SQ-PUMP CONTINUOUS Omeprazole [PriLOSEC] 20 mg PO DAILY lisinopriL [Zestril] 10 mg PO DAILY amLODIPine [Norvasc] 5 mg PO DAILY Discharge Medication List Insulin Aspart (For Pump) [NovoLOG (For Pump)] 0.01 unit SQ-PUMP CONTINUOUS 12/11/22 [History] Omeprazole [PriLOSEC] 20 mg PO DAILY 07/11/23 [History] Sertraline [Zoloft] 25 mg PO DAILY 07/11/23 [History] amLODIPine [Norvasc] 5 mg PO DAILY 07/11/23 [History] lisinopriL [Zestril] 10 mg PO DAILY 07/11/23 [History] Acetaminophen Tab [Tylenol] 650 mg PO Q6HR PRN tab 09/05/23 [Rx] clindamycin HCL 300 mg PO TID 6 Days #18 capsule 09/05/23 [Rx] Follow up Appointment(s)/Referral(s): Nelson Doran DO [Primary Care Provider] - 1-2 days Patient Instructions/Handouts: Diabetic Ketoacidosis (GEN) Discharge Disposition: HOME SELF-CARE
--- NOTE | 2023-09-05 12:14 | P.PN ---
Subjective Progress Note Date: 09/05/23 This is a very pleasant 23-year-old female patient with a known history of hypertension, gastroesophageal reflux disease, depression, she is a smoker and vapes and uses marijuana. She has type 1 diabetes mellitus. She is normally on a insulin pump but hers had malfunctioned and she was waiting to get an appointment to start on a new pump. She also was recently found to have a dental abscess and was initiated on antibiotics. She developed nausea and vomiting and hyperglycemia at home her glucose was up into the 400s and she presented here to the emergency room this morning for the same. She did have a DKA episode at approximately 2 years ago. She had been mainly fairly well- controlled. White count 27.5. Hemoglobin 12.7. Platelets 543. Sodium 138. Potassium 3.8. Bicarb 17. Anion gap 16. BUN 16. Creatinine 0.98. Current blood glucose 254. Urinalysis with 2+ protein 4+ glucose 4+ ketones. Acetone positive. She was initiated on the DKA protocol. She is currently on an insulin drip at 7.69 mL /h, or 0.12 units/kg/h. She has D5.45 with 20 of KCl at 150 MLS per hour. She is seen today in consultation in the emergency department. She is feeling better. Less nausea and vomiting. She remains awake and alert in no acute distress. She is maintaining good O2 saturations in the upper 90s on room air. She is afebrile. Hemodynamically stable. The patient is seen today September 05, 2023 in follow-up in the intensive care unit. She is awake and alert in no acute distress. She is maintaining good O2 saturations in the 90s on room air. She has normal staying at 50 MLS per hour. No nausea or vomiting. She is tolerating a diet. She has been transitioned to Levemir and NovoLog sliding scale. White count 17.4. Hemoglobin 9.2. Platelets 360. Sodium 139. Potassium 3.8. Chloride 111. Bicarb 22. Anion gap 6. BUN 17. Creatinine 1.08. Glucose 212. Hemoglobin A1c was 8.2%. Objective - Vital Signs Vital signs: Vital Signs Temp 98.0 F 09/05/23 08:00 Pulse 110 H 09/05/23 09:00 Resp 21 09/05/23 09:00 BP 126/81 09/05/23 09:00 Pulse Ox 98 09/05/23 09:00 FiO2 Intake & Output 09/04/23 09/05/23 09/05/23 18:59 06:59 18:59 Intake Total 987.825 7714.040 550 Output Total 400 Balance 687.744 769.040 550 Weight 65.2 kg 66.8 kg Intake: IV 650 925 150 Clindamycin 600 mg In 50 50 50 Dextrose 5% in Water 50 ml @ 50 mls/hr IVPB ONCE ONE Rx#:[id number] D5-0.45% NaCl with KCl 600 525 20Meq/l 1,000 ml @ 150 mls/hr IV .[id number] MIGUEL Rx# :[id number] Sodium Chloride 0.9% 1, 350 100 000 ml @ 50 mls/hr IV . Q20H MIGUEL Rx#:[id number] Intake, IV Titration 37.744 4.040 Amount Insulin Regular 100 unit 37.744 4.040 In Sodium Chloride 0.9% 100 ml @ 0.1 UNITS/KG/HR 6.597 mls/hr IV .[id number] MIGUEL Rx#:[id number] Oral 240 400 Output: Urine 400 - Exam GENERAL EXAM: Alert, oriented 23-year-old female, on room air, comfortable in no apparent distress. HEAD: Normocephalic. EYES: Normal reaction of pupils, equal size. NOSE: Clear with pink turbinates. THROAT: No erythema or exudates. NECK: No masses, no JVD. CHEST: No chest wall deformity. LUNGS: Equal air entry with no crackles, wheeze, rhonchi or dullness. CVS: S1 and S2 normal with no audible murmur, regular rhythm. ABDOMEN: No hepatosplenomegaly, normal bowel sounds, no guarding or rigidity. SPINE: No scoliosis or deformity SKIN: No rashes CENTRAL NERVOUS SYSTEM: No focal deficits, tone is normal in all 4 extremities. EXTREMITIES: There is no peripheral edema. No clubbing, no cyanosis. Peripheral pulses are intact. - Labs CBC & Chem 7: 09/05/23 03:44 09/05/23 03:44 Labs: Abnormal Lab Results - Last 24 Hours (Table) 09/04/23 09/04/23 09/04/23 Range/Units 13:33 14:10 14:47 WBC (3.8-10.6) k/uL RBC (3.80-5.40) m/uL Hgb (11.4-16.0) gm/dL Hct (34.0-46.0) % MCV (80.0-100.0) fL MCH (25.0-35.0) pg RDW (11.5-15.5) % Neutrophils # (1.3-7.7) k/uL Sodium (137-145) mmol/L Chloride (98-107) mmol/L Carbon Dioxide 17 L (22-30) mmol/L Creatinine (0.52-1.04) mg/dL Glucose 254 H (74-99) mg/dL POC Glucose (mg/dL) 284 H 220 H (70-110) mg/dL Hemoglobin A1c (<=6.0) % Phosphorus 1.8 L (2.5-4.5) mg/dL 09/04/23 09/04/23 09/04/23 Range/Units 15:54 16:05 16:45 WBC (3.8-10.6) k/uL RBC (3.80-5.40) m/uL Hgb (11.4-16.0) gm/dL Hct (34.0-46.0) % MCV (80.0-100.0) fL MCH (25.0-35.0) pg RDW (11.5-15.5) % Neutrophils # (1.3-7.7) k/uL Sodium (137-145) mmol/L Chloride 108 H (98-107) mmol/L Carbon Dioxide 20 L (22-30) mmol/L Creatinine (0.52-1.04) mg/dL Glucose 163 H (74-99) mg/dL POC Glucose (mg/dL) 187 H 122 H (70-110) mg/dL Hemoglobin A1c (<=6.0) % Phosphorus 1.4 L (2.5-4.5) mg/dL 09/04/23 09/04/23 09/04/23 Range/Units 18:52 19:51 20:01 WBC (3.8-10.6) k/uL RBC (3.80-5.40) m/uL Hgb (11.4-16.0) gm/dL Hct (34.0-46.0) % MCV (80.0-100.0) fL MCH (25.0-35.0) pg RDW (11.5-15.5) % Neutrophils # (1.3-7.7) k/uL Sodium 134 L (137-145) mmol/L Chloride 109 H (98-107) mmol/L Carbon Dioxide 19 L (22-30) mmol/L Creatinine 1.07 H (0.52-1.04) mg/dL Glucose 141 H (74-99) mg/dL POC Glucose (mg/dL) 115 H 147 H (70-110) mg/dL Hemoglobin A1c (<=6.0) % Phosphorus (2.5-4.5) mg/dL 09/04/23 09/04/23 09/05/23 Range/Units 21:14 22:08 01:54 WBC (3.8-10.6) k/uL RBC (3.80-5.40) m/uL Hgb (11.4-16.0) gm/dL Hct (34.0-46.0) % MCV (80.0-100.0) fL MCH (25.0-35.0) pg RDW (11.5-15.5) % Neutrophils # (1.3-7.7) k/uL Sodium (137-145) mmol/L Chloride (98-107) mmol/L Carbon Dioxide (22-30) mmol/L Creatinine (0.52-1.04) mg/dL Glucose (74-99) mg/dL POC Glucose (mg/dL) 148 H 164 H 220 H (70-110) mg/dL Hemoglobin A1c (<=6.0) % Phosphorus (2.5-4.5) mg/dL 09/05/23 09/05/23 09/05/23 Range/Units 03:44 03:44 03:44 WBC 17.4 H (3.8-10.6) k/uL RBC 3.77 L (3.80-5.40) m/uL Hgb 9.2 L D (11.4-16.0) gm/dL Hct 29.3 L (34.0-46.0) % MCV 77.8 L (80.0-100.0) fL MCH 24.4 L (25.0-35.0) pg RDW 21.2 H (11.5-15.5) % Neutrophils # 14.4 H (1.3-7.7) k/uL Sodium (137-145) mmol/L Chloride 111 H (98-107) mmol/L Carbon Dioxide (22-30) mmol/L Creatinine 1.08 H (0.52-1.04) mg/dL Glucose 54 L (74-99) mg/dL POC Glucose (mg/dL) (70-110) mg/dL Hemoglobin A1c 8.2 H (<=6.0) % Phosphorus (2.5-4.5) mg/dL 09/05/23 09/05/23 09/05/23 Range/Units 04:32 06:39 07:56 WBC (3.8-10.6) k/uL RBC (3.80-5.40) m/uL Hgb (11.4-16.0) gm/dL Hct (34.0-46.0) % MCV (80.0-100.0) fL MCH (25.0-35.0) pg RDW (11.5-15.5) % Neutrophils # (1.3-7.7) k/uL Sodium (137-145) mmol/L Chloride (98-107) mmol/L Carbon Dioxide (22-30) mmol/L Creatinine (0.52-1.04) mg/dL Glucose (74-99) mg/dL POC Glucose (mg/dL) 51 L 155 H 212 H (70-110) mg/dL Hemoglobin A1c (<=6.0) % Phosphorus (2.5-4.5) mg/dL Assessment and Plan Assessment: Acute diabetic ketoacidosis in a patient with a known history of type 1 diabetes mellitus. Recent insulin pump malfunction and awaiting appointment to initiate a new one Acute leukocytosis secondary to above and currently undergoing treatment for dental abscess and on antibiotics Hypertension History of depression History of gastroesophageal reflux disease History of smoking/vaping/marijuana Plan: The patient was seen and evaluated Labs and medications reviewed Stable for discharge Recovered from DKA Transitioned to Levemir and NovoLog Continue clindamycin Follow-up with her dentist Follow-up with her primer powder blender wet I have personally seen and examined the patient, performed the documentation and the assessment and plan as written. Number of minutes spent on the visit: 10.
[2023-09-05 13:23] VITALS: BP 126/81; PULSE 110; RESP 21
== END 2023-09-05 12:40 | disposition home or self-care (01) | DRG 638 ==
LOC: EC 09:20 → SUPCPDRO 09:20 → 3SCARD 12:53 → 2SICU 13:35
PROVIDERS: ADMIT Internal Medicine; ATTEND Internal Medicine
DX: E10.10 Type 1 diabetes mellitus with ketoacidosis without coma (principal); N17.9 Acute kidney failure, unspecified; D72.829 Elevated white blood cell count, unspecified; K21.9 Gastro-esophageal reflux disease without esophagitis; F41.9 Anxiety disorder, unspecified; T85.69 Other mechanical complication of other specified internal prosthetic devices, implants and grafts; F17.290 Nicotine dependence, other tobacco product, uncomplicated; I10 Essential (primary) hypertension; F32.A Depression, unspecified; K04.7 Periapical abscess without sinus; Z91.040 Latex allergy status; Z79.899 Other long term (current) drug therapy; Z79.4 Long term (current) use of insulin; Z63.4 Disappearance and death of family member
CPT/HCPCS: 36415; 71046; 80048; 80051; 80053; 81001; 81025; 82009; 82565; 82803; 82947; 83036; 83605; 83735; 84100; 84484; 84520; 84702; 85025; 87040; 93005; 96361; 96374; 96376; 99285

== ENCOUNTER 2023-09-06 07:52 | Emergency (ER) | payer BC, OTHER ==
[2023-09-06 08:19] LABS: Glucose,Whole Blood 153 mg/dL (70-110)
--- NOTE | 2023-09-06 08:36 | ED ---
Nausea/Vomiting/Diarrhea HPI - General Chief complaint: Nausea/Vomiting/Diarrhea Stated complaint: type 1 diabetes, vomitting Time Seen by Provider: 09/06/23 08:19 Source: patient, RN notes reviewed, old records reviewed Mode of arrival: ambulatory Limitations: no limitations - History of Present Illness Initial comments: 23-year-old female presents emergency department chief complaint of nausea vomiting. Patient was just discharged yesterday in ICU after DKA. Patient states that she has been vomiting for the last 3 days. She was discharged on clindamycin for right-sided dental infection. She was on clindamycin while she was in the hospital. Patient dates her blood sugar was good this morning at 150. She states she has moderate pain right jaw she reports no fever she does complain of abdominal chest comfort from vomiting. - Related Data Home Medications Medication Instructions Recorded Confirmed Insulin Aspart (For Pump) [NovoLOG 0.01 unit SQ-PUMP CONTINUOUS 12/11/22 09/06/23 (For Pump)] Omeprazole [PriLOSEC] 20 mg PO DAILY 07/11/23 09/06/23 Sertraline [Zoloft] 25 mg PO DAILY 07/11/23 09/06/23 amLODIPine [Norvasc] 5 mg PO DAILY 07/11/23 09/06/23 lisinopriL [Zestril] 10 mg PO DAILY 07/11/23 09/06/23 clindamycin HCL 300 mg PO DIRECTED 09/06/23 09/06/23 Previous Rx's Medication Instructions Recorded Acetaminophen Tab [Tylenol] 650 mg PO Q6HR PRN tab 09/05/23 Amoxic-Pot Clav 875-125Mg 1 tab PO Q12HR #20 tab 09/06/23 [Augmentin 875-125] Ondansetron Odt [Zofran Odt] 4 mg PO Q8HR PRN #14 tab 09/06/23 Prochlorperazine [Compazine] 10 mg PO Q6H #14 tab 09/06/23 Allergies Allergy/AdvReac Type Severity Reaction Status Date / Time adhesive tape Allergy Rash/Hives Verified 09/06/23 10:52 latex Allergy Rash/Hives Verified 09/06/23 10:52 metoclopramide [From Reglan] AdvReac Anxiety Verified 09/06/23 10:52 attack Review of Systems ROS Statement: Those systems with pertinent positive or pertinent negative responses have been documented in the HPI. ROS Other: All systems not noted in ROS Statement are negative. Past Medical History Past Medical History: Diabetes Mellitus, GERD/Reflux, Hypertension Additional Past Medical History / Comment(s): migraine History of Any Multi-Drug Resistant Organisms: None Reported Past Surgical History: Cholecystectomy, No Surgical Hx Reported Additional Past Surgical History / Comment(s): right knee surgery Past Anesthesia/Blood Transfusion Reactions: No Reported Reaction Past Psychological History: Anxiety, Depression, No Psychological Hx Reported Smoking Status: Vaper, Light tobacco smoker Past Alcohol Use History: None Reported Past Drug Use History: Marijuana - Past Family History Father Family Medical History: Myocardial Infarction (MS) Additional Family Medical History / Comment(s): father at 30 years old Sister(s) Family Medical History: Thyroid Disorder Brother(s) Family Medical History: Asthma Mother Family Medical History: No Reported History General Exam Limitations: no limitations General appearance: alert, in no apparent distress Head exam: Present: atraumatic, normocephalic, normal inspection Eye exam: Present: normal appearance, PERRL, EOMI. Absent: scleral icterus, conjunctival injection, periorbital swelling ENT exam: Present: normal exam, normal oropharynx, mucous membranes moist Neck exam: Present: normal inspection, full ROM. Absent: tenderness, meningismus, lymphadenopathy Respiratory exam: Present: normal lung sounds bilaterally. Absent: respiratory distress, wheezes, rales, rhonchi, stridor Cardiovascular Exam: Present: normal rhythm, tachycardia, normal heart sounds. Absent: systolic murmur, diastolic murmur, rubs, gallop, clicks GI/Abdominal exam: Present: soft, normal bowel sounds. Absent: distended, tenderness, guarding, rebound, rigid Neurological exam: Present: alert Course Vital Signs 09/06/23 08:04 Temperature 98.2 F Pulse Rate 121 H Respiratory 22 Rate Blood Pressure 171/102 O2 Sat by Pulse 100 Oximetry Medical Decision Making - Medical Decision Making Was pt. sent in by a medical professional or institution (, PA, SANDSTONE INSPECTOR REPAIRER, urgent care, hospital, or alf...) When possible be specific @ -No Did you speak to anyone other than the patient for history (EMS, parent, family, police, friend...)? What history was obtained from this source @ -No Did you review nursing and triage notes (agree or disagree)? Why? @ -I reviewed and agree with nursing and triage notes Were old charts reviewed (outside hosp., previous admission, EMS record, old EKG, old radiological studies, urgent care reports/EKG's, alf records)? Report findings @ -Reviewed inpatient records CBC comp ICU records Differential Diagnosis (chest pain, altered mental status, abdominal pain women, abdominal pain men, vaginal bleeding, weakness, fever, dyspnea, syncope, headache, dizziness, GI bleed, back pain, seizure, CVA, palpatations, mental health, musculoskeletal)? @ -MDM differential gentleman woman EKG interpreted by me (3pts min.). @ -As above X-rays interpreted by me (1pt min.). @ -None done CT interpreted by me (1pt min.). @ -None done U/S interpreted by me (1pt. min.). @ -None done What testing was considered but not performed or refused? (CT, X-rays, U/S, labs)? Why? @ -None What meds were considered but not given or refused? Why? @ -None Did you discuss the management of the patient with other professionals (professionals i.e. , PA, SANDSTONE INSPECTOR REPAIRER, lab, RT, psych nurse, social human services assistants, vascular surgeon, teacher, building drafting officer, case management manager)? Give summary @ -No Was smoking cessation discussed for >3mins.? @ -No Was critical care preformed (if so, how long)? @ -No Were there social determinants of health that impacted care today? How? (Homelessness, low income, unemployed, alcoholism, drug addiction, transportation, low edu. Level, literacy, decrease access to med. care, retirement, rehab)? @ -No Was there de-escalation of care discussed even if they declined (Discuss DNR or withdrawal of care, Hospice)? DNR status @ -No What co-morbidities impacted this encounter? (DM, HTN, Smoking, COPD, CAD, Cancer, CVA, ARF, Chemo, Hep., AIDS, mental health diagnosis, sleep apnea, morbid obesity)? @ -Diabetes Was patient admitted / discharged? Hospital course, mention meds given and route, prescriptions, significant lab abnormalities, going to OR and other pertinent info. @ -Discharged patient feels great improved with IV fluids, antiemetics. Patient did have normal ketones. Patient is not in DKA currently. Patient was given dose of IV antibiotics. Patient discharged with Augmentin return parameters discussed Undiagnosed new problem with uncertain prognosis? @ -No Drug Therapy requiring intensive monitoring for toxicity (Heparin, Nitro, Insulin, Cardizem)? @ -No Were any procedures done? @ -No Diagnosis/symptom? @ -Dental abscess, nausea vomiting Acute, or Chronic, or Acute on Chronic? @ -Acute Uncomplicated (without systemic symptoms) or Complicated (systemic symptoms)? @ -Complicated Side effects of treatment? @ -No Exacerbation, Progression, or Severe Exacerbation? @ -No Poses a threat to life or bodily function? How? (Chest pain, USA, MS, pneumonia, PE, COPD, DKA, ARF, appy, cholecystitis, CVA, Diverticulitis, Homicidal, Suicidal, threat to staff... and all critical care pts) @ -No - Lab Data Result diagrams: 09/06/23 09:00 09/06/23 09:00 Lab Results 09/06/23 09/06/23 09/06/23 Range/Units 08:17 09:00 09:00 WBC 10.1 (3.8-10.6) k/uL RBC 4.61 (3.80-5.40) m/uL Hgb 11.5 (11.4-16.0) gm/dL Hct 36.1 (34.0-46.0) % MCV 78.3 L (80.0-100.0) fL MCH 24.9 L (25.0-35.0) pg MCHC 31.7 (31.0-37.0) g/dL RDW 21.5 H (11.5-15.5) % Plt Count 384 (150-450) k/uL MPV 8.0 Neutrophils % 87 % Lymphocytes % 8 % Monocytes % 4 % Eosinophils % 1 % Basophils % 0 % Neutrophils # 8.8 H (1.3-7.7) k/uL Lymphocytes # 0.8 L (1.0-4.8) k/uL Monocytes # 0.4 (0-1.0) k/uL Eosinophils # 0.1 (0-0.7) k/uL Basophils # 0.0 (0-0.2) k/uL Anisocytosis Moderate Microcytosis Moderate Sodium (137-145) mmol/L Potassium (3.5-5.1) mmol/L Chloride (98-107) mmol/L Carbon Dioxide (22-30) mmol/L Anion Gap mmol/L BUN (7-17) mg/dL Creatinine (0.52-1.04) mg/dL Est GFR (CKD-EPI)AfAm (>60 ml/min/1.73 sqM) Est GFR (CKD-EPI)NonAf (>60 ml/min/1.73 sqM) Glucose (74-99) mg/dL POC Glucose (mg/dL) 153 H (70-110) mg/dL POC Glu Debeaker ID Humaira Jameson Plasma Lactic Acid Leroy (0.7-2.0) mmol/L Calcium (8.4-10.2) mg/dL Total Bilirubin (0.2-1.3) mg/dL AST (14-36) U/L ALT (4-34) U/L Alkaline Phosphatase (38-126) U/L Total Protein (6.3-8.2) g/dL Albumin (3.5-5.0) g/dL Lipase (23-300) U/L Urine Color Colorless Urine Appearance Clear (Clear) Urine pH 6.0 (5.0-8.0) Ur Specific [address] 1.009 (1.001-1.035) Urine Protein 1+ H (Negative) Urine Glucose (UA) 3+ H (Negative) Urine Ketones 1+ H (Negative) Urine Blood Small H (Negative) Urine Nitrite Negative (Negative) Urine Bilirubin Negative (Negative) Urine Urobilinogen <2.0 (<2.0) mg/dL Ur Leukocyte Esterase Negative (Negative) Urine RBC 14 H (0-5) /hpf Urine WBC 1 (0-5) /hpf Ur Squamous Epith Cells <1 (0-4) /hpf Urine Mucus Rare H (None) /hpf Acetone, Qual (Negative) 09/06/23 09/06/23 Range/Units 09:00 09:00 WBC (3.8-10.6) k/uL RBC (3.80-5.40) m/uL Hgb (11.4-16.0) gm/dL Hct (34.0-46.0) % MCV (80.0-100.0) fL MCH (25.0-35.0) pg MCHC (31.0-37.0) g/dL RDW (11.5-15.5) % Plt Count (150-450) k/uL MPV Neutrophils % % Lymphocytes % % Monocytes % % Eosinophils % % Basophils % % Neutrophils # (1.3-7.7) k/uL Lymphocytes # (1.0-4.8) k/uL Monocytes # (0-1.0) k/uL Eosinophils # (0-0.7) k/uL Basophils # (0-0.2) k/uL Anisocytosis Microcytosis Sodium 137 (137-145) mmol/L Potassium 4.8 (3.5-5.1) mmol/L Chloride 106 (98-107) mmol/L Carbon Dioxide 21 L (22-30) mmol/L Anion Gap 10 mmol/L BUN 7 (7-17) mg/dL Creatinine 0.47 L (0.52-1.04) mg/dL Est GFR (CKD-EPI)AfAm >90 (>60 ml/min/1.73 sqM) Est GFR (CKD-EPI)NonAf >90 (>60 ml/min/1.73 sqM) Glucose 187 H (74-99) mg/dL POC Glucose (mg/dL) (70-110) mg/dL POC Glu Debeaker ID Plasma Lactic Acid Leroy 1.0 (0.7-2.0) mmol/L Calcium 9.0 (8.4-10.2) mg/dL Total Bilirubin 1.2 (0.2-1.3) mg/dL AST 48 H (14-36) U/L ALT 17 (4-34) U/L Alkaline Phosphatase 124 (38-126) U/L Total Protein 7.3 (6.3-8.2) g/dL Albumin 4.0 (3.5-5.0) g/dL Lipase 69 (23-300) U/L Urine Color Urine Appearance (Clear) Urine pH (5.0-8.0) Ur Specific [address] (1.001-1.035) Urine Protein (Negative) Urine Glucose (UA) (Negative) Urine Ketones (Negative) Urine Blood (Negative) Urine Nitrite (Negative) Urine Bilirubin (Negative) Urine Urobilinogen (<2.0) mg/dL Ur Leukocyte Esterase (Negative) Urine RBC (0-5) /hpf Urine WBC (0-5) /hpf Ur Squamous Epith Cells (0-4) /hpf Urine Mucus (None) /hpf Acetone, Qual Positive (Negative) - EKG Data -: EKG Interpreted by Me EKG Comments: EKG performed at 8: 27 sinus tachycardia with a rate of 119 OR 96 QRS 99 QT/QTc 319/390 Disposition Clinical Impression: Nausea & vomiting, Dental infection Disposition: HOME SELF-CARE Condition: Stable Instructions (If sedation given, give patient instructions): Acute Nausea and Vomiting (ED) Additional Instructions: Please return to the Emergency Department if symptoms worsen or any other conc erns. Prescriptions: Amoxic-Pot Clav 875-125Mg [Augmentin 875-125] 1 tab PO Q12HR #20 tab Prochlorperazine [Compazine] 10 mg PO Q6H #14 tab Ondansetron Odt [Zofran Odt] 4 mg PO Q8HR PRN #14 tab PRN Reason: Nausea Is patient prescribed a controlled substance at d/c from ED?: No Referrals: Nelson Doran DO [Primary Care Provider] - 1-2 days Time of Disposition: 12:10
[2023-09-06] MEDS: ONDANSETRON 4 MG/2 ML VIAL IVP STA (08:50)
[2023-09-06] MEDS: KETOROLAC 15 MG/ML 1 ML VIAL IVP STA (08:52)
[2023-09-06] MEDS: SODIUM CHLORIDE 0.9% 2,000 ML IV STA (08:52)
[2023-09-06] MEDS: HYDROmorphone 0.5 MG/0.5 ML SYRINGE IVP STA (08:54)
[2023-09-06] MEDS: AMPICILLIN-SULBACTAM 3 GM in SODIUM CHLORIDE 0.9% 100 ML IVPB STA (08:58)
[2023-09-06 09:14] LABS: Anisocytosis Moderate; Basophils % (A) 0 %; Eosinophils # (A) 0.1 k/uL (0-0.7); Eosinophils % (A) 1 %; HCT 36.1 % (34.0-46.0); HGB 11.5 gm/dL (11.4-16.0); Lymphocytes # (A) 0.8 k/uL (1.0-4.8); Lymphocytes % (A) 8 %; MCH 24.9 pg (25.0-35.0); MCHC 31.7 g/dL (31.0-37.0); MCV 78.3 fL (80.0-100.0); Microcytosis Moderate; Monocytes # (A) 0.4 k/uL (0-1.0); Monocytes % (A) 4 %; Neutrophils # (A) 8.8 k/uL (1.3-7.7); Neutrophils % (A) 87 %; Platelet Count 384 k/uL (150-450); RBC 4.61 m/uL (3.80-5.40); RDW 21.5 % (11.5-15.5); WBC 10.1 k/uL (3.8-10.6)
[2023-09-06 09:45] LABS: ALT 17 U/L (4-34); African American GFR (CKD) >90 (>60 ml/min/1.73 sqM); Anion Gap 10 mmol/L; Blood Urea Nitrogen 7 mg/dL (7-17); Carbon Dioxide 21 mmol/L (22-30); Chloride 106 mmol/L (98-107); Glucose 187 mg/dL (74-99); Lipase 69 U/L (23-300); Non-African American GFR(CKD) >90 (>60 ml/min/1.73 sqM); Sodium 137 mmol/L (137-145); Total Bilirubin 1.2 mg/dL (0.2-1.3)
[2023-09-06 10:13] LABS: Potassium 4.8 mmol/L (3.5-5.1); Total Protein 7.3 g/dL (6.3-8.2)
[2023-09-06 10:14] LABS: AST 48 U/L (14-36); Alkaline Phosphatase 124 U/L (38-126)
[2023-09-06] MEDS: droPERidol 5 MG/2 ML VIAL IVP ONE ×2 (10:45→13:16)
[2023-09-06] MEDS: FAMOTIDINE 20 MG/2 ML VIAL IV STA (10:48)
[2023-09-06 11:01] LABS: Appearance,Urine Clear (Clear); Bilirubin,Urine Negative (Negative); Blood,Urine Small (Negative); Color,Urine Colorless; Glucose,Urine (UA) 3+ (Negative); Ketones,Urine 1+ (Negative); Leukocyte Esterase,Urine Negative (Negative); Mucus,Urine Rare /hpf; Nitrite,Urine Negative (Negative); Protein,Urine 1+ (Negative); RBC,Urine 14 /hpf (0-5); Specific Gravity,Urine 1.009 (1.001-1.035); Squamous Epithelial Cell,Urine <1 /hpf (0-4); Urobilinogen,Urine <2.0 mg/dL (<2.0); WBC,Urine 1 /hpf (0-5)
[2023-09-06 13:27] VITALS: BP 171/105; PULSE 11; RESP 18; TEMP 99.2
== END 2023-09-06 13:27 | disposition home or self-care (01) ==
LOC: EC 07:52
DX: K04.7 Periapical abscess without sinus (principal); R11.2 Nausea with vomiting, unspecified; I45.10 Unspecified right bundle-branch block; E10.9 Type 1 diabetes mellitus without complications; Z91.040 Latex allergy status; Z88.8 Allergy status to other drugs, medicaments and biological substances
CPT/HCPCS: 99284; 96365; 96375; 96376; 96361; 36415; 93005; 80053; 82009; 83605; 83690; 85025; 81001; 87040; J2405; J3490; J0295; J1885; J1170; J1790

== ENCOUNTER 2023-09-07 03:49 | Inpatient (IN) | payer BC, OTHER ==
--- NOTE | 2023-09-07 04:01 | ED ---
General Adult HPI - General Chief complaint: Chest Pain Stated complaint: Chest pain Time Seen by Provider: 09/07/23 04:00 Source: patient Mode of arrival: wheelchair - History of Present Illness Initial comments: Jacinda is a 23-year-old female with a history of type 1 diabetes for the past 12 years. Patient usually has an insulin pump but it is currently malfunctioning. Patient was recently admitted with DKA she was discharged yesterday she returned to the hospital today feeling unwell but her labs were not too bad so she was discharged home. Patient reports that upon returning home she continued to vomit and become more dehydrated which prompted her to come back to the hospital for reevaluation. Does note that she is currently on antibiotics for dental infection, she had an abscess in the right upper gums but it drained today. - Related Data Home Medications Medication Instructions Recorded Confirmed Insulin Aspart (For Pump) [NovoLOG 0.01 unit SQ-PUMP CONTINUOUS 12/11/22 09/06/23 (For Pump)] Omeprazole [PriLOSEC] 20 mg PO DAILY 07/11/23 09/06/23 Sertraline [Zoloft] 25 mg PO DAILY 07/11/23 09/06/23 amLODIPine [Norvasc] 5 mg PO DAILY 07/11/23 09/06/23 lisinopriL [Zestril] 10 mg PO DAILY 07/11/23 09/06/23 clindamycin HCL 300 mg PO DIRECTED 09/06/23 09/06/23 Previous Rx's Medication Instructions Recorded Acetaminophen Tab [Tylenol] 650 mg PO Q6HR PRN tab 09/05/23 Amoxic-Pot Clav 875-125Mg 1 tab PO Q12HR #20 tab 09/06/23 [Augmentin 875-125] Ondansetron Odt [Zofran Odt] 4 mg PO Q8HR PRN #14 tab 09/06/23 Prochlorperazine [Compazine] 10 mg PO Q6H #14 tab 09/06/23 Allergies Allergy/AdvReac Type Severity Reaction Status Date / Time adhesive tape Allergy Rash/Hives Verified 09/07/23 03:55 latex Allergy Rash/Hives Verified 09/07/23 03:55 metoclopramide [From Reglan] AdvReac Anxiety Verified 09/07/23 03:55 attack Review of Systems ROS Statement: Those systems with pertinent positive or pertinent negative responses have been documented in the HPI. ROS Other: All systems not noted in ROS Statement are negative. Past Medical History Past Medical History: Diabetes Mellitus, GERD/Reflux, Hypertension Additional Past Medical History / Comment(s): migraine History of Any Multi-Drug Resistant Organisms: None Reported Past Surgical History: Cholecystectomy, No Surgical Hx Reported Additional Past Surgical History / Comment(s): right knee surgery Past Anesthesia/Blood Transfusion Reactions: No Reported Reaction Past Psychological History: Anxiety, Depression, No Psychological Hx Reported Smoking Status: Vaper, Light tobacco smoker Past Alcohol Use History: None Reported Past Drug Use History: Marijuana - Past Family History Father Family Medical History: Myocardial Infarction ([place]) Additional Family Medical History / Comment(s): father at 30 years old Sister(s) Family Medical History: Thyroid Disorder Brother(s) Family Medical History: Asthma Mother Family Medical History: No Reported History General Exam - General Exam Comments Initial Comments: Physical Exam GENERAL: ill appearing, appears dehydrated Smells of ketones HENT: Normocephalic, Atraumatic. EYES: PERRL, EOMI PULMONARY: kussmaul respirations CARDIOVASCULAR: Tachycardic, regular ABDOMEN: Diffuse tenderness SKIN: Dry : Deferred NEUROLOGIC: Patient is alert and oriented x3. Moving all extremities spontaneously MUSCULOSKELETAL: Normal extremities with adequate strength and full range of motion. No lower extremity swelling or edema. No calf tenderness. PSYCHIATRIC: Normal psychiatric evaluation. Course Vital Signs 09/07/23 09/07/23 09/07/23 03:52 04:53 05:39 Temperature 97.7 F Pulse Rate 144 H 135 H 1 L Respiratory 24 24 138 H Rate Blood Pressure 113/69 132/72 124/55 O2 Sat by Pulse 100 100 100 Oximetry EKG Findings - EKG Comments: EKG Findings:: EG interpreted by me, EKG obtained due to tachycardia EKG obtained at 4:14 AM rate is 136 rhythm is a narrow complex regular tachycardia consistent with sinus tachycardia with possible bifascicular block no acute ST elevations or depressions no evidence of ischemia or infarction. Medical Decision Making - Medical Decision Making Was pt. sent in by a medical professional or institution (, PA, HEMMER LOCKSTITCH, urgent care, hospital, or assisted...) When possible be specific @ -No Did you speak to anyone other than the patient for history (EMS, parent, family, police, friend...)? What history was obtained from this source @ -Significant other and sister at bedside Did you review nursing and triage notes (agree or disagree)? Why? @ -I reviewed and agree with nursing and triage notes Were old charts reviewed (outside hosp., previous admission, EMS record, old EKG, old radiological studies, urgent care reports/EKG's, assisted records)? Report findings @ -Recent admission notes and discharge summary were reviewed Differential Diagnosis (chest pain, altered mental status, abdominal pain women, abdominal pain men, vaginal bleeding, weakness, fever, dyspnea, syncope, headac he, dizziness, GI bleed, back pain, seizure, CVA, palpatations, mental health)? @ -DKA EKG interpreted by me (3pts min.). @ -As above X-rays interpreted by me (1pt min.). @ -None done CT interpreted by me (1pt min.). @ -None done U/S interpreted by me (1pt. min.). @ -None done What testing was considered but not performed or refused? (CT, X-rays, U/S, labs)? Why? @ -Blood cultures were refused What meds were considered but not given or refused? Why? @ -None Did you discuss the management of the patient with other professionals (professionals i.e. , PA, HEMMER LOCKSTITCH, lab, RT, psych nurse, nephrology social worker, director of strategic programs, teacher, chief lifestyle officer, high risk case manager)? Give summary @ -Discussed with admitting team, ICU team Was smoking cessation discussed for >3mins.? @ -No Was critical care preformed (if so, how long)? @ -Yes, 35 minutes Were there social determinants of health that impacted care today? How? (Homelessness, low income, unemployed, alcoholism, drug addiction, transportation, low edu. Level, literacy, decrease access to med. care, long-term, rehab)? @ -No Was there de-escalation of care discussed even if they declined (Discuss DNR or withdrawal of care, Hospice)? DNR status @ -No What co-morbidities impacted this encounter? (DM, HTN, Smoking, COPD, CAD, Cancer, CVA, ARF, Chemo, Hep., AIDS, mental health diagnosis, sleep apnea, morbid obesity)? @ -Type 1 diabetes Was patient admitted / discharged? Hospital course, mention meds given and route, prescriptions, significant lab abnormalities, going to OR and other pertinent info. @ -Admit . Patient was seen and evaluated immediately upon arrival to the emergency department. Patient appeared quite dehydrated she was tachycardic and lightheaded. She smells of ketones and has a history of type 1 diabetes. Her glucose was over 500. DKA workup was initiated IV fluids were initiated. Patient's lab work consistent with DKA she has an anion gap of 31. Insulin drip was initiated. Patient care was discussed with ICU team patient will be admitted to ICU for DKA. Patient does have an infected tooth which is the source of her infection causing or contributing to her DKA, ICU team will consider consult to OMFS for removal of the total tooth for source control. Undiagnosed new problem with uncertain prognosis? @ -No Drug Therapy requiring intensive monitoring for toxicity (Heparin, Nitro, Insulin, Cardizem)? @ -No Were any procedures done? @ -No Diagnosis/symptom? @ -DKA Acute, or Chronic, or Acute on Chronic? @ -Acute Uncomplicated (without systemic symptoms) or Complicated (systemic symptoms)? @ -Complicated Side effects of treatment? @ -No Exacerbation, Progression, or Severe Exacerbation? @ -No Poses a threat to life or bodily function? How? (Chest pain, [place], [place], pneumonia, PE, COPD, DKA, ARF, appy, cholecystitis, CVA, Diverticulitis, Homicidal, Suicidal, threat to staff... and all critical care pts) @ -Yes, can result in electrolyte imbalances which resulted in arrhythmia seizure, and - Lab Data Result diagrams: 09/07/23 04:15 09/07/23 04:15 Lab Results 09/07/23 09/07/23 09/07/23 Range/Units 04:02 04:15 04:15 WBC 12.8 H (3.8-10.6) k/uL RBC 4.57 (3.80-5.40) m/uL Hgb 11.2 L (11.4-16.0) gm/dL Hct 39.0 (34.0-46.0) % MCV 85.3 D (80.0-100.0) fL MCH 24.6 L (25.0-35.0) pg MCHC 28.8 L (31.0-37.0) g/dL RDW 20.8 H (11.5-15.5) % Plt Count 516 H (150-450) k/uL MPV 8.5 Neutrophils % 92 % Lymphocytes % 4 % Monocytes % 4 % Eosinophils % 0 % Basophils % 0 % Neutrophils # 11.8 H (1.3-7.7) k/uL Lymphocytes # 0.5 L (1.0-4.8) k/uL Monocytes # 0.5 (0-1.0) k/uL Eosinophils # 0.0 (0-0.7) k/uL Basophils # 0.0 (0-0.2) k/uL Hypochromasia Marked Anisocytosis Moderate Microcytosis Slight Sodium 135 L (137-145) mmol/L Potassium 5.6 H (3.5-5.1) mmol/L Chloride 100 (98-107) mmol/L Carbon Dioxide <5 L* (22-30) mmol/L Anion Gap mmol/L BUN 12 (7-17) mg/dL Creatinine 0.91 (0.52-1.04) mg/dL Est GFR (CKD-EPI)AfAm >90 (>60 ml/min/1.73 sqM) Est GFR (CKD-EPI)NonAf 89 (>60 ml/min/1.73 sqM) Glucose 593 H* (74-99) mg/dL POC Glucose (mg/dL) 507 H* (70-110) mg/dL POC Glu Song Writer ID Burgess Vasu Plasma Lactic Acid Leroy (0.7-2.0) mmol/L Calcium 9.5 (8.4-10.2) mg/dL Magnesium 1.9 (1.6-2.3) mg/dL Total Bilirubin 1.1 (0.2-1.3) mg/dL AST 19 (14-36) U/L ALT 15 (4-34) U/L Alkaline Phosphatase 152 H (38-126) U/L Total Protein 7.3 (6.3-8.2) g/dL Albumin 4.5 (3.5-5.0) g/dL Acetone, Qual Positive (Negative) 09/07/23 Range/Units 04:15 WBC (3.8-10.6) k/uL RBC (3.80-5.40) m/uL Hgb (11.4-16.0) gm/dL Hct (34.0-46.0) % MCV (80.0-100.0) fL MCH (25.0-35.0) pg MCHC (31.0-37.0) g/dL RDW (11.5-15.5) % Plt Count (150-450) k/uL MPV Neutrophils % % Lymphocytes % % Monocytes % % Eosinophils % % Basophils % % Neutrophils # (1.3-7.7) k/uL Lymphocytes # (1.0-4.8) k/uL Monocytes # (0-1.0) k/uL Eosinophils # (0-0.7) k/uL Basophils # (0-0.2) k/uL Hypochromasia Anisocytosis Microcytosis Sodium (137-145) mmol/L Potassium (3.5-5.1) mmol/L Chloride (98-107) mmol/L Carbon Dioxide (22-30) mmol/L Anion Gap mmol/L BUN (7-17) mg/dL Creatinine (0.52-1.04) mg/dL Est GFR (CKD-EPI)AfAm (>60 ml/min/1.73 sqM) Est GFR (CKD-EPI)NonAf (>60 ml/min/1.73 sqM) Glucose (74-99) mg/dL POC Glucose (mg/dL) (70-110) mg/dL POC Glu Song Writer ID Plasma Lactic Acid Leroy 2.7 H* (0.7-2.0) mmol/L Calcium (8.4-10.2) mg/dL Magnesium (1.6-2.3) mg/dL Total Bilirubin (0.2-1.3) mg/dL AST (14-36) U/L ALT (4-34) U/L Alkaline Phosphatase (38-126) U/L Total Protein (6.3-8.2) g/dL Albumin (3.5-5.0) g/dL Acetone, Qual (Negative) Critical Care Time Critical Care Time: Yes Total Critical Care Time: 35 Disposition Clinical Impression: DKA (diabetic ketoacidosis), Intractable vomiting with nausea, Dental infection Disposition: ADMITTED IP TO THIS [facility] Condition: Serious
[2023-09-07 04:04] LABS: Glucose,Whole Blood 507 mg/dL (70-110)
[2023-09-07] MEDS: ONDANSETRON 4 MG/2 ML VIAL IVP STA (04:20)
[2023-09-07 04:34] LABS: Anisocytosis Moderate; Basophils % (A) 0 %; Eosinophils % (A) 0 %; HGB 11.2 gm/dL (11.4-16.0); Hypochromasia Marked; Lymphocytes # (A) 0.5 k/uL (1.0-4.8); Lymphocytes % (A) 4 %; MCH 24.6 pg (25.0-35.0); MCHC 28.8 g/dL (31.0-37.0); Mean Platelet Volume 8.5; Microcytosis Slight; Monocytes # (A) 0.5 k/uL (0-1.0); Monocytes % (A) 4 %; Neutrophils # (A) 11.8 k/uL (1.3-7.7); Neutrophils % (A) 92 %; Platelet Count 516 k/uL (150-450); RBC 4.57 m/uL (3.80-5.40); RDW 20.8 % (11.5-15.5); WBC 12.8 k/uL (3.8-10.6)
[2023-09-07 04:36] LABS: MCV 85.3 fL (80.0-100.0)
[2023-09-07] MEDS: SODIUM CHLORIDE 0.9% 2,000 ML IV ONE (04:45)
[2023-09-07] MEDS: LORazepam 2 MG/ML INJ IV STA (04:46)
[2023-09-07 04:49] LABS: ALT 15 U/L (4-34); AST 19 U/L (14-36); African American GFR (CKD) >90 (>60 ml/min/1.73 sqM); Albumin 4.5 g/dL (3.5-5.0); Alkaline Phosphatase 152 U/L (38-126); Blood Urea Nitrogen 12 mg/dL (7-17); Calcium 9.5 mg/dL (8.4-10.2); Chloride 100 mmol/L (98-107); Magnesium 1.9 mg/dL (1.6-2.3); Non-African American GFR(CKD) 89 (>60 ml/min/1.73 sqM); Potassium 5.6 mmol/L (3.5-5.1); Sodium 135 mmol/L (137-145); Total Bilirubin 1.1 mg/dL (0.2-1.3); Total Protein 7.3 g/dL (6.3-8.2)
[2023-09-07 04:53] LABS: Carbon Dioxide <5 mmol/L (22-30); Glucose 593 mg/dL (74-99)
[2023-09-07] MEDS ORDERED: Magnesium Replacement Protocol 1 EACH MISC MISCELLANE PRN (05:11)
[2023-09-07] MEDS ORDERED: Potassium Replacement Protocol 1 EACH MISC MISCELLANE PRN (05:11)
[2023-09-07] MEDS ORDERED: NALOXONE 0.4 MG/ML 1 ML VIAL IV PRN (05:16)
--- NOTE | 2023-09-07 05:40 | P.HPIM ---
History of Present Illness H&P Date: 09/07/23 Patient is a 23-year-old female with a PMH of type I DM on insulin pump who presents to the emergency room with complaints of feeling ill. Patient was recently hospitalized from 09/03 to 09/04 for DKA after her insulin pump began malfunctioning. She was returned home with injectable insulin but the patient had persistent vomiting and has also been battling a right-sided dental abscess and is currently on antibiotics. Reports having minimal intake since her discharge home. Reports ongoing 3 out of 10 right-sided lower molar tooth pain, constant. Reports using her injectable insulin at home but states that it has been several years and that she may not be doing it correctly. States that she feels severely dehydrated. Denies experiencing chest discomfort, shortness of breath, fever, chills, cough, diarrhea. EKG in the emergency room revealed sinus tachycardia at 136 bpm with an incomple te right bundle branch block and a left anterior fascicular block as reviewed by me. Laboratory evaluation was remarkable for CO2 less than 5, glucose 593, sodium 135, potassium 5.6, lactic acid 2.7, with a positive acetone. ED documentation reviewed and case discussed with ED provider. Review of systems: Pertinent positives and negatives as discussed in HPI, a complete review of systems was performed and all other systems are negative. Physical examination: Vital signs reviewed General: Somewhat ill-appearing young female, no distress, appears at stated age, normal weight Derm: no unusual rashes/lesions, warm Head: atraumatic, normocephalic, symmetric Eyes: EOMI, no lid lag, anicteric sclera, pupils equal round reactive to light ENT: Nose and ears atraumatic Neck: No cervical lymphadenopathy, trachea midline, supple Mouth: no lip lesion, mucus membranes somewhat dry, mild R jaw swelling Cardiovascular: S1S2 reg, no murmur, positive dorsalis pedis pulse bilateral, no edema Lungs: CTA bilateral, no rhonchi, no rales, no accessory muscle use Abdominal: soft, nontender to palpation, no guarding Ext: muscle strength 5 out of 5 in all 4 extremities grossly, no gross muscle atrophy, no contractures, Neuro: CN II-XI grossly intact, no gross focal neuro deficits Psych: Alert, oriented, appropriate affect Assessment: DKA Lactic acidosis, likely secondary to above Leukocytosis, likely due to dehydration and ongoing acute stressor with no signs of active infection at this time Dental infection Imaging: EKG in the emergency room revealed sinus tachycardia at 136 bpm with an incomplete right bundle branch block and a left anterior fascicular block as reviewed by me Data Review: Laboratory evaluation was remarkable for CO2 less than 5, glucose 593, sodium 135, potassium 5.6, lactic acid 2.7, with a positive acetone. Plan: Continue with insulin infusion and blood glucose monitoring and DKA protocol Patient to be admitted to medical ICU Monitor BMP every 4 hour Continue IV fluids normal saline 200 MLS per hour Senior Java Data Architect consulted Monitor lactic acid levels and CBC Continue with patient's home clindamycin dose 300 mg p.o. 3 times daily to complete a 6-day course DVT prophylaxis: Lovenox subcu The patient is admitted with an anticipated greater than 2 midnight stay for evaluation of DKA CODE STATUS: Full Code Discussed with: Patient Anticipated discharge place: Home Past Medical History Past Medical History: Diabetes Mellitus, GERD/Reflux, Hypertension Additional Past Medical History / Comment(s): migraine History of Any Multi-Drug Resistant Organisms: None Reported Past Surgical History: Cholecystectomy, No Surgical Hx Reported Additional Past Surgical History / Comment(s): right knee surgery Past Anesthesia/Blood Transfusion Reactions: No Reported Reaction Past Psychological History: Anxiety, Depression, No Psychological Hx Reported Smoking Status: Vaper, Light tobacco smoker Past Alcohol Use History: None Reported Past Drug Use History: Marijuana - Past Family History Father Family Medical History: Myocardial Infarction ([place]) Additional Family Medical History / Comment(s): father at 30 years old Sister(s) Family Medical History: Thyroid Disorder Brother(s) Family Medical History: Asthma Mother Family Medical History: No Reported History Medications and Allergies Home Medications Medication Instructions Recorded Confirmed Type Insulin Aspart (For Pump) [NovoLOG 0.01 unit SQ-PUMP CONTINUOUS 12/11/22 09/06/23 History (For Pump)] Omeprazole [PriLOSEC] 20 mg PO DAILY 07/11/23 09/06/23 History Sertraline [Zoloft] 25 mg PO DAILY 07/11/23 09/06/23 History amLODIPine [Norvasc] 5 mg PO DAILY 07/11/23 09/06/23 History lisinopriL [Zestril] 10 mg PO DAILY 07/11/23 09/06/23 History Acetaminophen Tab [Tylenol] 650 mg PO Q6HR PRN tab 09/05/23 09/06/23 Rx Amoxic-Pot Clav 875-125Mg 1 tab PO Q12HR #20 tab 09/06/23 Rx [Augmentin 875-125] Ondansetron Odt [Zofran Odt] 4 mg PO Q8HR PRN #14 tab 09/06/23 Rx Prochlorperazine [Compazine] 10 mg PO Q6H #14 tab 09/06/23 Rx clindamycin HCL 300 mg PO DIRECTED 09/06/23 09/06/23 History Allergies Allergy/AdvReac Type Severity Reaction Status Date / Time adhesive tape Allergy Rash/Hives Verified 09/07/23 03:55 latex Allergy Rash/Hives Verified 09/07/23 03:55 metoclopramide [From Reglan] AdvReac Anxiety Verified 09/07/23 03:55 attack Physical Exam Vitals: Vital Signs Temp Pulse Resp BP Pulse Ox 09/07/23 04:53 135 H 24 132/72 100 09/07/23 03:52 97.7 F 144 H 24 113/69 100 Intake and Output 09/06/23 09/06/23 09/07/23 14:59 22:59 06:59 Other: Weight 65.317 kg Results CBC & Chem 7: 09/07/23 04:15 09/07/23 04:15 Labs: Abnormal Lab Results - Last 24 Hours (Table) 09/07/23 09/07/23 09/07/23 Range/Units 04:02 04:15 04:15 WBC 12.8 H (3.8-10.6) k/uL Hgb 11.2 L (11.4-16.0) gm/dL MCH 24.6 L (25.0-35.0) pg MCHC 28.8 L (31.0-37.0) g/dL RDW 20.8 H (11.5-15.5) % Plt Count 516 H (150-450) k/uL Neutrophils # 11.8 H (1.3-7.7) k/uL Lymphocytes # 0.5 L (1.0-4.8) k/uL Sodium 135 L (137-145) mmol/L Potassium 5.6 H (3.5-5.1) mmol/L Carbon Dioxide <5 L* (22-30) mmol/L Glucose 593 H* (74-99) mg/dL POC Glucose (mg/dL) 507 H* (70-110) mg/dL Plasma Lactic Acid Leroy (0.7-2.0) mmol/L Alkaline Phosphatase 152 H (38-126) U/L 09/07/23 Range/Units 04:15 WBC (3.8-10.6) k/uL Hgb (11.4-16.0) gm/dL MCH (25.0-35.0) pg MCHC (31.0-37.0) g/dL RDW (11.5-15.5) % Plt Count (150-450) k/uL Neutrophils # (1.3-7.7) k/uL Lymphocytes # (1.0-4.8) k/uL Sodium (137-145) mmol/L Potassium (3.5-5.1) mmol/L Carbon Dioxide (22-30) mmol/L Glucose (74-99) mg/dL POC Glucose (mg/dL) (70-110) mg/dL Plasma Lactic Acid Leroy 2.7 H* (0.7-2.0) mmol/L Alkaline Phosphatase (38-126) U/L
[2023-09-07] MEDS: INSULIN REGULAR 100 UNIT in SODIUM CHLORIDE 0.9% 100 ML IV SCH (05:41)
[2023-09-07] MEDS: INSULIN REGULAR BOLUS (FROM DRIP BAG) IV ONE (05:49)
[2023-09-07 06:34] LABS: VBG PH 6.88 (7.31-7.41)
[2023-09-07 06:44] LABS: Glucose,Whole Blood 486 mg/dL (70-110)
[2023-09-07 06:48] LABS: African American GFR (CKD) 89 (>60 ml/min/1.73 sqM); Blood Urea Nitrogen 14 mg/dL (7-17); Chloride 105 mmol/L (98-107); Non-African American GFR(CKD) 77 (>60 ml/min/1.73 sqM); Sodium 137 mmol/L (137-145)
--- NOTE | 2023-09-07 06:51 | P.CNPUL ---
History of Present Illness Consult date: 09/07/23 Requesting physician: Sarah Payton Reason for consult: other (DKA) Chief complaint: Elevated blood sugars, nausea, vomiting, dental abscess History of present illness: Patient is a 23-year-old white female with past medical history significant for type 1 diabetes, normally maintained on insulin pump, insulin pump has been malfunctioning. Patient also has a dental abscess, currently receiving antibiotics. She was scheduled for a tooth extraction today. She just recently was discharged from the hospital 2 days ago with the same presentation. She continued to feel ill at home. Was having some recurrent nausea and vomiting. Had elevated blood sugars. She has had a couple ER visits for DKA as well. She has been giving her insulin subcutaneously, until she can meet with her endocr inologist Dr. Guy to set up her new insulin pump later this week. On arrival to the emergency department, she was found to be in a state of diabetic ketoacidosis. Blood glucose was noted to be 593, serum bicarb less than 5, anion gap unmeasurable, acetone positive. She was started on the DKA protocol. Insulin has been started at 0.1 units/kg/h. Normal saline is infusing at 200 MLS per hour. CBC on arrival: WBC count 12.8, hemoglobin 11.2, hematocrit 39, platelets 516. CMP: Sodium 135, potassium 5.6, chloride 100, serum bicarb less than 5, BUN 12, creatinine 0.91, glucose already mentioned. Lactic acid 2.7. LFTs not elevated. Patient is currently in the emergency department, trauma bay 3. She just got back from the bathroom. She is sitting up, k[place]mall respirations noted. Room air. SpO2 100%. She says she still feels anxious. No further nausea or vomiting. She reports some mild abdominal discomfort. No diarrhea. No troubles urinating. Last night, her dental abscess started draining. She has been on clindamycin. Currently afebrile. Review of Systems REVIEW OF SYSTEMS: CONSTITUTIONAL: Denies any recent significant weight loss or weight gain. EYES: Denies change in vision. EARS, NOSE, MOUTH, THROAT: Denies headaches, denies sore throat. Dental abscess is not draining. Right jaw tenderness. CARDIOVASCULAR: Denies chest pain, palpitations or syncopal episodes. RESPIRATORY: Denies shortness of breath, cough, congestion or hemoptysis. GASTROINTESTINAL: See HPI GENITOURINARY: Denies hematuria, denies infections. MUSKULOSKELETAL: Denies pain, denies swelling. INTEGUMENTARY: Denies rash, denies eczema. NEUROLOGICAL: Denies recent memory loss, no recent seizure activity. PSYCHIATRIC: Denies anxiety, denies depression. HEMATOLOGIC/LYMPHATIC: Denies anemia, denies enlarged lymph node Past Medical History Past Medical History: Diabetes Mellitus, GERD/Reflux, Hypertension Additional Past Medical History / Comment(s): migraine History of Any Multi-Drug Resistant Organisms: None Reported Past Surgical History: Cholecystectomy, No Surgical Hx Reported Additional Past Surgical History / Comment(s): right knee surgery Past Anesthesia/Blood Transfusion Reactions: No Reported Reaction Past Psychological History: Anxiety, Depression, No Psychological Hx Reported Smoking Status: Vaper, Light tobacco smoker Past Alcohol Use History: None Reported Past Drug Use History: Marijuana - Past Family History Father Family Medical History: Myocardial Infarction ([place]) Additional Family Medical History / Comment(s): father at 30 years old Sister(s) Family Medical History: Thyroid Disorder Brother(s) Family Medical History: Asthma Mother Family Medical History: No Reported History Medications and Allergies Home Medications Medication Instructions Recorded Confirmed Type Insulin Aspart (For Pump) [NovoLOG 0.01 unit SQ-PUMP CONTINUOUS 12/11/22 09/06/23 History (For Pump)] Omeprazole [PriLOSEC] 20 mg PO DAILY 07/11/23 09/06/23 History Sertraline [Zoloft] 25 mg PO DAILY 07/11/23 09/06/23 History amLODIPine [Norvasc] 5 mg PO DAILY 07/11/23 09/06/23 History lisinopriL [Zestril] 10 mg PO DAILY 07/11/23 09/06/23 History Acetaminophen Tab [Tylenol] 650 mg PO Q6HR PRN tab 09/05/23 09/06/23 Rx Amoxic-Pot Clav 875-125Mg 1 tab PO Q12HR #20 tab 09/06/23 Rx [Augmentin 875-125] Ondansetron Odt [Zofran Odt] 4 mg PO Q8HR PRN #14 tab 09/06/23 Rx Prochlorperazine [Compazine] 10 mg PO Q6H #14 tab 09/06/23 Rx clindamycin HCL 300 mg PO DIRECTED 09/06/23 09/06/23 History Allergies Allergy/AdvReac Type Severity Reaction Status Date / Time adhesive tape Allergy Rash/Hives Verified 09/07/23 03:55 latex Allergy Rash/Hives Verified 09/07/23 03:55 metoclopramide [From Reglan] AdvReac Anxiety Verified 09/07/23 03:55 attack Physical Exam Vitals: Vital Signs Temp Pulse Resp BP Pulse Ox 09/07/23 05:39 1 L 138 H 124/55 100 09/07/23 04:53 135 H 24 132/72 100 09/07/23 03:52 97.7 F 144 H 24 113/69 100 Intake and Output 09/06/23 09/06/23 09/07/23 14:59 22:59 06:59 Other: Weight 65.317 kg GENERAL EXAM: Alert, 23-year-old white female, [place] respirations, tachycardic, fairly comfortable in no apparent distress. HEAD: Normocephalic and atraumatic EYES: Normal reaction of pupils, equal size. NOSE: Clear with pink turbinates. THROAT: No erythema or exudates. NECK: No masses, no JVD. Right jaw swelling CHEST: No chest wall deformity. LUNGS: Equal air entry with no crackles, wheeze, rhonchi or dullness. On room air. SpO2 100%. Breathing the mid 20 breaths/min. No conversational dyspnea or accessory muscle use.. CVS: S1 and S2 normal with no audible murmur, regular rhythm. No extra heart sounds ABDOMEN: No hepatosplenomegaly, active bowel sounds, no guarding or rigidity. SPINE: No scoliosis or deformity SKIN: No rashes CENTRAL NERVOUS SYSTEM: No focal deficits, tone is normal in all 4 extremities. EXTREMITIES: There is no peripheral edema, clubbing, or cyanosis. Peripheral pulses are intact. Results - Laboratory Findings CBC and BMP: 09/07/23 04:15 09/07/23 04:15 Abnormal lab findings: Abnormal Labs 09/07/23 09/07/23 09/07/23 04:02 04:15 04:15 WBC 12.8 H Hgb 11.2 L MCH 24.6 L MCHC 28.8 L RDW 20.8 H Plt Count 516 H Neutrophils # 11.8 H Lymphocytes # 0.5 L Sodium 135 L Potassium 5.6 H Carbon Dioxide <5 L* Glucose 593 H* POC Glucose (mg/dL) 507 H* Plasma Lactic Acid Leroy Alkaline Phosphatase 152 H 09/07/23 04:15 WBC Hgb MCH MCHC RDW Plt Count Neutrophils # Lymphocytes # Sodium Potassium Carbon Dioxide Glucose POC Glucose (mg/dL) Plasma Lactic Acid Leroy 2.7 H* Alkaline Phosphatase Assessment and Plan Assessment: Acute diabetic ketoacidosis, in a patient with a known history of type 1 diabetes mellitus. Recent insulin pump malfunction and awaiting appointment to initiate a new one. Also, has a draining dental abscess. Dental abscess Acute leukocytosis secondary to above Hypertension History of depression History of gastroesophageal reflux disease History of smoking/vaping/marijuana Plan: Patient's medications and labs were reviewed Patient is going to be admitted to the intensive care unit for DKA management. Currently on the DKA protocol with insulin infusion. Normal saline currently infusing at 200 MLS per hour. Monitor electrolytes per protocol Continue clindamycin Obtain consult for possible tooth extraction I have personally seen and examined the patient, performed the documentation and the assessment and plan as written. Number of minutes spent on the visit:20 Time with Patient: Greater than 30
[2023-09-07 06:53] LABS: Carbon Dioxide <5 mmol/L (22-30); Glucose 565 mg/dL (74-99)
[2023-09-07 06:54] LABS: Appearance,Urine Clear (Clear); Bilirubin,Urine Negative (Negative); Blood,Urine Trace (Negative); Color,Urine Colorless; Glucose,Urine (UA) 4+ (Negative); Hyaline Casts,Urine 5 /lpf (0-2); Leukocyte Esterase,Urine Negative (Negative); Mucus,Urine Rare /hpf; Nitrite,Urine Negative (Negative); PH, Urine 5.5 (5.0-8.0); Protein,Urine 1+ (Negative); RBC,Urine <1 /hpf (0-5); Specific Gravity,Urine 1.016 (1.001-1.035); Squamous Epithelial Cell,Urine <1 /hpf (0-4); Urobilinogen,Urine <2.0 mg/dL (<2.0); WBC,Urine <1 /hpf (0-5)
[2023-09-07] MEDS: CLINDAMYCIN 150 MG CAP PO SCH (07:12)
[2023-09-07 07:35] LABS: Ketones,Urine 4+ (Negative)
[2023-09-07 07:55] LABS: Glucose,Whole Blood 286 mg/dL (70-110)
[2023-09-07] MEDS: SODIUM CHLORIDE 0.9% 1,000 ML IV SCH (08:05)
[2023-09-07] MEDS: PANTOPRAZOLE 40 MG/10 ML VIAL IV SCH (08:51)
[2023-09-07] MEDS: ENOXAPARIN 40 MG/0.4 ML SYRINGE SQ SCH (08:51)
[2023-09-07] MEDS: AMPICILLIN-SULBACTAM 3 GM in SODIUM CHLORIDE 0.9% 100 ML IVPB SCH (08:51)
[2023-09-07 08:59] LABS: Glucose,Whole Blood 210 mg/dL (70-110)
[2023-09-07] MEDS: ALPRAZolam 0.25 MG TAB PO STA (09:00)
[2023-09-07 09:55] LABS: Glucose,Whole Blood 121 mg/dL (70-110)
[2023-09-07] MEDS: ONDANSETRON 4 MG/2 ML VIAL IVP PRN ×2 (10:58→22:42)
[2023-09-07 11:04] LABS: Glucose,Whole Blood 77 mg/dL (70-110)
[2023-09-07] MEDS: PANTOPRAZOLE 40 MG TABLET PO STA (11:19)
[2023-09-07] MEDS ORDERED: MORPHINE SULFATE 4 MG/ML SYRINGE IVP PRN (11:27)
[2023-09-07] MEDS: MORPHINE SULFATE 4 MG/ML SYRINGE IVP PRN (11:38)
--- NOTE | 2023-09-07 12:06 | CONS ---
CONSULTATION CHIEF COMPLAINT: My face is swollen. HISTORY OF PRESENT ILLNESS: The patient is a 23-year-old female, who presented to the ER in DKA and is currently being evaluated and will subsequently be admitted. She states that she has had swelling to the right mandible for 1 week. She had presented to the ER approximately 5 days ago and they started her on antibiotic, which was Augmentin. She states that the swelling has improved mildly, but is still there in addition to the pain associated with tooth #30. PAST MEDICAL HISTORY: Significant for insulin-dependent diabetes and hypertension. MEDICATIONS: Include, 1. Lisinopril. 2. Norvasc. 3. Insulin. ALLERGIES: She has no known drug allergies. Significant labs are a blood sugar of 593. PHYSICAL EXAMINATION: Reveals the patient to be alert and oriented x3. Head and neck exam shows a right mandibular swelling, which is mildly tender to palpation. There is no submandibular swelling. There is no odynophagia or dysphagia. Intraorally, there is no trismus. The floor of mouth is soft and there is no pharyngeal swelling. Tooth #30 exhibits gross carious lesion in addition to mild buccal vestibular swelling. ASSESSMENT: 1. Diabetes ketoacidosis. 2. Abscessed tooth #30 with a right buccal space infection. PLAN: The patient will be admitted to treat her DKA. She will follow up in my office as an outpatient for the treatment and extraction of tooth #30. MMODL / IJN: [id number] /
[2023-09-07 12:11] LABS: Glucose,Whole Blood 147 mg/dL (70-110)
[2023-09-07 13:13] LABS: Glucose,Whole Blood 239 mg/dL (70-110)
[2023-09-07 13:41] LABS: African American GFR (CKD) >90 (>60 ml/min/1.73 sqM); Anion Gap 20 mmol/L; Blood Urea Nitrogen 12 mg/dL (7-17); Chloride 112 mmol/L (98-107); Glucose 180 mg/dL (74-99); Non-African American GFR(CKD) >90 (>60 ml/min/1.73 sqM); Phosphorus 2.5 mg/dL (2.5-4.5); Potassium 4.7 mmol/L (3.5-5.1); Sodium 139 mmol/L (137-145)
[2023-09-07 14:02] LABS: Carbon Dioxide 7 mmol/L (22-30)
[2023-09-07 14:23] LABS: Glucose,Whole Blood 266 mg/dL (70-110)
[2023-09-07] MEDS: PROCHLORPERAZINE INJ 10 MG/2 ML VIAL IVP STA (14:58)
[2023-09-07] MEDS: D5-0.45% NACL WITH KCL 20MEQ/L 1,000 ML IV SCH (15:00)
[2023-09-07 15:06] LABS: Glucose,Whole Blood 210 mg/dL (70-110)
[2023-09-07 16:06] LABS: Glucose,Whole Blood 204 mg/dL (70-110)
[2023-09-07 16:35] LABS: African American GFR (CKD) >90 (>60 ml/min/1.73 sqM); Anion Gap 18 mmol/L; Blood Urea Nitrogen 12 mg/dL (7-17); Calcium 8.8 mg/dL (8.4-10.2); Chloride 113 mmol/L (98-107); Glucose 202 mg/dL (74-99); Non-African American GFR(CKD) >90 (>60 ml/min/1.73 sqM); Potassium 4.5 mmol/L (3.5-5.1); Sodium 140 mmol/L (137-145)
[2023-09-07 16:47] LABS: Carbon Dioxide 9 mmol/L (22-30)
[2023-09-07 17:04] LABS: Glucose,Whole Blood 184 mg/dL (70-110)
[2023-09-07 18:03] LABS: Glucose,Whole Blood 185 mg/dL (70-110)
[2023-09-07 18:57] LABS: Glucose,Whole Blood 154 mg/dL (70-110)
[2023-09-07] MEDS: amLODIPine 5 MG TAB PO STA (19:03)
[2023-09-07 20:21] LABS: African American GFR (CKD) >90 (>60 ml/min/1.73 sqM); Anion Gap 12 mmol/L; Blood Urea Nitrogen 10 mg/dL (7-17); Calcium 8.6 mg/dL (8.4-10.2); Carbon Dioxide 13 mmol/L (22-30); Chloride 114 mmol/L (98-107); Glucose 156 mg/dL (74-99); Non-African American GFR(CKD) >90 (>60 ml/min/1.73 sqM); Sodium 139 mmol/L (137-145)
[2023-09-07 20:24] LABS: Glucose,Whole Blood 152 mg/dL (70-110)
[2023-09-07] MEDS: CALCIUM CARBONATE 500 MG CHEWABLE PO PRN (21:00)
[2023-09-07] MEDS: HYDROcodone/APAP 7.5-325MG 1 EACH TAB PO ONE (21:00)
[2023-09-07 21:14] LABS: Glucose,Whole Blood 147 mg/dL (70-110)
[2023-09-07] MEDS: TRIMETHOBENZAMIDE 100 MG/ML 2 ML VIAL IM PRN (21:40)
[2023-09-07 22:04] LABS: Glucose,Whole Blood 129 mg/dL (70-110)
[2023-09-07 23:14] LABS: Glucose,Whole Blood 138 mg/dL (70-110)
--- NOTE | 2023-09-07 23:23 | CT ---
EXAMINATION TYPE: CT facial bones w con DATE OF EXAM: 09/07/2023 COMPARISON: None. HISTORY: dental abscess, tooth 30, rt side CT DLP: 447.6 mGycm. Automated Exposure Control for Dose Reduction was Utilized. TECHNIQUE: CT scan of the facial bones is performed with IV Contrast, patient injected with 100 mL of Isovue 300. FINDINGS: Cavitary fillings bilaterally are seen causing some streak artifact making evaluation sligh tly suboptimal. There is dental cavity involving the left posterior first molar tooth sagittal image 66. There is a l arge defect could reflect old resection cavity or large until cavity involving involving left maxilla ry second molar tooth coronal image 36. There is focal lucency consistent with cavity involving right second molar mandibular tooth sagittal image 46 and larger abscess involving the right anterior first molar tooth sagittal image 45. There i s a small abscess involving right first maxillary premolar tooth sagittal image 47 and posterior firs t maxillary molar tooth sagittal image 45 and larger cavity involving second molar tooth. Mild right- sided soft tissue swelling and subcutaneous edema. No well-formed fluid collection or abscess. There is left nasal metallic ornament in the second anterior metallic nasal alignment. Globes are int act bilaterally. Visualized brain parenchyma unremarkable. IMPRESSION: Bilateral dental cavities with mild right-sided inflammatory change. No well formed thick walled fluid collection or drainable abscess.
[2023-09-08 00:09] LABS: Glucose,Whole Blood 182 mg/dL (70-110)
[2023-09-08 01:11] LABS: African American GFR (CKD) >90 (>60 ml/min/1.73 sqM); Anion Gap 14 mmol/L; Blood Urea Nitrogen 8 mg/dL (7-17); Calcium 8.6 mg/dL (8.4-10.2); Carbon Dioxide 12 mmol/L (22-30); Chloride 111 mmol/L (98-107); Glucose 175 mg/dL (74-99); Non-African American GFR(CKD) >90 (>60 ml/min/1.73 sqM); Potassium 3.9 mmol/L (3.5-5.1); Sodium 137 mmol/L (137-145)
[2023-09-08 01:17] LABS: Glucose,Whole Blood 174 mg/dL (70-110)
[2023-09-08 02:14] LABS: Glucose,Whole Blood 208 mg/dL (70-110)
[2023-09-08 03:14] LABS: Glucose,Whole Blood 250 mg/dL (70-110)
[2023-09-08 04:11] LABS: Glucose,Whole Blood 288 mg/dL (70-110)
[2023-09-08 05:16] LABS: Glucose,Whole Blood 234 mg/dL (70-110)
[2023-09-08 06:03] LABS: Anisocytosis Moderate; Basophils % (A) 0 %; Eosinophils # (A) 0.1 k/uL (0-0.7); Eosinophils % (A) 1 %; HCT 33.1 % (34.0-46.0); HGB 10.3 gm/dL (11.4-16.0); Hypochromasia Slight; Lymphocytes # (A) 1.3 k/uL (1.0-4.8); Lymphocytes % (A) 12 %; MCH 24.6 pg (25.0-35.0); MCHC 31.2 g/dL (31.0-37.0); Mean Platelet Volume 7.6; Microcytosis Moderate; Monocytes # (A) 0.4 k/uL (0-1.0); Monocytes % (A) 4 %; Neutrophils # (A) 8.7 k/uL (1.3-7.7); Neutrophils % (A) 82 %; Platelet Count 516 k/uL (150-450); RDW 20.8 % (11.5-15.5); WBC 10.6 k/uL (3.8-10.6)
[2023-09-08 06:05] LABS: MCV 78.8 fL (80.0-100.0)
[2023-09-08] MEDS: PANTOPRAZOLE 40 MG TABLET PO SCH (06:14)
[2023-09-08 06:19] LABS: Glucose,Whole Blood 180 mg/dL (70-110)
[2023-09-08 06:44] LABS: African American GFR (CKD) >90 (>60 ml/min/1.73 sqM); Blood Urea Nitrogen 5 mg/dL (7-17); Calcium 8.8 mg/dL (8.4-10.2); Carbon Dioxide 17 mmol/L (22-30); Glucose 201 mg/dL (74-99); Non-African American GFR(CKD) >90 (>60 ml/min/1.73 sqM)
[2023-09-08 07:00] LABS: Anion Gap 11 mmol/L; Chloride 108 mmol/L (98-107); Potassium 3.6 mmol/L (3.5-5.1); Sodium 136 mmol/L (137-145)
[2023-09-08 07:01] LABS: Glucose,Whole Blood 159 mg/dL (70-110)
[2023-09-08 08:07] LABS: Glucose,Whole Blood 156 mg/dL (70-110)
[2023-09-08 08:58] LABS: Glucose,Whole Blood 140 mg/dL (70-110)
[2023-09-08] MEDS: lisinopriL 10 MG TAB PO SCH (09:15)
[2023-09-08] MEDS: SERTRALINE 25 MG TAB PO SCH (09:15)
[2023-09-08] MEDS: amLODIPine 5 MG TAB PO SCH (09:15)
[2023-09-08 09:42] LABS: African American GFR (CKD) >90 (>60 ml/min/1.73 sqM); Anion Gap 6 mmol/L; Blood Urea Nitrogen 3 mg/dL (7-17); Calcium 8.6 mg/dL (8.4-10.2); Carbon Dioxide 23 mmol/L (22-30); Chloride 109 mmol/L (98-107); Glucose 134 mg/dL (74-99); Non-African American GFR(CKD) >90 (>60 ml/min/1.73 sqM); Potassium 3.2 mmol/L (3.5-5.1); Sodium 138 mmol/L (137-145)
[2023-09-08 09:58] LABS: Glucose,Whole Blood 130 mg/dL (70-110)
[2023-09-08] MEDS: INSULIN DETEMIR (LEVEMIR) 100 UNIT/ML SYR SQ SCH (10:11)
--- NOTE | 2023-09-08 10:50 | P.PN ---
Subjective Progress Note Date: 09/08/23 Patient is a 23-year-old white female with past medical history significant for type 1 diabetes, normally maintained on insulin pump, insulin pump has been malfunctioning. Patient also has a dental abscess, currently receiving antibiotics. She was scheduled for a tooth extraction today. She just recently was discharged from the hospital 2 days ago with the same presentation. She continued to feel ill at home. Was having some recurrent nausea and vomiting. Had elevated blood sugars. She has had a couple ER visits for DKA as well. She has been giving her insulin subcutaneously, until she can meet with her global creative chairman Dr. Guy to set up her new insulin pump later this week. On arrival to the emergency department, she was found to be in a state of diabetic ketoacidosis. Blood glucose was noted to be 593, serum bicarb less than 5, anion gap unmeasurable, acetone positive. She was started on the DKA protocol. Insulin has been started at 0.1 units/kg/h. Normal saline is infusing at 200 MLS per hour. CBC on arrival: WBC count 12.8, hemoglobin 11.2, hematocrit 39, platelets 516. CMP: Sodium 135, potassium 5.6, chloride 100, serum bicarb less than 5, BUN 12, creatinine 0.91, glucose already mentioned. Lactic acid 2.7. LFTs not elevated. Patient is currently in the emergency department, trauma bay 3. She just got back from the bathroom. She is sitting up, [place] respira tions noted. Room air. SpO2 100%. She says she still feels anxious. No further nausea or vomiting. She reports some mild abdominal discomfort. No diarrhea. No troubles urinating. Last night, her dental abscess started draining. She has been on clindamycin. Currently afebrile. The patient is seen today September 08, 2023 in follow-up in the intensive care unit. She is currently awake and alert in no acute distress. She is resting comfortably in bed. Maintaining O2 saturations in the 90s on room air. Sodium 138. Potassium 3.2. Bicarb 23. BUN 3. Creatinine 0.46. Glucose 134. She is continued on Unasyn. CT scan of the facial bones with contrast revealed bilateral dental cavities with mild right-sided inflammatory change. No well- formed thick walled fluid collection or drainable abscess. She was seen by the dentist yesterday. The plan is for removal of tooth #30 in the outpatient setting. She is currently on an insulin drip at 2.7 units/h. D5.45 normal saline with 20 meqs of KCl at 150 MLS per hour. Objective - Vital Signs Vital signs: Vital Signs Temp 98.5 F 09/08/23 04:00 Pulse 112 H 09/08/23 09:00 Resp 12 09/08/23 09:00 BP 198/124 09/08/23 09:00 Pulse Ox 98 09/08/23 09:00 FiO2 Intake & Output 09/07/23 09/08/23 09/08/23 18:59 06:59 18:59 Intake Total 911.115 7513.202 464.192 Output Total 450 1750 Balance 40.163 174.202 464.192 Weight 65.317 kg Intake: IV 450 1800 450 D5-0.45% NaCl with KCl 450 1800 450 20Meq/l 1,000 ml @ 150 mls/hr IV .Q6H40M [facility] Rx# :[id number] Intake, IV Titration 40.163 124.202 14.192 Amount Ampicillin-Sulbactam 3 gm 100 In Sodium Chloride 0.9% 100 ml @ 200 mls/hr IVPB Q6HR [facility] Rx#:[id number] Insulin Regular 100 unit 40.163 24.202 14.192 In Sodium Chloride 0.9% 100 ml @ 0.1 UNITS/KG/HR 6.597 mls/hr IV .[id number] [facility] Rx#:[id number] Output: Urine 400 1300 Emesis 50 450 Other: Voiding Method Toilet Toilet Toilet # Voids 1 2 - Exam GENERAL EXAM: Alert, 23-year-old female, seen up in bed, on room air, comfortable in no apparent distress. HEAD: Normocephalic and atraumatic EYES: Normal reaction of pupils, equal size. NOSE: Clear with pink turbinates. THROAT: No erythema or exudates. NECK: No masses, no JVD. Right jaw swelling CHEST: No chest wall deformity. LUNGS: Equal air entry with no crackles, wheeze, rhonchi or dullness. CVS: S1 and S2 normal with no audible murmur, regular rhythm. No extra heart sounds ABDOMEN: No hepatosplenomegaly, active bowel sounds, no guarding or rigidity. SPINE: No scoliosis or deformity SKIN: No rashes CENTRAL NERVOUS SYSTEM: No focal deficits, tone is normal in all 4 extremities. EXTREMITIES: There is no peripheral edema, clubbing, or cyanosis. Peripheral pulses are intact. - Labs CBC & Chem 7: 09/08/23 05:46 09/08/23 09:10 Labs: Abnormal Lab Results - Last 24 Hours (Table) 09/07/23 09/07/23 09/07/23 Range/Units 12:08 12:25 13:13 Hgb (11.4-16.0) gm/dL Hct (34.0-46.0) % MCV (80.0-100.0) fL MCH (25.0-35.0) pg RDW (11.5-15.5) % Plt Count (150-450) k/uL Neutrophils # (1.3-7.7) k/uL Sodium (137-145) mmol/L Potassium (3.5-5.1) mmol/L Chloride 112 H (98-107) mmol/L Carbon Dioxide 7 L* (22-30) mmol/L BUN (7-17) mg/dL Creatinine (0.52-1.04) mg/dL Glucose 180 H (74-99) mg/dL POC Glucose (mg/dL) 147 H 239 H (70-110) mg/dL 09/07/23 09/07/23 09/07/23 Range/Units 14:21 15:05 16:05 Hgb (11.4-16.0) gm/dL Hct (34.0-46.0) % MCV (80.0-100.0) fL MCH (25.0-35.0) pg RDW (11.5-15.5) % Plt Count (150-450) k/uL Neutrophils # (1.3-7.7) k/uL Sodium (137-145) mmol/L Potassium (3.5-5.1) mmol/L Chloride (98-107) mmol/L Carbon Dioxide (22-30) mmol/L BUN (7-17) mg/dL Creatinine (0.52-1.04) mg/dL Glucose (74-99) mg/dL POC Glucose (mg/dL) 266 H 210 H 204 H (70-110) mg/dL 09/07/23 09/07/23 09/07/23 Range/Units 16:12 17:02 18:02 Hgb (11.4-16.0) gm/dL Hct (34.0-46.0) % MCV (80.0-100.0) fL MCH (25.0-35.0) pg RDW (11.5-15.5) % Plt Count (150-450) k/uL Neutrophils # (1.3-7.7) k/uL Sodium (137-145) mmol/L Potassium (3.5-5.1) mmol/L Chloride 113 H (98-107) mmol/L Carbon Dioxide 9 L* (22-30) mmol/L BUN (7-17) mg/dL Creatinine (0.52-1.04) mg/dL Glucose 202 H (74-99) mg/dL POC Glucose (mg/dL) 184 H 185 H (70-110) mg/dL 09/07/23 09/07/23 09/07/23 Range/Units 18:56 19:56 20:23 Hgb (11.4-16.0) gm/dL Hct (34.0-46.0) % MCV (80.0-100.0) fL MCH (25.0-35.0) pg RDW (11.5-15.5) % Plt Count (150-450) k/uL Neutrophils # (1.3-7.7) k/uL Sodium (137-145) mmol/L Potassium (3.5-5.1) mmol/L Chloride 114 H (98-107) mmol/L Carbon Dioxide 13 L (22-30) mmol/L BUN (7-17) mg/dL Creatinine (0.52-1.04) mg/dL Glucose 156 H (74-99) mg/dL POC Glucose (mg/dL) 154 H 152 H (70-110) mg/dL 09/07/23 09/07/23 09/07/23 Range/Units 21:13 22:03 23:13 Hgb (11.4-16.0) gm/dL Hct (34.0-46.0) % MCV (80.0-100.0) fL MCH (25.0-35.0) pg RDW (11.5-15.5) % Plt Count (150-450) k/uL Neutrophils # (1.3-7.7) k/uL Sodium (137-145) mmol/L Potassium (3.5-5.1) mmol/L Chloride (98-107) mmol/L Carbon Dioxide (22-30) mmol/L BUN (7-17) mg/dL Creatinine (0.52-1.04) mg/dL Glucose (74-99) mg/dL POC Glucose (mg/dL) 147 H 129 H 138 H (70-110) mg/dL 09/08/23 09/08/23 09/08/23 Range/Units 00:06 00:08 01:15 Hgb (11.4-16.0) gm/dL Hct (34.0-46.0) % MCV (80.0-100.0) fL MCH (25.0-35.0) pg RDW (11.5-15.5) % Plt Count (150-450) k/uL Neutrophils # (1.3-7.7) k/uL Sodium (137-145) mmol/L Potassium (3.5-5.1) mmol/L Chloride 111 H (98-107) mmol/L Carbon Dioxide 12 L (22-30) mmol/L BUN (7-17) mg/dL Creatinine (0.52-1.04) mg/dL Glucose 175 H (74-99) mg/dL POC Glucose (mg/dL) 182 H 174 H (70-110) mg/dL 09/08/23 09/08/23 09/08/23 Range/Units 02:13 03:13 04:10 Hgb (11.4-16.0) gm/dL Hct (34.0-46.0) % MCV (80.0-100.0) fL MCH (25.0-35.0) pg RDW (11.5-15.5) % Plt Count (150-450) k/uL Neutrophils # (1.3-7.7) k/uL Sodium (137-145) mmol/L Potassium (3.5-5.1) mmol/L Chloride (98-107) mmol/L Carbon Dioxide (22-30) mmol/L BUN (7-17) mg/dL Creatinine (0.52-1.04) mg/dL Glucose (74-99) mg/dL POC Glucose (mg/dL) 208 H 250 H 288 H (70-110) mg/dL 09/08/23 09/08/23 09/08/23 Range/Units 05:15 05:46 05:46 Hgb 10.3 L (11.4-16.0) gm/dL Hct 33.1 L (34.0-46.0) % MCV 78.8 L D (80.0-100.0) fL MCH 24.6 L (25.0-35.0) pg RDW 20.8 H (11.5-15.5) % Plt Count 516 H (150-450) k/uL Neutrophils # 8.7 H (1.3-7.7) k/uL Sodium 136 L (137-145) mmol/L Potassium (3.5-5.1) mmol/L Chloride 108 H (98-107) mmol/L Carbon Dioxide 17 L (22-30) mmol/L BUN 5 L (7-17) mg/dL Creatinine 0.51 L (0.52-1.04) mg/dL Glucose 201 H (74-99) mg/dL POC Glucose (mg/dL) 234 H (70-110) mg/dL 09/08/23 09/08/23 09/08/23 Range/Units 06:18 07:00 08:06 Hgb (11.4-16.0) gm/dL Hct (34.0-46.0) % MCV (80.0-100.0) fL MCH (25.0-35.0) pg RDW (11.5-15.5) % Plt Count (150-450) k/uL Neutrophils # (1.3-7.7) k/uL Sodium (137-145) mmol/L Potassium (3.5-5.1) mmol/L Chloride (98-107) mmol/L Carbon Dioxide (22-30) mmol/L BUN (7-17) mg/dL Creatinine (0.52-1.04) mg/dL Glucose (74-99) mg/dL POC Glucose (mg/dL) 180 H 159 H 156 H (70-110) mg/dL 09/08/23 09/08/23 09/08/23 Range/Units 08:56 09:10 09:56 Hgb (11.4-16.0) gm/dL Hct (34.0-46.0) % MCV (80.0-100.0) fL MCH (25.0-35.0) pg RDW (11.5-15.5) % Plt Count (150-450) k/uL Neutrophils # (1.3-7.7) k/uL Sodium (137-145) mmol/L Potassium 3.2 L (3.5-5.1) mmol/L Chloride 109 H (98-107) mmol/L Carbon Dioxide (22-30) mmol/L BUN 3 L (7-17) mg/dL Creatinine 0.46 L (0.52-1.04) mg/dL Glucose 134 H (74-99) mg/dL POC Glucose (mg/dL) 140 H 130 H (70-110) mg/dL Assessment and Plan Assessment: Acute diabetic ketoacidosis, in a patient with a known history of type 1 diabetes mellitus. Recent insulin pump malfunction and awaiting appointment to initiate a new one. Also, has a draining dental abscess Dental abscess Acute leukocytosis secondary to above Hypertension History of depression History of gastroesophageal reflux disease History of smoking/vaping/marijuana Plan: New The patient was seen and evaluated Labs and medications reviewed To transition back to Levemir and NovoLog sliding scale Could transition out of the ICU today Plan is for outpatient tooth removal I have personally seen and examined the patient, performed the documentation and the assessment and plan as written. Number of minutes spent on the visit: 10.
[2023-09-08 11:02] VITALS: BMI 25.4
--- NOTE | 2023-09-08 11:19 | P.PN ---
Subjective Progress Note Date: 09/08/23 Hospital Course: 23-year-old female with history of type 1 diabetes on insulin pump presenting with diabetic ketoacidosis. Patient was recently admitted for DKA. She has been dealing with right-sided dental abscess for about a week, plan was to get dental extraction outpatient. However due to significant pain, she had reduced oral intake as well as nausea vomiting leading to DKA. EKG in the emergency room revealed sinus tachycardia at 136 bpm with an incomplete right bundle branch block and a left anterior fascicular block. Laboratory evaluation was remarkable for CO2 less than 5, glucose 593, sodium 135, potassium 5.6, lactic acid 2.7, with a positive acetone. Started on insulin drip. Also started on IV Unasyn. Dental consulted, recommending outpatient dental extraction. Patient monitored in medical ICU. Now being transitioned off of insulin drip. Subjective: Patient seen and examined at bedside. No acute events overnight. Still having nausea vomiting, difficulty with oral intake. Pertinent positives and negatives as discussed above, a complete review of systems was performed and all other systems are negative. Vitals Signs Reviewed. General: Nontoxic, no distress, appears at stated age Derm: Warm, dry Head: Atraumatic, normocephalic, symmetric Eyes: EOMI, no lid lag, anicteric sclera Mouth: No lip lesion, mucus membranes moist Cardiovascular: S1S2 reg, tachycardic, no murmur Lungs: CTA bilateral, no rhonchi, no rales, no accessory muscle use Abdominal: Soft, nontender to palpation, no guarding, no appreciable organomegaly Ext: No gross muscle atrophy, no edema, no contractures Neuro: CN II-XI grossly intact, no focal neuro deficits Psych: Alert, oriented, appropriate affect Data Reviewed Today: Pertinent Labs: WBC 10.6, hemoglobin 10.3, platelet 516, sodium 138, potassium 3.2, bicarb 23, anion gap 6, creatinine 0.46, blood sugars ranging in the 150s. Imaging: Face CT showed bilateral dental cavities with mild right-sided inflammatory change, no well-formed thick walled fluid collection or drainable abscess noted. Assessment and Plan: Patient is critically ill, prognosis guarded. Active: Diabetic ketoacidosis Infected dental caries Metabolic acidosis, resolved Dehydration Sinus tachycardia Hypokalemia Microcytic anemia, secondary to acute illness Thrombocytosis, reactive -Being transitioned off of insulin drip, on Levemir 15 units daily, aspart 5 units 3 times daily, sliding scale insulin, monitor for hypoglycemia -Encourage oral intake, currently on clear liquid diet, patient is status post IV fluids -Continue IV Unasyn 3 g every 6 hours -Pain control with IV morphine as needed, monitor for sedation, Zofran 4 mg IV as needed, and Tigan 200 mg IM every 6 hours as needed for nausea and vomiting -Continue pantoprazole 40 mg daily -ICU note reviewed, transfer out of the ICU today Hypertensive urgency -Continue home amlodipine 5 mg daily, lisinopril 10 mg daily -Likely exacerbated by pain Resolved: Leukocytosis Acute kidney injury Chronic: Depression DVT ppx: Lovenox Code status: Full code Anticipated discharge place: Home Anticipated discharge time: In the next 24 to 48 hours Objective - Vital Signs Vital signs: Vital Signs Temp 98.5 F 09/08/23 04:00 Pulse 112 H 09/08/23 09:00 Resp 12 09/08/23 09:00 BP 198/124 09/08/23 09:00 Pulse Ox 98 09/08/23 09:00 FiO2 Intake & Output 09/07/23 09/08/23 09/08/23 18:59 06:59 18:59 Intake Total 302.889 7816.202 464.192 Output Total 450 1750 Balance 40.163 174.202 464.192 Weight 65.317 kg 65.317 kg Intake: IV 450 1800 450 D5-0.45% NaCl with KCl 450 1800 450 20Meq/l 1,000 ml @ 150 mls/hr IV .[id number] [facility] Rx# :[id number] Intake, IV Titration 40.163 124.202 14.192 Amount Ampicillin-Sulbactam 3 gm 100 In Sodium Chloride 0.9% 100 ml @ 200 mls/hr IVPB Q6HR [facility] Rx#:[id number] Insulin Regular 100 unit 40.163 24.202 14.192 In Sodium Chloride 0.9% 100 ml @ 0.1 UNITS/KG/HR 6.597 mls/hr IV .[id number] [facility] Rx#:[id number] Output: Urine 400 1300 Emesis 50 450 Other: Voiding Method Toilet Toilet Toilet # Voids 1 2 - Labs CBC & Chem 7: 09/08/23 05:46 09/08/23 09:10 Labs: Abnormal Lab Results - Last 24 Hours (Table) 09/07/23 09/07/23 09/07/23 Range/Units 12:08 12:25 13:13 Hgb (11.4-16.0) gm/dL Hct (34.0-46.0) % MCV (80.0-100.0) fL MCH (25.0-35.0) pg RDW (11.5-15.5) % Plt Count (150-450) k/uL Neutrophils # (1.3-7.7) k/uL Sodium (137-145) mmol/L Potassium (3.5-5.1) mmol/L Chloride 112 H (98-107) mmol/L Carbon Dioxide 7 L* (22-30) mmol/L BUN (7-17) mg/dL Creatinine (0.52-1.04) mg/dL Glucose 180 H (74-99) mg/dL POC Glucose (mg/dL) 147 H 239 H (70-110) mg/dL 09/07/23 09/07/23 09/07/23 Range/Units 14:21 15:05 16:05 Hgb (11.4-16.0) gm/dL Hct (34.0-46.0) % MCV (80.0-100.0) fL MCH (25.0-35.0) pg RDW (11.5-15.5) % Plt Count (150-450) k/uL Neutrophils # (1.3-7.7) k/uL Sodium (137-145) mmol/L Potassium (3.5-5.1) mmol/L Chloride (98-107) mmol/L Carbon Dioxide (22-30) mmol/L BUN (7-17) mg/dL Creatinine (0.52-1.04) mg/dL Glucose (74-99) mg/dL POC Glucose (mg/dL) 266 H 210 H 204 H (70-110) mg/dL 09/07/23 09/07/23 09/07/23 Range/Units 16:12 17:02 18:02 Hgb (11.4-16.0) gm/dL Hct (34.0-46.0) % MCV (80.0-100.0) fL MCH (25.0-35.0) pg RDW (11.5-15.5) % Plt Count (150-450) k/uL Neutrophils # (1.3-7.7) k/uL Sodium (137-145) mmol/L Potassium (3.5-5.1) mmol/L Chloride 113 H (98-107) mmol/L Carbon Dioxide 9 L* (22-30) mmol/L BUN (7-17) mg/dL Creatinine (0.52-1.04) mg/dL Glucose 202 H (74-99) mg/dL POC Glucose (mg/dL) 184 H 185 H (70-110) mg/dL 09/07/23 09/07/23 09/07/23 Range/Units 18:56 19:56 20:23 Hgb (11.4-16.0) gm/dL Hct (34.0-46.0) % MCV (80.0-100.0) fL MCH (25.0-35.0) pg RDW (11.5-15.5) % Plt Count (150-450) k/uL Neutrophils # (1.3-7.7) k/uL Sodium (137-145) mmol/L Potassium (3.5-5.1) mmol/L Chloride 114 H (98-107) mmol/L Carbon Dioxide 13 L (22-30) mmol/L BUN (7-17) mg/dL Creatinine (0.52-1.04) mg/dL Glucose 156 H (74-99) mg/dL POC Glucose (mg/dL) 154 H 152 H (70-110) mg/dL 09/07/23 09/07/23 09/07/23 Range/Units 21:13 22:03 23:13 Hgb (11.4-16.0) gm/dL Hct (34.0-46.0) % MCV (80.0-100.0) fL MCH (25.0-35.0) pg RDW (11.5-15.5) % Plt Count (150-450) k/uL Neutrophils # (1.3-7.7) k/uL Sodium (137-145) mmol/L Potassium (3.5-5.1) mmol/L Chloride (98-107) mmol/L Carbon Dioxide (22-30) mmol/L BUN (7-17) mg/dL Creatinine (0.52-1.04) mg/dL Glucose (74-99) mg/dL POC Glucose (mg/dL) 147 H 129 H 138 H (70-110) mg/dL 09/08/23 09/08/23 09/08/23 Range/Units 00:06 00:08 01:15 Hgb (11.4-16.0) gm/dL Hct (34.0-46.0) % MCV (80.0-100.0) fL MCH (25.0-35.0) pg RDW (11.5-15.5) % Plt Count (150-450) k/uL Neutrophils # (1.3-7.7) k/uL Sodium (137-145) mmol/L Potassium (3.5-5.1) mmol/L Chloride 111 H (98-107) mmol/L Carbon Dioxide 12 L (22-30) mmol/L BUN (7-17) mg/dL Creatinine (0.52-1.04) mg/dL Glucose 175 H (74-99) mg/dL POC Glucose (mg/dL) 182 H 174 H (70-110) mg/dL 09/08/23 09/08/23 09/08/23 Range/Units 02:13 03:13 04:10 Hgb (11.4-16.0) gm/dL Hct (34.0-46.0) % MCV (80.0-100.0) fL MCH (25.0-35.0) pg RDW (11.5-15.5) % Plt Count (150-450) k/uL Neutrophils # (1.3-7.7) k/uL Sodium (137-145) mmol/L Potassium (3.5-5.1) mmol/L Chloride (98-107) mmol/L Carbon Dioxide (22-30) mmol/L BUN (7-17) mg/dL Creatinine (0.52-1.04) mg/dL Glucose (74-99) mg/dL POC Glucose (mg/dL) 208 H 250 H 288 H (70-110) mg/dL 09/08/23 09/08/23 09/08/23 Range/Units 05:15 05:46 05:46 Hgb 10.3 L (11.4-16.0) gm/dL Hct 33.1 L (34.0-46.0) % MCV 78.8 L D (80.0-100.0) fL MCH 24.6 L (25.0-35.0) pg RDW 20.8 H (11.5-15.5) % Plt Count 516 H (150-450) k/uL Neutrophils # 8.7 H (1.3-7.7) k/uL Sodium 136 L (137-145) mmol/L Potassium (3.5-5.1) mmol/L Chloride 108 H (98-107) mmol/L Carbon Dioxide 17 L (22-30) mmol/L BUN 5 L (7-17) mg/dL Creatinine 0.51 L (0.52-1.04) mg/dL Glucose 201 H (74-99) mg/dL POC Glucose (mg/dL) 234 H (70-110) mg/dL 09/08/23 09/08/23 09/08/23 Range/Units 06:18 07:00 08:06 Hgb (11.4-16.0) gm/dL Hct (34.0-46.0) % MCV (80.0-100.0) fL MCH (25.0-35.0) pg RDW (11.5-15.5) % Plt Count (150-450) k/uL Neutrophils # (1.3-7.7) k/uL Sodium (137-145) mmol/L Potassium (3.5-5.1) mmol/L Chloride (98-107) mmol/L Carbon Dioxide (22-30) mmol/L BUN (7-17) mg/dL Creatinine (0.52-1.04) mg/dL Glucose (74-99) mg/dL POC Glucose (mg/dL) 180 H 159 H 156 H (70-110) mg/dL 09/08/23 09/08/23 09/08/23 Range/Units 08:56 09:10 09:56 Hgb (11.4-16.0) gm/dL Hct (34.0-46.0) % MCV (80.0-100.0) fL MCH (25.0-35.0) pg RDW (11.5-15.5) % Plt Count (150-450) k/uL Neutrophils # (1.3-7.7) k/uL Sodium (137-145) mmol/L Potassium 3.2 L (3.5-5.1) mmol/L Chloride 109 H (98-107) mmol/L Carbon Dioxide (22-30) mmol/L BUN 3 L (7-17) mg/dL Creatinine 0.46 L (0.52-1.04) mg/dL Glucose 134 H (74-99) mg/dL POC Glucose (mg/dL) 140 H 130 H (70-110) mg/dL
[2023-09-08 11:32] LABS: Glucose,Whole Blood 108 mg/dL (70-110)
[2023-09-08] MEDS: INSULIN ASPART (NovoLOG) 100 UNIT/ML VIAL SQ SCH ×2 (11:36)
[2023-09-08] MEDS: ONDANSETRON ODT 8 MG TAB.RAPDIS PO PRN (12:41)
[2023-09-08] MEDS: hydrALAZINE HCL 20 MG/ML 1 ML VIAL IVP PRN (16:06)
[2023-09-08 16:15] LABS: Glucose,Whole Blood 58 mg/dL (70-110)
[2023-09-08] MEDS: DEXTROSE 50% SYRINGE 50 ML IVP PRN ×2 (16:18→19:41)
[2023-09-08 16:32] LABS: Glucose,Whole Blood 118 mg/dL (70-110)
[2023-09-08] MEDS: POTASSIUM CHLORIDE ER 20 MEQ TAB.ER PO SCH (17:36)
[2023-09-08 18:47] LABS: ALT 11 U/L (4-34); AST 22 U/L (14-36); African American GFR (CKD) >90 (>60 ml/min/1.73 sqM); Alkaline Phosphatase 90 U/L (38-126); Anion Gap 1 mmol/L; Blood Urea Nitrogen <2 mg/dL (7-17); Calcium 8.5 mg/dL (8.4-10.2); Carbon Dioxide 27 mmol/L (22-30); Chloride 108 mmol/L (98-107); Glucose 64 mg/dL (74-99); Non-African American GFR(CKD) >90 (>60 ml/min/1.73 sqM); Potassium 3.2 mmol/L (3.5-5.1); Sodium 136 mmol/L (137-145); Total Bilirubin 0.7 mg/dL (0.2-1.3); Total Protein 5.7 g/dL (6.3-8.2)
[2023-09-08] MEDS: ACETAMINOPHEN IV (For NPO) 1,000 MG in EMPTY BAG 1 BAG IVPB PRN (19:32)
[2023-09-08 19:48] LABS: Glucose,Whole Blood 49 mg/dL (70-110); Glucose,Whole Blood 53 mg/dL (70-110)
[2023-09-08 19:59] LABS: Glucose,Whole Blood 190 mg/dL (70-110)
[2023-09-08 20:54] LABS: Glucose,Whole Blood 116 mg/dL (70-110)
[2023-09-08 23:36] LABS: Glucose,Whole Blood 119 mg/dL (70-110)
[2023-09-09] MEDS ORDERED: ACETAMINOPHEN IV (For NPO) 1,000 MG in EMPTY BAG 1 BAG IVPB SCH
[2023-09-09] MEDS: POTASSIUM CHLORIDE 10 MEQ in WATER FOR INJECTION 1 100ML.BAG IVPB SCH (00:32)
[2023-09-09] MEDS: LABETALOL 200 MG TAB PO STA (00:38)
[2023-09-09] MEDS: POTASSIUM CHLORIDE ER 20 MEQ TAB.ER PO STA (01:39)
[2023-09-09 01:59] LABS: Glucose,Whole Blood 217 mg/dL (70-110)
[2023-09-09] MEDS: INSULIN ASPART (NovoLOG) 100 UNIT/ML VIAL SQ ONE ×2 (02:13→05:10)
[2023-09-09 04:44] LABS: Glucose,Whole Blood 192 mg/dL (70-110)
[2023-09-09 06:04] LABS: Glucose,Whole Blood 244 mg/dL (70-110)
[2023-09-09 07:44] VITALS: BP 158/91; PULSE 103; RESP 17; TEMP 98.7
[2023-09-09 07:52] LABS: Anisocytosis Moderate; Basophils % (A) 0 %; Eosinophils % (A) 1 %; HCT 30.3 % (34.0-46.0); HGB 9.7 gm/dL (11.4-16.0); Lymphocytes # (A) 1.1 k/uL (1.0-4.8); Lymphocytes % (A) 22 %; MCH 25.1 pg (25.0-35.0); MCHC 32.1 g/dL (31.0-37.0); MCV 78.1 fL (80.0-100.0); Mean Platelet Volume 7.9; Microcytosis Moderate; Monocytes # (A) 0.3 k/uL (0-1.0); Monocytes % (A) 7 %; Neutrophils # (A) 3.5 k/uL (1.3-7.7); Neutrophils % (A) 68 %; Platelet Count 417 k/uL (150-450); RBC 3.88 m/uL (3.80-5.40); RDW 21.4 % (11.5-15.5); WBC 5.2 k/uL (3.8-10.6)
[2023-09-09 08:05] LABS: African American GFR (CKD) >90 (>60 ml/min/1.73 sqM); Anion Gap 2 mmol/L; Blood Urea Nitrogen 3 mg/dL (7-17); Calcium 8.3 mg/dL (8.4-10.2); Carbon Dioxide 26 mmol/L (22-30); Chloride 105 mmol/L (98-107); Glucose 234 mg/dL (74-99); Magnesium 1.5 mg/dL (1.6-2.3); Non-African American GFR(CKD) >90 (>60 ml/min/1.73 sqM); Sodium 133 mmol/L (137-145)
[2023-09-09] MEDS: MAGNESIUM OXIDE 400 MG TAB PO STA (09:15)
--- NOTE | 2023-09-09 10:37 | P.DS ---
Providers Date of admission: 09/07/23 05:17 Expected date of discharge: 09/09/23 Attending physician: Jesús Armando MD Consults: 09/07/23 05:16 Consult Physician Stat Consulting Provider: Narayan Bryan Consult Reason/Comments: ICU Do you want consulting provider notified?: Already Contacted 09/07/23 06:36 Consult Physician Routine Consulting Provider: Ted Up Consult Reason/Comments: Dental Abscess Do you want consulting provider notified?: Yes Primary care physician: Nelson Doran Hospital Course: Discharge Diagnosis: Diabetic ketoacidosis Infected dental caries Metabolic acidosis Dehydration Sinus tachycardia Hypokalemia Hypomagnesemia Microcytic anemia Thrombocytosis, reactive Hypertensive urgency Leukocytosis, reactive Acute kidney injury Hospital Course: 23-year-old female with history of type 1 diabetes on insulin pump presenting with diabetic ketoacidosis. Patient was recently admitted for DKA. She has been dealing with right-sided dental abscess for about a week, plan was to get dental extraction outpatient. However due to significant pain, she had reduced oral intake as well as nausea vomiting leading to DKA again. EKG in the emergency room revealed sinus tachycardia at 136 bpm with an incomplete right bundle branch block and a left anterior fascicular block. Laboratory evaluation was remarkable for CO2 less than 5, glucose 593, sodium 135, potassium 5.6, lactic acid 2.7, with a positive acetone. Started on insulin drip. Also started on IV Unasyn. Dental consulted, recommending outpatient dental extraction. Patient monitored in medical ICU. Transition off of insulin drip, started on subcu insulin. DKA has resolved. Patient being discharged home on long-acting and short acting insulin. She has an appointment with dentist this afternoon, and will be getting her tooth extracted. She will be continued on oral antibiotics in the meantime. Patient already has nausea medications at home. Needs close follow-up with PCP outpatient. Patient seen and examined at bedside. Vital signs reviewed and stable. General: Nontoxic, no distress, appears at stated age Derm: Warm, dry Head: Atraumatic, normocephalic, symmetric Eyes: EOMI, no lid lag, anicteric sclera Mouth: No lip lesion, mucus membranes moist Cardiovascular: S1S2 reg, no murmur Lungs: CTA bilateral, no rhonchi, no rales, no accessory muscle use Abdominal: Soft, nontender to palpation, no guarding, no appreciable organomegaly Ext: No gross muscle atrophy, no edema, no contractures Neuro: CN II-XI grossly intact, no focal neuro deficits Psych: Alert, oriented, appropriate affect A total of 55 minutes of time were spent preparing this complex discharge summary. Patient was discharged on 09/09/2023 at 0825. Patient Condition at Discharge: Stable Plan - Discharge Summary Discharge Rx Participant: Yes New Discharge Prescriptions: New Amoxic-Pot Clav 875-125Mg [Augmentin 875-125] 1 tab PO Q12HR 7 Days #14 tab Insulin Detemir [Levemir Flexpen] 15 units SQ DAILY #7 each Insulin Aspart [NovoLOG Flexpen] 5 units SQ AC-TID #7 each Continue Sertraline [Zoloft] 25 mg PO DAILY Prochlorperazine [Compazine] 10 mg PO Q6H #14 tab Omeprazole [PriLOSEC] 20 mg PO DAILY lisinopriL [Zestril] 10 mg PO DAILY amLODIPine [Norvasc] 5 mg PO DAILY Acetaminophen Tab [Tylenol] 650 mg PO Q6HR PRN tab PRN Reason: Mild Pain Or Fever > 100.5 Ondansetron Odt [Zofran ODT] 4 mg PO Q8HR PRN #14 tab PRN Reason: Nausea Discontinued clindamycin HCL 300 mg PO TID Amoxic-Pot Clav 875-125Mg [Augmentin 875-125] 1 tab PO Q12HR #20 tab Insulin Aspart (For Pump) [NovoLOG (For Pump)] 0.01 unit SQ-PUMP CONTINUOUS Discharge Medication List Omeprazole [PriLOSEC] 20 mg PO DAILY 07/11/23 [History] Sertraline [Zoloft] 25 mg PO DAILY 07/11/23 [History] amLODIPine [Norvasc] 5 mg PO DAILY 07/11/23 [History] lisinopriL [Zestril] 10 mg PO DAILY 07/11/23 [History] Acetaminophen Tab [Tylenol] 650 mg PO Q6HR PRN tab 09/05/23 [Rx] Ondansetron Odt [Zofran ODT] 4 mg PO Q8HR PRN #14 tab 09/06/23 [Rx] Prochlorperazine [Compazine] 10 mg PO Q6H #14 tab 09/06/23 [Rx] Amoxic-Pot Clav 875-125Mg [Augmentin 875-125] 1 tab PO Q12HR 7 Days #14 tab 09/09/23 [Rx] Insulin Aspart [NovoLOG Flexpen] 5 units SQ AC-TID #7 each 09/09/23 [Rx] Insulin Detemir [Levemir Flexpen] 15 units SQ DAILY #7 each 09/09/23 [Rx] Follow up Appointment(s)/Referral(s): Nelson Doran DO [Primary Care Provider] - 09/13/23 11:00 am Patient Instructions/Handouts: Dental Abscess (GEN), Dental Cavities (GEN), Diabetic Ketoacidosis (DC) Activity/Diet/Wound Care/Special Instructions: Please see your dentist today for tooth extraction. Discharge Disposition: HOME SELF-CARE
--- NOTE | 2023-09-09 11:53 | P.PN ---
Subjective Progress Note Date: 09/09/23 Patient is a 23-year-old white female with past medical history significant for type 1 diabetes, normally maintained on insulin pump, insulin pump has been malfunctioning. Patient also has a dental abscess, currently receiving antibiotics. She was scheduled for a tooth extraction today. She just recently was discharged from the hospital 2 days ago with the same presentation. She continued to feel ill at home. Was having some recurrent nausea and vomiting. Had elevated blood sugars. She has had a couple ER visits for DKA as well. She has been giving her insulin subcutaneously, until she can meet with her psychotherapist counselor Dr. Guy to set up her new insulin pump later this week. On arrival to the emergency department, she was found to be in a state of diabetic ketoacidosis. Blood glucose was noted to be 593, serum bicarb less than 5, anion gap unmeasurable, acetone positive. She was started on the DKA protocol. Insulin has been started at 0.1 units/kg/h. Normal saline is infusing at 200 MLS per hour. CBC on arrival: WBC count 12.8, hemoglobin 11.2, hematocrit 39, platelets 516. CMP: Sodium 135, potassium 5.6, chloride 100, serum bicarb less than 5, BUN 12, creatinine 0.91, glucose already mentioned. Lactic acid 2.7. LFTs not elevated. Patient is currently in the emergency department, trauma bay 3. She just got back from the bathroom. She is sitting up, [place] respira tions noted. Room air. SpO2 100%. She says she still feels anxious. No further nausea or vomiting. She reports some mild abdominal discomfort. No diarrhea. No troubles urinating. Last night, her dental abscess started draining. She has been on clindamycin. Currently afebrile. The patient is seen today September 08, 2023 in follow-up in the intensive care unit. She is currently awake and alert in no acute distress. She is resting comfortably in bed. Maintaining O2 saturations in the 90s on room air. Sodium 138. Potassium 3.2. Bicarb 23. BUN 3. Creatinine 0.46. Glucose 134. She is continued on Unasyn. CT scan of the facial bones with contrast revealed bilateral dental cavities with mild right-sided inflammatory change. No well- formed thick walled fluid collection or drainable abscess. She was seen by the dentist yesterday. The plan is for removal of tooth #30 in the outpatient setting. She is currently on an insulin drip at 2.7 units/h. D5.45 normal saline with 20 meqs of KCl at 150 MLS per hour. The patient is seen today September 09, 2023 in follow-up on the regular medical floor. She is resting comfortably in bed. Awake and alert in no acute distress. She is maintaining good O2 saturations in the 90s on room air. She has D5.45 with 20 KCl at 20 MLS per hour. Normal saline at 50 MLS per hour. Denies any worsening right-sided jaw/tooth pain. Cultures revealed no growth. White count 5.2. Hemoglobin 9.7. Platelets 417. Sodium 133. Potassium 4.0. Bicarb 26. BUN 3. Creatinine 0.47. Glucose 234. She has been transition to Levemir and NovoLog. Will continue on Augmentin. Objective - Vital Signs Vital signs: Vital Signs Temp 98.7 F 09/09/23 07:43 Pulse 103 H 09/09/23 07:43 Resp 17 09/09/23 07:43 BP 158/91 09/09/23 07:43 Pulse Ox 98 09/09/23 07:43 FiO2 Intake & Output 09/08/23 09/09/23 09/09/23 18:59 06:59 18:59 Intake Total 864.192 Output Total 200 Balance 864.192 -200 Weight 65.317 kg Intake: IV 850 D5-0.45% NaCl with KCl 850 20Meq/l 1,000 ml @ 50 mls /hr IV .Q20H [facility] Rx#: [id number] Intake, IV Titration 14.192 Amount Insulin Regular 100 unit 14.192 In Sodium Chloride 0.9% 100 ml @ 0.1 UNITS/KG/HR 6.597 mls/hr IV .[id number] [facility] Rx#:[id number] Output: Emesis 200 Other: Voiding Method Toilet # Voids 3 - Exam GENERAL EXAM: Alert, 23-year-old female, on room air, comfortable in no apparent distress. HEAD: Normocephalic and atraumatic EYES: Normal reaction of pupils, equal size. NOSE: Clear with pink turbinates. THROAT: No erythema or exudates. NECK: No masses, no JVD. Right jaw swelling improving. CHEST: No chest wall deformity. LUNGS: Equal air entry with no crackles, wheeze, rhonchi or dullness. CVS: S1 and S2 normal with no audible murmur, regular rhythm. No extra heart sounds ABDOMEN: No hepatosplenomegaly, active bowel sounds, no guarding or rigidity. SPINE: No scoliosis or deformity SKIN: No rashes CENTRAL NERVOUS SYSTEM: No focal deficits, tone is normal in all 4 extremities. EXTREMITIES: There is no peripheral edema, clubbing, or cyanosis. Peripheral pulses are intact. - Labs CBC & Chem 7: 09/09/23 05:52 09/09/23 05:52 Labs: Abnormal Lab Results - Last 24 Hours (Table) 09/08/23 09/08/23 09/08/23 Range/Units 16:13 16:31 18:11 Hgb (11.4-16.0) gm/dL Hct (34.0-46.0) % MCV (80.0-100.0) fL RDW (11.5-15.5) % Sodium 136 L (137-145) mmol/L Potassium 3.2 L (3.5-5.1) mmol/L Chloride 108 H (98-107) mmol/L BUN <2 L (7-17) mg/dL Creatinine 0.40 L (0.52-1.04) mg/dL Glucose 64 L (74-99) mg/dL POC Glucose (mg/dL) 58 L 118 H (70-110) mg/dL Calcium (8.4-10.2) mg/dL Magnesium (1.6-2.3) mg/dL Total Protein 5.7 L (6.3-8.2) g/dL Albumin 3.0 L (3.5-5.0) g/dL 09/08/23 09/08/23 09/08/23 Range/Units 19:36 19:36 19:57 Hgb (11.4-16.0) gm/dL Hct (34.0-46.0) % MCV (80.0-100.0) fL RDW (11.5-15.5) % Sodium (137-145) mmol/L Potassium (3.5-5.1) mmol/L Chloride (98-107) mmol/L BUN (7-17) mg/dL Creatinine (0.52-1.04) mg/dL Glucose (74-99) mg/dL POC Glucose (mg/dL) 49 L* 53 L 190 H (70-110) mg/dL Calcium (8.4-10.2) mg/dL Magnesium (1.6-2.3) mg/dL Total Protein (6.3-8.2) g/dL Albumin (3.5-5.0) g/dL 09/08/23 09/08/23 09/09/23 Range/Units 20:52 23:35 01:54 Hgb (11.4-16.0) gm/dL Hct (34.0-46.0) % MCV (80.0-100.0) fL RDW (11.5-15.5) % Sodium (137-145) mmol/L Potassium (3.5-5.1) mmol/L Chloride (98-107) mmol/L BUN (7-17) mg/dL Creatinine (0.52-1.04) mg/dL Glucose (74-99) mg/dL POC Glucose (mg/dL) 116 H 119 H 217 H (70-110) mg/dL Calcium (8.4-10.2) mg/dL Magnesium (1.6-2.3) mg/dL Total Protein (6.3-8.2) g/dL Albumin (3.5-5.0) g/dL 09/09/23 09/09/23 09/09/23 Range/Units 04:35 05:52 05:52 Hgb 9.7 L (11.4-16.0) gm/dL Hct 30.3 L (34.0-46.0) % MCV 78.1 L (80.0-100.0) fL RDW 21.4 H (11.5-15.5) % Sodium 133 L (137-145) mmol/L Potassium (3.5-5.1) mmol/L Chloride (98-107) mmol/L BUN 3 L (7-17) mg/dL Creatinine 0.47 L (0.52-1.04) mg/dL Glucose 234 H (74-99) mg/dL POC Glucose (mg/dL) 192 H (70-110) mg/dL Calcium 8.3 L (8.4-10.2) mg/dL Magnesium 1.5 L (1.6-2.3) mg/dL Total Protein (6.3-8.2) g/dL Albumin (3.5-5.0) g/dL 09/09/23 Range/Units 06:02 Hgb (11.4-16.0) gm/dL Hct (34.0-46.0) % MCV (80.0-100.0) fL RDW (11.5-15.5) % Sodium (137-145) mmol/L Potassium (3.5-5.1) mmol/L Chloride (98-107) mmol/L BUN (7-17) mg/dL Creatinine (0.52-1.04) mg/dL Glucose (74-99) mg/dL POC Glucose (mg/dL) 244 H (70-110) mg/dL Calcium (8.4-10.2) mg/dL Magnesium (1.6-2.3) mg/dL Total Protein (6.3-8.2) g/dL Albumin (3.5-5.0) g/dL Microbiology - Last 24 Hours (Table) 09/07/23 14:15 Blood Culture - Preliminary Blood Assessment and Plan Assessment: Acute diabetic ketoacidosis, in a patient with a known history of type 1 diabetes mellitus. Recent insulin pump malfunction and awaiting appointment to initiate a new one. Also, has a draining dental abscess Dental abscess Acute leukocytosis secondary to above Hypertension History of depression History of gastroesophageal reflux disease History of smoking/vaping/marijuana Plan: New The patient was seen and evaluated Labs and medications reviewed Stable and on room air Transitioned to Levemir and NovoLog Continue on Augmentin Plan is for outpatient tooth removal Follow-up with her dentist as scheduled This patient was seen independently by the pulmonary nurse practitioner addressing pulmonary issues I have personally seen and examined the patient, performed the documentation and the assessment and plan as written. Number of minutes spent on the visit: 24.
[2023-09-09] MEDS ORDERED: AMOXIC-POT CLAV 875-125MG 1 EACH TAB PO SCH (21:00)
--- NOTE | 2023-09-12 13:07 | CDI ---
Documentation Clarification Form Date: 09/12/2023 12:40:16 PM From: Alexa Ford RN, CCDS Phone: [phone] Admit Date: 09/07/2023 05:17:00 AM Patient Name: Ayana Olson Visit Number: [id number] Discharge Date: 09/09/2023 11:39:00 AM ATTENTION: The Clinical Documentation Specialists (CDI) and [facility] Coding Staff appreciate your assistance in clarifying documentation. Please respond to the clarification below the line at the bottom and electronically sign. The CDI & [facility] Coding staff will review the response and follow-up if needed. Please note: Queries are made part of the Legal Health Record. If you have any questions, please contact the author of this message via ITS. Dr. Gregory Matthews The patient had DKA, tachycardia, leukocytosis and TEETEE. Based on this information and the findings below, is there an additional diagnosis that is clinically appropriate for this patient? History/Risk Factors: Type 1 DM on Insulin pump and current dental abscess with minimal po intake. Presented with vomiting and feeling dehydrated. Admitted with DKA, dental infection and leukocytosis. Clinical Indicators: 09/06 Vital signs: HR 144, RR 24 09/06 WBC 12.8, Neutrophils 11.8, lactic acid 2.7 09/06 Cr 1.03 09/07 Cr 0.46-0.40 H&P: "EKG in the emergency room revealed sinus tachycardia at 136 bpm with an incomplete right bundle branch block and a left anterior fascicular block. Leukocytosis, likely due to dehydration and ongoing acute stressor with no signs of active infection at this time." 09/07 IM: "Resolved: Leukocytosis. Acute kidney injury." Treatment: 1L 0.9 NS IV bolus x1 on 09/06; Tigan 200mg IM Q6H 09/06-09/08; IV Compazine 5mg x1 on 09/06; Insulin drip titrated 09/06-09/07 Is there an additional diagnosis that is clinically appropriate for this patient? [x ] Non-infectious SIRS causing TEETEE [ ] Non-infectious SIRS not causing TEETEE [ ] Non-infectious SIRS without organ dysfunction [ ] No additional diagnosis/not clinically significant [ ] Other, please specify [ ] Unable to determine SIRS Criteria: 2 or more of the following may indicate SIRS Temperature < 96.8F (36C) or > 101.0F (38.3C) Heart Rate > 90 bpm Respiratory Rate > 20 breaths/min or PaCO2 < 32 mmHg White Blood Cell Count > 12,000 or < 4,000 cells/mm3 or > 10% bands MTDD
== END 2023-09-09 11:39 | disposition home or self-care (01) | DRG 637 ==
LOC: EC 03:49 → 2SICU 05:17 → 4SSUR 09-08 18:43
PROVIDERS: ADMIT Internal Medicine; ATTEND Internal Medicine
DX: E10.10 Type 1 diabetes mellitus with ketoacidosis without coma (principal); R65.11 Systemic inflammatory response syndrome (SIRS) of non-infectious origin with acute organ dysfunction; I45.2 Bifascicular block; N17.9 Acute kidney failure, unspecified; T85.614A Breakdown (mechanical) of insulin pump, initial encounter; K04.7 Periapical abscess without sinus; D50.9 Iron deficiency anemia, unspecified; D75.838 Other thrombocytosis; E83.42 Hypomagnesemia; E86.0 Dehydration; R00.0 Tachycardia, unspecified; E87.6 Hypokalemia; F17.290 Nicotine dependence, other tobacco product, uncomplicated; F32.A Depression, unspecified; F41.9 Anxiety disorder, unspecified; I10 Essential (primary) hypertension; I16.0 Hypertensive urgency; K02.9 Dental caries, unspecified; G43.909 Migraine, unspecified, not intractable, without status migrainosus; K21.9 Gastro-esophageal reflux disease without esophagitis; Y74.2 Prosthetic and other implants, materials and accessory general hospital and personal-use devices associated with adverse incidents; Z53.29 Procedure and treatment not carried out because of patient's decision for other reasons; D72.829 Elevated white blood cell count, unspecified; Z88.8 Allergy status to other drugs, medicaments and biological substances; Z96.41 Presence of insulin pump (external) (internal); Z79.4 Long term (current) use of insulin; Z79.899 Other long term (current) drug therapy; Z91.040 Latex allergy status; Z71.3 Dietary counseling and surveillance
CPT/HCPCS: 36415; 70487; 80048; 80051; 80053; 81001; 82009; 82565; 82803; 82947; 83605; 83735; 84100; 84520; 85025; 87040; 93005; 96361; 96365; 96366; 96372; 96375; 99285

== ENCOUNTER 2023-11-28 13:03 | Emergency (ER) | payer BC, OTHER ==
[2023-11-28 13:10] LABS: Glucose,Whole Blood 242 mg/dL (70-110)
[2023-11-28 13:58] LABS: Basophils # (A) 0.1 k/uL (0-0.2); Basophils % (A) 1 %; Eosinophils # (A) 0.2 k/uL (0-0.7); Eosinophils % (A) 2 %; HCT 38.8 % (34.0-46.0); HGB 12.9 gm/dL (11.4-16.0); Lymphocytes # (A) 1.8 k/uL (1.0-4.8); Lymphocytes % (A) 24 %; MCH 28.4 pg (25.0-35.0); MCHC 33.3 g/dL (31.0-37.0); MCV 85.4 fL (80.0-100.0); Mean Platelet Volume 8.3; Monocytes # (A) 0.3 k/uL (0-1.0); Monocytes % (A) 4 %; Neutrophils # (A) 5.1 k/uL (1.3-7.7); Neutrophils % (A) 68 %; Platelet Count 325 k/uL (150-450); RBC 4.55 m/uL (3.80-5.40); RDW 12.7 % (11.5-15.5); VBG PH 7.4 (7.31-7.41); WBC 7.5 k/uL (3.8-10.6)
[2023-11-28] MEDS: SODIUM CHLORIDE 0.9% 2,000 ML IV STA (14:14)
[2023-11-28] MEDS: ONDANSETRON 4 MG/2 ML VIAL IVP STA (14:15)
--- NOTE | 2023-11-28 14:22 | ED ---
General Adult HPI - General Chief complaint: Dizziness Stated complaint: High Blood Sugar Time Seen by Provider: 11/28/23 13:05 Source: patient, family, RN notes reviewed Mode of arrival: ambulatory Limitations: no limitations - History of Present Illness Initial comments: 23-year-old female presents emergency department chief complaint of hyperglycemia, dizziness, lightheadedness. Patient states that she figured her Dexcom has not been reading well states that it was reading 51 her blood sugar was over 200. Patient states she did have some nausea without vomiting she is concerned she may be in DKA. Patient states that she had some visual floaters which is usually a sign for her. She also complains of right upper quadrant she has had a prior cholecystectomy denies any dysuria - Related Data Home Medications Medication Instructions Recorded Confirmed Omeprazole [PriLOSEC] 20 mg PO DAILY 07/11/23 11/28/23 Sertraline [Zoloft] 25 mg PO DAILY 07/11/23 11/28/23 amLODIPine [Norvasc] 5 mg PO DAILY 07/11/23 11/28/23 lisinopriL [Zestril] 10 mg PO DAILY 07/11/23 11/28/23 Insulin Aspart [NovoLOG Flexpen] See Protocol SQ ACHS 11/28/23 11/28/23 Insulin Glargine,Hum.rec.anlog 20 units SQ HS 11/28/23 11/28/23 [Lantus Solostar Pen] Previous Rx's Medication Instructions Recorded Ondansetron Odt [Zofran ODT] 4 mg PO Q8HR PRN #14 tab 09/06/23 Allergies Allergy/AdvReac Type Severity Reaction Status Date / Time adhesive tape Allergy Rash/Hives Verified 11/28/23 14:43 latex Allergy Rash/Hives Verified 11/28/23 14:43 metoclopramide [From Reglan] AdvReac Anxiety Verified 11/28/23 14:43 attack Review of Systems ROS Statement: Those systems with pertinent positive or pertinent negative responses have been documented in the HPI. ROS Other: All systems not noted in ROS Statement are negative. Past Medical History Past Medical History: Diabetes Mellitus, GERD/Reflux, Hypertension Additional Past Medical History / Comment(s): migraine History of Any Multi-Drug Resistant Organisms: None Reported Past Surgical History: Cholecystectomy Additional Past Surgical History / Comment(s): right knee surgery Past Anesthesia/Blood Transfusion Reactions: No Reported Reaction Past Psychological History: Anxiety, Depression, No Psychological Hx Reported Smoking Status: Current every day smoker Past Alcohol Use History: None Reported Past Drug Use History: Marijuana - Past Family History Father Family Medical History: Myocardial Infarction (DC) Additional Family Medical History / Comment(s): father at 30 years old Sister(s) Family Medical History: Thyroid Disorder Brother(s) Family Medical History: Asthma Mother Family Medical History: No Reported History General Exam Limitations: no limitations General appearance: alert, in no apparent distress Head exam: Present: atraumatic, normocephalic, normal inspection Eye exam: Present: normal appearance, PERRL, EOMI. Absent: scleral icterus, conjunctival injection, periorbital swelling ENT exam: Present: normal exam, normal oropharynx, mucous membranes moist Neck exam: Present: normal inspection, full ROM. Absent: tenderness, meningismus, lymphadenopathy Respiratory exam: Present: normal lung sounds bilaterally. Absent: respiratory distress, wheezes, rales, rhonchi, stridor Cardiovascular Exam: Present: normal rhythm, tachycardia, normal heart sounds. Absent: systolic murmur, diastolic murmur, rubs, gallop, clicks GI/Abdominal exam: Present: soft, tenderness, normal bowel sounds. Absent: distended, guarding, rebound, rigid Back exam: Absent: CVA tenderness (R), CVA tenderness (L) Neurological exam: Present: alert, oriented X3 Psychiatric exam: Present: normal affect, normal mood Course Vital Signs 11/28/23 11/28/23 13:07 14:24 Temperature 97.9 F Pulse Rate 120 H 94 Respiratory 20 18 Rate Blood Pressure 123/86 152/100 O2 Sat by Pulse 99 100 Oximetry EKG Findings - EKG Comments: EKG Findings:: EKG performed at 13: 27 sinus tachycardia rate of 105 SD 131 QRS 98 QT/QTc 350/411 - EKG Results: EKG: interpreted by [facility] Medical Decision Making - Medical Decision Making Was pt. sent in by a medical professional or institution (, PA, [employer], urgent care, hospital, or fpc...) When possible be specific @ -No Did you speak to anyone other than the patient for history (EMS, parent, family, police, friend...)? What history was obtained from this source @ -No Did you review nursing and triage notes (agree or disagree)? Why? @ -I reviewed and agree with nursing and triage notes Were old charts reviewed (outside hosp., previous admission, EMS record, old EKG, old radiological studies, urgent care reports/EKG's, fpc records)? Report findings @ -No old charts were reviewed Differential Diagnosis (chest pain, altered mental status, abdominal pain women, abdominal pain men, vaginal bleeding, weakness, fever, dyspnea, syncope, headache, dizziness, GI bleed, back pain, seizure, CVA, palpatations, mental health, musculoskeletal)? @ -Hyperglycemia, DKA, nausea vomiting, dehydration, UTI EKG interpreted by me (3pts min.). @ -As above X-rays interpreted by me (1pt min.). @ -None done CT interpreted by me (1pt min.). @ -None done U/S interpreted by me (1pt. min.). @ -None done What testing was considered but not performed or refused? (CT, X-rays, U/S, labs)? Why? @ -None What meds were considered but not given or refused? Why? @ -None Did you discuss the management of the patient with other professionals (professionals i.e. , PA, [employer], lab, RT, psych nurse, socially responsible investment adviser, social insurance analyst, teacher, chief executive officer, comp field case manager)? Give summary @ -No Was smoking cessation discussed for >3mins.? @ -No Was critical care preformed (if so, how long)? @ -No Were there social determinants of health that impacted care today? How? (Homelessness, low income, unemployed, alcoholism, drug addiction, transportation, low edu. Level, literacy, decrease access to med. care, skilled nursing, rehab)? @ -No Was there de-escalation of care discussed even if they declined (Discuss DNR or withdrawal of care, Hospice)? DNR status @ -No What co-morbidities impacted this encounter? (DM, HTN, Smoking, COPD, CAD, Cancer, CVA, ARF, Chemo, Hep., AIDS, mental health diagnosis, sleep apnea, morbid obesity)? @ -Diabetes Was patient admitted / discharged? Hospital course, mention meds given and route, prescriptions, significant lab abnormalities, going to OR and other pertinent info. @ -Discharge patient feels great improved with IV fluids antiemetics. Patient is not currently acidotic, patient has minimal hyperglycemia she was updated on her results and feels comfortable with discharge she states that she will check her blood sugar using glucometer as her Dexcom is not currently working Undiagnosed new problem with uncertain prognosis? @ -No Drug Therapy requiring intensive monitoring for toxicity (Heparin, Nitro, Insulin, Cardizem)? @ -No Were any procedures done? @ -No Diagnosis/symptom? @ -Hyperglycemia Acute, or Chronic, or Acute on Chronic? @ -Acute Uncomplicated (without systemic symptoms) or Complicated (systemic symptoms)? @ -Complicated Side effects of treatment? @ -No Exacerbation, Progression, or Severe Exacerbation? @ -No Poses a threat to life or bodily function? How? (Chest pain, USA, DC, pneumonia, PE, COPD, DKA, ARF, appy, cholecystitis, CVA, Diverticulitis, Homicidal, Suicidal, threat to staff... and all critical care pts) @ -No - Lab Data Result diagrams: 11/28/23 13:42 11/28/23 13:42 Lab Results 11/28/23 11/28/23 11/28/23 Range/Units 13:07 13:42 13:42 WBC 7.5 (3.8-10.6) k/uL RBC 4.55 (3.80-5.40) m/uL Hgb 12.9 (11.4-16.0) gm/dL Hct 38.8 (34.0-46.0) % MCV 85.4 (80.0-100.0) fL MCH 28.4 (25.0-35.0) pg MCHC 33.3 (31.0-37.0) g/dL RDW 12.7 (11.5-15.5) % Plt Count 325 (150-450) k/uL MPV 8.3 Neutrophils % 68 % Lymphocytes % 24 % Monocytes % 4 % Eosinophils % 2 % Basophils % 1 % Neutrophils # 5.1 (1.3-7.7) k/uL Lymphocytes # 1.8 (1.0-4.8) k/uL Monocytes # 0.3 (0-1.0) k/uL Eosinophils # 0.2 (0-0.7) k/uL Basophils # 0.1 (0-0.2) k/uL VBG pH (7.31-7.41) VBG pCO2 (37-51) mmHg VBG HCO3 (24-28) mmol/L Sodium 133 L (137-145) mmol/L Potassium 4.3 (3.5-5.1) mmol/L Chloride 99 (98-107) mmol/L Carbon Dioxide 26 (22-30) mmol/L Anion Gap 8 mmol/L BUN 25 H (7-17) mg/dL Creatinine 0.79 (0.52-1.04) mg/dL Est GFR (CKD-EPI)AfAm >90 (>60 ml/min/1.73 sqM) Est GFR (CKD-EPI)NonAf >90 (>60 ml/min/1.73 sqM) Glucose 243 H (74-99) mg/dL POC Glucose (mg/dL) 242 H (70-110) mg/dL POC Glu Airline Pilot ID Linden, Jaret Plasma Lactic Acid Leroy (0.7-2.0) mmol/L Calcium 10.5 H (8.4-10.2) mg/dL Magnesium 2.0 (1.6-2.3) mg/dL Total Bilirubin 1.9 H (0.2-1.3) mg/dL AST 25 (14-36) U/L ALT 14 (4-34) U/L Alkaline Phosphatase 105 (38-126) U/L Total Protein 7.9 (6.3-8.2) g/dL Albumin 4.5 (3.5-5.0) g/dL Lipase 59 (23-300) U/L Urine Color Urine Appearance (Clear) Urine pH (5.0-8.0) Ur Specific [place] (1.001-1.035) Urine Protein (Negative) Urine Glucose (UA) (Negative) Urine Ketones (Negative) Urine Blood (Negative) Urine Nitrite (Negative) Urine Bilirubin (Negative) Urine Urobilinogen (<2.0) mg/dL Ur Leukocyte Esterase (Negative) Urine RBC (0-5) /hpf Urine WBC (0-5) /hpf Ur Squamous Epith Cells (0-4) /hpf Urine Bacteria (None) /hpf Hyaline Casts (0-2) /lpf Urine Mucus (None) /hpf 08/26/24 08/26/24 08/26/24 Range/Units 13:42 13:42 14:45 WBC (3.8-10.6) k/uL RBC (3.80-5.40) m/uL Hgb (11.4-16.0) gm/dL Hct (34.0-46.0) % MCV (80.0-100.0) fL MCH (25.0-35.0) pg MCHC (31.0-37.0) g/dL RDW (11.5-15.5) % Plt Count (150-450) k/uL MPV Neutrophils % % Lymphocytes % % Monocytes % % Eosinophils % % Basophils % % Neutrophils # (1.3-7.7) k/uL Lymphocytes # (1.0-4.8) k/uL Monocytes # (0-1.0) k/uL Eosinophils # (0-0.7) k/uL Basophils # (0-0.2) k/uL VBG pH 7.40 (7.31-7.41) VBG pCO2 45 (37-51) mmHg VBG HCO3 28 (24-28) mmol/L Sodium (137-145) mmol/L Potassium (3.5-5.1) mmol/L Chloride (98-107) mmol/L Carbon Dioxide (22-30) mmol/L Anion Gap mmol/L BUN (7-17) mg/dL Creatinine (0.52-1.04) mg/dL Est GFR (CKD-EPI)AfAm (>60 ml/min/1.73 sqM) Est GFR (CKD-EPI)NonAf (>60 ml/min/1.73 sqM) Glucose (74-99) mg/dL POC Glucose (mg/dL) (70-110) mg/dL POC Glu Airline Pilot ID Plasma Lactic Acid Leroy 1.9 (0.7-2.0) mmol/L Calcium (8.4-10.2) mg/dL Magnesium (1.6-2.3) mg/dL Total Bilirubin (0.2-1.3) mg/dL AST (14-36) U/L ALT (4-34) U/L Alkaline Phosphatase (38-126) U/L Total Protein (6.3-8.2) g/dL Albumin (3.5-5.0) g/dL Lipase (23-300) U/L Urine Color Yellow Urine Appearance Clear (Clear) Urine pH 6.0 (5.0-8.0) Ur Specific [place] 1.021 (1.001-1.035) Urine Protein 3+ H (Negative) Urine Glucose (UA) 4+ H (Negative) Urine Ketones Negative (Negative) Urine Blood Small H (Negative) Urine Nitrite Negative (Negative) Urine Bilirubin Negative (Negative) Urine Urobilinogen <2.0 (<2.0) mg/dL Ur Leukocyte Esterase Negative (Negative) Urine RBC 6 H (0-5) /hpf Urine WBC 7 H (0-5) /hpf Ur Squamous Epith Cells 3 (0-4) /hpf Urine Bacteria Rare H (None) /hpf Hyaline Casts 96 H (0-2) /lpf Urine Mucus Few H (None) /hpf Disposition Clinical Impression: Hyperglycemia, Abdominal pain Disposition: HOME SELF-CARE Condition: Stable Instructions (If sedation given, give patient instructions): Abdominal Pain (ED) Additional Instructions: Please return to the Emergency Department if symptoms worsen or any other concerns. Is patient prescribed a controlled substance at d/c from ED?: No Referrals: Nelson Doran DO [Primary Care Provider] - 1-2 days Time of Disposition: 14:55
[2023-11-28 14:34] LABS: ALT 14 U/L (4-34); AST 25 U/L (14-36); African American GFR (CKD) >90 (>60 ml/min/1.73 sqM); Albumin 4.5 g/dL (3.5-5.0); Alkaline Phosphatase 105 U/L (38-126); Anion Gap 8 mmol/L; Blood Urea Nitrogen 25 mg/dL (7-17); Calcium 10.5 mg/dL (8.4-10.2); Carbon Dioxide 26 mmol/L (22-30); Chloride 99 mmol/L (98-107); Glucose 243 mg/dL (74-99); Lipase 59 U/L (23-300); Non-African American GFR(CKD) >90 (>60 ml/min/1.73 sqM); Potassium 4.3 mmol/L (3.5-5.1); Sodium 133 mmol/L (137-145); Total Bilirubin 1.9 mg/dL (0.2-1.3); Total Protein 7.9 g/dL (6.3-8.2)
[2023-11-28 15:10] LABS: Appearance,Urine Clear (Clear); Bacteria,Urine Rare /hpf; Bilirubin,Urine Negative (Negative); Blood,Urine Small (Negative); Color,Urine Yellow; Glucose,Urine (UA) 4+ (Negative); Hyaline Casts,Urine 96 /lpf (0-2); Ketones,Urine Negative (Negative); Leukocyte Esterase,Urine Negative (Negative); Mucus,Urine Few /hpf; Nitrite,Urine Negative (Negative); Protein,Urine 3+ (Negative); RBC,Urine 6 /hpf (0-5); Specific Gravity,Urine 1.021 (1.001-1.035); Squamous Epithelial Cell,Urine 3 /hpf (0-4); Urobilinogen,Urine <2.0 mg/dL (<2.0); WBC,Urine 7 /hpf (0-5)
[2023-11-28 16:06] VITALS: BP 157/95; PULSE 105; RESP 17; TEMP 97.8
== END 2023-11-28 16:08 | disposition home or self-care (01) ==
LOC: EC 13:03
DX: E11.65 Type 2 diabetes mellitus with hyperglycemia (principal); R10.9 Unspecified abdominal pain; F17.200 Nicotine dependence, unspecified, uncomplicated; Z79.4 Long term (current) use of insulin; Z88.8 Allergy status to other drugs, medicaments and biological substances; Z91.040 Latex allergy status; Z91.09 Other allergy status, other than to drugs and biological substances
CPT/HCPCS: 36415; 93005; 80053; 82803; 82009; 83605; 83690; 83735; 85025; 81001; 81025; 99284; 96374; 96361 ×2; J2405

== ENCOUNTER 2023-12-29 13:30 | Emergency (ER) | payer BC, OTHER ==
[2023-12-29 13:37] VITALS: RESP 18; TEMP 98.1
[2023-12-29 13:37] LABS: Glucose,Whole Blood 570 mg/dL (70-110)
[2023-12-29] MEDS: SODIUM CHLORIDE 0.9% 2,000 ML IV STA (13:57)
[2023-12-29 14:18] LABS: Basophils % (A) 0 %; Eosinophils # (A) 0.1 k/uL (0-0.7); Eosinophils % (A) 2 %; HGB 10.9 gm/dL (11.4-16.0); Lymphocytes # (A) 1.5 k/uL (1.0-4.8); Lymphocytes % (A) 19 %; Mean Platelet Volume 8.6; Monocytes # (A) 0.2 k/uL (0-1.0); Monocytes % (A) 3 %; Neutrophils # (A) 5.9 k/uL (1.3-7.7); Neutrophils % (A) 75 %; Platelet Count 290 k/uL (150-450); RBC 3.64 m/uL (3.80-5.40); RDW 14.2 % (11.5-15.5); WBC 7.9 k/uL (3.8-10.6)
[2023-12-29 14:19] LABS: MCV 90.8 fL (80.0-100.0)
[2023-12-29 14:20] LABS: Appearance,Urine Clear (Clear); Bacteria,Urine Rare /hpf; Bilirubin,Urine Negative (Negative); Blood,Urine Trace (Negative); Color,Urine Colorless; Glucose,Urine (UA) 4+ (Negative); Hyaline Casts,Urine 2 /lpf (0-2); Ketones,Urine Negative (Negative); Leukocyte Esterase,Urine Negative (Negative); Mucus,Urine Rare /hpf; Nitrite,Urine Negative (Negative); PH, Urine 5.5 (5.0-8.0); Protein,Urine 1+ (Negative); RBC,Urine 2 /hpf (0-5); Specific Gravity,Urine 1.021 (1.001-1.035); Squamous Epithelial Cell,Urine 5 /hpf (0-4); Urobilinogen,Urine <2.0 mg/dL (<2.0); WBC,Urine <1 /hpf (0-5)
[2023-12-29 14:21] LABS: ALT 12 U/L (4-34); AST 29 U/L (14-36); African American GFR (CKD) >90 (>60 ml/min/1.73 sqM); Albumin 4.1 g/dL (3.5-5.0); Alkaline Phosphatase 95 U/L (38-126); Anion Gap 7 mmol/L; Blood Urea Nitrogen 28 mg/dL (7-17); Calcium 9.6 mg/dL (8.4-10.2); Carbon Dioxide 20 mmol/L (22-30); Chloride 102 mmol/L (98-107); Lipase 51 U/L (23-300); Magnesium 1.6 mg/dL (1.6-2.3); Non-African American GFR(CKD) >90 (>60 ml/min/1.73 sqM); Phosphorus 5.3 mg/dL (2.5-4.5); Potassium 5.5 mmol/L (3.5-5.1); Sodium 129 mmol/L (137-145); Total Protein 6.9 g/dL (6.3-8.2); VBG PH 7.38 (7.31-7.41)
[2023-12-29 14:25] LABS: Glucose 563 mg/dL (74-99)
--- NOTE | 2023-12-29 14:54 | ED ---
General Adult HPI - General Chief complaint: Recheck/Abnormal Lab/Rx Stated complaint: Dizziness,Diabetic issue Time Seen by Provider: 12/29/23 13:31 Source: patient, RN notes reviewed Mode of arrival: ambulatory Limitations: no limitations - History of Present Illness Initial comments: 23-year-old female presents emergency department complaint of hyperglycemia. Patient states concern she is in DKA. Patient states she has multiple issues with her blood sugar in the past states that she took some insulin earlier dropped really low and then spiked up. She denies any fevers chills cough like symptoms she does admit to nausea patient states she is scheduled see a new PCP tomorrow. Patient denies any chest pain shortness of breath - Related Data Home Medications Medication Instructions Recorded Confirmed Omeprazole [PriLOSEC] 20 mg PO DAILY 07/11/23 12/29/23 Sertraline [Zoloft] 25 mg PO DAILY 07/11/23 12/29/23 amLODIPine [Norvasc] 5 mg PO DAILY 07/11/23 12/29/23 lisinopriL [Zestril] 10 mg PO DAILY 07/11/23 12/29/23 Insulin Aspart [NovoLOG Flexpen] See Protocol SQ ACHS 11/28/23 12/29/23 Insulin Glargine,Hum.rec.anlog 20 units SQ HS 11/28/23 12/29/23 [Lantus Solostar Pen] Previous Rx's Medication Instructions Recorded Ondansetron Odt [Zofran ODT] 4 mg PO Q8HR PRN #14 tab 09/06/23 Allergies Allergy/AdvReac Type Severity Reaction Status Date / Time adhesive tape Allergy Rash/Hives Verified 12/29/23 14:03 latex Allergy Rash/Hives Verified 12/29/23 14:03 metoclopramide [From Reglan] AdvReac Anxiety Verified 12/29/23 14:03 attack Review of Systems ROS Statement: Those systems with pertinent positive or pertinent negative responses have been documented in the HPI. ROS Other: All systems not noted in ROS Statement are negative. Past Medical History Past Medical History: Diabetes Mellitus, GERD/Reflux, Hypertension Additional Past Medical History / Comment(s): migraine History of Any Multi-Drug Resistant Organisms: None Reported Past Surgical History: Cholecystectomy Additional Past Surgical History / Comment(s): right knee surgery Past Anesthesia/Blood Transfusion Reactions: No Reported Reaction Past Psychological History: Anxiety, Depression, No Psychological Hx Reported Smoking Status: Current every day smoker Past Alcohol Use History: None Reported Past Drug Use History: Marijuana - Past Family History Father Family Medical History: Myocardial Infarction (MT) Additional Family Medical History / Comment(s): father at 30 years old Sister(s) Family Medical History: Thyroid Disorder Brother(s) Family Medical History: Asthma Mother Family Medical History: No Reported History General Exam Limitations: no limitations General appearance: alert, in no apparent distress Head exam: Present: atraumatic, normocephalic, normal inspection Eye exam: Present: normal appearance, PERRL, EOMI. Absent: scleral icterus, conjunctival injection, periorbital swelling ENT exam: Present: normal exam, normal oropharynx, mucous membranes moist Neck exam: Present: normal inspection. Absent: tenderness, meningismus, lymphad enopathy Respiratory exam: Present: normal lung sounds bilaterally. Absent: respiratory distress, wheezes, rales, rhonchi, stridor Cardiovascular Exam: Present: normal rhythm, tachycardia, normal heart sounds. Absent: systolic murmur, diastolic murmur, rubs, gallop, clicks GI/Abdominal exam: Present: soft, normal bowel sounds. Absent: distended, tenderness, guarding, rebound, rigid Course Vital Signs 12/29/23 13:33 Temperature 98.1 F Pulse Rate 118 H Respiratory 18 Rate Blood Pressure 162/100 O2 Sat by Pulse 97 Oximetry EKG Findings - EKG Comments: EKG Findings:: EKG performed at 14: 16 sinus tachycardia rate of 100 FL 143 QRS 101, QT/QTc 363/419 - EKG Results: EKG: interpreted by ERMD Procedures - [place] Protocol (Time Out) Nurse: Christelle Wan Medical Decision Making - Medical Decision Making Was pt. sent in by a medical professional or institution (, PA, PAD MACHINE OPERATOR, urgent care, hospital, or long-term...) When possible be specific @ -No Did you speak to anyone other than the patient for history (EMS, parent, family, police, friend...)? What history was obtained from this source @ -No Did you review nursing and triage notes (agree or disagree)? Why? @ -I reviewed and agree with nursing and triage notes Were old charts reviewed (outside hosp., previous admission, EMS record, old EKG, old radiological studies, urgent care reports/EKG's, long-term records)? Report findings @ -No old charts were reviewed Differential Diagnosis (chest pain, altered mental status, abdominal pain women, abdominal pain men, vaginal bleeding, weakness, fever, dyspnea, syncope, headache, dizziness, GI bleed, back pain, seizure, CVA, palpatations, mental health, musculoskeletal)? @ --DKA, nausea vomiting hyperglycemia EKG interpreted by me (3pts min.). @ -As above X-rays interpreted by me (1pt min.). @ -None done CT interpreted by me (1pt min.). @ -None done U/S interpreted by me (1pt. min.). @ -None done What testing was considered but not performed or refused? (CT, X-rays, U/S, labs)? Why? @ -None What meds were considered but not given or refused? Why? @ -None Did you discuss the management of the patient with other professionals (professionals i.e. , PA, PAD MACHINE OPERATOR, lab, RT, psych nurse, social welfare administrator, errand runner, teacher, chairman & chief executive officer, classification case manager)? Give summary @ -No Was smoking cessation discussed for >3mins.? @ -No Was critical care preformed (if so, how long)? @ -No Were there social determinants of health that impacted care today? How? (Homelessness, low income, unemployed, alcoholism, drug addiction, transportation, low edu. Level, literacy, decrease access to med. care, care home, rehab)? @ -No Was there de-escalation of care discussed even if they declined (Discuss DNR or withdrawal of care, Hospice)? DNR status @ -No What co-morbidities impacted this encounter? (DM, HTN, Smoking, COPD, CAD, Canc er, CVA, ARF, Chemo, Hep., AIDS, mental health diagnosis, sleep apnea, morbid obesity)? @ -Diabetes Was patient admitted / discharged? Hospital course, mention meds given and route, prescriptions, significant lab abnormalities, going to OR and other pertinent info. @ -Discharged patient does not have significant anion gap, mild acidosis. Patient was given 2 and half liter bolus, insulin patient states he feels greatly improved we discussed more insulin but patient states she prefers to monitor closely at home. Patient discharged in stable condition. Undiagnosed new problem with uncertain prognosis? @ -No Drug Therapy requiring intensive monitoring for toxicity (Heparin, Nitro, Insulin, Cardizem)? @ -No Were any procedures done? @ -No Diagnosis @ -hyperglycemia Acute, or Chronic, or Acute on Chronic? @ -Acute Uncomplicated (without systemic symptoms) or Complicated (systemic symptoms)? @ -Complicated Side effects of treatment? @ -No Exacerbation, Progression, or Severe Exacerbation? @ -No Poses a threat to life or bodily function? How? (Chest pain, [place], MT, pneumonia, PE, COPD, DKA, ARF, appy, cholecystitis, CVA, Diverticulitis, Homicidal, Suicidal, threat to staff... and all critical care pts) @ -Yes DKA - Lab Data Result diagrams: 12/29/23 14:02 12/29/23 14:02 Lab Results 12/29/23 12/29/23 12/29/23 Range/Units 13:35 14:02 14:02 WBC 7.9 (3.8-10.6) k/uL RBC 3.64 L (3.80-5.40) m/uL Hgb 10.9 L (11.4-16.0) gm/dL Hct 33.0 L (34.0-46.0) % MCV 90.8 D (80.0-100.0) fL MCH 30.0 (25.0-35.0) pg MCHC 33.0 (31.0-37.0) g/dL RDW 14.2 (11.5-15.5) % Plt Count 290 (150-450) k/uL MPV 8.6 Neutrophils % 75 % Lymphocytes % 19 % Monocytes % 3 % Eosinophils % 2 % Basophils % 0 % Neutrophils # 5.9 (1.3-7.7) k/uL Lymphocytes # 1.5 (1.0-4.8) k/uL Monocytes # 0.2 (0-1.0) k/uL Eosinophils # 0.1 (0-0.7) k/uL Basophils # 0.0 (0-0.2) k/uL VBG pH (7.31-7.41) VBG pCO2 (37-51) mmHg VBG HCO3 (24-28) mmol/L Sodium (137-145) mmol/L Potassium (3.5-5.1) mmol/L Chloride (98-107) mmol/L Carbon Dioxide (22-30) mmol/L Anion Gap mmol/L BUN (7-17) mg/dL Creatinine (0.52-1.04) mg/dL Est GFR (CKD-EPI)AfAm (>60 ml/min/1.73 sqM) Est GFR (CKD-EPI)NonAf (>60 ml/min/1.73 sqM) Glucose (74-99) mg/dL POC Glucose (mg/dL) 570 H* (70-110) mg/dL POC Glu Internet Webmaster ID Camelia Nugent Plasma Lactic Acid Leroy (0.7-2.0) mmol/L Calcium (8.4-10.2) mg/dL Phosphorus (2.5-4.5) mg/dL Magnesium (1.6-2.3) mg/dL Total Bilirubin (0.2-1.3) mg/dL AST (14-36) U/L ALT (4-34) U/L Alkaline Phosphatase (38-126) U/L Total Protein (6.3-8.2) g/dL Albumin (3.5-5.0) g/dL Lipase (23-300) U/L Urine Color Colorless Urine Appearance Clear (Clear) Urine pH 5.5 (5.0-8.0) Ur Specific [place] 1.021 (1.001-1.035) Urine Protein 1+ H (Negative) Urine Glucose (UA) 4+ H (Negative) Urine Ketones Negative (Negative) Urine Blood Trace H (Negative) Urine Nitrite Negative (Negative) Urine Bilirubin Negative (Negative) Urine Urobilinogen <2.0 (<2.0) mg/dL Ur Leukocyte Esterase Negative (Negative) Urine RBC 2 (0-5) /hpf Urine WBC <1 (0-5) /hpf Ur Squamous Epith Cells 5 H (0-4) /hpf Urine Bacteria Rare H (None) /hpf Hyaline Casts 2 (0-2) /lpf Urine Mucus Rare H (None) /hpf Urine HCG, Qual (Not Detectd) 12/29/23 12/29/23 12/29/23 Range/Units 14:02 14:02 14:02 WBC (3.8-10.6) k/uL RBC (3.80-5.40) m/uL Hgb (11.4-16.0) gm/dL Hct (34.0-46.0) % MCV (80.0-100.0) fL MCH (25.0-35.0) pg MCHC (31.0-37.0) g/dL RDW (11.5-15.5) % Plt Count (150-450) k/uL MPV Neutrophils % % Lymphocytes % % Monocytes % % Eosinophils % % Basophils % % Neutrophils # (1.3-7.7) k/uL Lymphocytes # (1.0-4.8) k/uL Monocytes # (0-1.0) k/uL Eosinophils # (0-0.7) k/uL Basophils # (0-0.2) k/uL VBG pH (7.31-7.41) VBG pCO2 (37-51) mmHg VBG HCO3 (24-28) mmol/L Sodium 129 L (137-145) mmol/L Potassium 5.5 H (3.5-5.1) mmol/L Chloride 102 (98-107) mmol/L Carbon Dioxide 20 L (22-30) mmol/L Anion Gap 7 mmol/L BUN 28 H (7-17) mg/dL Creatinine 0.82 (0.52-1.04) mg/dL Est GFR (CKD-EPI)AfAm >90 (>60 ml/min/1.73 sqM) Est GFR (CKD-EPI)NonAf >90 (>60 ml/min/1.73 sqM) Glucose 563 H* (74-99) mg/dL POC Glucose (mg/dL) (70-110) mg/dL POC Glu Internet Webmaster ID Plasma Lactic Acid Leroy 1.1 (0.7-2.0) mmol/L Calcium 9.6 (8.4-10.2) mg/dL Phosphorus 5.3 H (2.5-4.5) mg/dL Magnesium 1.6 (1.6-2.3) mg/dL Total Bilirubin 1.0 (0.2-1.3) mg/dL AST 29 (14-36) U/L ALT 12 (4-34) U/L Alkaline Phosphatase 95 (38-126) U/L Total Protein 6.9 (6.3-8.2) g/dL Albumin 4.1 (3.5-5.0) g/dL Lipase 51 (23-300) U/L Urine Color Urine Appearance (Clear) Urine pH (5.0-8.0) Ur Specific [place] (1.001-1.035) Urine Protein (Negative) Urine Glucose (UA) (Negative) Urine Ketones (Negative) Urine Blood (Negative) Urine Nitrite (Negative) Urine Bilirubin (Negative) Urine Urobilinogen (<2.0) mg/dL Ur Leukocyte Esterase (Negative) Urine RBC (0-5) /hpf Urine WBC (0-5) /hpf Ur Squamous Epith Cells (0-4) /hpf Urine Bacteria (None) /hpf Hyaline Casts (0-2) /lpf Urine Mucus (None) /hpf Urine HCG, Qual Not Detected (Not Detectd) 12/29/23 12/29/23 Range/Units 14:02 16:03 WBC (3.8-10.6) k/uL RBC (3.80-5.40) m/uL Hgb (11.4-16.0) gm/dL Hct (34.0-46.0) % MCV (80.0-100.0) fL MCH (25.0-35.0) pg MCHC (31.0-37.0) g/dL RDW (11.5-15.5) % Plt Count (150-450) k/uL MPV Neutrophils % % Lymphocytes % % Monocytes % % Eosinophils % % Basophils % % Neutrophils # (1.3-7.7) k/uL Lymphocytes # (1.0-4.8) k/uL Monocytes # (0-1.0) k/uL Eosinophils # (0-0.7) k/uL Basophils # (0-0.2) k/uL VBG pH 7.38 (7.31-7.41) VBG pCO2 40 (37-51) mmHg VBG HCO3 23 L (24-28) mmol/L Sodium (137-145) mmol/L Potassium (3.5-5.1) mmol/L Chloride (98-107) mmol/L Carbon Dioxide (22-30) mmol/L Anion Gap mmol/L BUN (7-17) mg/dL Creatinine (0.52-1.04) mg/dL Est GFR (CKD-EPI)AfAm (>60 ml/min/1.73 sqM) Est GFR (CKD-EPI)NonAf (>60 ml/min/1.73 sqM) Glucose (74-99) mg/dL POC Glucose (mg/dL) 384 H (70-110) mg/dL POC Glu Internet Webmaster ID Jenna Castro Plasma Lactic Acid [place] (0.7-2.0) mmol/L Calcium (8.4-10.2) mg/dL Phosphorus (2.5-4.5) mg/dL Magnesium (1.6-2.3) mg/dL Total Bilirubin (0.2-1.3) mg/dL AST (14-36) U/L ALT (4-34) U/L Alkaline Phosphatase (38-126) U/L Total Protein (6.3-8.2) g/dL Albumin (3.5-5.0) g/dL Lipase (23-300) U/L Urine Color Urine Appearance (Clear) Urine pH (5.0-8.0) Ur Specific [place] (1.001-1.035) Urine Protein (Negative) Urine Glucose (UA) (Negative) Urine Ketones (Negative) Urine Blood (Negative) Urine Nitrite (Negative) Urine Bilirubin (Negative) Urine Urobilinogen (<2.0) mg/dL Ur Leukocyte Esterase (Negative) Urine RBC (0-5) /hpf Urine WBC (0-5) /hpf Ur Squamous Epith Cells (0-4) /hpf Urine Bacteria (None) /hpf Hyaline Casts (0-2) /lpf Urine Mucus (None) /hpf Urine HCG, Qual (Not Detectd) Disposition Clinical Impression: Hyperglycemia Disposition: HOME SELF-CARE Condition: Stable Instructions (If sedation given, give patient instructions): Diabetic Hyperglycemia (ED) Additional Instructions: Please return to the Emergency Department if symptoms worsen or any other concerns. Is patient prescribed a controlled substance at d/c from ED?: No Referrals: None,Stated [Primary Care Provider] - 1-2 days Time of Disposition: 16:06
[2023-12-29] MEDS: INSULIN REGULAR 100 UNIT/ML VIAL (IV) IV ONE (15:34)
[2023-12-29] MEDS: SODIUM CHLORIDE 0.9% 500 ML 500 ML IV ONE (15:52)
[2023-12-29 16:04] LABS: Glucose,Whole Blood 384 mg/dL (70-110)
[2023-12-29 16:36] VITALS: BP 161/109; PULSE 101
== END 2023-12-29 16:36 | disposition home or self-care (01) ==
LOC: EC 13:30
CPT/HCPCS: 36415; 80053; 81001; 81025; 82803; 83605; 83690; 83735; 84100; 85025; 93005; 96360; 96361; 99284

== ENCOUNTER 2024-01-17 17:30 | Inpatient (IN) | payer BC, OTHER ==
--- NOTE | 2024-01-17 17:48 | ED ---
Nausea/Vomiting/Diarrhea HPI - General Chief complaint: Nausea/Vomiting/Diarrhea Stated complaint: N/V/D Time Seen by Provider: 01/17/24 17:46 Source: patient, RN notes reviewed Mode of arrival: ambulatory Limitations: no limitations - History of Present Illness Initial comments: 23-year-old female related to the ER with a chief complaint of nausea and v omiting. Patient is a known type I diabetic and takes Lantus and NovoLog. She states for the past day she has been unable to keep anything down With persistent nausea and vomiting. She believes she is in DKA. She has tried Zofran but immediately threw it up. Patient reports epigastric abdominal pain as well. No diarrhea or constipation. Patient does report chills but has not taken her temperature. Patient states 1 hour prior to arrival she started to experience sharp chest pain. Denies any shortness of breath, dizziness or lightheadedness. Denies any cough, congestion, sore throat, urinary complaints or peripheral edema. - Related Data Home Medications Medication Instructions Recorded Confirmed Omeprazole [PriLOSEC] 20 mg PO DAILY 07/11/23 01/17/24 amLODIPine [Norvasc] 5 mg PO DAILY 07/11/23 01/17/24 lisinopriL [Zestril] 10 mg PO DAILY 07/11/23 01/17/24 Insulin Aspart [NovoLOG Flexpen] See Protocol SQ ACHS 11/28/23 01/17/24 Insulin Glargine,Hum.rec.anlog 20 units SQ HS 11/28/23 01/17/24 [Lantus Solostar Pen] Amoxic-Pot Clav 875-125Mg 1 tab PO DIRECTED 01/17/24 01/17/24 [Augmentin 875-125] FLUoxetine HCL [PROzac] 20 mg PO DAILY 01/17/24 01/17/24 Ondansetron Odt [Zofran Odt] 8 mg PO DAILY PRN 01/17/24 01/17/24 Allergies Allergy/AdvReac Type Severity Reaction Status Date / Time adhesive tape Allergy Rash/Hives Verified 01/17/24 18:13 latex Allergy Rash/Hives Verified 01/17/24 18:13 metoclopramide [From Reglan] AdvReac Anxiety Verified 01/17/24 18:13 attack Review of Systems ROS Statement: Those systems with pertinent positive or pertinent negative responses have been documented in the HPI. ROS Other: All systems not noted in ROS Statement are negative. Past Medical History Past Medical History: Diabetes Mellitus, GERD/Reflux, Hypertension Additional Past Medical History / Comment(s): migraine History of Any Multi-Drug Resistant Organisms: None Reported Past Surgical History: Cholecystectomy Additional Past Surgical History / Comment(s): right knee surgery Past Anesthesia/Blood Transfusion Reactions: No Reported Reaction Past Psychological History: Anxiety, Depression, No Psychological Hx Reported Smoking Status: Current every day smoker, Vaper Past Alcohol Use History: None Reported Past Drug Use History: Marijuana - Past Family History Father Family Medical History: Myocardial Infarction ([place]) Additional Family Medical History / Comment(s): father at 30 years old Sister(s) Family Medical History: Thyroid Disorder Brother(s) Family Medical History: Asthma Mother Family Medical History: No Reported History General Exam Limitations: no limitations General appearance: alert, in no apparent distress (actively vomiting) Respiratory exam: Present: normal lung sounds bilaterally. Absent: respiratory distress, wheezes, rales, rhonchi, stridor Cardiovascular Exam: Present: normal rhythm, tachycardia, normal heart sounds GI/Abdominal exam: Present: soft, normal bowel sounds. Absent: distended, tenderness, guarding, rebound, rigid Extremities exam: Present: normal inspection, full ROM, normal capillary refill. Absent: tenderness, pedal edema, joint swelling, calf tenderness Neurological exam: Present: alert, oriented X3, CN II-XII intact Skin exam: Present: warm, dry, intact, normal color. Absent: rash Course Vital Signs 01/17/24 01/17/24 01/17/24 17:33 17:55 20:00 Temperature 97.3 F L 98.1 F Pulse Rate 120 H 130 H 130 H Respiratory 22 18 20 Rate Blood Pressure 80/54 104/55 114/60 O2 Sat by Pulse 100 100 100 Oximetry 01/17/24 01/17/24 21:00 22:00 Temperature Pulse Rate 142 H 142 H Respiratory 20 20 Rate Blood Pressure 149/85 138/76 O2 Sat by Pulse 98 98 Oximetry - Reevaluation(s) Reevaluation #1: 01/17/24 20:[address] Shore for admission. 01/17/24 20:[address] Cr for ICU admission. Medical Decision Making - Medical Decision Making Was pt. sent in by a medical professional or institution (, CAROLE, SURGICAL GARMENT INSPECTOR, urgent care, hospital, or skilled nursing...) When possible be specific @ -No Did you speak to anyone other than the patient for history (EMS, parent, family, police, friend...)? What history was obtained from this source @ -Significant other, at bedside, aiding in HPI and past medical history as patient is vomiting. Did you review nursing and triage notes (agree or disagree)? Why? @ -I reviewed and agree with nursing and triage notes Were old charts reviewed (outside hosp., previous admission, EMS record, old EKG, old radiological studies, urgent care reports/EKG's, skilled nursing records)? Report findings @ -No old charts were reviewed Differential Diagnosis (chest pain, altered mental status, abdominal pain women, abdominal pain men, vaginal bleeding, weakness, fever, dyspnea, syncope, headache, dizziness, GI bleed, back pain, seizure, CVA, palpatations, mental health, musculoskeletal)? @ -[Differential Abdominal Pain Women:Appendicitis, Cholecystitis, diverticulosis, ischemic bowel, pancreatitis, hepatitis, UTI, gastroenteritis, AAA, incarcerated hernia, bowel obstruction, constipation, inflammatory bowel, hepatitis, peptic ulcer disease, splenic infarction, perforated viscus, vulvitis, ovarian torsion, PID, kidney stone, placenta abruption, this is not meant to be an all-inclusive list EKG interpreted by me (3pts min.). @ -As above X-rays interpreted by me (1pt min.). @ -[Chest x-ray interpreted by me negative for acute cardiopulmonary process. CT interpreted by me (1pt min.). @ -None done U/S interpreted by me (1pt. min.). @ -None done What testing was considered but not performed or refused? (CT, X-rays, U/S, labs)? Why? @ -Cephid and strep were refused by patient. What meds were considered but not given or refused? Why? @ -None Did you discuss the management of the patient with other professionals (professionals i.e. , CAROLE, SURGICAL GARMENT INSPECTOR, lab, RT, psych nurse, social welfare administrator, furnace cooler, teacher, investment officer, watch case polisher)? Give summary @ -Yes, case discussed with Dr. Shore for admission. Case was also discussed with Dr. Cr for ICU admission. Was smoking cessation discussed for >3mins.? @ -No Was critical care preformed (if so, how long)? @ -Yes, 35 minutes Were there social determinants of health that impacted care today? How? (Homelessness, low income, unemployed, alcoholism, drug addiction, transportation, low edu. Level, literacy, decrease access to med. care, snf, rehab)? @ -No Was there de-escalation of care discussed even if they declined (Discuss DNR or withdrawal of care, Hospice)? DNR status @ -No What co-morbidities impacted this encounter? (DM, HTN, Smoking, COPD, CAD, Cancer, CVA, ARF, Chemo, Hep., AIDS, mental health diagnosis, sleep apnea, morbid obesity)? @ -Type 1 diabetes Was patient admitted / discharged? Hospital course, mention meds given and route, prescriptions, significant lab abnormalities, going to OR and other pertinent info. @ -Admitted. 23-year-old female presented to the ER with a chief complaint of nausea and vomiting x 24 hours. Patient has a past medical history of type 1 diabetes and hypertension. History and physical exam completed. Vitals upon arrival notable for temperature 97.3, tachycardia at 120, respiratory rate 20, blood pressure 80/54, oxygen saturation 100% on room air. Patient appears ill and is actively vomiting during exam. Exam unimpressive. Laboratory studies obtained showing glucose 955, VBG pH 7.21 with a HCO3 of 9. Anion gap 35. urine showing 2+ ketones and 4+ glucose, no evidence of infection. Acetone positive. WBC 21.2 with a left shift. GFR 54, BUN 30, creatinine 1.39. Lactic of 5.4. Sodium 131, potassium 6.3, chloride 88. Troponin undetectable. EKG showing no acute evidence of infarct or ischemia. These results believed to be due to dehydration and DKA. Elevation in WBCs and lactic may be due from vomiting. Patient given 3L IV fluids and started on DKA protocol. CXR negative. No clear source of infection at time of admission. Patient refusing Cepheid and strep swabs. Admission considered and discussed with, Dr. Shore, for DKA. Case also discussed with for ICU admission. Patient agreeable for admission. Patient admitted in stable condition to ICU for further treatment. Case discussed with ED attending, Dr. Salvador. Undiagnosed new problem with uncertain prognosis? @ -No Drug Therapy requiring intensive monitoring for toxicity (Heparin, Nitro, Insulin, Cardizem)? @ -Yes, insulin Were any procedures done? @ -No Diagnosis/symptom? @ -DKA Acute, or Chronic, or Acute on Chronic? @ -Acute Uncomplicated (without systemic symptoms) or Complicated (systemic symptoms)? @ -Complicated Side effects of treatment? @ -No Exacerbation, Progression, or Severe Exacerbation? @ -No Poses a threat to life or bodily function? How? (Chest pain, [place], [place], pneumonia, PE, COPD, DKA, ARF, appy, cholecystitis, CVA, Diverticulitis, Homicidal, Suicidal, threat to staff... and all critical care pts) @ -Yes, DKA - Lab Data Result diagrams: 01/17/24 18:25 01/17/24 18:25 Lab Results 01/17/24 01/17/24 01/17/24 Range/Units 18:25 18:25 18:25 WBC 21.2 H (3.8-10.6) k/uL RBC 4.32 (3.80-5.40) m/uL Hgb 12.5 (11.4-16.0) gm/dL Hct 41.6 (34.0-46.0) % MCV 96.2 D (80.0-100.0) fL MCH 28.9 (25.0-35.0) pg MCHC 30.0 L (31.0-37.0) g/dL RDW 13.5 (11.5-15.5) % Plt Count 588 H D (150-450) k/uL MPV 8.6 Neutrophils % 93 % Lymphocytes % 3 % Monocytes % 4 % Eosinophils % 0 % Basophils % 0 % Neutrophils # 19.8 H (1.3-7.7) k/uL Lymphocytes # 0.5 L (1.0-4.8) k/uL Monocytes # 0.8 (0-1.0) k/uL Eosinophils # 0.0 (0-0.7) k/uL Basophils # 0.0 (0-0.2) k/uL Hypochromasia Marked PT (10.0-12.5) sec INR (<1.2) APTT (22.0-30.0) sec VBG pH (7.31-7.41) VBG pCO2 (37-51) mmHg VBG HCO3 (24-28) mmol/L Sodium 131 L (137-145) mmol/L Potassium 6.3 H* (3.5-5.1) mmol/L Chloride 88 L (98-107) mmol/L Carbon Dioxide 8 L* (22-30) mmol/L Anion Gap 35 mmol/L BUN 30 H (7-17) mg/dL Creatinine 1.39 H (0.52-1.04) mg/dL Est GFR (CKD-EPI)AfAm 62 (>60 ml/min/1.73 sqM) Est GFR (CKD-EPI)NonAf 54 (>60 ml/min/1.73 sqM) Glucose 955 H* (74-99) mg/dL POC Glucose (mg/dL) (70-110) mg/dL POC Glu Dispatch Associate ID Lactic Ac Sepsis Rflx Plasma Lactic Acid Leroy (0.7-2.0) mmol/L Calcium 11.0 H (8.4-10.2) mg/dL Total Bilirubin 2.0 H (0.2-1.3) mg/dL AST 30 (14-36) U/L ALT 20 (4-34) U/L Alkaline Phosphatase 162 H (38-126) U/L Troponin I <0.012 (0.000-0.034) ng/mL Total Protein 8.1 (6.3-8.2) g/dL Albumin 5.2 H (3.5-5.0) g/dL Lipase 60 (23-300) U/L Urine Color Urine Appearance (Clear) Urine pH (5.0-8.0) Ur Specific [place] (1.001-1.035) Urine Protein (Negative) Urine Glucose (UA) (Negative) Urine Ketones (Negative) Urine Blood (Negative) Urine Nitrite (Negative) Urine Bilirubin (Negative) Urine Urobilinogen (<2.0) mg/dL Ur Leukocyte Esterase (Negative) Urine WBC (0-5) /hpf Ur Squamous Epith Cells (0-4) /hpf Urine Bacteria (None) /hpf Urine HCG, Qual (Not Detectd) Acetone, Qual Positive (Negative) 01/17/24 01/17/24 01/17/24 Range/Units 18:39 18:39 18:39 WBC (3.8-10.6) k/uL RBC (3.80-5.40) m/uL Hgb (11.4-16.0) gm/dL Hct (34.0-46.0) % MCV (80.0-100.0) fL MCH (25.0-35.0) pg MCHC (31.0-37.0) g/dL RDW (11.5-15.5) % Plt Count (150-450) k/uL MPV Neutrophils % % Lymphocytes % % Monocytes % % Eosinophils % % Basophils % % Neutrophils # (1.3-7.7) k/uL Lymphocytes # (1.0-4.8) k/uL Monocytes # (0-1.0) k/uL Eosinophils # (0-0.7) k/uL Basophils # (0-0.2) k/uL Hypochromasia PT 9.8 L (10.0-12.5) sec INR 0.9 (<1.2) APTT 20.8 L (22.0-30.0) sec VBG pH (7.31-7.41) VBG pCO2 (37-51) mmHg VBG HCO3 (24-28) mmol/L Sodium (137-145) mmol/L Potassium (3.5-5.1) mmol/L Chloride (98-107) mmol/L Carbon Dioxide (22-30) mmol/L Anion Gap mmol/L BUN (7-17) mg/dL Creatinine (0.52-1.04) mg/dL Est GFR (CKD-EPI)AfAm (>60 ml/min/1.73 sqM) Est GFR (CKD-EPI)NonAf (>60 ml/min/1.73 sqM) Glucose (74-99) mg/dL POC Glucose (mg/dL) (70-110) mg/dL POC Glu Dispatch Associate ID Lactic Ac Sepsis Rflx Plasma Lactic Acid Leroy 5.4 H* (0.7-2.0) mmol/L Calcium (8.4-10.2) mg/dL Total Bilirubin (0.2-1.3) mg/dL AST (14-36) U/L ALT (4-34) U/L Alkaline Phosphatase (38-126) U/L Troponin I (0.000-0.034) ng/mL Total Protein (6.3-8.2) g/dL Albumin (3.5-5.0) g/dL Lipase (23-300) U/L Urine Color Colorless Urine Appearance Clear (Clear) Urine pH 5.5 (5.0-8.0) Ur Specific [place] 1.020 (1.001-1.035) Urine Protein 1+ H (Negative) Urine Glucose (UA) 4+ H (Negative) Urine Ketones 2+ H (Negative) Urine Blood Negative (Negative) Urine Nitrite Negative (Negative) Urine Bilirubin Negative (Negative) Urine Urobilinogen <2.0 (<2.0) mg/dL Ur Leukocyte Esterase Negative (Negative) Urine WBC <1 (0-5) /hpf Ur Squamous Epith Cells 1 (0-4) /hpf Urine Bacteria Rare H (None) /hpf Urine HCG, Qual (Not Detectd) Acetone, Qual (Negative) 01/17/24 01/17/24 01/17/24 Range/Units 18:39 19:21 19:27 WBC (3.8-10.6) k/uL RBC (3.80-5.40) m/uL Hgb (11.4-16.0) gm/dL Hct (34.0-46.0) % MCV (80.0-100.0) fL MCH (25.0-35.0) pg MCHC (31.0-37.0) g/dL RDW (11.5-15.5) % Plt Count (150-450) k/uL MPV Neutrophils % % Lymphocytes % % Monocytes % % Eosinophils % % Basophils % % Neutrophils # (1.3-7.7) k/uL Lymphocytes # (1.0-4.8) k/uL Monocytes # (0-1.0) k/uL Eosinophils # (0-0.7) k/uL Basophils # (0-0.2) k/uL Hypochromasia PT (10.0-12.5) sec INR (<1.2) APTT (22.0-30.0) sec VBG pH (7.31-7.41) VBG pCO2 (37-51) mmHg VBG HCO3 (24-28) mmol/L Sodium (137-145) mmol/L Potassium (3.5-5.1) mmol/L Chloride (98-107) mmol/L Carbon Dioxide (22-30) mmol/L Anion Gap mmol/L BUN (7-17) mg/dL Creatinine (0.52-1.04) mg/dL Est GFR (CKD-EPI)AfAm (>60 ml/min/1.73 sqM) Est GFR (CKD-EPI)NonAf (>60 ml/min/1.73 sqM) Glucose (74-99) mg/dL POC Glucose (mg/dL) >600 H* (70-110) mg/dL POC Glu Dispatch Associate ID OSCAR NOEL Lactic Ac Sepsis Rflx Y Plasma Lactic Acid Leroy (0.7-2.0) mmol/L Calcium (8.4-10.2) mg/dL Total Bilirubin (0.2-1.3) mg/dL AST (14-36) U/L ALT (4-34) U/L Alkaline Phosphatase (38-126) U/L Troponin I (0.000-0.034) ng/mL Total Protein (6.3-8.2) g/dL Albumin (3.5-5.0) g/dL Lipase (23-300) U/L Urine Color Urine Appearance (Clear) Urine pH (5.0-8.0) Ur Specific [place] (1.001-1.035) Urine Protein (Negative) Urine Glucose (UA) (Negative) Urine Ketones (Negative) Urine Blood (Negative) Urine Nitrite (Negative) Urine Bilirubin (Negative) Urine Urobilinogen (<2.0) mg/dL Ur Leukocyte Esterase (Negative) Urine WBC (0-5) /hpf Ur Squamous Epith Cells (0-4) /hpf Urine Bacteria (None) /hpf Urine HCG, Qual Not Detected (Not Detectd) Acetone, Qual (Negative) 01/17/24 01/17/24 01/17/24 Range/Units 19:46 20:22 21:00 WBC (3.8-10.6) k/uL RBC (3.80-5.40) m/uL Hgb (11.4-16.0) gm/dL Hct (34.0-46.0) % MCV (80.0-100.0) fL MCH (25.0-35.0) pg MCHC (31.0-37.0) g/dL RDW (11.5-15.5) % Plt Count (150-450) k/uL MPV Neutrophils % % Lymphocytes % % Monocytes % % Eosinophils % % Basophils % % Neutrophils # (1.3-7.7) k/uL Lymphocytes # (1.0-4.8) k/uL Monocytes # (0-1.0) k/uL Eosinophils # (0-0.7) k/uL Basophils # (0-0.2) k/uL Hypochromasia PT (10.0-12.5) sec INR (<1.2) APTT (22.0-30.0) sec VBG pH 7.21 L (7.31-7.41) VBG pCO2 23 L (37-51) mmHg VBG HCO3 9 L* (24-28) mmol/L Sodium (137-145) mmol/L Potassium (3.5-5.1) mmol/L Chloride (98-107) mmol/L Carbon Dioxide (22-30) mmol/L Anion Gap mmol/L BUN (7-17) mg/dL Creatinine (0.52-1.04) mg/dL Est GFR (CKD-EPI)AfAm (>60 ml/min/1.73 sqM) Est GFR (CKD-EPI)NonAf (>60 ml/min/1.73 sqM) Glucose (74-99) mg/dL POC Glucose (mg/dL) >600 H* >600 H* (70-110) mg/dL POC Glu Dispatch Associate ID OSCAR NOEL Lactic Ac Sepsis Rflx Plasma Lactic Acid Leroy (0.7-2.0) mmol/L Calcium (8.4-10.2) mg/dL Total Bilirubin (0.2-1.3) mg/dL AST (14-36) U/L ALT (4-34) U/L Alkaline Phosphatase (38-126) U/L Troponin I (0.000-0.034) ng/mL Total Protein (6.3-8.2) g/dL Albumin (3.5-5.0) g/dL Lipase (23-300) U/L Urine Color Urine Appearance (Clear) Urine pH (5.0-8.0) Ur Specific [place] (1.001-1.035) Urine Protein (Negative) Urine Glucose (UA) (Negative) Urine Ketones (Negative) Urine Blood (Negative) Urine Nitrite (Negative) Urine Bilirubin (Negative) Urine Urobilinogen (<2.0) mg/dL Ur Leukocyte Esterase (Negative) Urine WBC (0-5) /hpf Ur Squamous Epith Cells (0-4) /hpf Urine Bacteria (None) /hpf Urine HCG, Qual (Not Detectd) Acetone, Qual (Negative) - EKG Data -: EKG Interpreted by Me EKG Comments: EKG taken at 19: 57 showing a sinus tachycardia. Right bundle branch block. No ST segment elevations or depressions. No T wave inversion. Ventricular rate 148, MS interval 111, QRS duration 110, QT/QTc 303/388. - Radiology Data Radiology results: report reviewed, image reviewed Disposition Clinical Impression: DKA (diabetic ketoacidoses) Disposition: ADMITTED IP TO THIS [facility] Condition: Stable Time of Disposition: 20:20
[2024-01-17] MEDS: ONDANSETRON 4 MG/2 ML VIAL IVP STA (18:27)
[2024-01-17] MEDS: SODIUM CHLORIDE 0.9% 1,000 ML IV STA ×2 (18:31→22:00)
[2024-01-17 18:34] LABS: Basophils % (A) 0 %; Eosinophils % (A) 0 %; HCT 41.6 % (34.0-46.0); HGB 12.5 gm/dL (11.4-16.0); Hypochromasia Marked; Lymphocytes # (A) 0.5 k/uL (1.0-4.8); Lymphocytes % (A) 3 %; MCH 28.9 pg (25.0-35.0); Mean Platelet Volume 8.6; Monocytes # (A) 0.8 k/uL (0-1.0); Monocytes % (A) 4 %; Neutrophils # (A) 19.8 k/uL (1.3-7.7); Neutrophils % (A) 93 %; RBC 4.32 m/uL (3.80-5.40); RDW 13.5 % (11.5-15.5); WBC 21.2 k/uL (3.8-10.6)
[2024-01-17 18:44] LABS: MCV 96.2 fL (80.0-100.0); Platelet Count 588 k/uL (150-450)
[2024-01-17 18:51] LABS: ALT 20 U/L (4-34); AST 30 U/L (14-36); African American GFR (CKD) 62 (>60 ml/min/1.73 sqM); Albumin 5.2 g/dL (3.5-5.0); Alkaline Phosphatase 162 U/L (38-126); Anion Gap 35 mmol/L; Blood Urea Nitrogen 30 mg/dL (7-17); Chloride 88 mmol/L (98-107); Lipase 60 U/L (23-300); Non-African American GFR(CKD) 54 (>60 ml/min/1.73 sqM); Sodium 131 mmol/L (137-145); Total Protein 8.1 g/dL (6.3-8.2)
[2024-01-17 19:01] LABS: Appearance,Urine Clear (Clear); Bacteria,Urine Rare /hpf; Bilirubin,Urine Negative (Negative); Blood,Urine Negative (Negative); Color,Urine Colorless; Glucose,Urine (UA) 4+ (Negative); Leukocyte Esterase,Urine Negative (Negative); Nitrite,Urine Negative (Negative); PH, Urine 5.5 (5.0-8.0); Protein,Urine 1+ (Negative); Squamous Epithelial Cell,Urine 1 /hpf (0-4); Urobilinogen,Urine <2.0 mg/dL (<2.0); WBC,Urine <1 /hpf (0-5)
[2024-01-17 19:17] LABS: Ketones,Urine 2+ (Negative)
[2024-01-17 19:23] LABS: Glucose,Whole Blood >600 mg/dL (70-110)
[2024-01-17 19:24] LABS: Carbon Dioxide 8 mmol/L (22-30); Potassium 6.3 mmol/L (3.5-5.1)
[2024-01-17 19:26] LABS: Glucose 955 mg/dL (74-99)
[2024-01-17 19:30] LABS: INR 0.9 (<1.2); Prothrombin Time 9.8 sec (10.0-12.5)
[2024-01-17 19:31] LABS: Partial Thromboplastin Time 20.8 sec (22.0-30.0)
--- NOTE | 2024-01-17 19:35 | XR ---
EXAMINATION TYPE: XR chest 2V DATE OF EXAM: 01/17/2024 7:15 PM CLINICAL INDICATION: Female, 23 years old with history of chest pain/n/v; [facility] COMPARISON: Chest radiographs from 09/04/2023 TECHNIQUE: XR chest 2V Frontal view of the chest. FINDINGS: Lungs/Pleura: There is no evidence of pleural effusion, focal consolidation, or pneumothorax. Pulmonary vascularity: Unremarkable. Heart/mediastinum: Cardiomediastinal silhouette is unremarkable. Musculoskeletal: No acute osseous pathology. IMPRESSION: No acute cardiopulmonary disease/process. [facility] Dori Block, , 01/17/2024 7:33 PM
[2024-01-17 19:53] LABS: VBG PH 7.21 (7.31-7.41)
[2024-01-17] MEDS: SODIUM CHLORIDE 0.9% 2,000 ML IV STA (20:06)
[2024-01-17] MEDS: INSULIN REGULAR BOLUS (FROM DRIP BAG) IV ONE (20:16)
[2024-01-17] MEDS: INSULIN REGULAR 100 UNIT in SODIUM CHLORIDE 0.9% 100 ML IV SCH (20:16)
[2024-01-17] MEDS ORDERED: NALOXONE 0.4 MG/ML 1 ML VIAL IV PRN (20:21)
[2024-01-17 20:23] LABS: Glucose,Whole Blood >600 mg/dL (70-110)
[2024-01-17 21:03] LABS: Glucose,Whole Blood >600 mg/dL (70-110)
[2024-01-17 22:12] LABS: Glucose,Whole Blood >600 mg/dL (70-110)
[2024-01-17 22:40] LABS: Glucose,Whole Blood 598 mg/dL (70-110)
[2024-01-17] MEDS: METOCLOPRAMIDE 5 MG/ML 2 ML VIAL IVP STA (23:17)
[2024-01-17] MEDS: PANTOPRAZOLE 40 MG/10 ML VIAL IVP STA (23:19)
[2024-01-17 23:38] LABS: African American GFR (CKD) 60 (>60 ml/min/1.73 sqM); Anion Gap 25 mmol/L; Blood Urea Nitrogen 31 mg/dL (7-17); Carbon Dioxide 13 mmol/L (22-30); Chloride 102 mmol/L (98-107); Non-African American GFR(CKD) 52 (>60 ml/min/1.73 sqM); Potassium 4.6 mmol/L (3.5-5.1); Sodium 140 mmol/L (137-145)
[2024-01-17 23:44] LABS: Glucose 569 mg/dL (74-99)
[2024-01-18 00:11] LABS: Glucose,Whole Blood 469 mg/dL (70-110)
[2024-01-18] MEDS: ACETAMINOPHEN TAB 325 MG TAB PO PRN (00:45)
[2024-01-18 00:51] LABS: ALT 20 U/L (4-34); AST 27 U/L (14-36); African American GFR (CKD) 58 (>60 ml/min/1.73 sqM); Albumin 4.9 g/dL (3.5-5.0); Alkaline Phosphatase 137 U/L (38-126); Anion Gap 28 mmol/L; Blood Urea Nitrogen 32 mg/dL (7-17); Calcium 10.5 mg/dL (8.4-10.2); Carbon Dioxide 10 mmol/L (22-30); Chloride 105 mmol/L (98-107); Non-African American GFR(CKD) 50 (>60 ml/min/1.73 sqM); Potassium 4.7 mmol/L (3.5-5.1); Sodium 143 mmol/L (137-145); Total Bilirubin 1.1 mg/dL (0.2-1.3); Total Protein 7.8 g/dL (6.3-8.2)
[2024-01-18 00:54] LABS: Glucose 598 mg/dL (74-99)
[2024-01-18 01:04] LABS: Glucose,Whole Blood 373 mg/dL (70-110)
[2024-01-18 01:55] LABS: Glucose,Whole Blood 250 mg/dL (70-110)
[2024-01-18] MEDS: ONDANSETRON 4 MG/2 ML VIAL IVP SCH (02:14)
[2024-01-18] MEDS: D5-0.45% NACL WITH KCL 20MEQ/L 1,000 ML IV SCH ×2 (02:43→11:41)
[2024-01-18 03:15] LABS: Glucose,Whole Blood 279 mg/dL (70-110)
[2024-01-18 03:59] LABS: Glucose,Whole Blood 258 mg/dL (70-110)
[2024-01-18 05:04] LABS: ALT 14 U/L (4-34); AST 21 U/L (14-36); African American GFR (CKD) 69 (>60 ml/min/1.73 sqM); Albumin 3.8 g/dL (3.5-5.0); Alkaline Phosphatase 93 U/L (38-126); Anion Gap 12 mmol/L; Blood Urea Nitrogen 31 mg/dL (7-17); Calcium 9.4 mg/dL (8.4-10.2); Carbon Dioxide 22 mmol/L (22-30); Chloride 106 mmol/L (98-107); Glucose 230 mg/dL (74-99); Non-African American GFR(CKD) 60 (>60 ml/min/1.73 sqM); Potassium 4.2 mmol/L (3.5-5.1); Sodium 140 mmol/L (137-145); Total Bilirubin 0.8 mg/dL (0.2-1.3); Total Protein 6.4 g/dL (6.3-8.2)
[2024-01-18 05:05] LABS: Glucose,Whole Blood 207 mg/dL (70-110)
--- NOTE | 2024-01-18 05:06 | P.CNPUL ---
History of Present Illness Consult date: 01/18/24 Requesting physician: Kiara Santana Reason for consult: other (Diabetic ketoacidosis) Chief complaint: High blood sugars followed by nausea and vomiting History of present illness: Patient is a 23-year-old female with past medical history significant for type 1 diabetes. Of note, she was recently hospitalized in September, for diabetic ketoacidosis, due to nonfunctioning insulin pump and was found to have a dental abscess. Since then, she has had these teeth extracted. She returns to the emergency department yesterday evening, her blood sugars have been running high, greater than 400 at home. She has been taking her insulin as ordered. She no longer utilizes insulin pump and gives herself subcutaneous insulin. Lantus 20 units at bedtime and NovoLog to scale with meals. Earlier in the week, she did have URI-like symptoms including runny nose, sore throat, and nonproductive cough. Denies any shortness of breath, sputum production, hemoptysis, chest pain. Denies any fevers. States that her child had similar symptoms prior to this. 2 days ago, she started to have high blood sugars and nausea and vomiting that night. Woke up in the morning with intractable nausea and vomiting. Did finally present to the emergency room yesterday evening. Labs consistent with d iabetic ketoacidosis, serum bicarb 8, anion gap 35, blood glucose 955. She is ketone positive. VBG, pCO2 23, pH of 7.21. Potassium was also severely elevated at 6.3 on arrival, and is down to 4.7. Urinalysis not concerning for urinary tract infection. Klnvn-dq-ldra test negative. I did review the patient's chest x-ray, which did not show any focal infiltrates or evidence of pneumonia. She has been negative for influenza, RSV, COVID. Also, strep A negative. CBC: WBC count 21, hemoglobin 12.5, hematocrit 41.6, platelets 588. Most recent CMP: Sodium 143, potassium 4.7, chloride 105, serum bicarb up to 10, anion gap 28, BUN 32, creatinine 1.47, glucose is now 250 g/dL. Lactic was 5.4 and is down to 3.7. LFTs unremarkable. Troponin less than 0.012. Patient is currently being evaluated in the intensive care unit. She is awake and alert. No acute distress. Nausea and vomiting has subsided. Nontachypneic. She is on room air. SpO2 99%. Heart rate remains tachycardic around the 130 bpm. Blood pressure normotensive. She is currently on the DKA protocol. Insulin is infusing per protocol. D5W/0.45% saline/20 mEq of potassium is infusing at 150 mL/h. Overall well appearance. Review of Systems Constitutional: Reports poor appetite, Denies chills, Denies fever, Denies weight gain, Denies weight loss Ears, nose, mouth and throat: Reports nasal congestion, Reports nasal discharge, Reports sore throat, Denies dental pain, Denies dysphagia, Denies headache, Denies sinus pain, Denies sinus pressure Cardiovascular: Denies chest pain, Denies leg edema, Denies orthopnea, Denies palpitations, Denies syncope Respiratory: Reports cough, Denies cough with sputum, Denies dyspnea, Denies excessive sputum, Denies hemoptysis, Denies wheezing Gastrointestinal: Reports abdominal pain, Reports nausea, Reports vomiting, Denies constipation, Denies diarrhea Genitourinary: Denies dysuria Musculoskeletal: Denies limitation of motion Integumentary: Denies rash Neurological: Denies seizures, Denies syncope Psychiatric: Reports anxiety, Reports depression, Denies suicidal ideation Past Medical History Past Medical History: Diabetes Mellitus, GERD/Reflux, Hypertension Additional Past Medical History / Comment(s): migraine History of Any Multi-Drug Resistant Organisms: None Reported Past Surgical History: Cholecystectomy Additional Past Surgical History / Comment(s): right knee surgery Past Anesthesia/Blood Transfusion Reactions: No Reported Reaction Past Psychological History: Anxiety, Depression, No Psychological Hx Reported Smoking Status: Current every day smoker, Vaper Past Alcohol Use History: None Reported Past Drug Use History: Marijuana - Past Family History Father Family Medical History: Myocardial Infarction ([place]) Additional Family Medical History / Comment(s): father at 30 years old Sister(s) Family Medical History: Thyroid Disorder Brother(s) Family Medical History: Asthma Mother Family Medical History: No Reported History Medications and Allergies Home Medications Medication Instructions Recorded Confirmed Type Omeprazole [PriLOSEC] 20 mg PO DAILY 07/11/23 01/17/24 History amLODIPine [Norvasc] 5 mg PO DAILY 07/11/23 01/17/24 History lisinopriL [Zestril] 10 mg PO DAILY 07/11/23 01/17/24 History Insulin Aspart [NovoLOG Flexpen] See Protocol SQ ACHS 11/28/23 01/17/24 History Insulin Glargine,Hum.rec.anlog 20 units SQ HS 11/28/23 01/17/24 History [Lantus Solostar Pen] Amoxic-Pot Clav 875-125Mg 1 tab PO DIRECTED 01/17/24 01/17/24 History [Augmentin 875-125] FLUoxetine HCL [PROzac] 20 mg PO DAILY 01/17/24 01/17/24 History Ondansetron Odt [Zofran Odt] 8 mg PO DAILY PRN 01/17/24 01/17/24 History Allergies Allergy/AdvReac Type Severity Reaction Status Date / Time adhesive tape Allergy Rash/Hives Verified 01/17/24 18:13 latex Allergy Rash/Hives Verified 01/17/24 18:13 metoclopramide [From Reglan] AdvReac Anxiety Verified 01/17/24 18:13 attack Physical Exam Vitals: Vital Signs Temp Pulse Resp BP Pulse Ox 01/18/24 00:00 124 H 21 112/63 100 01/17/24 23:00 98.6 F 144 H 19 134/84 100 01/17/24 22:00 142 H 20 138/76 98 01/17/24 21:50 20 100 01/17/24 21:00 142 H 20 149/85 98 01/17/24 20:00 130 H 20 114/60 100 01/17/24 17:55 98.1 F 130 H 18 104/55 100 01/17/24 17:33 97.3 F L 120 H 22 80/54 100 Intake and Output 01/17/24 01/17/24 01/18/24 14:59 22:59 06:59 Intake Total 424.147 Output Total 100 Balance 324.147 Intake: Intake, IV Titration 424.147 Amount Insulin Regular 100 unit 24.147 In Sodium Chloride 0.9% 100 ml @ 0.1 UNITS/KG/HR 6.139 mls/hr IV .[id number] [facility]IG[facility]EL Rx#:[id number] Sodium Chloride 0.9% 1, 400 000 ml @ 200 mls/hr IV . Q5H STA Rx#:[id number] Output: Urine 100 Other: Voiding Method Bedside Commode # Voids 0 Weight 60.781 kg GENERAL EXAM: Alert, 23-year-old white female, well-nourished, comfortable in no apparent distress. HEAD: Normocephalic and atraumatic EYES: Normal reaction of pupils, equal size. NOSE: Clear with pink turbinates. THROAT: No erythema or exudates. NECK: No masses, no JVD. CHEST: No chest wall deformity. LUNGS: Equal air entry with no crackles, wheeze, rhonchi or dullness. On room air. SpO2 99%. No conversational dyspnea or accessory muscle use.. CVS: S1 and S2 normal with no audible murmur, regular rhythm. No extra heart sounds. tachycardic ABDOMEN: No hepatosplenomegaly, active bowel sounds, no guarding or rigidity. SPINE: No scoliosis or deformity SKIN: No rashes CENTRAL NERVOUS SYSTEM: No focal deficits, tone is normal in all 4 extremities. EXTREMITIES: There is no peripheral edema, clubbing, or cyanosis. Peripheral pulses are intact. Results - Laboratory Findings CBC and BMP: 01/18/24 04:31 01/18/24 07:39 PT/INR, D-dimer PT 9.8 sec (10.0-12.5) L 01/17/24 18:39 INR 0.9 (<1.2) 01/17/24 18:39 Abnormal lab findings: Abnormal Labs 01/17/24 01/17/24 01/17/24 18:25 18:25 18:39 WBC 21.2 H MCHC 30.0 L Plt Count 588 H D Neutrophils # 19.8 H Lymphocytes # 0.5 L PT 9.8 L APTT 20.8 L VBG pH VBG pCO2 VBG HCO3 Sodium 131 L Potassium 6.3 H* Chloride 88 L Carbon Dioxide 8 L* BUN 30 H Creatinine 1.39 H Glucose 955 H* POC Glucose (mg/dL) Plasma Lactic Acid Leroy Calcium 11.0 H Total Bilirubin 2.0 H Alkaline Phosphatase 162 H Albumin 5.2 H Urine Protein Urine Glucose (UA) Urine Ketones Urine Bacteria 01/17/24 01/17/24 01/17/24 18:39 18:39 19:21 WBC MCHC Plt Count Neutrophils # Lymphocytes # PT APTT VBG pH VBG pCO2 VBG HCO3 Sodium Potassium Chloride Carbon Dioxide BUN Creatinine Glucose POC Glucose (mg/dL) >600 H* Plasma Lactic Acid Leroy 5.4 H* Calcium Total Bilirubin Alkaline Phosphatase Albumin Urine Protein 1+ H Urine Glucose (UA) 4+ H Urine Ketones 2+ H Urine Bacteria Rare H 01/17/24 01/17/24 01/17/24 19:46 20:22 21:00 WBC MCHC Plt Count Neutrophils # Lymphocytes # PT APTT VBG pH 7.21 L VBG pCO2 23 L VBG HCO3 9 L* Sodium Potassium Chloride Carbon Dioxide BUN Creatinine Glucose POC Glucose (mg/dL) >600 H* >600 H* Plasma Lactic Acid Leroy Calcium Total Bilirubin Alkaline Phosphatase Albumin Urine Protein Urine Glucose (UA) Urine Ketones Urine Bacteria 01/17/24 01/17/24 01/17/24 22:10 22:39 22:50 WBC MCHC Plt Count Neutrophils # Lymphocytes # PT APTT VBG pH VBG pCO2 VBG HCO3 Sodium Potassium Chloride Carbon Dioxide 13 L BUN 31 H Creatinine 1.42 H Glucose 569 H* POC Glucose (mg/dL) >600 H* 598 H* Plasma Lactic Acid Leroy Calcium Total Bilirubin Alkaline Phosphatase Albumin Urine Protein Urine Glucose (UA) Urine Ketones Urine Bacteria 01/17/24 01/17/24 01/18/24 22:50 22:50 00:09 WBC MCHC Plt Count Neutrophils # Lymphocytes # PT APTT VBG pH VBG pCO2 VBG HCO3 Sodium Potassium Chloride Carbon Dioxide 10 L BUN 32 H Creatinine 1.47 H Glucose 598 H* POC Glucose (mg/dL) 469 H Plasma Lactic Acid Leroy 3.7 H* Calcium 10.5 H Total Bilirubin Alkaline Phosphatase 137 H Albumin Urine Protein Urine Glucose (UA) Urine Ketones Urine Bacteria 01/18/24 01:03 WBC MCHC Plt Count Neutrophils # Lymphocytes # PT APTT VBG pH VBG pCO2 VBG HCO3 Sodium Potassium Chloride Carbon Dioxide BUN Creatinine Glucose POC Glucose (mg/dL) 373 H Plasma Lactic Acid Leroy Calcium Total Bilirubin Alkaline Phosphatase Albumin Urine Protein Urine Glucose (UA) Urine Ketones Urine Bacteria - Diagnostic Findings Chest x-ray: image reviewed Assessment and Plan Assessment: Acute diabetic ketoacidosis, blood glucose was 955 on arrival, serum bicarb 8, anion gap 35, ketone positive. Patient was started on the DKA protocol Severe anion gap metabolic acidosis, secondary to above Severe hyperkalemia, improved and potassium is down to 4.7 Suspect viral URI, viral screen negative for COVID, influenza, RSV. Severe dehydration Acute kidney injury, secondary to above Acute leukocytosis, Likely reactive to DKA History of dental abscess, status post tooth extraction Hypertension History of gastroesophageal reflux disease History of smoking/vaping/marijuana History of anxiety/depression Plan: Patient's medications, labs, chest x-ray reviewed Continue DKA protocol Continue to monitor electrolytes and replace per protocol CXR unremarkable for acute infiltrates or pneumonia. Viral screen negative for COVID, influenza, RSV Urinalysis not remarkable for urinary tract infection Point of care test negative GI prophylaxis: Protonix Patient will continue to be monitored in the intensive care unit until her DKA resolves I have personally seen and examined the patient, performed the documentation and the assessment and plan as written. Number of minutes spent on the visit:01/18/2024, the patient is being seen in joint evaluation along with the nurse practitioner. In summary, this patient presented to us with DKA. She is a 23-year-old female patient with type 1 diabetes mellitus. She is currently on D5 half-normal saline at rate of 50 cc an hour. The patient this morning is on Levemir insulin 20 units daily. The patient has recovered from her DKA. She is awake and alert and communicating. She is on insulin with sliding Scale coverage. Awake and alert and communicating. Normotensive. BUN is 29 with a creatinine of 1.1. Bicarb level is at 28 with a gap of 5. Rest of electrolytes are all within normal limits. The white cell count is 16 with a hemoglobin 10.2 and a platelet count of 456. No other significant events overnight. The patient did not require any pressors. Sinus tachycardia is also improving. She can be transition to a medical floor. This evaluation was done more than 30 minutes a joint evaluation with the nurse practitioner. Time with Patient: Greater than 30
[2024-01-18 05:19] LABS: Basophils % (A) 0 %; Eosinophils # (A) 0.1 k/uL (0-0.7); Eosinophils % (A) 1 %; HCT 29.3 % (34.0-46.0); HGB 10.2 gm/dL (11.4-16.0); Lymphocytes # (A) 1.2 k/uL (1.0-4.8); Lymphocytes % (A) 7 %; MCHC 34.6 g/dL (31.0-37.0); Mean Platelet Volume 8.1; Monocytes # (A) 0.7 k/uL (0-1.0); Monocytes % (A) 5 %; Neutrophils # (A) 14.1 k/uL (1.3-7.7); Neutrophils % (A) 87 %; Platelet Count 456 k/uL (150-450); RBC 3.39 m/uL (3.80-5.40); WBC 16.2 k/uL (3.8-10.6)
[2024-01-18 05:20] LABS: MCV 86.6 fL (80.0-100.0)
[2024-01-18 06:25] LABS: Glucose,Whole Blood 155 mg/dL (70-110)
[2024-01-18 07:04] LABS: Glucose,Whole Blood 119 mg/dL (70-110)
[2024-01-18 08:16] LABS: Glucose,Whole Blood 73 mg/dL (70-110)
[2024-01-18] MEDS: FLUoxetine HCL 20 MG CAP PO SCH (08:28)
[2024-01-18] MEDS: PANTOPRAZOLE 40 MG TABLET PO SCH (08:28)
[2024-01-18 08:47] LABS: African American GFR (CKD) 77 (>60 ml/min/1.73 sqM); Anion Gap 5 mmol/L; Blood Urea Nitrogen 29 mg/dL (7-17); Calcium 9.5 mg/dL (8.4-10.2); Carbon Dioxide 28 mmol/L (22-30); Chloride 106 mmol/L (98-107); Glucose 82 mg/dL (74-99); Non-African American GFR(CKD) 67 (>60 ml/min/1.73 sqM); Potassium 4.6 mmol/L (3.5-5.1); Sodium 139 mmol/L (137-145)
[2024-01-18 08:59] LABS: Glucose,Whole Blood 135 mg/dL (70-110)
[2024-01-18 10:00] VITALS: BMI 23.3
[2024-01-18] MEDS: PANTOPRAZOLE 40 MG/10 ML VIAL IVP SCH (10:18)
[2024-01-18] MEDS: METOCLOPRAMIDE 5 MG/ML 2 ML VIAL IVP PRN (10:18)
[2024-01-18 10:25] LABS: Glucose,Whole Blood 243 mg/dL (70-110)
[2024-01-18] MEDS: INSULIN DETEMIR (LEVEMIR) 100 UNIT/ML SYR SQ SCH (10:26)
[2024-01-18] MEDS: INSULIN ASPART (NovoLOG) 100 UNIT/ML VIAL SQ SCH (10:28)
[2024-01-18 11:34] LABS: Glucose,Whole Blood 252 mg/dL (70-110)
[2024-01-18] MEDS ORDERED: INSULIN ASPART (NovoLOG) 100 UNIT/ML VIAL SQ SCH (12:30)
[2024-01-18 16:30] LABS: Glucose,Whole Blood 76 mg/dL (70-110)
[2024-01-18 16:35] LABS: African American GFR (CKD) >90 (>60 ml/min/1.73 sqM); Anion Gap 6 mmol/L; Blood Urea Nitrogen 23 mg/dL (7-17); Carbon Dioxide 22 mmol/L (22-30); Chloride 107 mmol/L (98-107); Non-African American GFR(CKD) 86 (>60 ml/min/1.73 sqM); Phosphorus 1.9 mg/dL (2.5-4.5); Potassium 4.2 mmol/L (3.5-5.1); Sodium 135 mmol/L (137-145)
[2024-01-18 19:23] LABS: Glucose,Whole Blood 62 mg/dL (70-110)
[2024-01-18 19:47] LABS: Glucose,Whole Blood 57 mg/dL (70-110)
[2024-01-18] MEDS ORDERED: DEXTROSE 50% SYRINGE 50 ML IVP PRN (19:47)
[2024-01-18] MEDS: DEXTROSE 50% SYRINGE 50 ML IVP PRN (19:51)
[2024-01-18 19:58] LABS: Glucose,Whole Blood 149 mg/dL (70-110)
[2024-01-18 21:21] LABS: Glucose,Whole Blood 115 mg/dL (70-110)
[2024-01-18 22:02] LABS: Glucose,Whole Blood 124 mg/dL (70-110)
[2024-01-19 02:05] LABS: Glucose,Whole Blood 78 mg/dL (70-110)
[2024-01-19 02:17] VITALS: RESP 20
--- NOTE | 2024-01-19 04:05 | HP ---
HISTORY AND PHYSICAL CHIEF COMPLAINT: Intractable nausea, vomiting, and DKA. HISTORY OF PRESENT ILLNESS: A 23-year-old female with type 1 diabetes mellitus, came to emergency room after she had noticed in the morning that her sugar was slightly elevated. Then, she began to have nausea and vomiting. Her blood pressure went up to 240 and she came to emergency room where it was around 100. Normally, she has been running in the high 100s to 200. She has had no complications or sequelae of her diabetes up to this point. She did have a slightly sore throat and chills. REVIEW OF SYSTEMS: She had no other complaints or problems. Past medical history, family history, and personal and social histories revealed that she is not allergic to anything and she has had a cholecystectomy, 1 . She does have hypertension. MEDICATIONS: She takes, 1. Norvasc. 2. Lisinopril. 3. Zofran for nausea. 4. Prozac. 5. Omeprazole. PHYSICAL EXAMINATION: VITAL SIGNS: Blood pressure is 80/54 with a pulse of 120. GENERAL: She appeared to be well developed, well nourished, no acute distress. SKIN: Color is normal. Skin was dry. HEAD, EARS, EYES, NOSE, MOUTH, AND THROAT: Normal. CHEST: Clear. CARDIAC: Normal with sinus tachycardia. ABDOMEN: Soft and nontender. EXTREMITIES: Normal. NEUROLOGICAL: She is intact. DIAGNOSES: She is admitted to the hospital with diagnoses of; 1. Diabetic ketoacidosis. 2. Dehydration. 3. Hypotension. 4. Hyperkalemia at 6.3. 5. Elevated white count [id number]. PLAN: 1. Bedrest. 2. IV fluids. 3. DKA protocol. MMODL / IJN: [id number] /
--- NOTE | 2024-01-19 04:19 | PN ---
PROGRESS NOTE DATE OF SERVICE: 01/18/2024 CHIEF COMPLAINT: Diabetic ketoacidosis. HISTORY OF PRESENT ILLNESS: This lady is doing better. Blood pressure is improved. Sugars are down. She has had no further issues with nausea. PHYSICAL EXAMINATION: VITAL SIGNS: Normal. GENERAL: Hydration is good. CHEST: Clear. CARDIAC: Normal. ABDOMEN: Soft, nontender. IMPRESSION: Diabetic ketoacidosis. PLAN: Increase activity and probably home tomorrow. MMODL / IJN: [id number] /
[2024-01-19 06:40] LABS: Glucose,Whole Blood 343 mg/dL (70-110)
[2024-01-19 08:40] LABS: Glucose,Whole Blood 266 mg/dL (70-110)
[2024-01-19 08:42] VITALS: BP 140/92; PULSE 90; TEMP 98
[2024-01-19 11:37] LABS: Glucose,Whole Blood 257 mg/dL (70-110)
[2024-01-19] MEDS: INSULIN ASPART (NovoLOG) 100 UNIT/ML VIAL SQ SCH (11:49)
--- NOTE | 2024-01-19 13:04 | P.PN ---
Subjective Progress Note Date: 01/19/24 Patient is a 23-year-old female with past medical history significant for type 1 diabetes. Of note, she was recently hospitalized in September, for diabetic ketoacidosis, due to nonfunctioning insulin pump and was found to have a dental abscess. Since then, she has had these teeth extracted. She returns to the emergency department yesterday evening, her blood sugars have been running high, greater than 400 at home. She has been taking her insulin as ordered. She no longer utilizes insulin pump and gives herself subcutaneous insulin. Lantus 20 units at bedtime and NovoLog to scale with meals. Earlier in the week, she did have URI-like symptoms including runny nose, sore throat, and nonproductive cough. Denies any shortness of breath, sputum production, hemoptysis, chest pain. Denies any fevers. States that her child had similar symptoms prior to this. 2 days ago, she started to have high blood sugars and nausea and vomiting that night. Woke up in the morning with intractable nausea and vomiting. Did finally present to the emergency room yesterday evening. Labs consistent with diabetic ketoacidosis, serum bicarb 8, anion gap 35, blood glucose 955. She is ketone positive. VBG, pCO2 23, pH of 7.21. Potassium was also severely elevated at 6.3 on arrival, and is down to 4.7. Urinalysis not concerning for urinary tract infection. Qvald-jf-cyxu test negative. I did review the patient's chest x-ray, which did not show any focal infiltrates or evidence of pneumonia. She has been negative for influenza, RSV, COVID. Also, strep A negative. CBC: WBC count 21, hemoglobin 12.5, hematocrit 41.6, platelets 588. Most recent CMP: Sodium 143, potassium 4.7, chloride 105, serum bicarb up to 10, anion gap 28, BUN 32, creatinine 1.47, glucose is now 250 g/dL. Lactic was 5.4 and is down to 3.7. LFTs unremarkable. Troponin less than 0.012. Patient is currently being evaluated in the intensive care unit. She is awake and alert. No acute distress. Nausea and vomiting has subsided. Nontachypneic. She is on room air. SpO2 99%. Heart rate remains tachycardic around the 130 bpm. Blood pressure normotensive. She is currently on the DKA protocol. Insulin is infusing per protocol. D5W/0.45% saline/20 mEq of potassium is infusing at 150 mL/h. Overall well appearance. 01/19/2024, the patient is doing extremely well. She is currently on the 5 units of NovoLog with meals. The patient is elevation of blood sugars) earlier this morning, she had a blood sugar of 78. Otherwise, awake and alert and a serum bicarb of 6.2. She is currently on room air oxygen. Objective - Vital Signs Vital signs: Vital Signs Temp 98.0 F 01/19/24 08:00 Pulse 90 01/19/24 08:00 Resp 20 01/19/24 08:00 BP 140/92 01/19/24 08:00 Pulse Ox 100 01/19/24 08:00 FiO2 Intake & Output 01/18/24 01/19/24 01/19/24 18:59 06:59 18:59 Intake Total 2748.062 500 600 Output Total 550 Balance 2198.062 500 600 Weight 59.9 kg Intake: IV 900 D5-0.45% NaCl with KCl 600 20Meq/l 1,000 ml @ 150 mls/hr IV .Q6H40M [facility] Rx# :[id number] D5-0.45% NaCl with KCl 300 20Meq/l 1,000 ml @ 50 mls /hr IV .Q20H [facility] Rx#: [id number] Intake, IV Titration 188.062 Amount D5-0.45% NaCl with KCl 150 20Meq/l 1,000 ml @ 150 mls/hr IV .Q6H40M [facility] Rx# :[id number] Insulin Regular 100 unit 38.062 In Sodium Chloride 0.9% 100 ml @ 0.1 UNITS/KG/HR 6.139 mls/hr IV .[id number] [facility] Rx#:[id number] Oral 1660 500 600 Output: Gastric Drainage 200 Urine 350 Emesis 0 Other: Voiding Method Toilet Toilet Toilet # Voids 1 2 # Bowel Movements 0 - Exam GENERAL EXAM: Alert, 23-year-old white female, well-nourished, comfortable in no apparent distress. HEAD: Normocephalic and atraumatic EYES: Normal reaction of pupils, equal size. NOSE: Clear with pink turbinates. THROAT: No erythema or exudates. NECK: No masses, no JVD. CHEST: No chest wall deformity. LUNGS: Equal air entry with no crackles, wheeze, rhonchi or dullness. On room air. SpO2 99%. No conversational dyspnea or accessory muscle use.. CVS: S1 and S2 normal with no audible murmur, regular rhythm. No extra heart sounds. tachycardic ABDOMEN: No hepatosplenomegaly, active bowel sounds, no guarding or rigidity. SPINE: No scoliosis or deformity SKIN: No rashes CENTRAL NERVOUS SYSTEM: No focal deficits, tone is normal in all 4 extremities. EXTREMITIES: There is no peripheral edema, clubbing, or cyanosis. Peripheral pulses are intact. - Labs CBC & Chem 7: 01/18/24 04:31 01/18/24 16:06 Labs: Abnormal Lab Results - Last 24 Hours (Table) 01/18/24 01/18/24 01/18/24 Range/Units 10:23 11:33 16:06 Sodium (137-145) mmol/L BUN (7-17) mg/dL POC Glucose (mg/dL) 243 H 252 H (70-110) mg/dL Hemoglobin A1c 13.5 H (<=6.0) % Phosphorus (2.5-4.5) mg/dL 01/18/24 01/18/24 01/18/24 Range/Units 16:06 19:22 19:45 Sodium 135 L (137-145) mmol/L BUN 23 H (7-17) mg/dL POC Glucose (mg/dL) 62 L 57 L (70-110) mg/dL Hemoglobin A1c (<=6.0) % Phosphorus 1.9 L (2.5-4.5) mg/dL 01/18/24 01/18/24 01/18/24 Range/Units 19:56 21:20 22:00 Sodium (137-145) mmol/L BUN (7-17) mg/dL POC Glucose (mg/dL) 149 H 115 H 124 H (70-110) mg/dL Hemoglobin A1c (<=6.0) % Phosphorus (2.5-4.5) mg/dL 01/19/24 01/19/24 Range/Units 06:39 08:39 Sodium (137-145) mmol/L BUN (7-17) mg/dL POC Glucose (mg/dL) 343 H 266 H (70-110) mg/dL Hemoglobin A1c (<=6.0) % Phosphorus (2.5-4.5) mg/dL Assessment and Plan Assessment: Acute diabetic ketoacidosis, recovered Severe anion gap metabolic acidosis, secondary to above, recovered Severe hyperkalemia, improved Suspect viral URI, viral screen negative for COVID, influenza, RSV. Severe dehydration Acute kidney injury, secondary to above Acute leukocytosis, Likely reactive to DKA History of dental abscess, status post tooth extraction Hypertension History of gastroesophageal reflux disease History of smoking/vaping/marijuana History of anxiety/depression Plan: Recovered from DKA the patient is currently on Levemir insulin 20 NovoLog 5 units with meals plus a sliding scale coverage. Reglan as needed Zofran as needed HbA1c is elevated and the patient's blood sugar has been on the outpatient basis. She is to work with her primary care. The patient can be discharged from the pulmonary care standpoint.
[2024-01-19 13:18] LABS: Glucose,Whole Blood 170 mg/dL (70-110)
--- NOTE | 2024-01-26 00:19 | DS ---
DISCHARGE SUMMARY CHIEF COMPLAINT: Uncontrolled diabetes and DKA. HISTORY OF PRESENT ILLNESS AND PHYSICAL EXAMINATION: Details of this lady's history and physical can be found in the initial workup. LABORATORY STUDIES: While she was in the hospital, she had laboratory studies, details of which can be found in the laboratory section of her chart. COURSE IN THE HOSPITAL: After admission, she was placed on bedrest, started on intravenous fluids and placed on DKA protocol. Blood sugars came down. She is doing well. It was felt she could be discharged on the . FINAL DIAGNOSES: 1. Diabetic ketoacidosis. 2. Poorly controlled type 1 insulin-dependent diabetes mellitus. 3. Noncompliant patient. OPERATIONS: None. CONSULTATION: None. She is improved. MMODL / IJN: [id number] /
== END 2024-01-19 13:41 | disposition home or self-care (01) | DRG 638 ==
LOC: EC 17:30 → 2SICU 21:26
PROVIDERS: ADMIT Family Medicine; ATTEND Family Medicine
DX: E10.10 Type 1 diabetes mellitus with ketoacidosis without coma (principal); N17.9 Acute kidney failure, unspecified; I10 Essential (primary) hypertension; F32.A Depression, unspecified; Z79.4 Long term (current) use of insulin; F17.290 Nicotine dependence, other tobacco product, uncomplicated; E86.0 Dehydration; E87.5 Hyperkalemia; I95.9 Hypotension, unspecified; D72.828 Other elevated white blood cell count; K21.9 Gastro-esophageal reflux disease without esophagitis; F41.9 Anxiety disorder, unspecified; Z91.199 Patient's noncompliance with other medical treatment and regimen due to unspecified reason; Z79.899 Other long term (current) drug therapy
CPT/HCPCS: 36415; 71046; 80048; 80051; 80053; 81001; 81025; 82009; 82565; 82803; 82947; 83036; 83605; 83690; 84100; 84439; 84443; 84484; 84520; 85025; 85610; 85730; 87636; 87651; 93005; 96361; 96374; 99291

== ENCOUNTER 2024-04-21 10:17 | Emergency (ER) | payer BC, OTHER ==
[2024-04-21 10:21] VITALS: TEMP 97.8
--- NOTE | 2024-04-21 10:40 | ED ---
Abdominal Pain HPI - General Chief Complaint: Abdominal Pain Stated Complaint: diabetic, preg 10 weeks, abd pain Time Seen by Provider: 04/21/24 10:23 Source: patient, RN notes reviewed Mode of arrival: ambulatory Limitations: no limitations - History of Present Illness Initial Comments: This is a 24-year-old female who presents to the emergency department for abdominal pain. Patient is 10 weeks and . States that over the last 2 to 3 days she has had pain in the left lower quadrant. States that this is sharp and seems to occur intermittently. It does occasionally switches sides to the right, but is primarily in the left. The pain does occasionally radiate into her back. She had nausea and vomiting this morning that has since re solved. States that she saw her OB last week and she just found out that she had a yeast infection, but has not yet started treatment for this. Denies any vaginal bleeding. MD Complaint: abdominal pain - Related Data Home Medications Medication Instructions Recorded Confirmed Omeprazole [PriLOSEC] 20 mg PO DAILY 07/11/23 01/17/24 amLODIPine [Norvasc] 5 mg PO DAILY 07/11/23 01/17/24 lisinopriL [Zestril] 10 mg PO DAILY 07/11/23 01/17/24 Insulin Aspart [NovoLOG Flexpen] See Protocol SQ ACHS 11/28/23 01/17/24 Insulin Glargine,Hum.rec.anlog 20 units SQ HS 11/28/23 01/17/24 [Lantus Solostar Pen] Amoxic-Pot Clav 875-125Mg 1 tab PO DIRECTED 01/17/24 01/17/24 [Augmentin 875-125] FLUoxetine HCL [PROzac] 20 mg PO DAILY 01/17/24 01/17/24 Ondansetron Odt [Zofran ODT] 8 mg PO DAILY PRN 01/17/24 01/17/24 Allergies Allergy/AdvReac Type Severity Reaction Status Date / Time adhesive tape Allergy Rash/Hives Verified 01/17/24 18:13 latex Allergy Rash/Hives Verified 01/17/24 18:13 metoclopramide [From Reglan] AdvReac Anxiety Verified 01/17/24 18:13 attack Review of Systems ROS Statement: Those systems with pertinent positive or pertinent negative responses have been documented in the HPI. ROS Other: All systems not noted in ROS Statement are negative. Past Medical History Past Medical History: Diabetes Mellitus, GERD/Reflux, Hypertension Additional Past Medical History / Comment(s): migraine pancretitis History of Any Multi-Drug Resistant Organisms: None Reported Past Surgical History: Cholecystectomy Additional Past Surgical History / Comment(s): right knee surgery Past Anesthesia/Blood Transfusion Reactions: No Reported Reaction Past Psychological History: Anxiety, Depression, No Psychological Hx Reported Smoking Status: Current every day smoker, Vaper Past Alcohol Use History: None Reported Past Drug Use History: Marijuana - Past Family History Father Family Medical History: Myocardial Infarction ([place]) Additional Family Medical History / Comment(s): father at 30 years old Sister(s) Family Medical History: Thyroid Disorder Brother(s) Family Medical History: Asthma Mother Family Medical History: No Reported History General Exam Limitations: no limitations General appearance: alert, in no apparent distress Head exam: Present: atraumatic, normocephalic, normal inspection Respiratory exam: Present: normal lung sounds bilaterally. Absent: respiratory distress, wheezes, rales, rhonchi, stridor Cardiovascular Exam: Present: regular rate, normal rhythm, normal heart sounds. Absent: systolic murmur, diastolic murmur, rubs, gallop, clicks Neurological exam: Present: alert, oriented X3, CN II-XII intact Psychiatric exam: Present: normal affect, normal mood Skin exam: Present: warm, dry, intact, normal color. Absent: rash Course Vital Signs 04/21/24 04/21/24 10:18 12:40 Temperature 97.8 F Pulse Rate 108 H 87 Respiratory 20 18 Rate Blood Pressure 162/122 151/90 O2 Sat by Pulse 99 97 Oximetry Medical Decision Making - Medical Decision Making This is a 24-year-old female who presents to the emergency department for abdominal pain. Was pt. sent in by a medical professional or institution? @ -No Did you speak to anyone other than the patient for history? @ -No Did you review nursing and triage notes? @ -Yes, and I agree, it is accurate with regards to the patient's symptoms. Were old charts reviewed? @ -No Differential Diagnosis? @ -Differential Abdominal Pain Women: Appendicitis, Cholecystitis, diverticulosis, ischemic bowel, pancreatitis, hepat itis, UTI, gastroenteritis, AAA, incarcerated hernia, bowel obstruction, constipation, inflammatory bowel, hepatitis, peptic ulcer disease, splenic infarction, perforated viscus, vulvitis, ovarian torsion, PID, kidney stone, placenta abruption, this is not meant to be an all-inclusive list EKG interpreted by me (3pts min.)? @ -Not obtained X-rays interpreted by me (1pt min.)? @ -Not obtained CT interpreted by me (1pt min.)? @ -Not obtained U/S interpreted by me (1pt. min.)? @ -Obstetrics ultrasound obtained. My interpretation identifies a single live intrauterine . What testing was considered but not performed? (CT, X-rays, U/S, labs)? Why? @ -None What meds were considered but not given? Why? @ -None Did you discuss the management of the patient with other professionals? @ -No Did you reconcile home meds? @ -No Was smoking cessation discussed for >3mins.? @ -No Was critical care preformed (if so, how long)? @ -No Were there social determinants of health that impacted care today? How? (Homelessness, low income, unemployed, alcoholism, drug addiction, transportation, low edu. Level, literacy, decrease access to med. care, [facility], rehab)? @ -No Was there de-escalation of care discussed even if they declined? (Discuss DNR or withdrawal of care, Hospice)? @ -No What co-morbidities impacted this encounter? (DM, HTN, Smoking, COPD, CAD, Cancer, CVA, Hep., AIDS, mental health diagnosis, sleep apnea, morbid obesity)? @ -DM, Was patient admitted / discharged? @ -Discharged. [place] [address]. Urinalysis is grossly contaminated but otherwise not suggestive of infection. OB ultrasound obtained demonstrating a single live intrauterine with a calculated gestational age of 10 weeks as the patient suspected. The cause of her pain could be related to the or yeast infection she is about to start treatment for. Advised Tylenol as needed for pain relief and follow-up with her [employer]N. Patient discharged home in stable condition. Case discussed with ED at tending Dr. Martinez. Return precautions reviewed in depth, the patient is instructed to return to the emergency department with any new, worsening, or concerning symptoms. Patient verbalized understanding. Undiagnosed new problem with uncertain prognosis? @ -None Drug Therapy requiring intensive monitoring for toxicity (Heparin, Nitro, Insulin, Cardizem)? @ -None Were any procedures done? @ -None Diagnosis/symptom? @ -Abdominal pain in Acute, or Chronic, or Acute on Chronic? @ -Acute Uncomplicated (without systemic symptoms) or Complicated (systemic symptoms)? @ -Uncomplicated Side effects of treatment? @ -None Exacerbation, Progression, or Severe Exacerbation] @ -Not applicable Poses a threat to life or bodily function? @ -No - Lab Data Result diagrams: 04/21/24 10:35 04/21/24 10:35 Lab Results 04/21/24 04/21/24 04/21/24 Range/Units 10:35 10:35 10:35 WBC 7.6 (3.8-10.6) k/uL RBC 4.17 (3.80-5.40) m/uL Hgb 12.5 (11.4-16.0) gm/dL Hct 37.0 (34.0-46.0) % MCV 88.8 (80.0-100.0) fL MCH 30.0 (25.0-35.0) pg MCHC 33.7 (31.0-37.0) g/dL RDW 13.5 (11.5-15.5) % Plt Count 354 (150-450) k/uL MPV 7.6 Neutrophils % 70 % Lymphocytes % 24 % Monocytes % 3 % Eosinophils % 2 % Basophils % 1 % Neutrophils # 5.3 (1.3-7.7) k/uL Lymphocytes # 1.8 (1.0-4.8) k/uL Monocytes # 0.2 (0-1.0) k/uL Eosinophils # 0.1 (0-0.7) k/uL Basophils # 0.1 (0-0.2) k/uL Sodium 135 L (137-145) mmol/L Potassium 4.4 (3.5-5.1) mmol/L Chloride 101 (98-107) mmol/L Carbon Dioxide 27 (22-30) mmol/L Anion Gap 7 mmol/L BUN 17 (7-17) mg/dL Creatinine 0.73 (0.52-1.04) mg/dL Est GFR (CKD-EPI)AfAm >90 (>60 ml/min/1.73 sqM) Est GFR (CKD-EPI)NonAf >90 (>60 ml/min/1.73 sqM) Glucose 85 (74-99) mg/dL Calcium 10.1 (8.4-10.2) mg/dL Total Bilirubin 0.8 (0.2-1.3) mg/dL AST 19 (14-36) U/L ALT 12 (4-34) U/L Alkaline Phosphatase 74 (38-126) U/L Total Protein 7.9 (6.3-8.2) g/dL Albumin 4.4 (3.5-5.0) g/dL Amylase 78 (30-110) U/L Lipase 31 (23-300) U/L HCG, Quant 03394.9 mIU/mL Urine Color Yellow Urine Appearance Turbid H (Clear) Urine pH 6.0 (5.0-8.0) Ur Specific Pedro 1.020 (1.001-1.035) Urine Protein 3+ H (Negative) Urine Glucose (UA) 3+ H (Negative) Urine Ketones Negative (Negative) Urine Blood Moderate H (Negative) Urine Nitrite Negative (Negative) Urine Bilirubin Negative (Negative) Urine Urobilinogen <2.0 (<2.0) mg/dL Ur Leukocyte Esterase Negative (Negative) Urine RBC 4 (0-5) /hpf Urine WBC 3 (0-5) /hpf Ur Squamous Epith Cells 16 H (0-4) /hpf Amorphous Sediment Rare H (None) /hpf Urine Bacteria Occasional H (None) /hpf Hyaline Casts 4 H (0-2) /lpf Urine Mucus Rare H (None) /hpf - Radiology Data Radiology results: report reviewed, image reviewed Disposition Clinical Impression: Abdominal pain during Disposition: HOME SELF-CARE Instructions (If sedation given, give patient instructions): Abdominal Pain in (ED) Additional Instructions: Return to the emergency department with any new, worsening, or concerning symptoms. Take Tylenol as needed for pain relief. Follow-up with your [employer]N. Is patient prescribed a controlled substance at d/c from ED?: No Referrals: Louis Shore MD [Primary Care Provider] - 1-2 days Time of Disposition: 12:27
[2024-04-21] MEDS: ACETAMINOPHEN TAB 500 MG TAB PO STA (10:47)
[2024-04-21] MEDS: SODIUM CHLORIDE 0.9% 1,000 ML IV STA (11:00)
[2024-04-21 11:27] LABS: Basophils # (A) 0.1 k/uL (0-0.2); Basophils % (A) 1 %; Eosinophils # (A) 0.1 k/uL (0-0.7); Eosinophils % (A) 2 %; HGB 12.5 gm/dL (11.4-16.0); Lymphocytes # (A) 1.8 k/uL (1.0-4.8); Lymphocytes % (A) 24 %; MCHC 33.7 g/dL (31.0-37.0); MCV 88.8 fL (80.0-100.0); Mean Platelet Volume 7.6; Monocytes # (A) 0.2 k/uL (0-1.0); Monocytes % (A) 3 %; Neutrophils # (A) 5.3 k/uL (1.3-7.7); Neutrophils % (A) 70 %; Platelet Count 354 k/uL (150-450); RBC 4.17 m/uL (3.80-5.40); RDW 13.5 % (11.5-15.5); WBC 7.6 k/uL (3.8-10.6)
[2024-04-21 11:34] LABS: Amorphous Sediment,Urine Rare /hpf; Appearance,Urine Turbid (Clear); Bacteria,Urine Occasional /hpf; Bilirubin,Urine Negative (Negative); Blood,Urine Moderate (Negative); Color,Urine Yellow; Glucose,Urine (UA) 3+ (Negative); Hyaline Casts,Urine 4 /lpf (0-2); Ketones,Urine Negative (Negative); Leukocyte Esterase,Urine Negative (Negative); Mucus,Urine Rare /hpf; Nitrite,Urine Negative (Negative); Protein,Urine 3+ (Negative); RBC,Urine 4 /hpf (0-5); Squamous Epithelial Cell,Urine 16 /hpf (0-4); Urobilinogen,Urine <2.0 mg/dL (<2.0); WBC,Urine 3 /hpf (0-5)
[2024-04-21 11:44] LABS: ALT 12 U/L (4-34); AST 19 U/L (14-36); African American GFR (CKD) >90 (>60 ml/min/1.73 sqM); Albumin 4.4 g/dL (3.5-5.0); Alkaline Phosphatase 74 U/L (38-126); Amylase 78 U/L (30-110); Anion Gap 7 mmol/L; Blood Urea Nitrogen 17 mg/dL (7-17); Calcium 10.1 mg/dL (8.4-10.2); Carbon Dioxide 27 mmol/L (22-30); Chloride 101 mmol/L (98-107); Glucose 85 mg/dL (74-99); Lipase 31 U/L (23-300); Non-African American GFR(CKD) >90 (>60 ml/min/1.73 sqM); Potassium 4.4 mmol/L (3.5-5.1); Sodium 135 mmol/L (137-145); Total Bilirubin 0.8 mg/dL (0.2-1.3); Total Protein 7.9 g/dL (6.3-8.2)
--- NOTE | 2024-04-21 12:07 | US ---
EXAMINATION TYPE: Transabdominal DATE OF EXAM: 04/21/2024 11:43 AM COMPARISON: NONE CLINICAL INDICATION: Female, 24 years old with history of Abdominal pain, 10 weeks ; Pt state s pelvic pain TECHNIQUE: Transabdominal (TA) with grayscale and color Doppler imaging including first trimester pre gnancy. FINDINGS: EXAM MEASUREMENTS: GESTATIONAL AGE / DATING Physician Established: (10 weeks/0 days) EDC: 11/17/2024 Dates by LMP: LMP unknown Dates by First Scan: No previous this is first scan Dates by Current Scan for: (10 weeks/3 days) EDC: 11/14/2024 MATERNAL ANATOMY Uterus: 12.1 x 7.6 x 9.0 cm Right Ovary: 3.4 x 2.8 x 2.1 cm Left Ovary: 2.4 x 2.1 x 2.0 cm Post CDS / Adnexa: wnl Presence of free fluid: Scant amount adjacent to right ovary Presence of corpus luteal cyst: Right Ovary= 2.2 x 1.7 x 1.9 cm Presence of subchorionic bleed: No GESTATION / SURVEY CRL: 3.5 cm (10 weeks/3 days) Gestational Sac morphology: Normal Heart Rate: 172 bpm Rhythm: Normal IUP: Viable IUP IMPRESSION: Single live intrauterine with calculated ultrasound age of 10 weeks 3 days by crown rump le ngth with an estimated date of delivery of 11/14/2024 [facility] Dori Block, , 04/21/2024 12:04 PM
[2024-04-21 12:42] VITALS: BP 151/90; PULSE 87; RESP 18
[2024-04-21 13:31] LABS: HCG,Quantitative Serum 84899.9 mIU/mL
== END 2024-04-21 12:42 | disposition home or self-care (01) ==
LOC: EC 10:17
DX: O26.891 Other specified pregnancy related conditions, first trimester (principal); R10.9 Unspecified abdominal pain; O24.111 Pre-existing type 2 diabetes mellitus, in pregnancy, first trimester; O99.331 Smoking (tobacco) complicating pregnancy, first trimester; F17.290 Nicotine dependence, other tobacco product, uncomplicated; Z91.040 Latex allergy status; Z88.8 Allergy status to other drugs, medicaments and biological substances
CPT/HCPCS: 36415; 76801; 80053; 81001; 82150; 83690; 84702; 85025; 96360; 99284

== ENCOUNTER 2024-06-03 13:47 | Emergency (ER) | payer BC, OTHER ==
[2024-06-03 13:59] VITALS: RESP 18; TEMP 98.1
--- NOTE | 2024-06-03 14:49 | ED ---
General Adult HPI - General Chief complaint: Chest Pain Stated complaint: chest pain Time Seen by Provider: 06/03/24 14:00 Source: patient, RN notes reviewed, old records reviewed Mode of arrival: ambulatory Limitations: no limitations - History of Present Illness Initial comments: This is a 24-year-old female who presents to the emergency department states she has had a cough and has a little chest pain when she coughs. Patient states she has not taken her temperature but had a little bit of the chills today. Patient denies any shortness of breath. Patient states she did vomit once this morning but is no longer nauseous. Patient denies any abdominal pain patient has no vaginal bleeding or discharge patient states she is about 16 weeks - Related Data Home Medications Medication Instructions Recorded Confirmed Omeprazole [PriLOSEC] 20 mg PO DAILY 07/11/23 01/17/24 amLODIPine [Norvasc] 5 mg PO DAILY 07/11/23 01/17/24 lisinopriL [Zestril] 10 mg PO DAILY 07/11/23 01/17/24 Insulin Aspart [NovoLOG Flexpen] See Protocol SQ ACHS 11/28/23 01/17/24 Insulin Glargine,Hum.rec.anlog 20 units SQ HS 11/28/23 01/17/24 [Lantus Solostar Pen] Amoxic-Pot Clav 875-125Mg 1 tab PO DIRECTED 01/17/24 01/17/24 [Augmentin 875-125] FLUoxetine HCL [PROzac] 20 mg PO DAILY 01/17/24 01/17/24 Ondansetron Odt [Zofran ODT] 8 mg PO DAILY PRN 01/17/24 01/17/24 Previous Rx's Medication Instructions Recorded Oseltamivir [Tamiflu] 75 mg PO Q12HR #10 cap 06/03/24 Allergies Allergy/AdvReac Type Severity Reaction Status Date / Time adhesive tape Allergy Rash/Hives Verified 06/03/24 13:59 latex Allergy Rash/Hives Verified 06/03/24 13:59 metoclopramide [From Reglan] AdvReac Anxiety Verified 06/03/24 13:59 attack Review of Systems ROS Statement: Those systems with pertinent positive or pertinent negative responses have been documented in the HPI. ROS Other: All systems not noted in ROS Statement are negative. Past Medical History Past Medical History: Diabetes Mellitus, GERD/Reflux, Hypertension Additional Past Medical History / Comment(s): migraine, pancretitis History of Any Multi-Drug Resistant Organisms: None Reported Past Surgical History: Cholecystectomy Additional Past Surgical History / Comment(s): right knee surgery Past Anesthesia/Blood Transfusion Reactions: No Reported Reaction Past Psychological History: Anxiety, Depression, No Psychological Hx Reported Smoking Status: Current every day smoker, Vaper Past Alcohol Use History: None Reported Past Drug Use History: Marijuana - Past Family History Father Family Medical History: Myocardial Infarction ([place]) Additional Family Medical History / Comment(s): father at 30 years old Sister(s) Family Medical History: Thyroid Disorder Brother(s) Family Medical History: Asthma Mother Family Medical History: No Reported History General Exam - General Exam Comments Initial Comments: GENERAL: Patient is well-developed and well-nourished. Patient is nontoxic and well- hydrated and is in no acute distress. ENT: Neck is soft and supple. No significant lymphadenopathy is noted. Oropharynx is clear. Moist mucous membranes. Neck has full range of motion without e liciting any pain. EYES: The sclera were anicteric and conjunctiva were pink and moist. Extraocular movements were intact and pupils were equal round and reactive to light. Eyelids were unremarkable. PULMONARY: Unlabored respirations. Good breath sounds bilaterally. No audible rales rhonchi or wheezing was noted. CARDIOVASCULAR: There is a regular rate and rhythm without any murmurs gallops or rubs. SKIN: Skin is clear with no lesions or rashes and otherwise unremarkable. NEUROLOGIC: Patient is alert and oriented x3. Cranial nerves II through XII are grossly intact. Motor and sensory are also intact. Normal speech, volume and content. Symmetrical smile. MUSCULOSKELETAL: Normal extremities with adequate strength and full range of motion. PSYCHIATRIC: Normal psychiatric evaluation. Limitations: no limitations Course Vital Signs 06/03/24 13:55 Temperature 98.1 F Pulse Rate 110 H Respiratory 18 Rate Blood Pressure 154/90 O2 Sat by Pulse 100 Oximetry Medical Decision Making - Medical Decision Making EKG is interpreted by myself. EKG shows sinus tachycardia 106 bpm TN 126 QRS is 98 QT interval is 341 QTc is 403. Patient's EKG shows no ST segment elevation or depression. Was pt. sent in by a medical professional or institution (, [place], L[facility]TER, urgent care, hospital, or longterm...) When possible be specific @ -No Did you speak to anyone other than the patient for history (EMS, parent, family, police, friend...)? What history was obtained from this source @ -No Did you review nursing and triage notes (agree or disagree)? Why? @ -I reviewed and agree with nursing and triage notes Were old charts reviewed (outside hosp., previous admission, EMS record, old EKG, old radiological studies, urgent care reports/EKG's, longterm records)? Report findings @ -No old charts were reviewed Differential Diagnosis? @ -Influenza A, influenza B, RSV, COVID, bronchitis, this is not an all- inclusive list EKG interpreted by me (3pts min.). @ -As above X-rays interpreted by me (1pt min.). @ -Patient refused chest x-ray CT interpreted by me (1pt min.). @ -None done U/S interpreted by me (1pt. min.). @ -None done What testing was considered but not performed or refused? (CT, X-rays, U/S, labs)? Why? @ -None What meds were considered but not given or refused? Why? @ -None Did you discuss the management of the patient with other professionals (professionals i.e. CAROLE Raman, LOFTER, lab, RT, psych nurse, neonatal social worker, technical inspector, teacher, diplomatic officer, case reviewer)? Give summary @ -No Was smoking cessation discussed for >3mins.? @ -No Was critical care preformed (if so, how long)? @ -No Were there social determinants of health that impacted care today? How? (Homelessness, low income, unemployed, alcoholism, drug addiction, transportation, low edu. Level, literacy, decrease access to med. care, shelter, rehab)? @ -No Was there de-escalation of care discussed even if they declined (Discuss DNR or withdrawal of care, Hospice)? DNR status @ -No What co-morbidities impacted this encounter? (DM, HTN, Smoking, COPD, CAD, Cancer, CVA, ARF, Chemo, Hep., AIDS, mental health diagnosis, sleep apnea, morbid obesity)? @ -None Was patient admitted / discharged? Hospital course, mention meds given and route, prescriptions, significant lab abnormalities, going to OR and other pertinent info. @ -Patient had influenza A and will be sent home on Tamiflu. Patient was also hypoglycemic on the labs so she was given food and she was asymptomatic throughout Undiagnosed new problem with uncertain prognosis? @ -No Drug Therapy requiring intensive monitoring for toxicity (Heparin, Nitro, Insulin, Cardizem)? @ -No Were any procedures done? @ -No Diagnosis/symptom? @ -Influenza A Acute, or Chronic, or Acute on Chronic? @ -Acute Uncomplicated (without systemic symptoms) or Complicated (systemic symptoms)? @ -Complicated Side effects of treatment? @ -No Exacerbation, Progression, or Severe Exacerbation? @ -No Poses a threat to life or bodily function? How? (Chest pain, [place], [place], pneumonia, PE, COPD, DKA, ARF, appy, cholecystitis, CVA, Diverticulitis, Homicidal, Suicidal, threat to staff... and all critical care pts) @ -No - Lab Data Result diagrams: 06/03/24 14:59 06/03/24 14:59 Lab Results 06/03/24 06/03/24 06/03/24 Range/Units 14:59 14:59 14:59 WBC 8.1 (3.8-10.6) k/uL RBC 3.30 L (3.80-5.40) m/uL Hgb 10.0 L D (11.4-16.0) gm/dL Hct 30.0 L (34.0-46.0) % MCV 90.7 (80.0-100.0) fL MCH 30.3 (25.0-35.0) pg MCHC 33.4 (31.0-37.0) g/dL RDW 13.4 (11.5-15.5) % Plt Count 292 (150-450) k/uL MPV 7.3 Neutrophils % 91 % Lymphocytes % 4 % Monocytes % 4 % Eosinophils % 1 % Basophils % 0 % Neutrophils # 7.4 (1.3-7.7) k/uL Lymphocytes # 0.3 L (1.0-4.8) k/uL Monocytes # 0.3 (0-1.0) k/uL Eosinophils # 0.1 (0-0.7) k/uL Basophils # 0.0 (0-0.2) k/uL Sodium 132 L (137-145) mmol/L Potassium 4.0 (3.5-5.1) mmol/L Chloride 103 (98-107) mmol/L Carbon Dioxide 25 (22-30) mmol/L Anion Gap 4 mmol/L BUN 15 (7-17) mg/dL Creatinine 0.68 (0.52-1.04) mg/dL Est GFR (CKD-EPI)AfAm >90 (>60 ml/min/1.73 sqM) Est GFR (CKD-EPI)NonAf >90 (>60 ml/min/1.73 sqM) Glucose 49 L* (74-99) mg/dL Calcium 8.5 (8.4-10.2) mg/dL Total Bilirubin 0.6 (0.2-1.3) mg/dL AST 18 (14-36) U/L ALT 10 (4-34) U/L Alkaline Phosphatase 72 (38-126) U/L Total Protein 5.8 L (6.3-8.2) g/dL Albumin 3.1 L (3.5-5.0) g/dL Influenza Type A (PCR) Detected A (Not Detectd) Influenza Type B (PCR) Not Detected (Not Detectd) RSV (PCR) Not Detected (Not Detectd) SARS-CoV-2 (PCR) Not Detected (Not Detectd) Disposition Clinical Impression: Influenza Disposition: HOME SELF-CARE Condition: Good Instructions (If sedation given, give patient instructions): Influenza (ED) Prescriptions: Oseltamivir [Tamiflu] 75 mg PO Q12HR #10 cap Is patient prescribed a controlled substance at d/c from ED?: No Referrals: Louis Shore MD [Primary Care Provider] - 1-2 days Time of Disposition: 15:51
[2024-06-03 15:15] LABS: Basophils % (A) 0 %; Eosinophils # (A) 0.1 k/uL (0-0.7); Eosinophils % (A) 1 %; Lymphocytes # (A) 0.3 k/uL (1.0-4.8); Lymphocytes % (A) 4 %; MCH 30.3 pg (25.0-35.0); MCHC 33.4 g/dL (31.0-37.0); MCV 90.7 fL (80.0-100.0); Mean Platelet Volume 7.3; Monocytes # (A) 0.3 k/uL (0-1.0); Monocytes % (A) 4 %; Neutrophils # (A) 7.4 k/uL (1.3-7.7); Neutrophils % (A) 91 %; Platelet Count 292 k/uL (150-450); RDW 13.4 % (11.5-15.5); WBC 8.1 k/uL (3.8-10.6)
[2024-06-03 15:24] LABS: ALT 10 U/L (4-34); AST 18 U/L (14-36); African American GFR (CKD) >90 (>60 ml/min/1.73 sqM); Albumin 3.1 g/dL (3.5-5.0); Alkaline Phosphatase 72 U/L (38-126); Anion Gap 4 mmol/L; Blood Urea Nitrogen 15 mg/dL (7-17); Calcium 8.5 mg/dL (8.4-10.2); Carbon Dioxide 25 mmol/L (22-30); Chloride 103 mmol/L (98-107); Non-African American GFR(CKD) >90 (>60 ml/min/1.73 sqM); Sodium 132 mmol/L (137-145); Total Bilirubin 0.6 mg/dL (0.2-1.3); Total Protein 5.8 g/dL (6.3-8.2)
[2024-06-03 15:43] LABS: Glucose 49 mg/dL (74-99)
[2024-06-03 15:46] LABS: Influenza A Detected (Not Detectd); Influenza B Not Detected (Not Detectd); RSV Not Detected (Not Detectd)
[2024-06-03 16:24] LABS: Glucose,Whole Blood 129 mg/dL (70-110)
[2024-06-03 16:30] VITALS: BP 146/86; PULSE 102
== END 2024-06-03 16:30 | disposition home or self-care (01) ==
LOC: EC 13:47
DX: O98.512 Other viral diseases complicating pregnancy, second trimester (principal); J10.1 Influenza due to other identified influenza virus with other respiratory manifestations; O26.892 Other specified pregnancy related conditions, second trimester; R00.0 Tachycardia, unspecified; O99.332 Smoking (tobacco) complicating pregnancy, second trimester; F17.290 Nicotine dependence, other tobacco product, uncomplicated; Z91.09 Other allergy status, other than to drugs and biological substances; Z88.8 Allergy status to other drugs, medicaments and biological substances; Z91.040 Latex allergy status; Z3A.16 16 weeks gestation of pregnancy
CPT/HCPCS: 36415; 80053; 85025; 87636; 99285

== ENCOUNTER 2024-06-09 11:55 | Emergency (ER) | payer BC, OTHER ==
[2024-06-09 12:04] VITALS: TEMP 97.5
[2024-06-09 12:06] LABS: Glucose,Whole Blood 374 mg/dL (70-110)
--- NOTE | 2024-06-09 12:32 | ED ---
General Adult HPI - General Chief complaint: Nausea/Vomiting/Diarrhea Stated complaint: SOB-17 weeks preg Time Seen by Provider: 06/09/24 12:10 Source: patient, RN notes reviewed Mode of arrival: ambulatory Limitations: no limitations - History of Present Illness Initial comments: This is a G2, 17-week female presenting with and diabetic issues x 3 days. Patient endorses receiving flu diagnosis at this ER on 06/03/2024, taking Tamiflu, stating she is feeling much better. Does endorse ongoing nausea and decreased oral intake. Endorses syncopal episode yesterday with blood glucose finding 40 mg/dL. States she used her glucagon pen but did not contact EMS following use. Patient also endorses not feeling movement for the past 3 days with associated lower abdominal contractions (pressure, 7/10) lasting 30-60 seconds during each event, occurring 4 times today alone. Denies vaginal bleeding/discharge or other abdominal pain, urinary symptoms. Patient states she is taking folic acid or care. Endorses premature of first at 34 weeks with associated preeclampsia. States she is currently taking labetalol due to ongoing hypertension following . States she has an insulin pump but is waiting for a new sensor for her Dexcom. Denies fever, chills, chest pain, dyspnea, upper abdominal pain, headache, vision changes, vomiting, diarrhea. Patient states she sees Dr. Humaira Uribe in [place] as her PRINTER'S ASSISTANT with upcoming appointment next . Onset/Timin -: days(s) Location: abdomen Consistency: intermittent Associated Symptoms: loss of appetite, nausea/vomiting - Related Data Home Medications Medication Instructions Recorded Confirmed Omeprazole [PriLOSEC] 20 mg PO DAILY 07/11/23 01/17/24 amLODIPine [Norvasc] 5 mg PO DAILY 07/11/23 01/17/24 lisinopriL [Zestril] 10 mg PO DAILY 07/11/23 01/17/24 Insulin Aspart [NovoLOG Flexpen] See Protocol SQ ACHS 11/28/23 01/17/24 Insulin Glargine,Hum.rec.anlog 20 units SQ HS 11/28/23 01/17/24 [Lantus Solostar Pen] Amoxic-Pot Clav 875-125Mg 1 tab PO DIRECTED 01/17/24 01/17/24 [Augmentin 875-125] FLUoxetine HCL [PROzac] 20 mg PO DAILY 01/17/24 01/17/24 Ondansetron Odt [Zofran ODT] 8 mg PO DAILY PRN 01/17/24 01/17/24 Previous Rx's Medication Instructions Recorded Oseltamivir [Tamiflu] 75 mg PO Q12HR #10 cap 06/03/24 Allergies Allergy/AdvReac Type Severity Reaction Status Date / Time adhesive tape Allergy Rash/Hives Verified 06/09/24 12:04 latex Allergy Rash/Hives Verified 06/09/24 12:04 metoclopramide [From Reglan] AdvReac Anxiety Verified 06/09/24 12:04 attack Review of Systems ROS Statement: Those systems with pertinent positive or pertinent negative responses have been documented in the HPI. ROS Other: All systems not noted in ROS Statement are negative. Past Medical History Past Medical History: Diabetes Mellitus, GERD/Reflux, Hypertension Additional Past Medical History / Comment(s): migraine, pancretitis History of Any Multi-Drug Resistant Organisms: None Reported Past Surgical History: Cholecystectomy Additional Past Surgical History / Comment(s): right knee surgery Past Anesthesia/Blood Transfusion Reactions: No Reported Reaction Past Psychological History: Anxiety, Depression, No Psychological Hx Reported Smoking Status: Current every day smoker, Vaper Past Alcohol Use History: None Reported Past Drug Use History: Marijuana - Past Family History Father Family Medical History: Myocardial Infarction ([place]) Additional Family Medical History / Comment(s): father at 30 years old Sister(s) Family Medical History: Thyroid Disorder Brother(s) Family Medical History: Asthma Mother Family Medical History: No Reported History General Exam Limitations: no limitations General appearance: alert, in no apparent distress Head exam: Present: atraumatic, normocephalic, normal inspection Eye exam: Present: normal appearance, PERRL, EOMI. Absent: scleral icterus, conjunctival injection, periorbital swelling ENT exam: Present: normal exam, mucous membranes moist Neck exam: Present: normal inspection. Absent: tenderness, meningismus, lymphadenopathy Respiratory exam: Present: normal lung sounds bilaterally. Absent: respiratory distress, wheezes, rales, rhonchi, stridor, accessory muscle use, decreased breath sounds Cardiovascular Exam: Present: normal rhythm, tachycardia, normal heart sounds. Absent: systolic murmur, diastolic murmur, rubs, gallop, clicks GI/Abdominal exam: Present: soft, tenderness (Positive epigastric tenderness without guarding), normal bowel sounds. Absent: distended, guarding, rebound, rigid Extremities exam: Present: normal inspection, full ROM, normal capillary refill. Absent: tenderness, pedal edema, joint swelling, calf tenderness Back exam: Present: normal inspection. Absent: CVA tenderness (R), CVA tenderness (L) Neurological exam: Present: alert, oriented X3, CN II-XII intact Psychiatric exam: Present: normal affect, normal mood Skin exam: Present: warm, dry, intact, normal color. Absent: rash Course Vital Signs 06/09/24 06/09/24 12:00 15:15 Temperature 97.5 F L Pulse Rate 133 H 89 Respiratory 20 18 Rate Blood Pressure 150/99 118/84 O2 Sat by Pulse 100 98 Oximetry Medical Decision Making - Medical Decision Making Was pt. sent in by a medical professional or institution (, PA, HEALTHCARE SPECIALIST, urgent care, hospital, or correction...) When possible be specific @ -No Did you speak to anyone other than the patient for history (EMS, parent, family, police, friend...)? What history was obtained from this source @ -No Did you review nursing and triage notes (agree or disagree)? Why? @ -I reviewed and agree with nursing and triage notes Were old charts reviewed (outside hosp., previous admission, EMS record, old EKG, old radiological studies, urgent care reports/EKG's, correction records)? Report findings @ -ER visit from 06/03/2024 with fluid diagnosis reviewed. ultrasound results from 05/21/2024 also reviewed with no concerning findings. Differential Diagnosis (chest pain, altered mental status, abdominal pain women, abdominal pain men, vaginal bleeding, weakness, fever, dyspnea, syncope, headache, dizziness, GI bleed, back pain, seizure, CVA, palpatations, mental health, musculoskeletal)? @ -Differential Abdominal Pain Women: Appendicitis, Cholecystitis, diverticulosis, ischemic bowel, pancreatitis, hepatitis, UTI, gastroenteritis, AAA, incarcerated hernia, bowel obstruction, constipation, inflammatory bowel, hepatitis, peptic ulcer disease, splenic infarction, perforated viscus, vulvitis, ovarian torsion, PID, kidney stone, placenta abruption, this is not meant to be an all-inclusive list EKG interpreted by me (3pts min.). @ -Sinus tachycardia with possible bilateral atrial enlargement. No ST deviation T wave inversion. Ventricular rate 100 bpm, SUDEEP 124 ms, QRS duration 97 ms, QTc 403 ms. X-rays interpreted by me (1pt min.). @ -None done CT interpreted by me (1pt min.). @ -None done U/S interpreted by me (1pt. min.). @ - ultrasound shows single live intrauterine gestation with estimated gestational age of 16 weeks 6 days and heart rate of 140 bpm. What testing was considered but not performed or refused? (CT, X-rays, U/S, labs)? Why? @ -None What meds were considered but not given or refused? Why? @ -None Did you discuss the management of the patient with other professionals (professionals i.e. , PA, HEALTHCARE SPECIALIST, lab, RT, psych nurse, nursing home social worker, weight shifter, teacher, custodial officer, correctional case records supervisor)? Give summary @ -Spoke to Dr. Shore who advised patient requires OB admission. Called Dr. Shore back, informing patient is choosing to be discharged due to subsequent drop in blood glucose levels into the 150s. Was smoking cessation discussed for >3mins.? @ -No Was critical care preformed (if so, how long)? @ -No Were there social determinants of health that impacted care today? How? (Homelessness, low income, unemployed, alcoholism, drug addiction, transportation, low edu. Level, literacy, decrease access to med. care, [facility], rehab)? @ -No Was there de-escalation of care discussed even if they declined (Discuss DNR or withdrawal of care, Hospice)? DNR status @ -No What co-morbidities impacted this encounter? (DM, HTN, Smoking, COPD, CAD, Cancer, CVA, ARF, Chemo, Hep., AIDS, mental health diagnosis, sleep apnea, morbid obesity)? @ -DM 1 Was patient admitted / discharged? Hospital course, mention meds given and route, prescriptions, significant lab abnormalities, going to OR and other per tinent info. @ -At work shows hyponatremia 131, anion gap 15 and hyperglycemia 259. Quant itative hCG 12.6 K. UA shows glycosuria, ketonuria and proteinuria without UTI. ultrasound shows single live intrauterine gestation with estimated gestational age of 16 weeks 6 days and heart rate of 140 bpm. Patient initially provided IV normal saline, Benadryl and vitamin B6. Additional normal saline drip provided. Spoke to Dr. Shore regarding possible admission of patient due to abnormal UA findings during . Repeat [id number] blood glucose 158. Patient ultimately decided to forego admission due to drop in blood glucose and will follow-up with PRINTER'S ASSISTANT for appointment on , 06/14/2024. Advised to continue monitoring of blood sugar levels and blood pressure. Discussed patient with Dr. Parra. Undiagnosed new problem with uncertain prognosis? @ -No Drug Therapy requiring intensive monitoring for toxicity (Heparin, Nitro, Insulin, Cardizem)? @ -No Were any procedures done? @ -No Diagnosis/symptom? @ -Hyperglycemia during , glycosuria, ketonuria Acute, or Chronic, or Acute on Chronic? @ -Acute Uncomplicated (without systemic symptoms) or Complicated (systemic symptoms)? @ -Complicated Side effects of treatment? @ -No Exacerbation, Progression, or Severe Exacerbation? @ -No Poses a threat to life or bodily function? How? (Chest pain, [place], [place], pneumonia, PE, COPD, DKA, ARF, appy, cholecystitis, CVA, Diverticulitis, Homicidal, Suicidal, threat to staff... and all critical care pts) @ -No - Lab Data Result diagrams: 06/09/24 13:40 06/09/24 13:40 Lab Results 06/09/24 06/09/24 06/09/24 Range/Units 12:04 13:00 13:39 WBC (3.8-10.6) k/uL RBC (3.80-5.40) m/uL Hgb (11.4-16.0) gm/dL Hct (34.0-46.0) % MCV (80.0-100.0) fL MCH (25.0-35.0) pg MCHC (31.0-37.0) g/dL RDW (11.5-15.5) % Plt Count (150-450) k/uL MPV Neutrophils % % Lymphocytes % % Monocytes % % Eosinophils % % Basophils % % Neutrophils # (1.3-7.7) k/uL Lymphocytes # (1.0-4.8) k/uL Monocytes # (0-1.0) k/uL Eosinophils # (0-0.7) k/uL Basophils # (0-0.2) k/uL Sodium (137-145) mmol/L Potassium (3.5-5.1) mmol/L Chloride (98-107) mmol/L Carbon Dioxide (22-30) mmol/L Anion Gap mmol/L BUN (7-17) mg/dL Creatinine (0.52-1.04) mg/dL Est GFR (CKD-EPI)AfAm (>60 ml/min/1.73 sqM) Est GFR (CKD-EPI)NonAf (>60 ml/min/1.73 sqM) Glucose (74-99) mg/dL POC Glucose (mg/dL) 374 H (70-110) mg/dL POC Glu Paper Bag Press Operator JAKE Duff Calcium (8.4-10.2) mg/dL Magnesium (1.6-2.3) mg/dL Total Bilirubin (0.2-1.3) mg/dL AST (14-36) U/L ALT (4-34) U/L Alkaline Phosphatase (38-126) U/L Total Protein (6.3-8.2) g/dL Albumin (3.5-5.0) g/dL HCG, Quant mIU/mL Urine Color Colorless Urine Appearance Clear (Clear) Urine pH 6.0 (5.0-8.0) Ur Specific Jeremiah 1.017 (1.001-1.035) Urine Protein 3+ H (Negative) Urine Glucose (UA) 4+ H (Negative) Urine Ketones 4+ H (Negative) Urine Blood Small H (Negative) Urine Nitrite Negative (Negative) Urine Bilirubin Negative (Negative) Urine Urobilinogen <2.0 (<2.0) mg/dL Ur Leukocyte Esterase Negative (Negative) Urine RBC 2 (0-5) /hpf Urine WBC 2 (0-5) /hpf Ur Squamous Epith Cells 3 (0-4) /hpf Urine Bacteria Rare H (None) /hpf Hyaline Casts 1 (0-2) /lpf Blood Type A Positive Blood Type Recheck No Previous Record Bld Type Recheck Status ABR ONLY 06/09/24 06/09/24 06/09/24 Range/Units 13:40 13:40 15:15 WBC 8.7 (3.8-10.6) k/uL RBC 3.86 (3.80-5.40) m/uL Hgb 11.5 (11.4-16.0) gm/dL Hct 35.4 (34.0-46.0) % MCV 91.9 (80.0-100.0) fL MCH 29.9 (25.0-35.0) pg MCHC 32.6 (31.0-37.0) g/dL RDW 13.1 (11.5-15.5) % Plt Count 358 (150-450) k/uL MPV 7.2 Neutrophils % 77 % Lymphocytes % 18 % Monocytes % 3 % Eosinophils % 1 % Basophils % 0 % Neutrophils # 6.7 (1.3-7.7) k/uL Lymphocytes # 1.5 (1.0-4.8) k/uL Monocytes # 0.2 (0-1.0) k/uL Eosinophils # 0.1 (0-0.7) k/uL Basophils # 0.0 (0-0.2) k/uL Sodium 131 L (137-145) mmol/L Potassium 4.7 (3.5-5.1) mmol/L Chloride 99 (98-107) mmol/L Carbon Dioxide 17 L (22-30) mmol/L Anion Gap 15 mmol/L BUN 14 (7-17) mg/dL Creatinine 0.87 (0.52-1.04) mg/dL Est GFR (CKD-EPI)AfAm >90 (>60 ml/min/1.73 sqM) Est GFR (CKD-EPI)NonAf >90 (>60 ml/min/1.73 sqM) Glucose 259 H (74-99) mg/dL POC Glucose (mg/dL) 158 H (70-110) mg/dL POC Glu Paper Bag Press Operator ID Timbo Karen Calcium 8.9 (8.4-10.2) mg/dL Magnesium 1.7 (1.6-2.3) mg/dL Total Bilirubin 0.7 (0.2-1.3) mg/dL AST 19 (14-36) U/L ALT 14 (4-34) U/L Alkaline Phosphatase 97 (38-126) U/L Total Protein 6.4 (6.3-8.2) g/dL Albumin 3.4 L (3.5-5.0) g/dL HCG, Quant 08290.4 mIU/mL Urine Color Urine Appearance (Clear) Urine pH (5.0-8.0) Ur Specific Jeremiah (1.001-1.035) Urine Protein (Negative) Urine Glucose (UA) (Negative) Urine Ketones (Negative) Urine Blood (Negative) Urine Nitrite (Negative) Urine Bilirubin (Negative) Urine Urobilinogen (<2.0) mg/dL Ur Leukocyte Esterase (Negative) Urine RBC (0-5) /hpf Urine WBC (0-5) /hpf Ur Squamous Epith Cells (0-4) /hpf Urine Bacteria (None) /hpf Hyaline Casts (0-2) /lpf Blood Type Blood Type Recheck Bld Type Recheck Status Disposition Clinical Impression: Hyperglycemia during , Ketonuria Disposition: HOME SELF-CARE Condition: Good Instructions (If sedation given, give patient instructions): Diabetic Hyperglycemia (ED) Additional Instructions: Continue daily monitoring of blood glucose. Follow-up with PRINTER'S ASSISTANT appointment as scheduled next week. Is patient prescribed a controlled substance at d/c from ED?: No Referrals: Louis Shore MD [Primary Care Provider] - 1-2 days Time of Disposition: 15:46
[2024-06-09 13:17] LABS: Appearance,Urine Clear (Clear); Bacteria,Urine Rare /hpf; Bilirubin,Urine Negative (Negative); Blood,Urine Small (Negative); Color,Urine Colorless; Glucose,Urine (UA) 4+ (Negative); Hyaline Casts,Urine 1 /lpf (0-2); Leukocyte Esterase,Urine Negative (Negative); Nitrite,Urine Negative (Negative); Protein,Urine 3+ (Negative); RBC,Urine 2 /hpf (0-5); Specific Gravity,Urine 1.017 (1.001-1.035); Squamous Epithelial Cell,Urine 3 /hpf (0-4); Urobilinogen,Urine <2.0 mg/dL (<2.0); WBC,Urine 2 /hpf (0-5)
[2024-06-09 13:29] LABS: Ketones,Urine 4+ (Negative)
[2024-06-09] MEDS: diphenhydrAMINE 50 MG/ML 1 ML VIAL IVP STA (13:45)
[2024-06-09] MEDS: PYRIDOXINE 100 MG/ML 1 ML VIAL IVP SCH (13:45)
[2024-06-09] MEDS: SODIUM CHLORIDE 0.9% 1,000 ML IV STA ×2 (13:46→15:13)
[2024-06-09 13:53] LABS: Basophils % (A) 0 %; Eosinophils # (A) 0.1 k/uL (0-0.7); Eosinophils % (A) 1 %; HCT 35.4 % (34.0-46.0); HGB 11.5 gm/dL (11.4-16.0); Lymphocytes # (A) 1.5 k/uL (1.0-4.8); Lymphocytes % (A) 18 %; MCH 29.9 pg (25.0-35.0); MCHC 32.6 g/dL (31.0-37.0); MCV 91.9 fL (80.0-100.0); Mean Platelet Volume 7.2; Monocytes # (A) 0.2 k/uL (0-1.0); Monocytes % (A) 3 %; Neutrophils # (A) 6.7 k/uL (1.3-7.7); Neutrophils % (A) 77 %; Platelet Count 358 k/uL (150-450); RBC 3.86 m/uL (3.80-5.40); RDW 13.1 % (11.5-15.5); WBC 8.7 k/uL (3.8-10.6)
[2024-06-09 14:21] LABS: ALT 14 U/L (4-34); AST 19 U/L (14-36); African American GFR (CKD) >90 (>60 ml/min/1.73 sqM); Albumin 3.4 g/dL (3.5-5.0); Alkaline Phosphatase 97 U/L (38-126); Anion Gap 15 mmol/L; Blood Urea Nitrogen 14 mg/dL (7-17); Calcium 8.9 mg/dL (8.4-10.2); Carbon Dioxide 17 mmol/L (22-30); Chloride 99 mmol/L (98-107); Glucose 259 mg/dL (74-99); Magnesium 1.7 mg/dL (1.6-2.3); Non-African American GFR(CKD) >90 (>60 ml/min/1.73 sqM); Potassium 4.7 mmol/L (3.5-5.1); Sodium 131 mmol/L (137-145); Total Bilirubin 0.7 mg/dL (0.2-1.3); Total Protein 6.4 g/dL (6.3-8.2)
--- NOTE | 2024-06-09 14:26 | US ---
EXAMINATION TYPE: US OB >= 14 wk fetus DATE OF EXAM: 06/09/2024 COMPARISON: 05/21/24 CLINICAL INDICATION: Female, 24 years old with history of No movement felt x 3 days; no m ovement felt x 3 days, recent flu TECHNIQUE: Transabdominal (TA) FINDINGS: GESTATIONAL AGE / DATING Physician Established: (17 weeks/0 days) EDC: 11/17/24 Dates by Current Scan: (16 weeks/6 days) EDC: 11/18/24 SURVEY IUP: Single PLACENTA: Anterior PREVIA: No Previa ARLETTE: 10.4 cm Normal CERVICAL LENGTH (transabdominal: norm > 3.0cm): 3.2 cm BIOMETRY PRESENTATION: Breech LIE: Longitudinal BPD: 3.3 cm 16 weeks / 2 days HC: 13.2 cm 16 weeks / 6 days AC: 11.0 cm 17 weeks / 0 days FL: 2.4 cm 17 weeks / 2 days ESTIMATED WEIGHT IN GRAMS: 177 grams ESTIMATED WEIGHT IN LBS/OZ: 0 lbs. 6 oz. WEIGHT PERCENTAGE BASED ON ESTABLISHED DATES: 43% HC/AC: 1.2 Normal FL/AC: 22% Normal HEART RATE: 140 bpm RHYTHM: Normal IMPRESSION: Single live intrauterine gestation with estimated gestational age of 16 weeks 6 days. survey me asurements as above. [facility], , 06/09/2024 2:24 PM
[2024-06-09 14:35] LABS: HCG,Quantitative Serum 12692.4 mIU/mL
[2024-06-09 15:16] VITALS: BP 118/84; PULSE 89; RESP 18
[2024-06-09 15:18] LABS: Glucose,Whole Blood 158 mg/dL (70-110)
== END 2024-06-09 16:11 | disposition home or self-care (01) ==
LOC: EC 11:55
DX: O24.113 Pre-existing type 2 diabetes mellitus, in pregnancy, third trimester (principal); E11.65 Type 2 diabetes mellitus with hyperglycemia; R82.4 Acetonuria; O99.332 Smoking (tobacco) complicating pregnancy, second trimester; F17.290 Nicotine dependence, other tobacco product, uncomplicated; Z79.4 Long term (current) use of insulin; Z3A.17 17 weeks gestation of pregnancy
CPT/HCPCS: 36415; 93005; 86900; 86901; 80053; 83735; 85025; 81001; 84702; 76805; 99284; 96374; 96375; 96361 ×2; J1200; J3415

== ENCOUNTER 2024-06-17 08:11 | Inpatient (IN) | payer BC, OTHER ==
[2024-06-17 08:15] LABS: Glucose,Whole Blood >600 mg/dL (70-110)
--- NOTE | 2024-06-17 08:31 | ED ---
General Adult HPI - General Chief complaint: Recheck/Abnormal Lab/Rx Stated complaint: chest pain vomiting DKA Time Seen by Provider: 06/17/24 08:12 Source: patient Mode of arrival: ambulatory Limitations: no limitations - History of Present Illness Initial comments: Dictation was produced using Perk dictation software. please excuse any grammatical, word or spelling errors. Chief Complaint: 24-year-old type I diabetic presents to the ER for symptoms concerning for DKA History of Present Illness: Patient is a 24-year-old type I diabetic. She is 18 weeks and 1 day . States that she is here today because she feels like she is in DKA. She checked her sugar a.m. and is 540 at home. Patient having symptoms of chest tightness. States that she gets these whenever she is in DKA. Patient states that so far the is going well. She has been in DKA at least 3-4 times in her lifetime. The ROS documented in this emergency department record has been reviewed and confirmed by me. Those systems with pertinent positive or negative responses have been documented in the HPI. All other systems are other negative and/or noncontributory. - Related Data Home Medications Medication Instructions Recorded Confirmed Omeprazole [PriLOSEC] 20 mg PO DAILY 07/11/23 01/17/24 amLODIPine [Norvasc] 5 mg PO DAILY 07/11/23 01/17/24 lisinopriL [Zestril] 10 mg PO DAILY 07/11/23 01/17/24 Insulin Aspart [NovoLOG Flexpen] See Protocol SQ ACHS 11/28/23 01/17/24 Insulin Glargine,Hum.rec.anlog 20 units SQ HS 11/28/23 01/17/24 [Lantus Solostar Pen] Amoxic-Pot Clav 875-125Mg 1 tab PO DIRECTED 01/17/24 01/17/24 [Augmentin 875-125] FLUoxetine HCL [PROzac] 20 mg PO DAILY 01/17/24 01/17/24 Ondansetron Odt [Zofran ODT] 8 mg PO DAILY PRN 01/17/24 01/17/24 Previous Rx's Medication Instructions Recorded Oseltamivir [Tamiflu] 75 mg PO Q12HR #10 cap 06/03/24 Allergies Allergy/AdvReac Type Severity Reaction Status Date / Time adhesive tape Allergy Rash/Hives Verified 06/17/24 08:16 latex Allergy Rash/Hives Verified 06/17/24 08:16 metoclopramide [From Reglan] AdvReac Anxiety Verified 06/17/24 08:16 attack Review of Systems ROS Statement: Those systems with pertinent positive or pertinent negative responses have been documented in the HPI. ROS Other: All systems not noted in ROS Statement are negative. Past Medical History Past Medical History: Diabetes Mellitus, GERD/Reflux, Hypertension Additional Past Medical History / Comment(s): migraine, pancretitis History of Any Multi-Drug Resistant Organisms: None Reported Past Surgical History: Cholecystectomy Additional Past Surgical History / Comment(s): right knee surgery Past Anesthesia/Blood Transfusion Reactions: No Reported Reaction Past Psychological History: Anxiety, Depression, No Psychological Hx Reported Smoking Status: Current every day smoker, Vaper Past Alcohol Use History: None Reported Past Drug Use History: Marijuana - Past Family History Father Family Medical History: Myocardial Infarction (PR) Additional Family Medical History / Comment(s): father at 30 years old Sister(s) Family Medical History: Thyroid Disorder Brother(s) Family Medical History: Asthma Mother Family Medical History: No Reported History General Exam - General Exam Comments Initial Comments: PHYSICAL EXAM: General Impression: Alert and oriented x3, smells of acetone HEENT: Normocephalic atraumatic, extra-ocular movements intact, pupils equal and reactive to light bilaterally, mucous membranes moist. Cardiovascular: Heart regular rate and rhythm Chest: Able to complete full sentences, no retractions, no tachypnea Abdomen: abdomen soft, non-tender, non-distended, no organomegaly Musculoskeletal: Pulses present and equal in all extremities, no peripheral edema Motor: no focal deficits noted Neurological: CN II-XII grossly intact, no focal motor or sensory deficits noted Skin: Intact with no visualized rashes Psych: Normal affect and mood Limitations: no limitations Course Vital Signs 06/17/24 06/17/24 08:13 09:09 Temperature 97.3 F L Pulse Rate 120 H 125 H Respiratory 18 18 Rate Blood Pressure 144/103 131/100 O2 Sat by Pulse 100 100 Oximetry EKG Findings - EKG Comments: EKG Findings:: My EKG interpretation: Ventricular rate 116, sinus tachycardia,. 104, cures 90, QTc 4 6. No CA prolongation, no QTC prolongation, no ST or T-wave changes noted. Overall, this EKG is unremarkable Medical Decision Making - Medical Decision Making Was pt. sent in by a medical professional or institution (, PA, UI DEVELOPER DESIGNER, urgent care, hospital, or residential...) When possible be specific @ -No Did you speak to anyone other than the patient for history (EMS, parent, family, police, friend...)? What history was obtained from this source @ -No Did you review nursing and triage notes (agree or disagree)? Why? @ -I reviewed and agree with nursing and triage notes Were old charts reviewed (outside hosp., previous admission, EMS record, old EKG, old radiological studies, urgent care reports/EKG's, residential records)? Report findings @ -No old charts were reviewed Differential Diagnosis (chest pain, altered mental status, abdominal pain women, abdominal pain men, vaginal bleeding, musculoskeletal, weakness, fever, dyspnea, syncope, headache, dizziness, GI bleed, back pain, seizure, CVA, palpatations, mental health)? @ -Differential Weakness: Hypoglycemia, shock, sepsis, hyponatremia, anemia, infection, PR, ETOH, adverse medicine reaction, overdose, stroke, this is not meant to be an all-inclusive list. EKG interpreted by me (3pts min.). @ -As above X-rays interpreted by me (1pt min.). @ -None done CT interpreted by me (1pt min.). @ -None done U/S interpreted by me (1pt. min.). @ -None done What testing was considered but not performed or refused? (CT, X-rays, U/S, labs)? Why? @ -None What meds were considered but not given or refused? Why? @ -None Was smoking cessation discussed for >3mins.? @ -No Were there social determinants of health that impacted care today? How? (Homelessness, low income, unemployed, alcoholism, drug addiction, transportation, low edu. Level, literacy, decrease access to med. care, intermediate, rehab)? @ -No Was there de-escalation of care discussed even if they declined (Discuss DNR or withdrawal of care, Hospice)? DNR status @ -No What co-morbidities impacted this encounter? (DM, HTN, Smoking, COPD, CAD, Cancer, CVA, ARF, Chemo, Hep., AIDS, mental health diagnosis, sleep apnea, morbid obesity)? @ -Type 1 diabetes Was patient admitted / discharged? Hospital course, mention meds given and route, prescriptions, significant lab abnormalities, going to OR and other pe rtinent info. @ -24-year-old diabetic female 18 weeks presents to the ER for concerns of DKA. She states she is having a classic symptoms of DKA including malaise, chest pain, vomiting. Vital signs upon arrival shows tachycardia, rest of vital signs within acceptable limits. Patient in no acute distress. Laboratory evaluation obtained. CBC is unremarkable. Significant metabolic randal angement with sodium 127 secondary to pseudohyponatremia, bicarb of less than 5. Urinalysis negative. Acetone positive. Patient started on DKA order set. Case discussed with SHEET METAL SUPERINTENDENT who will be on consult. Case discussed with ICU attending who is agreeable for ICU admission. Case discussed with hospitalist for admission Did you discuss the management of the patient with other professionals (harshad mckeon i.e. , PA, UI DEVELOPER DESIGNER, lab, RT, psych nurse, social services specialist, dairy farm operator, teacher, police patrol officer, director of casework department)? Give summary @ -No Was critical care preformed (if so, how long)? @ -Yes, 77 minutes for management of severe metabolic derangement Undiagnosed new problem with uncertain prognosis? @ -No Drug Therapy requiring intensive monitoring for toxicity (Heparin, Nitro, Insulin, Cardizem)? @ -No Were any procedures done? @ -No Diagnosis/symptom? Acute, or Chronic, or Acute on Chronic? Uncomplicated (without systemic symptoms) or Complicated (systemic symptoms)? @ -Diabetic ketoacidosis Side effects of treatment? @ -No Exacerbation, Progression, or Severe Exacerbation? @ -No Poses a threat to life or bodily function? How? (Chest pain, USA, PR, pneumonia, PE, COPD, DKA, ARF, appy, cholecystitis, CVA, Diverticulitis, Homicidal, Suicidal, threat to staff... and all critical care pts) @ -yes - Lab Data Result diagrams: 06/17/24 08:47 06/17/24 08:47 Lab Results 06/17/24 06/17/24 06/17/24 Range/Units 08:14 08:28 08:47 WBC 9.7 (3.8-10.6) k/uL RBC 3.99 (3.80-5.40) m/uL Hgb 12.0 (11.4-16.0) gm/dL Hct 39.0 (34.0-46.0) % MCV 97.7 D (80.0-100.0) fL MCH 30.2 (25.0-35.0) pg MCHC 30.9 L (31.0-37.0) g/dL RDW 13.6 (11.5-15.5) % Plt Count 526 H (150-450) k/uL MPV 8.4 Neutrophils % 90 % Lymphocytes % 7 % Monocytes % 2 % Eosinophils % 1 % Basophils % 0 % Neutrophils # 8.7 H (1.3-7.7) k/uL Lymphocytes # 0.6 L (1.0-4.8) k/uL Monocytes # 0.2 (0-1.0) k/uL Eosinophils # 0.1 (0-0.7) k/uL Basophils # 0.0 (0-0.2) k/uL Hypochromasia Slight Sodium (137-145) mmol/L Potassium (3.5-5.1) mmol/L Chloride (98-107) mmol/L Carbon Dioxide (22-30) mmol/L Anion Gap mmol/L BUN (7-17) mg/dL Creatinine (0.52-1.04) mg/dL Est GFR (CKD-EPI)AfAm (>60 ml/min/1.73 sqM) Est GFR (CKD-EPI)NonAf (>60 ml/min/1.73 sqM) Glucose (74-99) mg/dL POC Glucose (mg/dL) >600 H* (70-110) mg/dL POC Glu Conveyor Technician ID Cutter Grayson Calcium (8.4-10.2) mg/dL Total Bilirubin (0.2-1.3) mg/dL AST (14-36) U/L ALT (4-34) U/L Alkaline Phosphatase (38-126) U/L Total Protein (6.3-8.2) g/dL Albumin (3.5-5.0) g/dL Urine Color Colorless Urine Appearance Clear (Clear) Urine pH 5.5 (5.0-8.0) Ur Specific Powell 1.019 (1.001-1.035) Urine Protein 2+ H (Negative) Urine Glucose (UA) 4+ H (Negative) Urine Ketones 4+ H (Negative) Urine Blood Trace H (Negative) Urine Nitrite Negative (Negative) Urine Bilirubin Negative (Negative) Urine Urobilinogen <2.0 (<2.0) mg/dL Ur Leukocyte Esterase Negative (Negative) Urine RBC <1 (0-5) /hpf Urine WBC <1 (0-5) /hpf Ur Squamous Epith Cells <1 (0-4) /hpf Urine Bacteria Rare H (None) /hpf Hyaline Casts 1 (0-2) /lpf Acetone, Qual (Negative) 06/17/24 Range/Units 08:47 WBC (3.8-10.6) k/uL RBC (3.80-5.40) m/uL Hgb (11.4-16.0) gm/dL Hct (34.0-46.0) % MCV (80.0-100.0) fL MCH (25.0-35.0) pg MCHC (31.0-37.0) g/dL RDW (11.5-15.5) % Plt Count (150-450) k/uL MPV Neutrophils % % Lymphocytes % % Monocytes % % Eosinophils % % Basophils % % Neutrophils # (1.3-7.7) k/uL Lymphocytes # (1.0-4.8) k/uL Monocytes # (0-1.0) k/uL Eosinophils # (0-0.7) k/uL Basophils # (0-0.2) k/uL Hypochromasia Sodium 127 L (137-145) mmol/L Potassium 5.1 (3.5-5.1) mmol/L Chloride 93 L (98-107) mmol/L Carbon Dioxide <5 L* (22-30) mmol/L Anion Gap mmol/L BUN 15 (7-17) mg/dL Creatinine 1.10 H (0.52-1.04) mg/dL Est GFR (CKD-EPI)AfAm 81 (>60 ml/min/1.73 sqM) Est GFR (CKD-EPI)NonAf 71 (>60 ml/min/1.73 sqM) Glucose 597 H* (74-99) mg/dL POC Glucose (mg/dL) (70-110) mg/dL POC Glu Conveyor Technician ID Calcium 9.5 (8.4-10.2) mg/dL Total Bilirubin 1.1 (0.2-1.3) mg/dL AST 14 (14-36) U/L ALT 12 (4-34) U/L Alkaline Phosphatase 94 (38-126) U/L Total Protein 7.2 (6.3-8.2) g/dL Albumin 4.3 (3.5-5.0) g/dL Urine Color Urine Appearance (Clear) Urine pH (5.0-8.0) Ur Specific Powell (1.001-1.035) Urine Protein (Negative) Urine Glucose (UA) (Negative) Urine Ketones (Negative) Urine Blood (Negative) Urine Nitrite (Negative) Urine Bilirubin (Negative) Urine Urobilinogen (<2.0) mg/dL Ur Leukocyte Esterase (Negative) Urine RBC (0-5) /hpf Urine WBC (0-5) /hpf Ur Squamous Epith Cells (0-4) /hpf Urine Bacteria (None) /hpf Hyaline Casts (0-2) /lpf Acetone, Qual Positive (Negative) Disposition Clinical Impression: DKA (diabetic ketoacidosis) Disposition: ADMITTED IP TO THIS [facility] Condition: Critical Referrals: Louis Shore MD [Primary Care Provider] - 1-2 days Decision Time: 09:45
[2024-06-17 08:42] LABS: Appearance,Urine Clear (Clear); Bacteria,Urine Rare /hpf; Bilirubin,Urine Negative (Negative); Blood,Urine Trace (Negative); Color,Urine Colorless; Glucose,Urine (UA) 4+ (Negative); Hyaline Casts,Urine 1 /lpf (0-2); Leukocyte Esterase,Urine Negative (Negative); Nitrite,Urine Negative (Negative); PH, Urine 5.5 (5.0-8.0); Protein,Urine 2+ (Negative); RBC,Urine <1 /hpf (0-5); Specific Gravity,Urine 1.019 (1.001-1.035); Squamous Epithelial Cell,Urine <1 /hpf (0-4); Urobilinogen,Urine <2.0 mg/dL (<2.0); WBC,Urine <1 /hpf (0-5)
[2024-06-17 08:57] LABS: Ketones,Urine 4+ (Negative)
[2024-06-17 09:02] LABS: Basophils % (A) 0 %; Eosinophils # (A) 0.1 k/uL (0-0.7); Eosinophils % (A) 1 %; Hypochromasia Slight; Lymphocytes # (A) 0.6 k/uL (1.0-4.8); Lymphocytes % (A) 7 %; MCH 30.2 pg (25.0-35.0); MCHC 30.9 g/dL (31.0-37.0); Mean Platelet Volume 8.4; Monocytes # (A) 0.2 k/uL (0-1.0); Monocytes % (A) 2 %; Neutrophils # (A) 8.7 k/uL (1.3-7.7); Neutrophils % (A) 90 %; Platelet Count 526 k/uL (150-450); RBC 3.99 m/uL (3.80-5.40); RDW 13.6 % (11.5-15.5); WBC 9.7 k/uL (3.8-10.6)
[2024-06-17 09:03] LABS: MCV 97.7 fL (80.0-100.0)
[2024-06-17] MEDS: SODIUM CHLORIDE 0.9% 1,000 ML IV STA (09:04)
[2024-06-17] MEDS: SODIUM CHLORIDE 0.9% 500 ML 500 ML IV STA (09:04)
[2024-06-17] MEDS: METOCLOPRAMIDE 5 MG/ML 2 ML VIAL IVP STA (09:10)
[2024-06-17 09:11] LABS: ALT 12 U/L (4-34); AST 14 U/L (14-36); African American GFR (CKD) 81 (>60 ml/min/1.73 sqM); Albumin 4.3 g/dL (3.5-5.0); Alkaline Phosphatase 94 U/L (38-126); Blood Urea Nitrogen 15 mg/dL (7-17); Calcium 9.5 mg/dL (8.4-10.2); Chloride 93 mmol/L (98-107); Non-African American GFR(CKD) 71 (>60 ml/min/1.73 sqM); Potassium 5.1 mmol/L (3.5-5.1); Sodium 127 mmol/L (137-145); Total Bilirubin 1.1 mg/dL (0.2-1.3); Total Protein 7.2 g/dL (6.3-8.2)
[2024-06-17 09:17] LABS: Carbon Dioxide <5 mmol/L (22-30); Glucose 597 mg/dL (74-99)
[2024-06-17] MEDS ORDERED: Potassium Replacement Protocol 1 EACH MISC MISCELLANE PRN (09:35)
[2024-06-17] MEDS ORDERED: Magnesium Replacement Protocol 1 EACH MISC MISCELLANE PRN (09:35)
[2024-06-17] MEDS: ONDANSETRON 4 MG/2 ML VIAL IVP STA (09:37)
[2024-06-17] MEDS ORDERED: NALOXONE 0.4 MG/ML 1 ML VIAL IV PRN (09:42)
[2024-06-17] MEDS: INSULIN REGULAR BOLUS (FROM DRIP BAG) IV ONE (10:12)
[2024-06-17 10:13] LABS: Glucose,Whole Blood 455 mg/dL (70-110)
[2024-06-17] MEDS: INSULIN REGULAR 100 UNIT in SODIUM CHLORIDE 0.9% 100 ML IV SCH (10:14)
[2024-06-17] MEDS: SODIUM CHLORIDE 0.9% 1,000 ML IV ONE (10:30)
[2024-06-17] MEDS: MORPHINE SULFATE 4 MG/ML SYRINGE IVP STA (10:49)
[2024-06-17 11:15] LABS: Glucose,Whole Blood 265 mg/dL (70-110)
[2024-06-17] MEDS: D5-0.45% NACL WITH KCL 20MEQ/L 1,000 ML IV SCH (11:45)
[2024-06-17 11:57] LABS: VBG PH 7.23 (7.31-7.41)
[2024-06-17 12:13] LABS: Glucose,Whole Blood 172 mg/dL (70-110)
[2024-06-17 12:33] LABS: Potassium 3.9 mmol/L (3.5-5.1)
[2024-06-17 12:34] LABS: African American GFR (CKD) >90 (>60 ml/min/1.73 sqM); Blood Urea Nitrogen 14 mg/dL (7-17); Glucose 179 mg/dL (74-99); Non-African American GFR(CKD) >90 (>60 ml/min/1.73 sqM)
[2024-06-17 12:37] LABS: Glucose,Whole Blood 167 mg/dL (70-110)
[2024-06-17 13:17] LABS: Glucose,Whole Blood 126 mg/dL (70-110)
--- NOTE | 2024-06-17 13:25 | P.CNPUL ---
History of Present Illness Consult date: 06/17/24 Chief complaint: Hyperglycemia History of present illness: This is a 24-year-old female patient who is currently at her 18th week of gestation the patient is presenting to emergency department with DKA. The patient is known to have type 1 diabetes mellitus maintained on insulin pump. She stated that she was urinating excessively and she was getting more dehydrated and she felt that she was going into DKA as the patient has had sev eral episodes in the past. Her blood sugar at home was 540. Sure enough, she presented to the emergency and her serum bicarb was less than 5 with severe anion gap metabolic acidosis and sodium of 127. Normal CBC. Blood sugar was above 600. LFTs were normal. UA showed plus for ketones and plus for glucose. Serum acetone was also positive. She is on room air oxygen. She is awake and alert and communicating. She was started on IV fluids. Given 2 L bolus and the patient is currently on insulin drip at 0.1 units/kg/h. The patient will be moved to the intensive care unit. Will also obtain a SIGN SHOP SUPERVISOR consultation. Review of Systems Constitutional: Reports as per HPI, Reports fatigue, Reports weakness Eyes: denies as per HPI, denies blurred vision, denies bulging eye, denies decreased vision, denies diplopia, denies discharge, denies dry eye, denies irritation, denies itching, denies pain, denies photophobia, denies loss of peripheral vision, denies loss of vision, denies tunnel vision/blind spots Ears: deny: decreased hearing, ear discharge, earache, tinnitus Ears, nose, mouth and throat: Reports as per HPI Breasts: absent: as per HPI, change in shape, gynecomastia, masses, nipple discharge, pain, skin changes, swelling Cardiovascular: Reports as per HPI Respiratory: Reports as per HPI Gastrointestinal: Reports as per HPI Genitourinary: Reports as per HPI Menstruation: Reports as per HPI Musculoskeletal: Reports as per HPI Musculoskeletal: absent: ankle pain, ankle stiffness, ankle swelling, as per HPI, elbow pain, elbow stiffness, elbow swelling, foot pain, foot stiffness, foot swelling, hand pain, hand stiffness, hand swelling, hip pain, hip stiffness , hip swelling, knee pain, knee stiffness, knee swelling, shoulder pain, shoulder stiffness, shoulder swelling, wrist pain, wrist stiffness, wrist swelling Integumentary: Reports as per HPI Neurological: Reports as per HPI Psychiatric: Reports as per HPI Endocrine: Reports high blood sugars, Reports polydipsia Hematologic/Lymphatic: Reports as per HPI Allergic/Immunologic: Reports as per HPI Past Medical History Past Medical History: Diabetes Mellitus, GERD/Reflux, Hypertension Additional Past Medical History / Comment(s): migraine, pancretitis History of Any Multi-Drug Resistant Organisms: None Reported Past Surgical History: Cholecystectomy Additional Past Surgical History / Comment(s): right knee surgery Past Anesthesia/Blood Transfusion Reactions: No Reported Reaction Past Psychological History: Anxiety, Depression, No Psychological Hx Reported Smoking Status: Current every day smoker, Vaper Past Alcohol Use History: None Reported Past Drug Use History: Marijuana - Past Family History Father Family Medical History: Myocardial Infarction (OR) Additional Family Medical History / Comment(s): father at 30 years old Sister(s) Family Medical History: Thyroid Disorder Brother(s) Family Medical History: Asthma Mother Family Medical History: No Reported History Medications and Allergies Home Medications Medication Instructions Recorded Confirmed Type Glucagon [Gvoke Pfs 1-Pack Syringe] 1 mg SQ ONCE PRN 06/17/24 06/17/24 History Insulin Aspart (For Pump) [NovoLOG 0.01 unit SQ-PUMP CONTINUOUS 06/17/24 06/17/24 History (For Pump)] Labetalol [Trandate] 100 mg PO BID 06/17/24 06/17/24 History Sertraline [Zoloft] 50 mg PO DAILY 06/17/24 06/17/24 History Allergies Allergy/AdvReac Type Severity Reaction Status Date / Time adhesive tape Allergy Rash/Hives Verified 06/17/24 10:31 latex Allergy Rash/Hives Verified 06/17/24 10:31 metoclopramide [From Reglan] AdvReac Anxiety Verified 06/17/24 10:31 attack Physical Exam Vitals: Vital Signs Temp Pulse Resp BP Pulse Ox 06/17/24 10:23 117 H 18 163/113 100 06/17/24 09:09 125 H 18 131/100 100 06/17/24 08:13 97.3 F L 120 H 18 144/103 100 Intake and Output 06/16/24 06/17/24 06/17/24 22:59 06:59 14:59 Intake Total 20.501 Balance 20.501 Intake: Intake, IV Titration 20.501 Amount Insulin Regular 100 unit 20.501 In Sodium Chloride 0.9% 100 ml @ 0.1 UNITS/KG/HR 6.185 mls/hr IV .[id number] [facility] Rx#:[id number] Other: Weight 61.235 kg The patient appeared well nourished and normally developed. Vital signs as documented. Head exam is unremarkable. No scleral icterus or corneal arcus noted. Neck is without jugular venous distension, thyromegaly, or carotid bruits. Carotid upstrokes are brisk bilaterally. Lungs are clear to auscultation and percussion. Cardiac exam reveals the PMI to be normally sized and situated. Rhythm is regular. First and second heart sounds normal. No murmurs, rubs or gallops. Abdominal exam reveals normal bowel sounds, no masses, no organomegaly and no aortic enlargement. Extremities are nonedematous and both femoral and pedal pulses are normal. Examination of the skin revealed no evidence of significant rashes, suspicious appearing nevi or other concerning lesions. Neurologically, the patient is awake and alert and the patient does not have any focal neurological deficit. Cranial nerves are essentially intact. Results - Laboratory Findings CBC and BMP: 06/17/24 08:47 06/17/24 11:57 Abnormal lab findings: Abnormal Labs 06/17/24 06/17/24 06/17/24 08:14 08:28 08:47 MCHC 30.9 L Plt Count 526 H Neutrophils # 8.7 H Lymphocytes # 0.6 L VBG pH VBG pCO2 VBG HCO3 Sodium Chloride Carbon Dioxide Creatinine Glucose POC Glucose (mg/dL) >600 H* Phosphorus Urine Protein 2+ H Urine Glucose (UA) 4+ H Urine Ketones 4+ H Urine Blood Trace H Urine Bacteria Rare H 06/17/24 06/17/24 06/17/24 08:47 10:11 10:41 MCHC Plt Count Neutrophils # Lymphocytes # VBG pH 7.23 L VBG pCO2 33 L VBG HCO3 14 L Sodium 127 L Chloride 93 L Carbon Dioxide <5 L* Creatinine 1.10 H Glucose 597 H* POC Glucose (mg/dL) 455 H Phosphorus Urine Protein Urine Glucose (UA) Urine Ketones Urine Blood Urine Bacteria 06/17/24 06/17/24 06/17/24 11:13 11:57 11:57 MCHC Plt Count Neutrophils # Lymphocytes # VBG pH VBG pCO2 VBG HCO3 Sodium 132 L Chloride Carbon Dioxide 14 L Creatinine Glucose POC Glucose (mg/dL) 265 H Phosphorus 2.3 L Urine Protein Urine Glucose (UA) Urine Ketones Urine Blood Urine Bacteria 06/17/24 06/17/24 06/17/24 11:57 12:12 12:35 MCHC Plt Count Neutrophils # Lymphocytes # VBG pH VBG pCO2 VBG HCO3 Sodium Chloride Carbon Dioxide Creatinine Glucose 179 H POC Glucose (mg/dL) 172 H 167 H Phosphorus Urine Protein Urine Glucose (UA) Urine Ketones Urine Blood Urine Bacteria 06/17/24 13:15 MCHC Plt Count Neutrophils # Lymphocytes # VBG pH VBG pCO2 VBG HCO3 Sodium Chloride Carbon Dioxide Creatinine Glucose POC Glucose (mg/dL) 126 H Phosphorus Urine Protein Urine Glucose (UA) Urine Ketones Urine Blood Urine Bacteria Assessment and Plan Plan: Acute DKA in a 24-year-old female patient was currently at 18 weeks of gestation. She has type 1 diabetes mellitus and the patient has been maintained on insulin pump on outpatient basis. DKA could have been induced by her underlying . Type 1 diabetes mellitus maintained on insulin pump Severe anion gap metabolic acidosis Intravascular volume depletion/dehydration History of hypertriglyceridemia Pseudohyponatremia secondary to severe hyperglycemia , 18 weeks of gestation Plan Fluid resuscitation was initiated in the emergency Continue DKA protocol and patient is currently on insulin drip for blood sugar control Monitor electrolytes every 4 hours Monitor blood sugars every 1 hour Monitor anion gap Patient is awake and alert and communicating Keep n.p.o. for now Obtain a obstructive consultation regarding her and checking the health of the fetus The patient be admitted to the intensive care unit for further monitoring and treatment of her DKA. Time with Patient: Greater than 30
[2024-06-17 14:18] LABS: Glucose,Whole Blood 106 mg/dL (70-110)
[2024-06-17] MEDS: SODIUM CHLORIDE 0.9% 1,000 ML IV SCH (15:12)
[2024-06-17 15:19] LABS: Glucose,Whole Blood 105 mg/dL (70-110)
[2024-06-17 16:23] LABS: Glucose,Whole Blood 133 mg/dL (70-110)
[2024-06-17 16:38] LABS: African American GFR (CKD) >90 (>60 ml/min/1.73 sqM); Blood Urea Nitrogen 12 mg/dL (7-17); Glucose 119 mg/dL (74-99); Non-African American GFR(CKD) >90 (>60 ml/min/1.73 sqM); Potassium 4.4 mmol/L (3.5-5.1)
[2024-06-17] MEDS: ONDANSETRON 4 MG/2 ML VIAL IVP PRN (16:53)
[2024-06-17] MEDS: MORPHINE SULFATE 2 MG/ML SYRINGE IVP PRN (16:55)
[2024-06-17 17:17] LABS: Glucose,Whole Blood 157 mg/dL (70-110)
[2024-06-17 18:11] LABS: Glucose,Whole Blood 149 mg/dL (70-110)
[2024-06-17 19:28] LABS: Glucose,Whole Blood 195 mg/dL (70-110)
[2024-06-17 20:32] LABS: Glucose,Whole Blood 231 mg/dL (70-110)
--- NOTE | 2024-06-17 21:02 | HP ---
HISTORY AND PHYSICAL CHIEF COMPLAINT: Nausea, vomiting, IUP, and DKA. HISTORY OF PRESENT ILLNESS: This 24-year-old, 18-week white female began to have nausea and vomiting, several hours before coming to the emergency room, and when she came in, she was found to be in diabetic ketoacidosis. Her diabetes is usually managed with a pump. REVIEW OF SYSTEMS: She has had no fever, no chills, abdominal pain, hematemesis, diarrhea, melena, dysuria, frequency, urgency, etc. PAST MEDICAL HISTORY: Otherwise, unremarkable and noncontributory. FAMILY HISTORY: Otherwise, unremarkable and noncontributory. PERSONAL AND SOCIAL HISTORY: Otherwise, unremarkable and noncontributory. PHYSICAL EXAMINATION: VITAL SIGNS: Blood pressure is 141/82 with a pulse of 83, respirations of 36, and she is afebrile. GENERAL: She appeared to be pale and in no acute distress. HEAD, EARS, EYES, NOSE, MOUTH, AND THROAT: Normal. CHEST: Clear. CARDIAC: Normal. ABDOMEN: Soft and nontender. There is no tenderness over the lower abdomen. EXTREMITIES: Normal. NEUROLOGIC: She is intact. ASSESSMENT: She is admitted to the hospital with the diagnoses of: 1. Diabetic ketoacidosis. 2. Intrauterine . PLAN: 1. Bed rest. 2. IV fluids. 3. DKA protocol. MMVALDEMARL / LIYAHN: [id number] /
[2024-06-17 21:32] LABS: Glucose,Whole Blood 274 mg/dL (70-110)
[2024-06-17] MEDS: LABETALOL 100 MG TAB PO SCH (21:34)
[2024-06-17] MEDS: Insulin Aspart (For Pump) 100 UNIT/ML VIAL SQ-PUMP SCH (21:45)
[2024-06-17 22:09] LABS: Basophils % (A) 0 %; Eosinophils # (A) 0.1 k/uL (0-0.7); Eosinophils % (A) 1 %; HCT 31.2 % (34.0-46.0); HGB 10.1 gm/dL (11.4-16.0); Lymphocytes # (A) 1.3 k/uL (1.0-4.8); Lymphocytes % (A) 14 %; MCH 30.3 pg (25.0-35.0); MCHC 32.3 g/dL (31.0-37.0); Mean Platelet Volume 7.5; Monocytes # (A) 0.3 k/uL (0-1.0); Monocytes % (A) 4 %; Neutrophils # (A) 7.3 k/uL (1.3-7.7); Neutrophils % (A) 80 %; Platelet Count 435 k/uL (150-450); RBC 3.32 m/uL (3.80-5.40); RDW 13.7 % (11.5-15.5); WBC 9.1 k/uL (3.8-10.6)
[2024-06-17 22:37] LABS: Glucose,Whole Blood 315 mg/dL (70-110)
[2024-06-17 22:44] LABS: African American GFR (CKD) >90 (>60 ml/min/1.73 sqM); Anion Gap 12 mmol/L; Blood Urea Nitrogen 10 mg/dL (7-17); Carbon Dioxide 14 mmol/L (22-30); Chloride 102 mmol/L (98-107); Glucose 256 mg/dL (74-99); Non-African American GFR(CKD) >90 (>60 ml/min/1.73 sqM); Potassium 4.5 mmol/L (3.5-5.1); Sodium 128 mmol/L (137-145)
[2024-06-17 23:36] LABS: Glucose,Whole Blood 342 mg/dL (70-110)
[2024-06-18 00:38] LABS: Glucose,Whole Blood 297 mg/dL (70-110)
[2024-06-18 00:39] LABS: African American GFR (CKD) >90 (>60 ml/min/1.73 sqM); Anion Gap 11 mmol/L; Blood Urea Nitrogen 9 mg/dL (7-17); Carbon Dioxide 12 mmol/L (22-30); Chloride 104 mmol/L (98-107); Glucose 313 mg/dL (74-99); Non-African American GFR(CKD) >90 (>60 ml/min/1.73 sqM); Phosphorus 2.2 mg/dL (2.5-4.5); Potassium 4.2 mmol/L (3.5-5.1); Sodium 127 mmol/L (137-145)
[2024-06-18 01:37] LABS: Glucose,Whole Blood 262 mg/dL (70-110)
[2024-06-18 02:41] LABS: Glucose,Whole Blood 199 mg/dL (70-110)
[2024-06-18 03:38] LABS: Glucose,Whole Blood 136 mg/dL (70-110)
[2024-06-18 04:41] LABS: Glucose,Whole Blood 112 mg/dL (70-110)
[2024-06-18 05:31] LABS: African American GFR (CKD) >90 (>60 ml/min/1.73 sqM); Anion Gap 5 mmol/L; Blood Urea Nitrogen 8 mg/dL (7-17); Carbon Dioxide 18 mmol/L (22-30); Chloride 105 mmol/L (98-107); Glucose 100 mg/dL (74-99); Non-African American GFR(CKD) >90 (>60 ml/min/1.73 sqM); Phosphorus 1.6 mg/dL (2.5-4.5); Sodium 128 mmol/L (137-145)
[2024-06-18 05:47] LABS: Glucose,Whole Blood 90 mg/dL (70-110)
[2024-06-18] MEDS: SERTRALINE 50 MG TAB PO SCH (08:14)
[2024-06-18 08:17] LABS: Glucose,Whole Blood 99 mg/dL (70-110)
[2024-06-18 10:31] LABS: Glucose,Whole Blood 202 mg/dL (70-110)
--- NOTE | 2024-06-18 12:19 | P.OBCN ---
History of Present Illness Consult date: 06/18/24 Reason for consult: other () Chief complaint: DKA, History of present illness: 24-year-old G2, P1 at 18-2/7 weeks, estimated due date of 11/17 based on first trimester ultrasound. Patient has been receiving routine care with Dr. Uribe at [facility]. Patient states she has a prior history of a section at 34 weeks secondary to severe preeclampsia. Patient is a type I diabetic and typically controlled with an insulin pump. Patient had elevated blood sugars at home and to the emergency department with concerns for DKA. Patient has been in DKA 3-4 times throughout her lifetime. Review of Systems Constitutional: Reports fatigue, Denies chills, Denies fever Ears, nose, mouth and throat: Denies headache Cardiovascular: Denies leg edema Respiratory: Denies dyspnea Genitourinary: Reports Past Medical History Past Medical History: Diabetes Mellitus, GERD/Reflux, Hypertension Additional Past Medical History / Comment(s): migraine, pancretitis History of Any Multi-Drug Resistant Organisms: None Reported Past Surgical History: Cholecystectomy Additional Past Surgical History / Comment(s): right knee surgery Past Anesthesia/Blood Transfusion Reactions: No Reported Reaction Past Psychological History: Anxiety, Depression, No Psychological Hx Reported Smoking Status: Current every day smoker, Vaper Past Alcohol Use History: None Reported Past Drug Use History: Marijuana - Past Family History Father Family Medical History: Myocardial Infarction (MS) Additional Family Medical History / Comment(s): father at 30 years old Sister(s) Family Medical History: Thyroid Disorder Brother(s) Family Medical History: Asthma Mother Family Medical History: No Reported History Medications and Allergies Home Medications Medication Instructions Recorded Confirmed Type Glucagon [Gvoke Pfs 1-Pack Syringe] 1 mg SQ ONCE PRN 06/17/24 06/17/24 History Insulin Aspart (For Pump) [NovoLOG 0.01 unit SQ-PUMP CONTINUOUS 06/17/24 5 History (For Pump)] Labetalol [Trandate] 100 mg PO BID 06/17/24 06/17/24 History Sertraline [Zoloft] 50 mg PO DAILY 06/17/24 06/17/24 History Allergies Allergy/AdvReac Type Severity Reaction Status Date / Time adhesive tape Allergy Rash/Hives Verified 06/17/24 10:31 latex Allergy Rash/Hives Verified 06/17/24 10:31 metoclopramide [From Reglan] AdvReac Anxiety Verified 06/17/24 10:31 attack Exam Osteopathic Statement: *. No significant issues noted on an osteopathic structural exam other than those noted in the History and Physical/Consult. Vital Signs Temp Pulse Resp BP Pulse Ox 06/18/24 10:00 93 16 131/77 98 06/18/24 08:09 92 20 154/91 100 06/18/24 08:00 98 F 98 20 115/70 98 06/18/24 06:49 98.2 F 88 16 115/70 100 06/18/24 04:55 97.8 F 109 H 20 152/91 99 06/18/24 02:44 97.7 F 95 16 112/68 99 06/18/24 00:25 98.9 F 92 18 122/71 99 06/17/24 23:14 96 18 156/83 98 06/17/24 21:28 92 18 142/80 100 06/17/24 19:15 98.4 F 96 18 134/81 98 06/17/24 18:02 97.9 F 98 16 124/78 100 06/17/24 15:18 98 16 141/84 100 Intake and Output 06/17/24 06/18/24 06/18/24 22:59 06:59 14:59 Intake Total 6.883 25.073 Balance 6.883 25.073 Intake: Intake, IV Titration 6.883 25.073 Amount Insulin Regular 100 unit 6.883 25.073 In Sodium Chloride 0.9% 100 ml @ 0.1 UNITS/KG/HR 6.185 mls/hr IV .[id number] [facility] Rx#:[id number] Exam reveals a pleasant appearing female in no acute distress lying comfortably in the emergency department. Breathing appears nonlabored Abdomen reveals a gravid uterus Results Result Diagrams: 06/17/24 21:37 06/18/24 04:43 Abnormal Lab Results - Last 24 Hours (Table) 06/17/24 06/17/24 06/17/24 Range/Units 11:57 11:57 11:57 RBC (3.80-5.40) m/uL Hgb (11.4-16.0) gm/dL Hct (34.0-46.0) % Sodium 132 L (137-145) mmol/L Carbon Dioxide 14 L (22-30) mmol/L Glucose 179 H (74-99) mg/dL POC Glucose (mg/dL) (70-110) mg/dL Phosphorus 2.3 L (2.5-4.5) mg/dL 06/17/24 06/17/24 06/17/24 Range/Units 12:12 12:35 13:15 RBC (3.80-5.40) m/uL Hgb (11.4-16.0) gm/dL Hct (34.0-46.0) % Sodium (137-145) mmol/L Carbon Dioxide (22-30) mmol/L Glucose (74-99) mg/dL POC Glucose (mg/dL) 172 H 167 H 126 H (70-110) mg/dL Phosphorus (2.5-4.5) mg/dL 06/17/24 06/17/24 06/17/24 Range/Units 16:15 16:15 16:15 RBC (3.80-5.40) m/uL Hgb (11.4-16.0) gm/dL Hct (34.0-46.0) % Sodium 129 L (137-145) mmol/L Carbon Dioxide 17 L (22-30) mmol/L Glucose 119 H (74-99) mg/dL POC Glucose (mg/dL) (70-110) mg/dL Phosphorus 2.4 L (2.5-4.5) mg/dL 06/17/24 06/17/24 06/17/24 Range/Units 16:20 17:16 18:09 RBC (3.80-5.40) m/uL Hgb (11.4-16.0) gm/dL Hct (34.0-46.0) % Sodium (137-145) mmol/L Carbon Dioxide (22-30) mmol/L Glucose (74-99) mg/dL POC Glucose (mg/dL) 133 H 157 H 149 H (70-110) mg/dL Phosphorus (2.5-4.5) mg/dL 06/17/24 06/17/24 06/17/24 Range/Units 19:25 20:29 21:30 RBC (3.80-5.40) m/uL Hgb (11.4-16.0) gm/dL Hct (34.0-46.0) % Sodium (137-145) mmol/L Carbon Dioxide (22-30) mmol/L Glucose (74-99) mg/dL POC Glucose (mg/dL) 195 H 231 H 274 H (70-110) mg/dL Phosphorus (2.5-4.5) mg/dL 06/17/24 06/17/24 06/17/24 Range/Units 21:37 21:37 22:35 RBC 3.32 L (3.80-5.40) m/uL Hgb 10.1 L (11.4-16.0) gm/dL Hct 31.2 L (34.0-46.0) % Sodium 128 L (137-145) mmol/L Carbon Dioxide 14 L (22-30) mmol/L Glucose 256 H (74-99) mg/dL POC Glucose (mg/dL) 315 H (70-110) mg/dL Phosphorus (2.5-4.5) mg/dL 06/17/24 06/17/24 06/18/24 Range/Units 23:35 23:58 00:34 RBC (3.80-5.40) m/uL Hgb (11.4-16.0) gm/dL Hct (34.0-46.0) % Sodium 127 L (137-145) mmol/L Carbon Dioxide 12 L (22-30) mmol/L Glucose 313 H (74-99) mg/dL POC Glucose (mg/dL) 342 H 297 H (70-110) mg/dL Phosphorus 2.2 L (2.5-4.5) mg/dL 06/18/24 06/18/24 06/18/24 Range/Units 01:35 02:39 03:36 RBC (3.80-5.40) m/uL Hgb (11.4-16.0) gm/dL Hct (34.0-46.0) % Sodium (137-145) mmol/L Carbon Dioxide (22-30) mmol/L Glucose (74-99) mg/dL POC Glucose (mg/dL) 262 H 199 H 136 H (70-110) mg/dL Phosphorus (2.5-4.5) mg/dL 06/18/24 06/18/24 06/18/24 Range/Units 04:39 04:43 10:26 RBC (3.80-5.40) m/uL Hgb (11.4-16.0) gm/dL Hct (34.0-46.0) % Sodium 128 L (137-145) mmol/L Carbon Dioxide 18 L (22-30) mmol/L Glucose 100 H (74-99) mg/dL POC Glucose (mg/dL) 112 H 202 H (70-110) mg/dL Phosphorus 1.6 L (2.5-4.5) mg/dL Assessment and Plan (1) 19 weeks gestation of Narrative/Plan: 18 weeks 2 days Current Visit: No Status: Acute Code(s): Z3A.19 - 19 WEEKS GESTATION OF SNOMED Code(s): 55650484 (2) DKA, type 1 Current Visit: No Status: Acute Code(s): E10.10 - TYPE 1 DIABETES MELLITUS WITH KETOACIDOSIS WITHOUT COMA SNOMED Code(s): 900814418 Plan: 24-year-old G2, P1 at 18 2/7 weeks that presented to the emergency department in DKA. Patient does have [facility] care at [facility], she will follow-up with them after discharge. Ultrasound performed EFW 38th percentile normal ARLETTE cervical length normal. Patient without obstetrical concerns. Deferred to medicine regarding diabetes/DKA Will follow, patient states she is being discharged sometime today.
--- NOTE | 2024-06-18 12:19 | US ---
EXAMINATION TYPE: US OB >= 14 wk fetus DATE OF EXAM: 06/18/2024 COMPARISON: None CLINICAL INDICATION: Female, 24 years old with history of 18 weeks DKA; heart tones, EFW, ARLETTE TECHNIQUE: Transabdominal (TA) FINDINGS: GESTATIONAL AGE / DATING Physician Established: (18 weeks/2 days) EDC: 11/17/2024 Dates by First Scan: (19 weeks/0 days) EDC: 11/12/24 Dates by Current Scan: (17 weeks/6 days) EDC: Beta HCG (if available): Not available at this time SURVEY IUP: Single PLACENTA: Anterior PREVIA: No Previa ARLETTE: 9.2 cm Normal CERVICAL LENGTH (transabdominal: norm > 3.0cm): 3.2 cm BIOMETRY PRESENTATION: Breech LIE: Longitudinal BPD: 3.7 cm 17 weeks / 2 days HC: 14.0 cm 17 weeks / 3 days AC: 13.1 cm 18 weeks / 5 days FL: 2.6 cm 18 weeks / 0 days ESTIMATED WEIGHT IN GRAMS: 227 grams ESTIMATED WEIGHT IN LBS/OZ: 0 lbs. 8 oz. WEIGHT PERCENTAGE BASED ON ESTABLISHED DATES: 38% HC/AC: 1.07 Normal FL/AC: 20% Normal HEART RATE: 150 bpm RHYTHM: Normal exam limited by shadowing IMPRESSION: Single live intrauterine gestation ultrasound age 17 weeks 6 days which is discordant with dates by harshad luna established dates and by first scan dates. Additional information as described above. [facility], , 06/18/2024 12:17 PM
[2024-06-18 13:25] LABS: Glucose,Whole Blood 33 mg/dL (70-110)
[2024-06-18] MEDS: DEXTROSE 50% SYRINGE 50 ML IVP PRN ×2 (13:30→13:36)
--- NOTE | 2024-06-18 13:38 | P.PN ---
Subjective Progress Note Date: 06/18/24 This is a 24-year-old female patient who is currently at her 18th week of gestation the patient is presenting to emergency department with DKA. The patient is known to have type 1 diabetes mellitus maintained on insulin pump. She stated that she was urinating excessively and she was getting more dehydrated and she felt that she was going into DKA as the patient has had several episodes in the past. Her blood sugar at home was 540. Sure enough, she presented to the emergency and her serum bicarb was less than 5 with severe anion gap metabolic acidosis and sodium of 127. Normal CBC. Blood sugar was above 600. LFTs were normal. UA showed plus for ketones and plus for glucose. Serum acetone was also positive. She is on room air oxygen. She is awake and alert and communicating. She was started on IV fluids. Given 2 L bolus and the patient is currently on insulin drip at 0.1 units/kg/h. The patient will be moved to the intensive care unit. Will also obtain a DENTAL LABORATORY TECHNICIAN APPRENTICE consultation. The patient is seen today June 18, 2024 in follow-up in the intensive care unit. She is currently sitting up on a stretcher. Awake and alert in no acute distress. Denies any worsening shortness of breath, cough or congestion. Maintaining good O2 saturations in the high 90s on room air oxygen. Afebrile. Hemodynamically stable. Sodium 128. Potassium 4.0. Bicarb 18. BUN 8. Creatinine 0.67. Glucose 112. She is receiving D5 and half-normal saline with 20 KCl at 50 mL/h. ultrasound reveals live intrauterine gestational age 17 weeks 6 days. She does remain nauseated but no further vomiting this morning Objective - Vital Signs Vital signs: Vital Signs Temp 98 F 06/18/24 08:00 Pulse 75 06/18/24 12:00 Resp 16 06/18/24 12:00 BP 150/100 06/18/24 12:00 Pulse Ox 98 06/18/24 12:00 FiO2 Intake & Output 06/17/24 06/18/24 06/18/24 18:59 06:59 18:59 Intake Total 27.320 28.848 Balance 27.320 28.848 Weight 61.235 kg Intake: Intake, IV Titration 27.320 28.848 Amount Insulin Regular 100 unit 27.320 28.848 In Sodium Chloride 0.9% 100 ml @ 0.1 UNITS/KG/HR 6.185 mls/hr IV .[id number] [facility] Rx#:[id number] - Exam GENERAL EXAM: Alert, pleasant 24-year-old female, on room air oxygen, comfortable in no apparent distress. HEAD: Normocephalic. EYES: Normal reaction of pupils, equal size. NOSE: Clear with pink turbinates. THROAT: No erythema or exudates. NECK: No masses, no JVD. CHEST: No chest wall deformity. LUNGS: Equal air entry with no crackles, wheeze, rhonchi or dullness. CVS: S1 and S2 normal with no audible murmur, regular rhythm. ABDOMEN: No hepatosplenomegaly, normal bowel sounds, no guarding or rigidity. SPINE: No scoliosis or deformity SKIN: No rashes CENTRAL NERVOUS SYSTEM: No focal deficits, tone is normal in all 4 extremities. EXTREMITIES: There is no peripheral edema. No clubbing, no cyanosis. Peripheral pulses are intact. - Labs CBC & Chem 7: 06/17/24 21:37 06/18/24 04:43 Labs: Abnormal Lab Results - Last 24 Hours (Table) 06/17/24 06/17/24 06/17/24 Range/Units 16:15 16:15 16:15 RBC (3.80-5.40) m/uL Hgb (11.4-16.0) gm/dL Hct (34.0-46.0) % Sodium 129 L (137-145) mmol/L Carbon Dioxide 17 L (22-30) mmol/L Glucose 119 H (74-99) mg/dL POC Glucose (mg/dL) (70-110) mg/dL Phosphorus 2.4 L (2.5-4.5) mg/dL 06/17/24 06/17/24 06/17/24 Range/Units 16:20 17:16 18:09 RBC (3.80-5.40) m/uL Hgb (11.4-16.0) gm/dL Hct (34.0-46.0) % Sodium (137-145) mmol/L Carbon Dioxide (22-30) mmol/L Glucose (74-99) mg/dL POC Glucose (mg/dL) 133 H 157 H 149 H (70-110) mg/dL Phosphorus (2.5-4.5) mg/dL 06/17/24 06/17/24 06/17/24 Range/Units 19:25 20:29 21:30 RBC (3.80-5.40) m/uL Hgb (11.4-16.0) gm/dL Hct (34.0-46.0) % Sodium (137-145) mmol/L Carbon Dioxide (22-30) mmol/L Glucose (74-99) mg/dL POC Glucose (mg/dL) 195 H 231 H 274 H (70-110) mg/dL Phosphorus (2.5-4.5) mg/dL 06/17/24 06/17/24 06/17/24 Range/Units 21:37 21:37 22:35 RBC 3.32 L (3.80-5.40) m/uL Hgb 10.1 L (11.4-16.0) gm/dL Hct 31.2 L (34.0-46.0) % Sodium 128 L (137-145) mmol/L Carbon Dioxide 14 L (22-30) mmol/L Glucose 256 H (74-99) mg/dL POC Glucose (mg/dL) 315 H (70-110) mg/dL Phosphorus (2.5-4.5) mg/dL 06/17/24 06/17/24 06/18/24 Range/Units 23:35 23:58 00:34 RBC (3.80-5.40) m/uL Hgb (11.4-16.0) gm/dL Hct (34.0-46.0) % Sodium 127 L (137-145) mmol/L Carbon Dioxide 12 L (22-30) mmol/L Glucose 313 H (74-99) mg/dL POC Glucose (mg/dL) 342 H 297 H (70-110) mg/dL Phosphorus 2.2 L (2.5-4.5) mg/dL 06/18/24 06/18/24 06/18/24 Range/Units 01:35 02:39 03:36 RBC (3.80-5.40) m/uL Hgb (11.4-16.0) gm/dL Hct (34.0-46.0) % Sodium (137-145) mmol/L Carbon Dioxide (22-30) mmol/L Glucose (74-99) mg/dL POC Glucose (mg/dL) 262 H 199 H 136 H (70-110) mg/dL Phosphorus (2.5-4.5) mg/dL 06/18/24 06/18/24 06/18/24 Range/Units 04:39 04:43 10:26 RBC (3.80-5.40) m/uL Hgb (11.4-16.0) gm/dL Hct (34.0-46.0) % Sodium 128 L (137-145) mmol/L Carbon Dioxide 18 L (22-30) mmol/L Glucose 100 H (74-99) mg/dL POC Glucose (mg/dL) 112 H 202 H (70-110) mg/dL Phosphorus 1.6 L (2.5-4.5) mg/dL 06/18/24 Range/Units 13:23 RBC (3.80-5.40) m/uL Hgb (11.4-16.0) gm/dL Hct (34.0-46.0) % Sodium (137-145) mmol/L Carbon Dioxide (22-30) mmol/L Glucose (74-99) mg/dL POC Glucose (mg/dL) 33 L* (70-110) mg/dL Phosphorus (2.5-4.5) mg/dL Assessment and Plan Assessment: Acute DKA in a 24-year-old female patient was currently at 17 weeks and 6 days of gestation. She has type 1 diabetes mellitus and the patient has been maintained on insulin pump on outpatient basis. DKA could have been induced by her underlying Type 1 diabetes mellitus maintained on insulin pump Severe anion gap metabolic acidosis, improved and closed Intravascular volume depletion/dehydration History of hypertriglyceridemia Pseudohyponatremia secondary to severe hyperglycemia , 18 weeks of gestation Plan: The patient was seen and evaluated Labs and medications reviewed Improved metabolic acidosis and glucose Placed back on her insulin pump Will downgrade to the regular medical floor No need for intensive care unit at this time DENTAL LABORATORY TECHNICIAN APPRENTICE consult appreciated Will continue to follow I have personally seen and examined the patient, performed the documentation and the assessment and plan as written. Number of minutes spent on the visit: 10 Dictation was produced using Nano[employer] software. Please excuse any grammatical, word or spelling errors.
[2024-06-18 13:52] LABS: Glucose,Whole Blood 144 mg/dL (70-110)
[2024-06-18 16:05] LABS: Glucose,Whole Blood 137 mg/dL (70-110)
[2024-06-18 17:20] LABS: Glucose,Whole Blood 217 mg/dL (70-110)
[2024-06-18] MEDS: LABETALOL 100 MG TAB PO SCH (18:20)
[2024-06-18] MEDS: LABETALOL 100 MG TAB PO ONE (18:50)
[2024-06-18 20:46] LABS: Glucose,Whole Blood 106 mg/dL (70-110)
[2024-06-18] MEDS: ACETAMINOPHEN TAB 325 MG TAB PO PRN (23:01)
--- NOTE | 2024-06-19 01:02 | PN ---
PROGRESS NOTE DATE OF SERVICE: 06/18/2024 CHIEF COMPLAINT: DKA. HISTORY OF PRESENT ILLNESS: This lady's gap is closed and she is using her pump, but her blood sugars have dropped. She is also having trouble with frequent nausea and vomiting. Ultrasound of the uterus was unremarkable. PHYSICAL EXAMINATION: CHEST: Clear. CARDIAC: Normal. IMPRESSION: 1. Poorly controlled type 1 insulin-dependent diabetes mellitus. 2. Diabetic ketoacidosis. 3. Nausea and vomiting. 4. Intrauterine . PLAN: Stabilize blood sugars before discharge. MMODL / IJN: [id number] /
[2024-06-19 01:11] LABS: Glucose,Whole Blood 175 mg/dL (70-110)
[2024-06-19 03:08] LABS: Glucose,Whole Blood 95 mg/dL (70-110)
[2024-06-19 08:01] LABS: Glucose,Whole Blood 325 mg/dL (70-110)
[2024-06-19] MEDS: LABETALOL 200 MG TAB PO SCH (08:40)
[2024-06-19 08:43] VITALS: RESP 17
[2024-06-19 12:42] LABS: Glucose,Whole Blood 100 mg/dL (70-110)
--- NOTE | 2024-06-19 13:06 | P.PN ---
Subjective Progress Note Date: 06/19/24 This is a 24-year-old female patient who is currently at her 18th week of gestation the patient is presenting to emergency department with DKA. The patient is known to have type 1 diabetes mellitus maintained on insulin pump. She stated that she was urinating excessively and she was getting more dehydrated and she felt that she was going into DKA as the patient has had several episodes in the past. Her blood sugar at home was 540. Sure enough, she presented to the emergency and her serum bicarb was less than 5 with severe anion gap metabolic acidosis and sodium of 127. Normal CBC. Blood sugar was above 600. LFTs were normal. UA showed plus for ketones and plus for glucose. Serum acetone was also positive. She is on room air oxygen. She is awake and alert and communicating. She was started on IV fluids. Given 2 L bolus and the patient is currently on insulin drip at 0.1 units/kg/h. The patient will be moved to the intensive care unit. Will also obtain a WOOD TYPE CUTTER consultation. The patient is seen today June 18, 2024 in follow-up in the intensive care unit. She is currently sitting up on a stretcher. Awake and alert in no acute distress. Denies any worsening shortness of breath, cough or congestion. Maintaining good O2 saturations in the high 90s on room air oxygen. Afebrile. Hemodynamically stable. Sodium 128. Potassium 4.0. Bicarb 18. BUN 8. Creatinine 0.67. Glucose 112. She is receiving D5 and half-normal saline with 20 KCl at 50 mL/h. ultrasound reveals live intrauterine gestational age 17 weeks 6 days. She does remain nauseated but no further vomiting this morning. The patient is seen today June 19, 2024 in follow-up on the regular medical floor. (Yesterday she was seen in the emergency department. Not the ICU.) She is awake and alert in no acute distress. No shortness of breath, cough or congestion. No fever. No nausea or vomiting. She is maintaining good O2 saturations up to 100% on room air. She is afebrile. Hemodynamically stable. Yesterday she had a dip in her blood glucose level down to 33 and was kept an a dditional day. Current glucose 100. She is continued on her insulin pump. She remains on labetalol for hypertension. Objective - Vital Signs Vital signs: Vital Signs Temp 98.6 F 06/19/24 02:00 Pulse 94 06/19/24 02:00 Resp 16 06/19/24 02:00 BP 116/75 06/19/24 02:00 Pulse Ox 98 06/19/24 02:00 FiO2 Intake & Output 06/18/24 06/19/24 06/19/24 18:59 06:59 18:59 Intake Total 240 Balance 240 Weight 61.235 kg Intake: Oral 240 Other: # Voids 0 2 - Exam GENERAL EXAM: Alert, 24-year-old female, on room air oxygen, in no apparent distress. HEAD: Normocephalic. EYES: Normal reaction of pupils, equal size. NOSE: Clear with pink turbinates. THROAT: No erythema or exudates. NECK: No masses, no JVD. CHEST: No chest wall deformity. LUNGS: Equal air entry with no crackles, wheeze, rhonchi or dullness. CVS: S1 and S2 normal with no audible murmur, regular rhythm. ABDOMEN: No hepatosplenomegaly, normal bowel sounds, no guarding or rigidity. SPINE: No scoliosis or deformity SKIN: No rashes CENTRAL NERVOUS SYSTEM: No focal deficits, tone is normal in all 4 extremities. EXTREMITIES: There is no peripheral edema. No clubbing, no cyanosis. Peripheral pulses are intact. - Labs CBC & Chem 7: 06/17/24 21:37 06/18/24 04:43 Labs: Abnormal Lab Results - Last 24 Hours (Table) 06/18/24 06/18/24 06/18/24 Range/Units 10:26 13:23 13:51 POC Glucose (mg/dL) 202 H 33 L* 144 H (70-110) mg/dL 06/18/24 06/18/24 06/19/24 Range/Units 16:02 17:19 00:50 POC Glucose (mg/dL) 137 H 217 H 175 H (70-110) mg/dL 06/19/24 Range/Units 07:50 POC Glucose (mg/dL) 325 H (70-110) mg/dL Assessment and Plan Assessment: Acute DKA in a 24-year-old female currently at 17 weeks and 7 days of gestation. She has type 1 diabetes mellitus and the patient has been maintained on insulin pump on outpatient basis. DKA could have been induced by her underlying with hyperemesis Type 1 diabetes mellitus maintained on insulin pump Severe anion gap metabolic acidosis, improved and closed Intravascular volume depletion/dehydration recovered History of hypertriglyceridemia Pseudohyponatremia secondary to severe hyperglycemia Hypertension Plan: The patient was seen and evaluated Labs and medications reviewed Maintained on her insulin pump Remains stable and on room air Cleared for discharge once cleared by medicine This patient was seen independently by the pulmonary nurse practitioner addressing pulmonary/critical care issues I have personally seen and examined the patient, performed the documentation and the assessment and plan as written. Number of minutes spent on the visit: 24 Dictation was produced using [employer] dictation software. Please excuse any gramm atical, word or spelling errors.
[2024-06-19 13:08] VITALS: BP 134/81; PULSE 90; TEMP 98.7
--- NOTE | 2024-06-19 22:13 | DS ---
DISCHARGE SUMMARY CHIEF COMPLAINT: Diabetic ketoacidosis with nausea and vomiting. HISTORY OF PRESENT ILLNESS AND PHYSICAL EXAMINATION: Details of this lady's history and physical can be found in the initial workup. LABORATORY STUDIES: While she is in the hospital, she had laboratory studies, details of which can be found in the laboratory section of her chart. COURSE IN THE HOSPITAL: After admission, she was placed on bedrest, started on intravenous fluids and antiemetics. She was started on DKA protocol, and her blood sugar has started to come down. She did complain of a lot of epigastric pain and was receiving morphine injections. Her intrauterine was followed by an videogame tester and it was determined that the fetus was viable. The morphine was stopped and the following day her pain is gone and it was felt she could be discharged on the . FINAL DIAGNOSIS: 1. Diabetic ketoacidosis. 2. Intractable nausea and vomiting. 3. Dehydration. 4. Intrauterine . 5. Epigastric pain, etiology unknown. OPERATIONS: None. CONSULTATIONS: Obstetrics. MYLES / BALJINDER: [id number] /
== END 2024-06-19 14:36 | disposition home or self-care (01) | DRG 831 ==
LOC: EC 08:11 → 2SICU 09:42 → 4SSUR 06-18 09:59 → 5NMEDONC 06-18 16:19
PROVIDERS: ADMIT Family Medicine; ATTEND Family Medicine
DX: O24.012 Pre-existing type 1 diabetes mellitus, in pregnancy, second trimester (principal); E10.11 Type 1 diabetes mellitus with ketoacidosis with coma; O16.2 Unspecified maternal hypertension, second trimester; O99.352 Diseases of the nervous system complicating pregnancy, second trimester; O21.0 Mild hyperemesis gravidarum; O99.282 Endocrine, nutritional and metabolic diseases complicating pregnancy, second trimester; O99.332 Smoking (tobacco) complicating pregnancy, second trimester; Z79.4 Long term (current) use of insulin; G43.909 Migraine, unspecified, not intractable, without status migrainosus; E78.1 Pure hyperglyceridemia; E86.0 Dehydration; Z3A.19 19 weeks gestation of pregnancy; Z79.899 Other long term (current) drug therapy; Z82.49 Family history of ischemic heart disease and other diseases of the circulatory system; Z96.41 Presence of insulin pump (external) (internal); F17.290 Nicotine dependence, other tobacco product, uncomplicated; Z88.8 Allergy status to other drugs, medicaments and biological substances; Z91.040 Latex allergy status; Z91.048 Other nonmedicinal substance allergy status; Z90.49 Acquired absence of other specified parts of digestive tract
CPT/HCPCS: 36415; 76805; 80051; 80053; 81001; 82009; 82565; 82803; 82947; 84100; 84520; 85025; 96361; 96365; 96366; 96375; 96376; 99291

== ENCOUNTER 2024-07-21 10:25 | Emergency (ER) | payer BC, OTHER ==
--- NOTE | 2024-07-21 11:13 | ED ---
General Adult HPI - General Chief complaint: Chest Pain Stated complaint: Chest Pain, Vomiting (23 weeks ) Time Seen by Provider: 07/21/24 11:06 Source: patient, RN notes reviewed Mode of arrival: ambulatory Limitations: no limitations - History of Present Illness Initial comments: This is a 24-year-old female with history of type I diabetes, on insulin pump, and 23 weeks , presenting to the emergency department for complaint of nausea, vomiting, abdominal cramping. She states that persistent vomiting started at 03 100 this morning. She attempted to take Zofran at home however was able to keep down the medication has been having persistent vomiting. She endorses diffuse abdominal cramping due to multiple episodes of emesis and dry heaving. She denies vaginal bleeding, urinary complaints, diarrhea. She admits to daily marijuana use. - Related Data Home Medications Medication Instructions Recorded Confirmed Glucagon [Gvoke Pfs 1-Pack Syringe] 1 mg SQ ONCE PRN 06/17/24 06/17/24 Insulin Aspart (For Pump) [NovoLOG 0.01 unit SQ-PUMP CONTINUOUS 06/17/24 06/17/24 (For Pump)] Labetalol [Trandate] 100 mg PO BID 06/17/24 06/17/24 Sertraline [Zoloft] 50 mg PO DAILY 06/17/24 06/17/24 Previous Rx's Medication Instructions Recorded Prochlorperazine Suppository 25 mg RECTAL BID PRN #10 supp 07/21/24 [Compazine] Prochlorperazine [Compazine] 10 mg PO Q6H PRN #28 tab 07/21/24 Allergies Allergy/AdvReac Type Severity Reaction Status Date / Time adhesive tape Allergy Rash/Hives Verified 07/21/24 10:37 latex Allergy Rash/Hives Verified 07/21/24 10:37 metoclopramide [From Reglan] AdvReac Anxiety Verified 07/21/24 10:37 attack Review of Systems ROS Statement: Those systems with pertinent positive or pertinent negative responses have been documented in the HPI. ROS Other: All systems not noted in ROS Statement are negative. Past Medical History Past Medical History: Diabetes Mellitus, GERD/Reflux, Hypertension Additional Past Medical History / Comment(s): migraine, pancreatitis History of Any Multi-Drug Resistant Organisms: None Reported Past Surgical History: Section, Cholecystectomy Additional Past Surgical History / Comment(s): right knee surgery Past Anesthesia/Blood Transfusion Reactions: No Reported Reaction Past Psychological History: Anxiety, Depression Smoking Status: Current every day smoker, Vaper Past Alcohol Use History: None Reported Past Drug Use History: Marijuana - Past Family History Sister(s) Family Medical History: Thyroid Disorder Brother(s) Family Medical History: Asthma Mother Family Medical History: No Reported History Father Family Medical History: Congestive Heart Failure (CHF), Coronary Artery Disease (CAD), Myocardial Infarction ([place]) Additional Family Medical History / Comment(s): at age 30 years General Exam Limitations: no limitations General appearance: alert, in no apparent distress ENT exam: Present: normal exam, mucous membranes moist Respiratory exam: Present: normal lung sounds bilaterally. Absent: respiratory distress, wheezes, rales, rhonchi, stridor Cardiovascular Exam: Present: regular rate, normal rhythm, normal heart sounds. Absent: systolic murmur, diastolic murmur, rubs, gallop, clicks GI/Abdominal exam: Present: soft, tenderness (epigastric), normal bowel sounds. Absent: distended, guarding, rebound, rigid Extremities exam: Present: normal inspection, full ROM, normal capillary refill. Absent: tenderness, pedal edema, joint swelling, calf tenderness Back exam: Present: normal inspection. Absent: CVA tenderness (R), CVA tenderness (L) Skin exam: Present: warm, dry, intact, normal color. Absent: rash Course Vital Signs 07/21/24 07/21/24 10:31 12:33 Temperature 98.1 F 97.8 F Pulse Rate 112 H 109 H Respiratory 17 18 Rate Blood Pressure 182/134 166/88 O2 Sat by Pulse 99 100 Oximetry Medical Decision Making - Medical Decision Making Was pt. sent in by a medical professional or institution (, PA, MANAGER OF BUSINESS OPERATIONS, urgent care, hospital, or [place] health care facility...) When possible be specific @ -No Did you speak to anyone other than the patient for history (EMS, parent, family, police, friend...)? What history was obtained from this source @ -No Did you review nursing and triage notes (agree or disagree)? Why? @ -I reviewed and agree with nursing and triage notes Were old charts reviewed (outside hosp., previous admission, EMS record, old EKG, old radiological studies, urgent care reports/EKG's, [place] health care facility records)? Report findings @ -No old charts were reviewed Differential Diagnosis (chest pain, altered mental status, abdominal pain women, abdominal pain men, vaginal bleeding, weakness, fever, dyspnea, syncope, headache, dizziness, GI bleed, back pain, seizure, CVA, palpatations, mental health, musculoskeletal)? @ -Differential Abdominal Pain Men: Appendicitis, cholecystitis, diverticulosis, ischemic bowel, pancreatitis, h epatitis, UTI, gastroenteritis, AAA, incarcerated hernia, bowel obstruction, constipation, inflammatory bowel, hepatitis, peptic ulcer disease, splenic infarction, perforated viscus, testicular torsion, this is not meant to be an all-inclusive list Woman EKG interpreted by me (3pts min.). @ -EKG was completed at 1216 sinus tachycardia with a ventricular rate of 110, AL interval 116, QRS 91, QTc 411. X-rays interpreted by me (1pt min.). @ -None done CT interpreted by me (1pt min.). @ -None done U/S interpreted by me (1pt. min.). @ -None done What testing was considered but not performed or refused? (CT, X-rays, U/S, labs)? Why? @ -None What meds were considered but not given or refused? Why? @ -None Did you discuss the management of the patient with other professionals (professionals i.e. , PA, MANAGER OF BUSINESS OPERATIONS, lab, RT, psych nurse, social work program coordinator, mobile phlebotomist, teacher, senior loan officer, disease case manager)? Give summary @ -No Was smoking cessation discussed for >3mins.? @ -No Was critical care preformed (if so, how long)? @ -No Were there social determinants of health that impacted care today? How? (Homelessness, low income, unemployed, alcoholism, drug addiction, transportation, low edu. Level, literacy, decrease access to med. care, fci, rehab)? @ -No Was there de-escalation of care discussed even if they declined (Discuss DNR or withdrawal of care, Hospice)? DNR status @ -No What co-morbidities impacted this encounter? (DM, HTN, Smoking, COPD, CAD, Cancer, CVA, ARF, Chemo, Hep., AIDS, mental health diagnosis, sleep apnea, morbid obesity)? @ -None Was patient admitted / discharged? Hospital course, mention meds given and route, prescriptions, significant lab abnormalities, going to OR and other pertinent info. @ -discharged. 24-year-old female presents emergency department with nausea, vomiting, and epigastric abdominal pain. EKG sinus tachycardia. Patient is a type I diabetic and is noted to be hyperglycemic with a blood sugar of 357. Patient is mildly ill-appearing and having multiple episodes of dry heaving when my examination. She is provided with 2 L fluids in addition to Zofran. Labs reveal leukocytosis 13.49 and left shift neutrophils 12.59 likely reactive secondary to emesis. Hyponatremia 129 likely secondary to mild dehydration in addition to sodium shifting during . Potassium of 5.2. Non-elevated anion gap of 13. Mild acidosis with a CO2 of 19. Urinalysis reveals 2+ ketones, 4+ glucose, 2+ protein. Acetone is negative. Patient is provided with Compazine for continued nausea. Patient states that she was given morphine during her last admission in the hospital to greatly improved her abdominal pain and is requesting morphine. Patient was advised of the possible side effects also requesting pain medication. She is provided with dose of morphine. Patient states she is feeling well. She is discharged with prescription for Compazine orally and rectally instructed follow-up as scheduled primary care provider and OB. Return parameters discussed. Case discussed with Dr. Fernandez Undiagnosed new problem with uncertain prognosis? @ -No Drug Therapy requiring intensive monitoring for toxicity (Heparin, Nitro, Insulin, Cardizem)? @ -No Were any procedures done? @ -No Diagnosis/symptom? @ -nausea and vomiting Acute, or Chronic, or Acute on Chronic? @ -acute Uncomplicated (without systemic symptoms) or Complicated (systemic symptoms)? @ -uncomplicated Side effects of treatment? @ -No Exacerbation, Progression, or Severe Exacerbation? @ -No Poses a threat to life or bodily function? How? (Chest pain, [place], [place], pneumonia, PE, COPD, DKA, ARF, appy, cholecystitis, CVA, Diverticulitis, Homicidal, Suicidal, threat to staff... and all critical care pts) @ -No - Lab Data Result diagrams: 07/21/24 11:22 07/21/24 11:22 Lab Results 07/21/24 07/21/24 07/21/24 Range/Units 11:22 11:22 11:22 WBC 13.49 H (4.50-10.00) 10*3/uL RBC 3.99 L (4.10-5.20) 10*6/uL Hgb 12.5 (12.0-15.0) g/dL Hct 36.4 L (37.2-46.3) % MCV 91.2 (80.0-97.0) fL MCH 31.3 (27.0-32.0) pg MCHC 34.3 (32.0-37.0) g/dL Plt Count 393 (140-440) 10*3/uL MPV 10.0 (9.5-12.2) fL Immature Gran % (Auto) 0.5 % Neutrophils % 93.3 % Lymphocytes % 2.5 % Monocytes % 2.6 % Eosinophils % 0.7 % Basophils % 0.4 % Immature Gran # 0.07 H (0.00-0.04) 10*3/uL Neutrophils # 12.59 H (1.80-7.70) 10*3/uL Lymphocytes # 0.34 L (0.90-5.00) 10*3/uL Monocytes # 0.35 (0.20-1.00) 10*3/uL Eosinophils # 0.09 (0.04-0.35) 10*3/uL Basophils # 0.05 (0.00-0.10) 10*3/uL Sodium 129 L (137-145) mmol/L Potassium 5.2 H (3.5-5.1) mmol/L Chloride 97 L (98-107) mmol/L Carbon Dioxide 19 L (22-30) mmol/L Anion Gap 13 mmol/L BUN 23 H (7-17) mg/dL Creatinine 0.87 (0.52-1.04) mg/dL Est GFR (CKD-EPI)AfAm >90 (>60 ml/min/1.73 sqM) Est GFR (CKD-EPI)NonAf >90 (>60 ml/min/1.73 sqM) Glucose 357 H (74-99) mg/dL POC Glucose (mg/dL) (70-110) mg/dL POC Glu Cost Recorder ID Plasma Lactic Acid Leroy 1.2 (0.7-2.0) mmol/L Calcium 9.6 (8.4-10.2) mg/dL Total Bilirubin 1.2 (0.2-1.3) mg/dL AST 19 (14-36) U/L ALT 10 (4-34) U/L Alkaline Phosphatase 99 (38-126) U/L Troponin I (0.000-0.034) ng/mL Total Protein 6.9 (6.3-8.2) g/dL Albumin 3.8 (3.5-5.0) g/dL Lipase 43 (23-300) U/L Urine Color Urine Appearance (Clear) Urine pH (5.0-8.0) Ur Specific [place] (1.001-1.035) Urine Protein (Negative) Urine Glucose (UA) (Negative) Urine Ketones (Negative) Urine Blood (Negative) Urine Nitrite (Negative) Urine Bilirubin (Negative) Urine Urobilinogen (<2.0) mg/dL Ur Leukocyte Esterase (Negative) Urine RBC (0-5) /hpf Urine WBC (0-5) /hpf Ur Squamous Epith Cells (0-4) /hpf Urine Bacteria (None) /hpf Urine Mucus (None) /hpf Acetone, Qual Negative (Negative) 07/21/24 07/21/24 07/21/24 Range/Units 11:22 12:18 13:00 WBC (4.50-10.00) 10*3/uL RBC (4.10-5.20) 10*6/uL Hgb (12.0-15.0) g/dL Hct (37.2-46.3) % MCV (80.0-97.0) fL MCH (27.0-32.0) pg MCHC (32.0-37.0) g/dL Plt Count (140-440) 10*3/uL MPV (9.5-12.2) fL Immature Gran % (Auto) % Neutrophils % % Lymphocytes % % Monocytes % % Eosinophils % % Basophils % % Immature Gran # (0.00-0.04) 10*3/uL Neutrophils # (1.80-7.70) 10*3/uL Lymphocytes # (0.90-5.00) 10*3/uL Monocytes # (0.20-1.00) 10*3/uL Eosinophils # (0.04-0.35) 10*3/uL Basophils # (0.00-0.10) 10*3/uL Sodium (137-145) mmol/L Potassium (3.5-5.1) mmol/L Chloride (98-107) mmol/L Carbon Dioxide (22-30) mmol/L Anion Gap mmol/L BUN (7-17) mg/dL Creatinine (0.52-1.04) mg/dL Est GFR (CKD-EPI)AfAm (>60 ml/min/1.73 sqM) Est GFR (CKD-EPI)NonAf (>60 ml/min/1.73 sqM) Glucose (74-99) mg/dL POC Glucose (mg/dL) 339 H (70-110) mg/dL POC Glu Cost Recorder ID Kieran Gibbs Plasma Lactic Acid Leroy (0.7-2.0) mmol/L Calcium (8.4-10.2) mg/dL Total Bilirubin (0.2-1.3) mg/dL AST (14-36) U/L ALT (4-34) U/L Alkaline Phosphatase (38-126) U/L Troponin I <0.012 (0.000-0.034) ng/mL Total Protein (6.3-8.2) g/dL Albumin (3.5-5.0) g/dL Lipase (23-300) U/L Urine Color Colorless Urine Appearance Clear (Clear) Urine pH 6.0 (5.0-8.0) Ur Specific [place] 1.016 (1.001-1.035) Urine Protein 2+ H (Negative) Urine Glucose (UA) 4+ H (Negative) Urine Ketones 2+ H (Negative) Urine Blood Small H (Negative) Urine Nitrite Negative (Negative) Urine Bilirubin Negative (Negative) Urine Urobilinogen <2.0 (<2.0) mg/dL Ur Leukocyte Esterase Negative (Negative) Urine RBC 6 H (0-5) /hpf Urine WBC 1 (0-5) /hpf Ur Squamous Epith Cells 4 (0-4) /hpf Urine Bacteria Occasional H (None) /hpf Urine Mucus Rare H (None) /hpf Acetone, Qual (Negative) 07/21/24 Range/Units 14:01 WBC (4.50-10.00) 10*3/uL RBC (4.10-5.20) 10*6/uL Hgb (12.0-15.0) g/dL Hct (37.2-46.3) % MCV (80.0-97.0) fL MCH (27.0-32.0) pg MCHC (32.0-37.0) g/dL Plt Count (140-440) 10*3/uL MPV (9.5-12.2) fL Immature Gran % (Auto) % Neutrophils % % Lymphocytes % % Monocytes % % Eosinophils % % Basophils % % Immature Gran # (0.00-0.04) 10*3/uL Neutrophils # (1.80-7.70) 10*3/uL Lymphocytes # (0.90-5.00) 10*3/uL Monocytes # (0.20-1.00) 10*3/uL Eosinophils # (0.04-0.35) 10*3/uL Basophils # (0.00-0.10) 10*3/uL Sodium (137-145) mmol/L Potassium (3.5-5.1) mmol/L Chloride (98-107) mmol/L Carbon Dioxide (22-30) mmol/L Anion Gap mmol/L BUN (7-17) mg/dL Creatinine (0.52-1.04) mg/dL Est GFR (CKD-EPI)AfAm (>60 ml/min/1.73 sqM) Est GFR (CKD-EPI)NonAf (>60 ml/min/1.73 sqM) Glucose (74-99) mg/dL POC Glucose (mg/dL) 221 H (70-110) mg/dL POC Glu Cost Recorder ID [facility] Plasma Lactic Acid [place] (0.7-2.0) mmol/L Calcium (8.4-10.2) mg/dL Total Bilirubin (0.2-1.3) mg/dL AST (14-36) U/L ALT (4-34) U/L Alkaline Phosphatase (38-126) U/L Troponin I (0.000-0.034) ng/mL Total Protein (6.3-8.2) g/dL Albumin (3.5-5.0) g/dL Lipase (23-300) U/L Urine Color Urine Appearance (Clear) Urine pH (5.0-8.0) Ur Specific [place] (1.001-1.035) Urine Protein (Negative) Urine Glucose (UA) (Negative) Urine Ketones (Negative) Urine Blood (Negative) Urine Nitrite (Negative) Urine Bilirubin (Negative) Urine Urobilinogen (<2.0) mg/dL Ur Leukocyte Esterase (Negative) Urine RBC (0-5) /hpf Urine WBC (0-5) /hpf Ur Squamous Epith Cells (0-4) /hpf Urine Bacteria (None) /hpf Urine Mucus (None) /hpf Acetone, Qual (Negative) Disposition Clinical Impression: Nausea and vomiting Disposition: HOME SELF-CARE Condition: Good Instructions (If sedation given, give patient instructions): Nausea and Vomiting in (ED) Additional Instructions: Please return to the Emergency Department if symptoms worsen or any other concerns. Prescriptions: Prochlorperazine [Compazine] 10 mg PO Q6H PRN #28 tab PRN Reason: Nausea Prochlorperazine Suppository [Compazine] 25 mg RECTAL BID PRN #10 supp PRN Reason: Nausea Is patient prescribed a controlled substance at d/c from ED?: No Referrals: Louis Shore MD [Primary Care Provider] - 1-2 days Time of Disposition: 13:52
[2024-07-21] MEDS: SODIUM CHLORIDE 0.9% 2,000 ML IV STA (11:23)
[2024-07-21] MEDS: ONDANSETRON 4 MG/2 ML VIAL IVP STA (11:23)
[2024-07-21 11:31] LABS: Basophils # (A) 0.05 10*3/uL (0.00-0.10); Basophils % (A) 0.4 %; Eosinophils # (A) 0.09 10*3/uL (0.04-0.35); Eosinophils % (A) 0.7 %; HCT 36.4 % (37.2-46.3); HGB 12.5 g/dL (12.0-15.0); Lymphocytes # (A) 0.34 10*3/uL (0.90-5.00); Lymphocytes % (A) 2.5 %; MCH 31.3 pg (27.0-32.0); MCHC 34.3 g/dL (32.0-37.0); MCV 91.2 fL (80.0-97.0); Monocytes # (A) 0.35 10*3/uL (0.20-1.00); Monocytes % (A) 2.6 %; Neutrophils # (A) 12.59 10*3/uL (1.80-7.70); Neutrophils % (A) 93.3 %; Platelet Count 393 10*3/uL (140-440); RBC 3.99 10*6/uL (4.10-5.20); RDW 12.6 % (11.5-14.5); WBC 13.49 10*3/uL (4.50-10.00)
[2024-07-21 11:43] LABS: ALT 10 U/L (4-34); AST 19 U/L (14-36); African American GFR (CKD) >90 (>60 ml/min/1.73 sqM); Albumin 3.8 g/dL (3.5-5.0); Alkaline Phosphatase 99 U/L (38-126); Anion Gap 13 mmol/L; Blood Urea Nitrogen 23 mg/dL (7-17); Calcium 9.6 mg/dL (8.4-10.2); Carbon Dioxide 19 mmol/L (22-30); Chloride 97 mmol/L (98-107); Glucose 357 mg/dL (74-99); Lipase 43 U/L (23-300); Non-African American GFR(CKD) >90 (>60 ml/min/1.73 sqM); Potassium 5.2 mmol/L (3.5-5.1); Sodium 129 mmol/L (137-145); Total Bilirubin 1.2 mg/dL (0.2-1.3); Total Protein 6.9 g/dL (6.3-8.2)
[2024-07-21 12:20] LABS: Glucose,Whole Blood 339 mg/dL (70-110)
[2024-07-21] MEDS: INSULIN REGULAR 100 UNIT/ML VIAL (IV) IV ONE (12:26)
[2024-07-21] MEDS: PROCHLORPERAZINE INJ 10 MG/2 ML VIAL IVP STA ×2 (12:29→13:43)
[2024-07-21 12:35] VITALS: RESP 18
[2024-07-21 13:21] LABS: Appearance,Urine Clear (Clear); Bacteria,Urine Occasional /hpf; Bilirubin,Urine Negative (Negative); Blood,Urine Small (Negative); Color,Urine Colorless; Glucose,Urine (UA) 4+ (Negative); Leukocyte Esterase,Urine Negative (Negative); Mucus,Urine Rare /hpf; Nitrite,Urine Negative (Negative); Protein,Urine 2+ (Negative); RBC,Urine 6 /hpf (0-5); Specific Gravity,Urine 1.016 (1.001-1.035); Squamous Epithelial Cell,Urine 4 /hpf (0-4); Urobilinogen,Urine <2.0 mg/dL (<2.0); WBC,Urine 1 /hpf (0-5)
[2024-07-21 13:32] LABS: Ketones,Urine 2+ (Negative)
[2024-07-21] MEDS: MORPHINE SULFATE 4 MG/ML SYRINGE IVP STA (13:57)
[2024-07-21 14:02] LABS: Glucose,Whole Blood 221 mg/dL (70-110)
[2024-07-21 14:34] VITALS: BP 146/76; PULSE 78; TEMP 98.4
== END 2024-07-21 14:34 | disposition home or self-care (01) ==
LOC: EC 10:25
DX: O21.2 Late vomiting of pregnancy (principal); O24.012 Pre-existing type 1 diabetes mellitus, in pregnancy, second trimester; E10.65 Type 1 diabetes mellitus with hyperglycemia; O99.332 Smoking (tobacco) complicating pregnancy, second trimester; F17.290 Nicotine dependence, other tobacco product, uncomplicated; Z96.41 Presence of insulin pump (external) (internal); Z91.09 Other allergy status, other than to drugs and biological substances; Z91.040 Latex allergy status; Z88.8 Allergy status to other drugs, medicaments and biological substances; Z3A.23 23 weeks gestation of pregnancy
CPT/HCPCS: 96375 ×2; 96376 ×2; 96361 ×2; 96374 ×2; 99285 ×2; 36415; 93005; 80053; 82009; 83605; 83690; 84484; 85025; 81001; J2270; J0780; J2405

== ENCOUNTER 2024-07-23 00:23 | Emergency (ER) | payer BC, OTHER ==
[2024-07-23 00:39] LABS: Glucose,Whole Blood 82 mg/dL (70-110)
[2024-07-23] MEDS ORDERED: DEXTROSE 5%-LACTATED RINGERS 1,000 ML IV SCH (01:15)
[2024-07-23] MEDS: diphenhydrAMINE 50 MG/ML 1 ML VIAL IVP STA (01:31)
[2024-07-23] MEDS: FAMOTIDINE 20 MG/2 ML VIAL IV STA (01:33)
--- NOTE | 2024-07-23 01:33 | ED ---
General Adult HPI - General Source: patient, EMS Mode of arrival: EMS Limitations: no limitations <Stacie Singletary - Last Filed: 07/23/24 19:19> <Humaira Robles - Last Filed: 07/24/24 00:58> - General Chief complaint: Nausea/Vomiting/Diarrhea Stated complaint: Vomitting Time Seen by Provider: 07/23/24 00:55 - History of Present Illness Initial comments: 24-year-old G2, P1 female with gestational age of approximately 23 weeks presents to the ER for evaluation. Patient reports she has a history significant for type 1 diabetes and preeclampsia. Patient reports she was sleeping in bed when her Dexcom alerted her that her blood sugar was 44 at which point called EMS. Patient received 1 amp of dextrose prior to coming to the hospital.Patient reports her blood sugars were all over the place with her last as well and that she has had to use glucagon 2 times in the last few weeks. It is of note that patient reported to the ER 2 days ago for similar symptoms of nausea, vomiting, abdominal cramping. Patient reports she has hyperemesis gravidarum and takes Zofran but did not have any relief after taking any. Reports she has been unable to keep anything down. Patient denies any smoking, alcohol use, or marijuana use. States she had preeclampsia with her last , currently on labetalol 200 mg twice daily. Denies any leakage of fluids or contractions. (SingletaryStacie villarreal) - Related Data Home Medications Medication Instructions Recorded Confirmed Glucagon [Gvoke Pfs 1-Pack Syringe] 1 mg SQ ONCE PRN 06/17/24 07/23/24 Insulin Aspart (For Pump) [NovoLOG 0.01 unit SQ-PUMP CONTINUOUS 06/17/24 07/23/24 (For Pump)] Labetalol [Trandate] 200 mg PO BID 06/17/24 07/23/24 FLUoxetine HCL [PROzac] 10 mg PO DAILY 07/23/24 07/23/24 Allergies Allergy/AdvReac Type Severity Reaction Status Date / Time adhesive tape Allergy Rash/Hives Verified 07/23/24 00:33 latex Allergy Rash/Hives Verified 07/23/24 00:33 metoclopramide [From Reglan] AdvReac Anxiety Verified 07/23/24 00:33 attack Review of Systems ROS Other: All systems not noted in ROS Statement are negative. Constitutional: Reports: chills. Denies: fever Respiratory: Denies: cough, dyspnea Cardiovascular: Denies: chest pain Gastrointestinal: Reports: abdominal pain (RUQ), nausea, vomiting Genitourinary: Denies: urgency, dysuria Musculoskeletal: Denies: back pain Skin: Denies: rash, lesions Neurological: Denies: headache <Stacie Singletary Last Filed: 07/23/24 19:19> ROS Other: All systems not noted in ROS Statement are negative. <Humaira Robles - Last Filed: 07/24/24 00:58> ROS Statement: Those systems with pertinent positive or pertinent negative responses have been documented in the HPI. Past Medical History Past Medical History: Diabetes Mellitus, GERD/Reflux, Hypertension Additional Past Medical History / Comment(s): migraine, pancreatitis History of Any Multi-Drug Resistant Organisms: None Reported Past Surgical History: Section, Cholecystectomy Additional Past Surgical History / Comment(s): right knee surgery Past Anesthesia/Blood Transfusion Reactions: No Reported Reaction Past Psychological History: Anxiety, Depression Smoking Status: Current every day smoker, Vaper Past Alcohol Use History: None Reported Past Drug Use History: Marijuana - Past Family History Sister(s) Family Medical History: Thyroid Disorder Brother(s) Family Medical History: Asthma Mother Family Medical History: No Reported History Father Family Medical History: Congestive Heart Failure (CHF), Coronary Artery Disease (CAD), Myocardial Infarction ([place]) Additional Family Medical History / Comment(s): at age 30 years <Stacie Singletary Last Filed: 07/23/24 19:19> General Exam Limitations: no limitations General appearance: alert, in distress Respiratory exam: Present: normal lung sounds bilaterally. Absent: respiratory distress, wheezes Cardiovascular Exam: Present: normal rhythm, tachycardia GI/Abdominal exam: Present: soft, tenderness. Absent: guarding Psychiatric exam: Present: normal affect, normal mood Skin exam: Present: warm, dry, intact <Stacie Singletary - Last Filed: 07/23/24 19:19> Course Vital Signs 07/23/24 07/23/24 07/23/24 00:28 00:43 01:49 Pulse Rate 105 H 97 70 Respiratory 17 17 16 Rate Blood Pressure 188/112 154/86 160/90 O2 Sat by Pulse 100 100 100 Oximetry Medical Decision Making - Lab Data Result diagrams: 07/23/24 00:46 07/23/24 00:46 <SingletaryStacie - Last Filed: 07/23/24 19:19> - Lab Data Result diagrams: 07/23/24 00:46 07/23/24 00:46 <Humaira Robles - Last Filed: 07/24/24 00:58> - Medical Decision Making Was pt. sent in by a medical professional or institution (, [facility], [facility], urgent care, hospital, or fpc...) When possible be specific @ -No Did you speak to anyone other than the patient for history (EMS, parent, family, police, friend...)? What history was obtained from this source @ -No Did you review nursing and triage notes (agree or disagree)? Why? @ -I reviewed and agree with nursing and triage notes Were old charts reviewed (outside hosp., previous admission, EMS record, old EKG, old radiological studies, urgent care reports/EKG's, fpc records)? Report findings @ -No old charts were reviewed Differential Diagnosis? @ -Differential Abdominal Pain Women: Appendicitis, Cholecystitis, diverticulosis, ischemic bowel, pancreatitis, hepat itis, UTI, gastroenteritis, AAA, incarcerated hernia, bowel obstruction, constipation, inflammatory bowel, hepatitis, peptic ulcer disease, splenic infarction, perforated viscus, vulvitis, ovarian torsion, PID, kidney stone, placenta abruption, this is not meant to be an all-inclusive list EKG interpreted by me (3pts min.). @ -As above X-rays interpreted by me (1pt min.). @ -None done CT interpreted by me (1pt min.). @ -None done U/S interpreted by me (1pt. min.). @ -None done What testing was considered but not performed or refused? (CT, X-rays, U/S, labs)? Why? @ -None What meds were considered but not given or refused? Why? @ -None Did you discuss the management of the patient with other professionals (professionals i.e. [facility], [facility], lab, RT, psych nurse, social worker health services, resource paraprofessional, teacher, jail officer, watch caser)? Give summary @ -Case was discussed with ED attending Dr. [place]. Case was discussed with Dr. Garza who agreed patient should go to [facility]. Was smoking cessation discussed for >3mins.? @ -No Was critical care preformed (if so, how long)? @ -No Were there social determinants of health that impacted care today? How? (Homelessness, low income, unemployed, alcoholism, drug addiction, transportation, low edu. Level, literacy, decrease access to med. care, fpc, rehab)? @ -No Was there de-escalation of care discussed even if they declined (Discuss DNR or withdrawal of care, Hospice)? DNR status @ -No What co-morbidities impacted this encounter? (DM, HTN, Smoking, COPD, CAD, Cancer, CVA, ARF, Chemo, Hep., AIDS, mental health diagnosis, sleep apnea, morbid obesity)? @ -None Was patient admitted / discharged? Hospital course, mention meds given and route, prescriptions, significant lab abnormalities, going to OR and other pertinent info. @ -Patient received IV Pepcid, Zofran, Benadryl in the ER. 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 Undiagnosed new problem with uncertain prognosis? @ -No Drug Therapy requiring intensive monitoring for toxicity (Heparin, Nitro, Insulin, Cardizem)? @ -No Were any procedures done? @ -No Diagnosis/symptom? @ -Hyperemesis gravidarum, hypertension versus preeclampsia, hypoglycemia Acute, or Chronic, or Acute on Chronic? @ -Acute Uncomplicated (without systemic symptoms) or Complicated (systemic symptoms)? @ -Default Side effects of treatment? @ -No Exacerbation, Progression, or Severe Exacerbation? @ -No Poses a threat to life or bodily function? How? (Chest pain, [place], [place], pneumonia, PE, COPD, DKA, ARF, appy, cholecystitis, CVA, Diverticulitis, Homicidal, Suicidal, threat to staff... and all critical care pts) @ -No (Stacie Singletary) I personally saw the patient and performed the critical portion of the service. I discussed the patient care with the resident physician. I directed management, care planning and final disposition of the patient. This includes, but not limited to, review of all lab work, radiological studies, EKG's, consultations, vital signs, and nursing notes. Patient is a 24-year-old female currently 23 weeks , history of type 1 diabetes, preeclampsia presenting today for hypoglycemia, nausea and vomiting. Case was presented to myself by resident physician and immediately upon noting patient's history of preeclampsia, symptoms of nausea and vomiting and blood pressure on arrival 188/112, directed resident physician to contact obstetrics and gynecology for potential transfer up to family given hypertension, [place] and vomiting concerning for symptoms of preeclampsia. On my assessment patient is well-appearing in no acute distress resting comfortably. Repeat blood pressure 154/86. Patient endorses nausea and vomiting and has right upper quadrant pain. D5 LR, medications for nausea ordered, preeclampsia labs ordered. Dr. Garza, obstetrics and gynecology kindly responded immediately and accepted patient for transfer up to family due to presentation concerning for preeclampsia. Patient was transferred to [facility] for further care. Critical care time of 0 minutes excluding separately billable procedures was spent in conjunction with critical care activities provided by the Resident and Attending simultaneously. I was present during no procedures for all critical portions of the procedure and as immediately available to furnish service during the entire procedure. (Humaira Robles) - Lab Data Lab Results 07/23/24 07/23/24 07/23/24 Range/Units 00:38 00:46 00:46 WBC 8.18 (4.50-10.00) 10*3/uL RBC 3.70 L (4.10-5.20) 10*6/uL Hgb 11.6 L (12.0-15.0) g/dL Hct 33.8 L (37.2-46.3) % MCV 91.4 (80.0-97.0) fL MCH 31.4 (27.0-32.0) pg MCHC 34.3 (32.0-37.0) g/dL Plt Count 437 (140-440) 10*3/uL MPV 9.7 (9.5-12.2) fL Immature Gran % (Auto) 1.2 % Neutrophils % 73.8 % Lymphocytes % 16.4 % Monocytes % 6.1 % Eosinophils % 1.8 % Basophils % 0.7 % Immature Gran # 0.10 H (0.00-0.04) 10*3/uL Neutrophils # 6.03 (1.80-7.70) 10*3/uL Lymphocytes # 1.34 (0.90-5.00) 10*3/uL Monocytes # 0.50 (0.20-1.00) 10*3/uL Eosinophils # 0.15 (0.04-0.35) 10*3/uL Basophils # 0.06 (0.00-0.10) 10*3/uL Sodium (137-145) mmol/L Potassium (3.5-5.1) mmol/L Chloride (98-107) mmol/L Carbon Dioxide (22-30) mmol/L Anion Gap mmol/L BUN (7-17) mg/dL Creatinine (0.52-1.04) mg/dL Est GFR (CKD-EPI)AfAm (>60 ml/min/1.73 sqM) Est GFR (CKD-EPI)NonAf (>60 ml/min/1.73 sqM) Glucose (74-99) mg/dL POC Glucose (mg/dL) 82 (70-110) mg/dL POC Glu Waterproof Material Folder ID Irene Conner Uric Acid (3.7-7.4) mg/dL Calcium (8.4-10.2) mg/dL Total Bilirubin (0.2-1.3) mg/dL AST (14-36) U/L ALT (4-34) U/L Alkaline Phosphatase (38-126) U/L Lactate Dehydrogenase 244 (120-246) U/L Total Protein (6.3-8.2) g/dL Albumin (3.5-5.0) g/dL 07/23/24 Range/Units 00:46 WBC (4.50-10.00) 10*3/uL RBC (4.10-5.20) 10*6/uL Hgb (12.0-15.0) g/dL Hct (37.2-46.3) % MCV (80.0-97.0) fL MCH (27.0-32.0) pg MCHC (32.0-37.0) g/dL Plt Count (140-440) 10*3/uL MPV (9.5-12.2) fL Immature Gran % (Auto) % Neutrophils % % Lymphocytes % % Monocytes % % Eosinophils % % Basophils % % Immature Gran # (0.00-0.04) 10*3/uL Neutrophils # (1.80-7.70) 10*3/uL Lymphocytes # (0.90-5.00) 10*3/uL Monocytes # (0.20-1.00) 10*3/uL Eosinophils # (0.04-0.35) 10*3/uL Basophils # (0.00-0.10) 10*3/uL Sodium 134 L (137-145) mmol/L Potassium 4.1 (3.5-5.1) mmol/L Chloride 101 (98-107) mmol/L Carbon Dioxide 23 (22-30) mmol/L Anion Gap 10 mmol/L BUN 24 H (7-17) mg/dL Creatinine 0.89 (0.52-1.04) mg/dL Est GFR (CKD-EPI)AfAm >90 (>60 ml/min/1.73 sqM) Est GFR (CKD-EPI)NonAf >90 (>60 ml/min/1.73 sqM) Glucose 76 (74-99) mg/dL POC Glucose (mg/dL) (70-110) mg/dL POC Glu Waterproof Material Folder ID Uric Acid 8.2 H (3.7-7.4) mg/dL Calcium 9.1 (8.4-10.2) mg/dL Total Bilirubin 0.6 (0.2-1.3) mg/dL AST 27 (14-36) U/L ALT 14 (4-34) U/L Alkaline Phosphatase 83 (38-126) U/L Lactate Dehydrogenase (120-246) U/L Total Protein 6.8 (6.3-8.2) g/dL Albumin 3.7 (3.5-5.0) g/dL Disposition Is patient prescribed a controlled substance at d/c from ED?: No <Stacie Singletary - Last Filed: 07/23/24 19:19> <Humaira Robles - Last Filed: 07/24/24 00:58> Clinical Impression: Hypertension during , Hypoglycemia, Hyperemesis gravidarum Disposition: ADMITTED IP TO THIS HOSP Condition: Stable Referrals: Louis Shore MD [Primary Care Provider] - 1-2 days
[2024-07-23] MEDS: ONDANSETRON 8 MG in SODIUM CHLORIDE 0.9% 50 ML IVPB ONE (01:35)
[2024-07-23 01:51] VITALS: BP 160/90; PULSE 70; RESP 16
[2024-07-23 01:54] LABS: Basophils # (A) 0.06 10*3/uL (0.00-0.10); Basophils % (A) 0.7 %; Eosinophils # (A) 0.15 10*3/uL (0.04-0.35); Eosinophils % (A) 1.8 %; HCT 33.8 % (37.2-46.3); HGB 11.6 g/dL (12.0-15.0); Lymphocytes # (A) 1.34 10*3/uL (0.90-5.00); Lymphocytes % (A) 16.4 %; MCH 31.4 pg (27.0-32.0); MCHC 34.3 g/dL (32.0-37.0); MCV 91.4 fL (80.0-97.0); Mean Platelet Volume 9.7 fL (9.5-12.2); Monocytes % (A) 6.1 %; Neutrophils # (A) 6.03 10*3/uL (1.80-7.70); Neutrophils % (A) 73.8 %; Platelet Count 437 10*3/uL (140-440); RDW 13.1 % (11.5-14.5); WBC 8.18 10*3/uL (4.50-10.00)
[2024-07-23 02:07] LABS: ALT 14 U/L (4-34); AST 27 U/L (14-36); African American GFR (CKD) >90 (>60 ml/min/1.73 sqM); Albumin 3.7 g/dL (3.5-5.0); Alkaline Phosphatase 83 U/L (38-126); Anion Gap 10 mmol/L; Blood Urea Nitrogen 24 mg/dL (7-17); Calcium 9.1 mg/dL (8.4-10.2); Carbon Dioxide 23 mmol/L (22-30); Chloride 101 mmol/L (98-107); Glucose 76 mg/dL (74-99); Non-African American GFR(CKD) >90 (>60 ml/min/1.73 sqM); Potassium 4.1 mmol/L (3.5-5.1); Sodium 134 mmol/L (137-145); Total Bilirubin 0.6 mg/dL (0.2-1.3); Total Protein 6.8 g/dL (6.3-8.2); Uric Acid 8.2 mg/dL (3.7-7.4)
== END 2024-07-23 01:51 | disposition other institution (70) ==
LOC: EC 00:23
DX: O10.912 Unspecified pre-existing hypertension complicating pregnancy, second trimester (principal); E10.649 Type 1 diabetes mellitus with hypoglycemia without coma; O21.0 Mild hyperemesis gravidarum; O99.332 Smoking (tobacco) complicating pregnancy, second trimester; F17.290 Nicotine dependence, other tobacco product, uncomplicated; Z88.8 Allergy status to other drugs, medicaments and biological substances; Z91.040 Latex allergy status; Z91.09 Other allergy status, other than to drugs and biological substances; Z3A.23 23 weeks gestation of pregnancy
CPT/HCPCS: 99285; 96374; 96375 ×2; 36415; 80053; 83615; 84550; 85025; J1200; J2405; J1308

== ENCOUNTER 2024-07-23 01:56 | Outpatient (CLI) | payer BC, OTHER ==
[2024-07-23] MEDS: ACETAMINOPHEN IV (For NPO) 1,000 MG in EMPTY BAG 1 BAG IVPB ONE (02:47)
[2024-07-23] MEDS: LACTATED RINGERS 500 ML IV SCH (02:49)
[2024-07-23 03:41] LABS: Glucose,Whole Blood 145 mg/dL (70-110)
[2024-07-23 04:04] LABS: Appearance,Urine Clear (Clear); Bacteria,Urine Few /hpf; Bilirubin,Urine Negative (Negative); Blood,Urine Small (Negative); Budding Yeast,Urine Rare /hpf; Color,Urine Light Yellow; Glucose,Urine (UA) Trace (Negative); Granular Casts,Urine 1 /lpf (0); Hyaline Casts,Urine 23 /lpf (0-2); Ketones,Urine 1+ (Negative); Leukocyte Esterase,Urine Negative (Negative); Mucus,Urine Rare /hpf; Nitrite,Urine Negative (Negative); Protein,Urine 2+ (Negative); RBC,Urine 4 /hpf (0-5); Specific Gravity,Urine 1.015 (1.001-1.035); Squamous Epithelial Cell,Urine 1 /hpf (0-4); Urobilinogen,Urine <2.0 mg/dL (<2.0); WBC,Urine 3 /hpf (0-5)
[2024-07-23 04:25] LABS: Creatinine,Urine Random 99.5 mg/dL
[2024-07-23] MEDS ORDERED: CAPSAICIN 0.025% CREAM 60 GM TUBE TOPICAL SCH (05:00)
[2024-07-23] MEDS: LABETALOL 5 MG/ML VIAL MDV IVP STA ×3 (05:14→06:49)
[2024-07-23] MEDS: PROCHLORPERAZINE INJ 10 MG/2 ML VIAL IVP STA (06:09)
[2024-07-23 07:58] VITALS: BP 166/89; PULSE 86; RESP 16; TEMP 96.8
--- NOTE | 2024-08-15 20:09 | P.MSEPDOC ---
Presenting Problems - Arrival Data Date of Arrival on Unit: 07/23/24 Time of Arrival on Unit: 01:56 Mode of Transport: Wheelchair - Complaint OB-Reason for Admission/Chief Complaint: Acute Nausea/Vomiting, Headache, Elevated Blood Pressure Comment: Pt was elvaluated in ER after coming in via EMS. Medical History - Information : 2 Para: 1 Term: 0 : 1 Abortions: Spontaneous or Elective: 0 Number of Living Children: 1 - Gestational Age Gestational Age by MONY (wks/days): 23 Weeks and 2 Days - History Complications: Other Comment: High Blood Pressure, Type 1 Diabetes,nausea Review of Systems - Review of Systems Constitutional: Fatigue Breast: No problems ENT: No problems Cardiovascular: No problems Respiratory: No problems Gastrointestinal: No problems Genitourinary: No problems Musculoskeletal: No problems Neurological: No problems Skin: No problems Vital Signs - Temperature Temperature: 96.8 F Temperature Source: Temporal Artery Scan - Pulse Right Sitting Pulse Rate: 86 Pulse Assessment Method: Automatic Cuff - Respirations Respiratory Rate: 16 Oxygen Delivery Method: Room Air O2 Sat by Pulse Oximetry: 100 - Blood Pressure Right Arm Sitting Blood Pressure: 166/89 Blood Pressure Mean: 114 Blood Pressure Source: Automatic Cuff Physician Notification - Physician Notified Physician Notified Date: 07/23/24 Physician Notified Time: 02:30 Physician: Dina Garza New Order Received: Yes (Labetalol IV push) Maternal Triage Index - Maternal Triage Index Presenting for scheduled procedure w/no complaint: No - Stat/Priority 1 Stat Priority 1: Yes Provider Notified: Dina Garza Provider Notified Time: 02:30 Criteria Met for Priority 1: Blood pressure of 166/89. 23 2/7. Headache, Type 1 diabetic. Pt came from ER to have a urinalysis to rule out preeclampsia. Disposition - Disposition OB Disposition: Discharge to home, Written follow up instructions reviewed Discharge Date: 07/23/24 Discharge Time: 06:54 I agree with the RN Medical Screening Exam: Yes Physician's MSE Comment: I have neither seen no examined the patient Case reviewed; plan agreed upon as documented in EMR&OBIX.: Yes Diagnosis: RELATED CONDITIONS, UNSPECIFIED, THIRD TRIMESTER
== END 2024-07-23 07:10 | disposition home or self-care (01) ==
LOC: FBPOP 01:56
PROVIDERS: ATTEND Obstetrics & Gynecology
DX: O21.9 Vomiting of pregnancy, unspecified (principal); O13.2 Gestational [pregnancy-induced] hypertension without significant proteinuria, second trimester; O26.892 Other specified pregnancy related conditions, second trimester; O99.322 Drug use complicating pregnancy, second trimester; Z3A.23 23 weeks gestation of pregnancy; Z91.048 Other nonmedicinal substance allergy status; Z91.040 Latex allergy status; Z88.8 Allergy status to other drugs, medicaments and biological substances
CPT/HCPCS: 96376; 99215; 96361; 96365; 96375; 82570; 84156; 81001; J0780; J0131; J1920